=== PATIENT | female | born 1940 | race Caucasian/White ===

== ENCOUNTER 2021-04-23 19:06 | Inpatient (IN) | payer MEDICARE, SELFPAY ==
--- NOTE | ~2021-04-23 | XR_ITS ---
EXAMINATION: XR CHEST CLINICAL INFORMATION: Weakness COMPARISON: 08/17/2018 TECHNIQUE: Frontal view of the chest was obtained. FINDINGS: Right lower lobe opacity consistent with infiltrate. Likely small area of infiltrate left midlung laterally. Patchy change may be present in the right upper lung. Left hemidiaphragm is not adequately seen. Cannot exclude trace effusion. The cardiac silhouette is comparable. XR/XR chest 1V IMPRESSION: Bilateral opacities most consistent with infiltrate. Given the appearance element of patchy pulmonary edema would be a consideration
--- NOTE | 2021-04-23 19:24 | ECG_ITS ---
Test Reason : medical Blood Pressure : / mmHG Vent. Rate : 060 BPM Atrial Rate : 150 BPM P-R Int : 238 ms QRS Dur : 078 ms QT Int : 482 ms P-R-T Axes : 057 -09 010 degrees QTc Int : 482 ms Normal sinus rhythm with 1st degree A-V block Abnormal ECG When compared with ECG of 17-AUG-2018 15:01, No significant changes seen Referred By: Heidi Martinez Electronically Signed By:ARY ARGUELLES
[2021-04-23 19:32] VITALS: BP 101/39; BP 108/80; PULSE 54; PULSE 61; RESP 18; TEMP 36.5; O2SAT 96; BMI 34.6
--- NOTE | 2021-04-23 19:40 | ED.GENADULT ---
HPI - General Adult General Chief complaint: General Medical <ALLEGRA Stauffer - Last Filed: 04/23/21 21:08> Stated complaint: WEAKNESS, FTT <ALLEGRA Stauffer - Last Filed: 04/23/21 21:08> Time Seen by Provider: 04/23/21 19:23 <ALLEGRA Stauffer - Last Filed: 04/23/21 21:08> Source: patient, EMS, RN notes reviewed and old records reviewed <ALLEGRA Stauffer - Last Filed: 04/23/21 21:08> Mode of arrival: EMS <ALLEGRA Stauffer - Last Filed: 04/23/21 21:08> Limitations: no limitations <ALLEGRA Stauffer Last Filed: 04/23/21 21:08> History of Present Illness HPI narrative: 80-year-old female with history of AFib on Xarelto & amiodarone, hypertension, diabetes, osteoarthritis s/p right total knee replacement, HLD, hypothyroidism who presents to the ED via EMS from [facility] with lethargy, generalized weakness and poor PO intake for the last 3-4 days. Patient reports not feeling well lately but cannot elaborate. She denies abdominal pain, nausea, vomiting or diarrhea but admits to not eating or drinking much of anything for days because she has had no appetite. She denies fever, chills, shortness of breath or chest pain. She is fully vaccinated for COVID with Pfizer including the booster which she received on 04/15/21. She reports being bedbound chronically and has been at [facility] for the last 1 year. On EMS arrival patient was hypotensive with SBP 89 and HR 50. By the time she was brought to the ambulance her VS normalized. IV was established and she was given 250 cc en route. DNR/DNI. <ALLEGRA Stauffer - Last Filed: 04/23/21 21:08> MD complaint: generalized weakness <ALLEGRA Stauffer - Last Filed: 04/23/21 21:08> Onset (ago): day(s) (4) <ALLEGRA Stauffer Last Filed: 04/23/21 21:08> Severity: moderate <ALLEGRA Stauffer Last Filed: 04/23/21 21:08> Pain Consistency: constant <ALLEGRA Stauffer - Last Filed: 04/23/21 21:08> Relieving factors: none <ALLEGRA Stauffer - Last Filed: 04/23/21 21:08> Exacerbating factors: none <ALLEGRA Stauffer - Last Filed: 04/23/21 21:08> Associated symptoms: loss of appetite, malaise and weakness <ALLEGRA Stauffer - Last Filed: 04/23/21 21:08> Treatments prior to arrival: other (IV fluids) <ALLEGRA Stauffer - Last Filed: 04/23/21 21:08> Related Data Allergies/adverse reactions: Allergies Allergy/AdvReac Type Severity Reaction Status Date / Time moxifloxacin [Avelox] Allergy Unknown rash Verified 12/24/12 00:00 From AVELOX Allergy Unknown BLOTCHES Uncoded 12/25/19 16:19 ALL OVER FACE <ALLEGRA Stauffer - Last Filed: 04/23/21 21:08> Review of Systems Review of Systems: Constitutional: No Fever, No Chills ENT/Mouth: No sore throat, No Rhinorrhea, No Swallowing Difficulty Cardiovascular: No Chest Pain, No SOB, No Orthopnea, No Edema Respiratory: No Cough, No Sputum, No Wheezing, No dyspnea Gastrointestinal: No Nausea, No Vomiting, No Diarrhea, No abdominal Pain Genitourinary: No Dysuria, No Urinary Frequency, No Hematuria Musculoskeletal: No joint pain, No Myalgias Skin: No Skin Lesions, No rash Neuro: + Weakness, No Numbness, No Dizziness, No Headache Psych: No Anxiety/Panic, No Depression Heme/Lymph: No Bruising, No Lymphadenopathy Endocrine: No Polyuria, No Polydipsia <ALLEGRA Stauffer Last Filed: 04/23/21 21:08> [facility] Past Medical History Medical History: Medical History (Updated 04/23/21 @ 22:04 by Magdaleno Soares MD) Chronic atrial fibrillation, unspecified History of falling Hyperlipidemia, unspecified Hypothyroidism, unspecified Localized edema detention (current) use of anticoagulants Nonrheumatic aortic (valve) stenosis Repeated falls Type 2 diabetes mellitus without complications Unspecified glaucoma Unspecified osteoarthritis, unspecified site <ALLEGRA Stauffer - Last Filed: 04/23/21 21:08> Surgical History: Surgical History (Updated 04/23/21 @ 19:37 by Charisse Mahajan RN) Presence of artificial knee joint, bilateral <ALLEGRA Stauffer - Last Filed: 04/23/21 21:08> Social History Social History: Social History Advance Directives: No Advance Directives Information Provided: Yes <ALLEGRA Stauffer - Last Filed: 04/23/21 21:08> Physical Exam Vital Signs: Vital Signs: Last Vital Signs Temp 97.6 F 04/23/21 21:27 Pulse 56 04/23/21 21:27 Resp 18 04/23/21 21:27 BP 112/49 L 04/23/21 21: Pulse Ox 98 04/23/21 21:27 BMI result Body Mass Index 34.6 <ALLEGRA Stauffer - Last Filed: 04/23/21 21:08> Vital Signs: Last Vital Signs Temp 97.6 F 04/23/21 21:27 Pulse 56 04/23/21 21:27 Resp 18 04/23/21 21:27 BP 112/49 L 04/23/21 21:27 Pulse Ox 98 04/23/21 21:27 BMI result Body Mass Index 34.6 <Magdaleno Soares MD - Last Filed: 04/23/21 22:05> Appearance: Alert elderly female laying in the stretcher. No acute distress. Eyes: Pupils equal, round and reactive to light. ENT: Pharynx normal. Neck: Normal inspection. Neck supple. CVS: Bradycardic, irregularly irregular. +4/6 systolic murmur Pulses normal. Respiratory: No respiratory distress. Breath sounds normal. Abdomen: Soft and nontender. +BS x4 Skin: Skin warm and dry. Normal skin color. Normal skin turgor. No rashes. Extremities: LE externally rotated, trace LE edema bilaterally. nontender, no calf tenderness. Neuro: Oriented X 2 (reported Mar 2021). LE weakenss, unable to lift off the bed at all, can wiggle toes only.. Generalized weakness noted, strength equal and symmetrical in bilateral UE. <ALLEGRA Stauffer - Last Filed: 04/23/21 21:08> Course Course Course Narrative: 80 y/o female with history of afib on Xarelto and amiodarone, HTN, HLD, DM, hypothyroidism who presents to ED from SNF with generalized weakness, lethargy and decreased PO intake x3-4 days. Initially hypotensive and bradycardic for EMS that self-resovled. She was placed on 2L NC at [facility] but no documentation of hypoxia. On arrival SpO2 90% on room air without any respiratory complaints. Afebrile with HR 50s and BP 101/39. She is weak but oriented and appropriate. Will get metabolic workup, EKG and rule out infection. <ALLEGRA Stauffer - Last Filed: 04/23/21 21:08> Reevaluation(s) Reevaluation #1: Signed out to Dr. Soares who will assume care. <ALLEGRA Stauffer - Last Filed: 04/23/21 21:08> Time: 21:51 <Magdaleno Soares MD - Last Filed: 04/23/21 22:05> Reevaluation #2: I assumed care of this patient from my colleague, physician human services assistant Heidi Martinez at 9:00 p.m., pending the patient's workup. I did talk to the patient and evaluate her. She does have rales at the bases underlying examined has trace pitting edema, she is awake and oriented a lacks insight as to why she is here in the emergency department. Labs revealed an elevated BNP of 1786. D-dimer was below detectable limits. BUN and creatinine were 24 and 0.68 which is normal. COVID-19 was negative. Chest x-ray was reviewed by me and read by the radiologist as bilateral lower lobe infiltrates and cardiomegaly consistent with pulmonary edema. In reviewing her record I do not see that she is on any diarrhea diuretics, she does have aortic stenosis therefore she will be gently diuresed with Lasix 40 mg IV. The patient's urinalysis was positive for nitrates. Microscopic evaluation revealed only 1-4 WBCs with 4+ bacteria. The patient will be treated with ceftriaxone 1 g IV for possible urinary tract infection as the cause of her decreased p.o. and lethargy for the past 3-4 days. Patient did have episodes of hypoxia but this is secondary to her CHF in this improved with 2 L of oxygen via nasal cannula. I did discuss the patient's presentation with the covering hospitalist the patient will be admitted for further management. I did contact the patient's niece, Paz Chen who was listed as the primary contact and informed her of the patient's admission and workup to date. <Magdaleno Soares MD - Last Filed: 04/23/21 22:05> Medical Decision Making Lab Data Result diagrams: : 04/23/21 19:42 04/23/21 19:42 <ALLEGRA Stauffer - Last Filed: 04/23/21 21:08> Labs: Lab Results 04/23/21 04/23/21 04/23/21 Range/Units 19:42 19:42 19:42 WBC 7.4 (4.8-10.8) X10*3/uL RBC 3.40 L (4.20-5.50) X10*6/uL Hgb 9.1 L (12.0-16.0) g/dl Hct 31.5 L (37.0-47.0) % MCV 92.6 (80.0-98.0) fL MCH 26.8 L (27.0-33.0) pg MCHC 28.9 L (31.0-35.0) g/dl RDW 15.2 (11.0-16.0) % Plt Count 280 (160-400) X10*3/uL MPV 9.1 L (9.4-12.3) fL Immature Gran % (Auto) 0.3 (0.0-0.4) % Neut % (Auto) 76.8 H (45-73) % Lymph % (Auto) 14.6 L (20-40) % Coal % (Auto) 7.8 (2-11) % Eos % (Auto) 0.0 (0-4) % Baso % (Auto) 0.5 (0-2) % Lymph # (Auto) 1.1 L (1.2-4.9) X10*3/uL Coal # (Auto) 0.6 (0.1-1.2) X10*3/uL Eos # (Auto) 0.0 (0.0-0.4) X10*3/uL Baso # (Auto) 0.0 (0.0-0.2) X10*3/uL Abs Immat Gran (auto) 0.02 (0.00-0.03) X10*3/uL Absolute Neuts (auto) 5.7 (2.0-8.3) x10*3/uL Absolute Nucleated RBC 0.000 (0.0-0.012) X10*3/uL Nucleated RBC % (auto) 0.0 (0.0-0.2) /100WBC Sodium 140 (135-145) mmol/L Potassium 4.0 (3.3-5.1) mmol/L Chloride 106 (96-108) mmol/L Carbon Dioxide 24 (22-29) mmol/L Anion Gap 14 (12-20) BUN 24 H (9-16) mg/dL Creatinine 0.68 (0.5-1.4) mg/dL Estim Creat Clear Calc 63.0 Estimated GFR > 60 Random Glucose 167 H (60-115) mg/dL Calcium 8.1 L (8.4-10.2) mg/dL Magnesium 2.2 (1.6-2.6) mg/dL Total Bilirubin 0.4 (0.0-1.0) mg/dL Direct Bilirubin 0.2 (0.0-0.5) mg/dL AST 15 (5-31) U/L ALT 6 (0-31) U/L Alkaline Phosphatase 58 (39-117) U/L Troponin I High Sens (<3.5-17.0) ng/L B-Natriuretic Peptide (<100) pg/mL Total Protein 6.3 L (6.5-8.0) g/dL Albumin 2.8 L (3.5-5.0) g/dL TSH Urine Color Urine Appearance Urine pH (5.0-8.0) Ur Specific Bronson (1.005-1.025) Urine Protein (NEG-TRACE) MG/DL Urine Glucose (UA) (NEG) MG/DL Urine Ketones (NEG) MG/DL Urine Blood (NEG) Urine Nitrite (NEG) Ur Leukocyte Esterase (NEG) Urine RBC (0) /HPF Urine WBC (0-4) /HPF Ur Squamous Epith Cells /LPF Ur Renal Epithelial Cell /LPF Uric Acid Crystals /LPF Amorphous Sediment /LPF Urine Bacteria /LPF Urine Mucus /LPF COVID-19 (HONG) Negative (Negative) COVID-19 Clin Com See Note 04/23/21 04/23/21 04/23/21 Range/Units 19:42 21:11 21:11 WBC (4.8-10.8) X10*3/uL RBC (4.20-5.50) X10*6/uL Hgb (12.0-16.0) g/dl Hct (37.0-47.0) % MCV (80.0-98.0) fL MCH (27.0-33.0) pg MCHC (31.0-35.0) g/dl RDW (11.0-16.0) % Plt Count (160-400) X10*3/uL MPV (9.4-12.3) fL Immature Gran % (Auto) (0.0-0.4) % Neut % (Auto) (45-73) % Lymph % (Auto) (20-40) % Coal % (Auto) (2-11) % Eos % (Auto) (0-4) % Baso % (Auto) (0-2) % Lymph # (Auto) (1.2-4.9) X10*3/uL Coal # (Auto) (0.1-1.2) X10*3/uL Eos # (Auto) (0.0-0.4) X10*3/uL Baso # (Auto) (0.0-0.2) X10*3/uL Abs Immat Gran (auto) (0.00-0.03) X10*3/uL Absolute Neuts (auto) (2.0-8.3) x10*3/uL Absolute Nucleated RBC (0.0-0.012) X10*3/uL Nucleated RBC % (auto) (0.0-0.2) /100WBC Sodium (135-145) mmol/L Potassium (3.3-5.1) mmol/L Chloride (96-108) mmol/L Carbon Dioxide (22-29) mmol/L Anion Gap (12-20) BUN (9-16) mg/dL Creatinine (0.5-1.4) mg/dL Estim Creat Clear Calc Estimated GFR Random Glucose (60-115) mg/dL Calcium (8.4-10.2) mg/dL Magnesium (1.6-2.6) mg/dL Total Bilirubin (0.0-1.0) mg/dL Direct Bilirubin (0.0-0.5) mg/dL AST (5-31) U/L ALT (0-31) U/L Alkaline Phosphatase (39-117) U/L Troponin I High Sens 14.1 (<3.5-17.0) ng/L B-Natriuretic Peptide 1786 H (<100) pg/mL Total Protein (6.5-8.0) g/dL Albumin (3.5-5.0) g/dL TSH Cancelled Urine Color DK YELLOW Urine Appearance CLOUDY Urine pH 5.5 (5.0-8.0) Ur Specific Bronson >= 1.030 H (1.005-1.025) Urine Protein TRACE (NEG-TRACE) MG/DL Urine Glucose (UA) NEG (NEG) MG/DL Urine Ketones 5 (NEG) MG/DL Urine Blood NEG (NEG) Urine Nitrite POS H (NEG) Ur Leukocyte Esterase NEG (NEG) Urine RBC 1-4 (0) /HPF Urine WBC 1-4 (0-4) /HPF Ur Squamous Epith Cells 1+ /LPF Ur Renal Epithelial Cell TRACE /LPF Uric Acid Crystals 1+ /LPF Amorphous Sediment TRACE /LPF Urine Bacteria 4+ /LPF Urine Mucus 2+ /LPF COVID-19 (HONG) (Negative) COVID-19 Clin Com 04/23/21 Range/Units 21:13 WBC (4.8-10.8) X10*3/uL RBC (4.20-5.50) X10*6/uL Hgb (12.0-16.0) g/dl Hct (37.0-47.0) % MCV (80.0-98.0) fL MCH (27.0-33.0) pg MCHC (31.0-35.0) g/dl RDW (11.0-16.0) % Plt Count (160-400) X10*3/uL MPV (9.4-12.3) fL Immature Gran % (Auto) (0.0-0.4) % Neut % (Auto) (45-73) % Lymph % (Auto) (20-40) % Coal % (Auto) (2-11) % Eos % (Auto) (0-4) % Baso % (Auto) (0-2) % Lymph # (Auto) (1.2-4.9) X10*3/uL Coal # (Auto) (0.1-1.2) X10*3/uL Eos # (Auto) (0.0-0.4) X10*3/uL Baso # (Auto) (0.0-0.2) X10*3/uL Abs Immat Gran (auto) (0.00-0.03) X10*3/uL Absolute Neuts (auto) (2.0-8.3) x10*3/uL Absolute Nucleated RBC (0.0-0.012) X10*3/uL Nucleated RBC % (auto) (0.0-0.2) /100WBC Sodium (135-145) mmol/L Potassium (3.3-5.1) mmol/L Chloride (96-108) mmol/L Carbon Dioxide (22-29) mmol/L Anion Gap (12-20) BUN (9-16) mg/dL Creatinine (0.5-1.4) mg/dL Estim Creat Clear Calc Estimated GFR Random Glucose (60-115) mg/dL Calcium (8.4-10.2) mg/dL Magnesium (1.6-2.6) mg/dL Total Bilirubin (0.0-1.0) mg/dL Direct Bilirubin (0.0-0.5) mg/dL AST (5-31) U/L ALT (0-31) U/L Alkaline Phosphatase (39-117) U/L Troponin I High Sens 10.6 (<3.5-17.0) ng/L B-Natriuretic Peptide (<100) pg/mL Total Protein (6.5-8.0) g/dL Albumin (3.5-5.0) g/dL TSH Urine Color Urine Appearance Urine pH (5.0-8.0) Ur Specific Bronson (1.005-1.025) Urine Protein (NEG-TRACE) MG/DL Urine Glucose (UA) (NEG) MG/DL Urine Ketones (NEG) MG/DL Urine Blood (NEG) Urine Nitrite (NEG) Ur Leukocyte Esterase (NEG) Urine RBC (0) /HPF Urine WBC (0-4) /HPF Ur Squamous Epith Cells /LPF Ur Renal Epithelial Cell /LPF Uric Acid Crystals /LPF Amorphous Sediment /LPF Urine Bacteria /LPF Urine Mucus /LPF COVID-19 (HONG) (Negative) COVID-19 Clin Com <ALLEGRA Stauffer - Last Filed: 04/23/21 21:08> Lab Results 04/23/21 04/23/21 04/23/21 Range/Units 19:42 19:42 19:42 WBC 7.4 (4.8-10.8) X10*3/uL RBC 3.40 L (4.20-5.50) X10*6/uL Hgb 9.1 L (12.0-16.0) g/dl Hct 31.5 L (37.0-47.0) % MCV 92.6 (80.0-98.0) fL MCH 26.8 L (27.0-33.0) pg MCHC 28.9 L (31.0-35.0) g/dl RDW 15.2 (11.0-16.0) % Plt Count 280 (160-400) X10*3/uL MPV 9.1 L (9.4-12.3) fL Immature Gran % (Auto) 0.3 (0.0-0.4) % Neut % (Auto) 76.8 H (45-73) % Lymph % (Auto) 14.6 L (20-40) % Coal % (Auto) 7.8 (2-11) % Eos % (Auto) 0.0 (0-4) % Baso % (Auto) 0.5 (0-2) % Lymph # (Auto) 1.1 L (1.2-4.9) X10*3/uL Coal # (Auto) 0.6 (0.1-1.2) X10*3/uL Eos # (Auto) 0.0 (0.0-0.4) X10*3/uL Baso # (Auto) 0.0 (0.0-0.2) X10*3/uL Abs Immat Gran (auto) 0.02 (0.00-0.03) X10*3/uL Absolute Neuts (auto) 5.7 (2.0-8.3) x10*3/uL Absolute Nucleated RBC 0.000 (0.0-0.012) X10*3/uL Nucleated RBC % (auto) 0.0 (0.0-0.2) /100WBC Sodium 140 (135-145) mmol/L Potassium 4.0 (3.3-5.1) mmol/L Chloride 106 (96-108) mmol/L Carbon Dioxide 24 (22-29) mmol/L Anion Gap 14 (12-20) BUN 24 H (9-16) mg/dL Creatinine 0.68 (0.5-1.4) mg/dL Estim Creat Clear Calc 63.0 Estimated GFR > 60 Random Glucose 167 H (60-115) mg/dL Calcium 8.1 L (8.4-10.2) mg/dL Magnesium 2.2 (1.6-2.6) mg/dL Total Bilirubin 0.4 (0.0-1.0) mg/dL Direct Bilirubin 0.2 (0.0-0.5) mg/dL AST 15 (5-31) U/L ALT 6 (0-31) U/L Alkaline Phosphatase 58 (39-117) U/L Troponin I High Sens (<3.5-17.0) ng/L B-Natriuretic Peptide (<100) pg/mL Total Protein 6.3 L (6.5-8.0) g/dL Albumin 2.8 L (3.5-5.0) g/dL TSH Urine Color Urine Appearance Urine pH (5.0-8.0) Ur Specific Bronson (1.005-1.025) Urine Protein (NEG-TRACE) MG/DL Urine Glucose (UA) (NEG) MG/DL Urine Ketones (NEG) MG/DL Urine Blood (NEG) Urine Nitrite (NEG) Ur Leukocyte Esterase (NEG) Urine RBC (0) /HPF Urine WBC (0-4) /HPF Ur Squamous Epith Cells /LPF Ur Renal Epithelial Cell /LPF Uric Acid Crystals /LPF Amorphous Sediment /LPF Urine Bacteria /LPF Urine Mucus /LPF COVID-19 (HONG) Negative (Negative) COVID-19 Clin Com See Note 04/23/21 04/23/21 04/23/21 Range/Units 19:42 21:11 21:11 WBC (4.8-10.8) X10*3/uL RBC (4.20-5.50) X10*6/uL Hgb (12.0-16.0) g/dl Hct (37.0-47.0) % MCV (80.0-98.0) fL MCH (27.0-33.0) pg MCHC (31.0-35.0) g/dl RDW (11.0-16.0) % Plt Count (160-400) X10*3/uL MPV (9.4-12.3) fL Immature Gran % (Auto) (0.0-0.4) % Neut % (Auto) (45-73) % Lymph % (Auto) (20-40) % Coal % (Auto) (2-11) % Eos % (Auto) (0-4) % Baso % (Auto) (0-2) % Lymph # (Auto) (1.2-4.9) X10*3/uL Coal # (Auto) (0.1-1.2) X10*3/uL Eos # (Auto) (0.0-0.4) X10*3/uL Baso # (Auto) (0.0-0.2) X10*3/uL Abs Immat Gran (auto) (0.00-0.03) X10*3/uL Absolute Neuts (auto) (2.0-8.3) x10*3/uL Absolute Nucleated RBC (0.0-0.012) X10*3/uL Nucleated RBC % (auto) (0.0-0.2) /100WBC Sodium (135-145) mmol/L Potassium (3.3-5.1) mmol/L Chloride (96-108) mmol/L Carbon Dioxide (22-29) mmol/L Anion Gap (12-20) BUN (9-16) mg/dL Creatinine (0.5-1.4) mg/dL Estim Creat Clear Calc Estimated GFR Random Glucose (60-115) mg/dL Calcium (8.4-10.2) mg/dL Magnesium (1.6-2.6) mg/dL Total Bilirubin (0.0-1.0) mg/dL Direct Bilirubin (0.0-0.5) mg/dL AST (5-31) U/L ALT (0-31) U/L Alkaline Phosphatase (39-117) U/L Troponin I High Sens 14.1 (<3.5-17.0) ng/L B-Natriuretic Peptide 1786 H (<100) pg/mL Total Protein (6.5-8.0) g/dL Albumin (3.5-5.0) g/dL TSH Cancelled Urine Color DK YELLOW Urine Appearance CLOUDY Urine pH 5.5 (5.0-8.0) Ur Specific Bronson >= 1.030 H (1.005-1.025) Urine Protein TRACE (NEG-TRACE) MG/DL Urine Glucose (UA) NEG (NEG) MG/DL Urine Ketones 5 (NEG) MG/DL Urine Blood NEG (NEG) Urine Nitrite POS H (NEG) Ur Leukocyte Esterase NEG (NEG) Urine RBC 1-4 (0) /HPF Urine WBC 1-4 (0-4) /HPF Ur Squamous Epith Cells 1+ /LPF Ur Renal Epithelial Cell TRACE /LPF Uric Acid Crystals 1+ /LPF Amorphous Sediment TRACE /LPF Urine Bacteria 4+ /LPF Urine Mucus 2+ /LPF COVID-19 (HONG) (Negative) COVID-19 Clin Com 04/23/21 Range/Units 21:13 WBC (4.8-10.8) X10*3/uL RBC (4.20-5.50) X10*6/uL Hgb (12.0-16.0) g/dl Hct (37.0-47.0) % MCV (80.0-98.0) fL MCH (27.0-33.0) pg MCHC (31.0-35.0) g/dl RDW (11.0-16.0) % Plt Count (160-400) X10*3/uL MPV (9.4-12.3) fL Immature Gran % (Auto) (0.0-0.4) % Neut % (Auto) (45-73) % Lymph % (Auto) (20-40) % Coal % (Auto) (2-11) % Eos % (Auto) (0-4) % Baso % (Auto) (0-2) % Lymph # (Auto) (1.2-4.9) X10*3/uL Coal # (Auto) (0.1-1.2) X10*3/uL Eos # (Auto) (0.0-0.4) X10*3/uL Baso # (Auto) (0.0-0.2) X10*3/uL Abs Immat Gran (auto) (0.00-0.03) X10*3/uL Absolute Neuts (auto) (2.0-8.3) x10*3/uL Absolute Nucleated RBC (0.0-0.012) X10*3/uL Nucleated RBC % (auto) (0.0-0.2) /100WBC Sodium (135-145) mmol/L Potassium (3.3-5.1) mmol/L Chloride (96-108) mmol/L Carbon Dioxide (22-29) mmol/L Anion Gap (12-20) BUN (9-16) mg/dL Creatinine (0.5-1.4) mg/dL Estim Creat Clear Calc Estimated GFR Random Glucose (60-115) mg/dL Calcium (8.4-10.2) mg/dL Magnesium (1.6-2.6) mg/dL Total Bilirubin (0.0-1.0) mg/dL Direct Bilirubin (0.0-0.5) mg/dL AST (5-31) U/L ALT (0-31) U/L Alkaline Phosphatase (39-117) U/L Troponin I High Sens 10.6 (<3.5-17.0) ng/L B-Natriuretic Peptide (<100) pg/mL Total Protein (6.5-8.0) g/dL Albumin (3.5-5.0) g/dL TSH Urine Color Urine Appearance Urine pH (5.0-8.0) Ur Specific Bronson (1.005-1.025) Urine Protein (NEG-TRACE) MG/DL Urine Glucose (UA) (NEG) MG/DL Urine Ketones (NEG) MG/DL Urine Blood (NEG) Urine Nitrite (NEG) Ur Leukocyte Esterase (NEG) Urine RBC (0) /HPF Urine WBC (0-4) /HPF Ur Squamous Epith Cells /LPF Ur Renal Epithelial Cell /LPF Uric Acid Crystals /LPF Amorphous Sediment /LPF Urine Bacteria /LPF Urine Mucus /LPF COVID-19 (HONG) (Negative) COVID-19 Clin Com <Magdaleno Soares MD - Last Filed: 04/23/21 22:05> ECG Data Attestation: I personally reviewed and interpreted this ECG as follows: <ALLEGRA Stauffer - Last Filed: 04/23/21 21:08> Interpretation: HR 60 bpm, sinus rhythm with p waves seen, prolonged OR interval consistent with 1st degree AV block, no ST segment elevation or depression <ALLEGRA Stauffer - Last Filed: 04/23/21 21:08> Discharge Plan Discharge Patient Disposition: Admitted As Inpatient <ALLEGRA Stauffer - Last Filed: 04/23/21 21:08>
--- NOTE | 2021-04-23 19:45 | PC.NURSE ---
labs drawn, nasal swab obtained
[2021-04-23 20:03] LABS: MANUAL DIFF FLAG NO
[2021-04-23] MEDS: 0.9 % Sodium Chloride 1,000 ML 999 ML IVCONT (20:05)
[2021-04-23 20:08] LABS: Basophils Percent Auto 0.5 % (0-2); Hematocrit 31.5 % (37.0-47.0); Hemoglobin 9.1 g/dl (12.0-16.0); Imm Gran Abs Auto 0.02 X10*3/uL (0.00-0.03); Imm Gran Pct Auto 0.3 % (0.0-0.4); Lymphocytes Absolute Auto 1.1 X10*3/uL (1.2-4.9); Lymphocytes Percent Auto 14.6 % (20-40); Mean Corpuscular HGB Conc 28.9 g/dl (31.0-35.0); Mean Corpuscular Hemoglobin 26.8 pg (27.0-33.0); Mean Corpuscular Volume 92.6 fL (80.0-98.0); Mean Platelet Volume 9.1 fL (9.4-12.3); Monocytes Absolute Auto 0.6 X10*3/uL (0.1-1.2); Monocytes Percent Auto 7.8 % (2-11); Neutrophils Absolute Auto 5.7 x10*3/uL (2.0-8.3); Neutrophils Percent Auto 76.8 % (45-73); Platelet Count 280 X10*3/uL (160-400); Red Cell Distribution Width 15.2 % (11.0-16.0); White Blood Count 7.4 X10*3/uL (4.8-10.8)
[2021-04-23 20:27] LABS: COVID-19 Test Negative (Negative)
[2021-04-23 20:32] LABS: Alanine Aminotransferase 6 U/L (0-31); Albumin Level 2.8 g/dL (3.5-5.0); Alkaline Phosphatase 58 U/L (39-117); Anion Gap 14 (12-20); Aspartate Amino Transferase 15 U/L (5-31); Bilirubin Direct 0.2 mg/dL (0.0-0.5); Bilirubin Total 0.4 mg/dL (0.0-1.0); Blood Urea Nitrogen 24 mg/dL (9-16); Calcium 8.1 mg/dL (8.4-10.2); Carbon Dioxide 24 mmol/L (22-29); Chloride 106 mmol/L (96-108); Estimated Glomerular Filt Rate > 60; Glucose Random 167 mg/dL (60-115); Magnesium 2.2 mg/dL (1.6-2.6); Sodium 140 mmol/L (135-145); Total Protein 6.3 g/dL (6.5-8.0)
[2021-04-23 20:36] LABS: B Type Natriuretic Peptide 1786 pg/mL (<100); Troponin-I High Sensitivity 14.1 ng/L (<3.5-17.0)
[2021-04-23 20:41] VITALS: BP 107/52; PULSE 56; RESP 16; TEMP 36.3; O2SAT 97
--- NOTE | 2021-04-23 21:15 | PC.NURSE ---
per request of the PA, pt did not have a straight cath, pt had a galeas cath placed. pts ivf were stopped early per provider request as well, pts o2 sat dropped to 89% on room air, pt was placed on 2L O2 nc- pt states she wears O2 at the facility at times.
[2021-04-23 21:21] LABS: Appearance Urine CLOUDY; Color Urine DK YELLOW; Glucose Urine UA NEG (NEG); Leukocyte Esterase Urine NEG (NEG); Nitrite Urine POS (NEG); PH 5.5 (5.0-8.0); Specific Gravity - Urine >= 1.030 (1.005-1.025); UACC Culture Trigger YES; Urine Blood NEG (NEG); Urine Ketones 5 MG/DL (NEG); Urine Protein TRACE MG/DL (NEG-TRACE)
[2021-04-23 21:27] VITALS: BP 112/49; PULSE 56; RESP 18; TEMP 36.4; O2SAT 89; O2SAT 98
[2021-04-23 21:34] LABS: Squamous Epithelial Cell Urine 1+ /LPF
[2021-04-23 21:35] LABS: Amorphous Sediment Urine TRACE /LPF; Bacteria Urine 4+ /LPF; Mucus Urine 2+ /LPF; Renal Epithelial Cells Urine TRACE /LPF; Uric Acid Crystals Urine 1+ /LPF
[2021-04-23 21:46] LABS: Troponin-I High Sensitivity 10.6 ng/L (<3.5-17.0)
[2021-04-23] MEDS: Furosemide 40 MG/4 ML VIAL IVPUSH (21:48)
--- NOTE | 2021-04-23 21:49 | PC.NURSE ---
pt medicated per order
[2021-04-23 22:09] LABS: TSH reflex Free T4 0.55 uIU/mL (0.32-4.0)
--- NOTE | 2021-04-23 22:26 | PM.IMHP ---
History of Present Illness Date of Service: 04/23/21 Chief Complaint: SOB 80-year-old female with past medical history of AFib, HLD, diabetes, hypothyroidism who comes in from assisted for increased lethargy as well as weakness and decreased oral intake. Patient was found to be hypoxic on room air with an O2 level of 90% at the assisted, while in the ED patient's O2 did drop to 88% on room air and therefore placed on 2 L of oxygen. Patient herself reports orthopnea, PND, generalized weakness, shortness of breath on minimal exertion, she reports lower extremity edema of unknown duration. She denies any chest pain, no palpitations, no cough, no sputum production, no abdominal pain nausea or vomiting, no diarrhea constipation, no urinary symptoms and no lower extremity edema. on arrival to the ED patient hemodynamically stable with no significant abnormal vitals except for the O2 of 80% Labs are significant WBC count of 7.4, hemoglobin of 9.1, hematocrit 31.5, BUN of 24, BNP of 1786, UA positive for nitrites and some WBC. Checks x-ray is showing bilateral opacities most consistent with infiltrate. Versus patchy pulmonary edema. Review of Systems Review of Systems: Yes all other systems are reviewed and are negative [facility] Medical History Chronic atrial fibrillation, unspecified History of falling Hyperlipidemia, unspecified Hypothyroidism, unspecified Localized edema [facility] (current) use of anticoagulants Nonrheumatic aortic (valve) stenosis Repeated falls Type 2 diabetes mellitus without complications Unspecified glaucoma Unspecified osteoarthritis, unspecified site Pertinent family history: no hx CAD Surgical History Presence of artificial knee joint, bilateral Social History (Updated 04/24/21 @ 07:09 by Kris James MD) Alcohol intake: never Patient Tobacco Use Status: Never used Tobacco Use of substances other than those prescribed or required for medical reasons: No Advance Directives: No Advance Directives Information Provided: Yes Meds Allergies Allergy/AdvReac Type Severity Reaction Status Date / Time moxifloxacin [Avelox] Allergy Unknown rash Verified 12/24/12 00:00 From [facility] Allergy Unknown BLOTCHES Uncoded 12/25/19 16:19 ALL OVER FACE Active Medications: Current Medications Pharmacy Consult (Consult Rx Perform Med Rec) 1 each MISCELLANE ONCE PRN PRN Reason: Consult order Home Medications Medication Instructions Recorded Confirmed Last Taken Type acetaminophen 325 mg tablet 650 mg PO BID PRN 04/23/21 04/23/21 04/23/21 History amiodarone 200 mg tablet 200 mg PO BID 04/23/21 04/23/21 Unknown History amiodarone 200 mg tablet 200 mg PO BID 04/23/21 04/23/21 04/23/21 History benzocaine 20 %-menthol 0.1 %-zinc ea MUCOUS MEMBRANE TID 04/23/21 Unknown History chloride 0.15 % mucosal gel (Orajel 3X Mouth Sores) bisacodyl 10 mg rectal suppository 10 mg MI DAILY PRN 04/23/21 04/23/21 Unknown History brimonidine 0.2 % eye drops 1 drp OPHTHALMIC (EYE) BID 04/23/21 04/23/21 Unknown History brimonidine 0.2 % eye drops 1 drp OPHTHALMIC (EYE) BID 04/23/21 04/23/21 04/23/21 History calcium carbonate 400 mg calcium 400 mg 04/23/21 Unknown History (1,000 mg) chewable tablet calcium carbonate 500 mg calcium 500 mg PO TID 04/23/21 04/23/21 Unknown History (1,250 mg) chewable tablet calcium carbonate 600 mg calcium 600 tab PO BEDTIME 04/23/21 04/23/21 Unknown History (1.5 gram) chewable tablet cholecalciferol (vitamin D3) 50 50 mcg PO DAILY 04/23/21 04/23/21 Unknown History mcg (2,000 unit) tablet cholecalciferol (vitamin D3) 50 50 mcg PO DAILY 04/23/21 04/23/21 04/23/21 History mcg (2,000 unit) tablet (Vitamin D3) docusate sodium 100 mg capsule 100 mg PO DAILY 04/23/21 04/23/21 Unknown History (Colace) docusate sodium 100 mg capsule 100 mg PO DAILY 04/23/21 04/23/21 04/23/21 History (Colace) dorzolamide 22.3 mg-timolol 6.8 1 drp OPHTHALMIC (EYE) BID 04/23/21 04/23/21 04/23/21 History mg/mL eye drops dorzolamide 22.3 mg-timolol 6.8 22.3 OPHTHALMIC (EYE) BID 04/23/21 Unknown History mg/mL eye drops ferrous sulfate 325 mg (65 mg 325 mg PO DAILY 04/23/21 04/23/21 Unknown History iron) tablet ferrous sulfate 325 mg (65 mg 325 mg PO DAILY 04/23/21 04/23/21 04/23/21 History iron) tablet gabapentin 100 mg capsule 200 cap PO TID 04/23/21 04/23/21 04/23/21 History gabapentin 100 mg tablet 100 mg PO TID 04/23/21 04/23/21 Unknown History latanoprost 0.005 % eye drops 1 drp OPHTHALMIC (EYE) DAILY 04/23/21 04/23/21 Unknown History latanoprost 0.005 % eye drops 1 drp OPHTHALMIC (EYE) DAILY 04/23/21 04/23/21 04/23/21 History levothyroxine 25 mcg tablet 25 mcg PO DAILY 04/23/21 04/23/21 Unknown History levothyroxine 25 mcg tablet 25 mcg PO DAILY 04/23/21 04/23/21 04/23/21 History loratadine 10 mg tablet 10 mg PO DAILY 04/23/21 04/23/21 04/23/21 History loratadine 10 mg tablet (Loradamed) 10 mg PO DAILY 04/23/21 04/23/21 Unknown History lovastatin 10 mg tablet 1 tab PO DAILY 04/23/21 04/23/21 04/23/21 History lovastatin 10 mg tablet 10 mg PO BEDTIME 04/23/21 04/23/21 Unknown History magnesium hydroxide 400 mg/5 mL 400 mg PO DAILY PRN 04/23/21 04/23/21 Unknown History oral suspension (Milk of Magnesia) melatonin 10 mg tablet 10 mg PO BEDTIME PRN 04/23/21 04/23/21 Unknown History melatonin 5 mg tablet 10 mg PO BEDTIME PRN 04/23/21 04/23/21 04/23/21 History metformin 500 mg tablet 500 mg PO BID 04/23/21 04/23/21 Unknown History metformin 500 mg tablet 500 mg PO BID 04/23/21 04/23/21 04/23/21 History mirtazapine 7.5 mg tablet 7.5 mg PO BEDTIME 04/23/21 04/23/21 Unknown History mirtazapine 7.5 mg tablet 7.5 mg PO BEDTIME 04/23/21 04/23/21 04/23/21 History polyethylene glycol 3350 17 17 g PO DAILY 04/23/21 04/23/21 04/23/21 History gram/dose oral powder (Miralax) rivaroxaban 20 mg tablet (Xarelto) 1 tab PO DAILY 04/23/21 04/23/21 04/23/21 History rivaroxaban 20 mg tablet (Xarelto) 20 mg PO DAILY 04/23/21 04/23/21 Unknown History sennosides 8.6 mg tablet (senna) 8.6 mg PO DAILY 04/23/21 04/23/21 Unknown History sennosides 8.6 mg tablet (senna) 17.2 mg PO DAILY 04/23/21 04/23/21 04/23/21 History tramadol 50 mg tablet 50 mg PO DAILY 04/23/21 04/23/21 Unknown History tramadol 50 mg tablet 50 mg PO DAILY 04/23/21 04/23/21 04/23/21 History tramadol 50 mg tablet 50 mg PO Q6H PRN 04/23/21 04/23/21 Unknown History tramadol 50 mg tablet 50 mg PO Q6H PRN 04/23/21 04/23/21 04/22/21 History vitamins A,C,V-kpsv-riejzq 14,320 1 cap PO BID 04/23/21 04/23/21 04/23/21 History unit-226 mg-200 unit capsule (PreserVision AREDS) vitamins A,C,U-rxql-rrdvyu 14,320 14,320 cap PO TID 04/23/21 04/23/21 Unknown History unit-226 mg-200 unit capsule (PreserVision AREDS) Physical Exam Vital Signs and Narrative: Vital Signs: Last Vital Signs Temp 97.6 F 04/23/21 21:27 Pulse 56 04/23/21 21:27 Resp 18 04/23/21 21:27 BP 112/49 L 04/23/21 21:27 Pulse Ox 98 04/23/21 21:27 BMI result Body Mass Index 34.6 Const: General: cooperative and no acute distress Orientation/consciousness: patient oriented x3 Eyes: General: appearance normal, both eyes and all related structures Pupils: Equal, round and reactive pupils present Resp: Other: Crackles bilaterally Effort & Inspection: normal respiratory effort Cardio: Rate: regular rate Rhythm: regular rhythm GI: Palpation (GI): Soft to palpation Auscultation: normal bowel sounds Skin: General skin exam: no rashes or lesions noted Neuro: General: patient oriented x3 Cranial nerves: Yes Equal, round and reactive pupils present Cognition (Neuro): normal cognition Extrem: Other: Has 1+ edema in lower extremities General: Yes normal to inspection Results Labs CBC and Chem 7: 04/23/21 19:42 04/23/21 19:42 Labs: Laboratory Results - last 24 hr 04/23/21 04/23/21 04/23/21 19:42 19:42 19:42 MCV 92.6 MCH 26.8 L MCHC 28.9 L RDW 15.2 Plt Count 280 MPV 9.1 L Immature Gran % (Auto) 0.3 Neut % (Auto) 76.8 H Lymph % (Auto) 14.6 L [place] % (Auto) 7.8 Eos % (Auto) 0.0 Baso % (Auto) 0.5 Lymph # (Auto) 1.1 L [place] # (Auto) 0.6 Eos # (Auto) 0.0 Baso # (Auto) 0.0 Abs Immat Gran (auto) 0.02 Absolute Neuts (auto) 5.7 Absolute Nucleated RBC 0.000 Nucleated RBC % (auto) 0.0 Anion Gap 14 Estim Creat Clear Calc 63.0 Estimated GFR > 60 Random Glucose 167 H Calcium 8.1 L Magnesium 2.2 Total Bilirubin 0.4 Direct Bilirubin 0.2 AST 15 ALT 6 Alkaline Phosphatase 58 Troponin I High Sens B-Natriuretic Peptide Total Protein 6.3 L Albumin 2.8 L TSH 0.55 Urine Color Urine Appearance Urine pH Ur Specific [place] Urine Protein Urine Glucose (UA) Urine Ketones Urine Blood Urine Nitrite Ur Leukocyte Esterase Urine RBC Urine WBC Ur Squamous Epith Cells Ur Renal Epithelial Cell Uric Acid Crystals Amorphous Sediment Urine Bacteria Urine Mucus COVID-19 (HONG) Negative COVID-19 Clin Com See Note 04/23/21 04/23/21 04/23/21 19:42 21:11 21:11 MCV MCH MCHC RDW Plt Count MPV Immature Gran % (Auto) Neut % (Auto) Lymph % (Auto) [place] % (Auto) Eos % (Auto) Baso % (Auto) Lymph # (Auto) [place] # (Auto) Eos # (Auto) Baso # (Auto) Abs Immat Gran (auto) Absolute Neuts (auto) Absolute Nucleated RBC Nucleated RBC % (auto) Anion Gap Estim Creat Clear Calc Estimated GFR Random Glucose Calcium Magnesium Total Bilirubin Direct Bilirubin AST ALT Alkaline Phosphatase Troponin I High Sens 14.1 B-Natriuretic Peptide 1786 H Total Protein Albumin TSH Cancelled Urine Color DK YELLOW Urine Appearance CLOUDY Urine pH 5.5 Ur Specific [place] >= 1.030 H Urine Protein TRACE Urine Glucose (UA) NEG Urine Ketones 5 Urine Blood NEG Urine Nitrite POS H Ur Leukocyte Esterase NEG Urine RBC 1-4 Urine WBC 1-4 Ur Squamous Epith Cells 1+ Ur Renal Epithelial Cell TRACE Uric Acid Crystals 1+ Amorphous Sediment TRACE Urine Bacteria 4+ Urine Mucus 2+ COVID-19 (HONG) COVID-19 [place] 04/23/21 21:13 MCV MCH MCHC RDW Plt Count MPV Immature Gran % (Auto) Neut % (Auto) Lymph % (Auto) [place] % (Auto) Eos % (Auto) Baso % (Auto) Lymph # (Auto) [place] # (Auto) Eos # (Auto) Baso # (Auto) Abs Immat Gran (auto) Absolute Neuts (auto) Absolute Nucleated RBC Nucleated RBC % (auto) Anion Gap Estim Creat Clear Calc Estimated GFR Random Glucose Calcium Magnesium Total Bilirubin Direct Bilirubin AST ALT Alkaline Phosphatase Troponin I High Sens 10.6 B-Natriuretic Peptide Total Protein Albumin TSH Urine Color Urine Appearance Urine pH Ur Specific [place] Urine Protein Urine Glucose (UA) Urine Ketones Urine Blood Urine Nitrite Ur Leukocyte Esterase Urine RBC Urine WBC Ur Squamous Epith Cells Ur Renal Epithelial Cell Uric Acid Crystals Amorphous Sediment Urine Bacteria Urine Mucus COVID-19 (HONG) COVID-19 [facility] Com Imaging Radiologist's Impressions: Impressions Chest X-Ray 04/23/21 19:52 IMPRESSION: Bilateral opacities most consistent with infiltrate. Given the appearance element of patchy pulmonary edema would be a consideration Assessment and Plan (1) CHF exacerbation: Status: Acute (2) Urinary tract infection: Qualifiers: Hematuria presence: without hematuria Urinary tract infection type: site unspecified Qualified Code(s): N39.0 - Urinary tract infection, site not specified Status: Acute (3) Acute respiratory failure with hypoxia: Status: Acute 80-year-old female with past medical history of CHF presents to the hospital with shortness of breath found to have an CHF exacerbation # acute hypoxic respiratory failure - CHF versus pneumonia - has lower extremity edema, orthopnea, PND, no leukocytosis, afebrile therefore less likely to be pneumonia - will treat heart failure as below - follow respiratory status # CHF exacerbation - has orthopnea, PND, lower extremity edema, and pulmonary congestion seen on chest x-ray - will start on Lasix, will obtain echocardiogram, consult Cardiology, low-sodium diet, daily weight, strict I&O # hypertension - stable - continue home medication # hypothyroidism - continue levothyroxine DVT prophylaxis: Continue Xarelto Quality Stroke Does the patient have a stroke diagnosis?: No VTE Prior VTE?: No VTE Risk Level:: Medical - moderate - high VTE Device Contraindication: Treatment Not Indicated VTE Drug Contraindication: N/A - Med Ordered
--- NOTE | 2021-04-23 22:56 | PHA.MEDREC ---
Pharmacy Consult ? Medication Reconciliation Pharmacy has completed the medication reconciliation.
[2021-04-23] MEDS: cefTRIAXone sodium 1 GM in 0.9 % Sodium Chloride 50 ML IV (23:10)
[2021-04-24] VITALS (9 sets, daily range): BP systolic 116–142; BP diastolic 6–60; PULSE 55–88; RESP 5–20; TEMP 36.3–36.9; O2SAT 95–100
[2021-04-24] MEDS: 0.9 % Sodium Chloride Flush 3 ML SYRINGE IVFLUSH ×3 (01:52→17:21)
--- NOTE | 2021-04-24 06:04 | PC.NURSE ---
PATIENT DRANK 240 ML ON MY SHIFT .
[2021-04-24 07:22] LABS: Glucose, Whole Blood 131 mg/dL (60-115)
[2021-04-24 07:47] LABS: Glucose, Whole Blood 141 mg/dL (60-115)
[2021-04-24 08:04] LABS: MANUAL DIFF FLAG NO
[2021-04-24 08:08] LABS: Basophils Percent Auto 0.4 % (0-2); Hematocrit 32.8 % (37.0-47.0); Hemoglobin 9.4 g/dl (12.0-16.0); Imm Gran Abs Auto 0.02 X10*3/uL (0.00-0.03); Imm Gran Pct Auto 0.3 % (0.0-0.4); Lymphocytes Percent Auto 13.7 % (20-40); Mean Corpuscular HGB Conc 28.7 g/dl (31.0-35.0); Mean Corpuscular Hemoglobin 26.6 pg (27.0-33.0); Mean Corpuscular Volume 92.7 fL (80.0-98.0); Mean Platelet Volume 8.8 fL (9.4-12.3); Monocytes Absolute Auto 0.5 X10*3/uL (0.1-1.2); Monocytes Percent Auto 6.8 % (2-11); Neutrophils Absolute Auto 5.6 x10*3/uL (2.0-8.3); Neutrophils Percent Auto 78.8 % (45-73); Platelet Count 299 X10*3/uL (160-400); Red Blood Count 3.54 X10*6/uL (4.20-5.50); Red Cell Distribution Width 15.1 % (11.0-16.0); White Blood Count 7.1 X10*3/uL (4.8-10.8)
[2021-04-24 08:23] LABS: Anion Gap 14 (12-20); Blood Urea Nitrogen 22 mg/dL (9-16); Calcium 8.3 mg/dL (8.4-10.2); Carbon Dioxide 25 mmol/L (22-29); Chloride 106 mmol/L (96-108); Estimated Glomerular Filt Rate > 60; Glucose Random 145 mg/dL (60-115); Potassium 3.7 mmol/L (3.3-5.1); Sodium 141 mmol/L (135-145)
--- NOTE | 2021-04-24 08:24 | HO.PM.IMPN ---
Subjective Subjective Date of Service: 04/24/21 Interval History: chf exceerbation Review of Systems Patient says that she has any shortness of breath from few days says her shortness of breath seems to be slightly better than she came with. Denies any chest pain or abdominal pain or nausea or vomiting. Physical Exam Vital Signs: Vital Signs: Last Vital Signs Temp 98.0 F 04/24/21 07:15 Pulse 72 04/24/21 07:15 Resp 16 04/24/21 07:15 BP 132/6 L 04/24/21 07:15 Pulse Ox 96 04/24/21 07:15 BMI result Body Mass Index 34.6 Physical exam: Appearance: Alert.? Oriented.? not in distress.? cvs: [id number], [id number] res: clear to auscultation ,no rhonchii or wheezing abd: no rebound or guarding ,nt, bs present. ext pulses present , no cyanosis, 2+ edema . neuro: nonfocal. Objective Data Active Medications Acetaminophen (Acetaminophen 325 Mg Tablet) 650 mg PO Q6H PRN PRN Reason: Pain, Mild (Pain Scale 1-3) Amiodarone HCl (Amiodarone Hcl 200 Mg Tablet) 200 mg PO BID RAI Bisacodyl (Bisacodyl 10 Mg Supp.Rect) 10 mg [place] DAILY PRN PRN Reason: Constipation Brimonidine Tartrate (Brimonidine Tartrate 0.2% Oph 5 Ml Bottle) 1 drop EYE-BOTH BID [facility] Calcium Carbonate (Calcium Carbonate 500 Mg Tablet) 500 mg PO TID [facility] Dextrose (Dextrose 50 % 25 Gm/50 Ml Syringe) 25 gm IVPUSH Q15M PRN; Protocol PRN Reason: per Hypoglycemia Standing Ord. Docusate Sodium (Docusate Sodium 100 Mg Capsule) 100 mg PO DAILY PRN PRN Reason: Constipation Docusate Sodium (Docusate Sodium 100 Mg Capsule) 100 mg PO DAILY [facility] Dorzolamide/Timolol (Dorzolamide/Timolo 2.23%/0.68% 10 Ml Drbtl) 1 drop EYE-BOTH BID [facility] Ferrous Sulfate (Ferrous Sulfate 324 Mg Tablet.Dr) 324 mg PO DAILY [facility] Furosemide (Furosemide 40 Mg/4 Ml Vial) 40 mg IVPUSH BID@0900,1800 [facility]; Protocol Gabapentin (Gabapentin 100 Mg Capsule) 200 mg PO TID [facility] Glucose (Glucose Gel 15 Gm Gel..Gram.) 15 gm PO Q15M PRN; Protocol PRN Reason: per Hypoglycemia Standing Ord. Ceftriaxone Sodium 1 gm/ (Sodium Chloride) 50 mls @ 100 mls/hr IV Q24H [facility] Insulin Human Lispro (Insulin Lispro 100 Unit/Ml 3 Ml Vial) 0 unit SUBCUT QIDACHS [facility]; Protocol Last Admin: 04/24/21 07:15 Dose: Not Given Documented by: JUAN JOSE Non-Admin Reason: No Insulin Coverage Latanoprost (Latanoprost 0.005 % Ophth Maryjane 2.5 Ml Drops) 1 drop EYE-BOTH DAILY [facility] Levothyroxine Sodium (Levothyroxine Sodium 25 Mcg Tablet) 25 mcg PO DAILY [facility] Loratadine (Loratadine 10 Mg Tablet) 10 mg PO DAILY [facility] Magnesium Hydroxide (Milk Of Magnesia 30 Ml Oral.Susp) 30 ml PO DAILY PRN PRN Reason: Constipation Melatonin (Melatonin 3 Mg Tablet) 9 mg PO BEDTIME PRN PRN Reason: Insomnia Mirtazapine (Mirtazapine 7.5 Mg Tablet) 7.5 mg PO BEDTIME [facility] Non-Formulary Medication (Vitamins A,C,L-Kdtk-Wjyovy [Preservision Areds]) 1 cap PO BID [facility] Ondansetron HCl (Ondansetron Hcl 4 Mg/2 Ml Vial) 4 mg IVPUSH Q8H PRN PRN Reason: Nausea and Vomiting Pharmacy Consult (Consult Rx Perform Med Rec) 1 each MISCELLANE ONCE PRN PRN Reason: Consult order Pravastatin Sodium (Pravastatin Sodium 10 Mg Tablet) 10 mg PO BEDTIME [facility] Rivaroxaban (Rivaroxaban 20 Mg Tablet) 20 mg PO DAILY@1700 [facility] Senna (Sennosides 8.6 Mg Tablet) 17.2 mg PO DAILY [facility] Sodium Chloride (0.9 % Sodium Chloride Flush 3 Ml Syringe) 3 ml IVFLUSH QSHIFT [facility] Last Admin: 04/24/21 07:13 Dose: 3 ml Documented by: JUAN JOSE Tramadol HCl (Tramadol Hcl 50 Mg Tablet) 50 mg PO DAILY [facility] Tramadol HCl (Tramadol Hcl 50 Mg Tablet) 50 mg PO Q6H PRN PRN Reason: Pain (Scale Score 7-10) Vitamin D (Cholecalciferol (Vitamin D3) 25 Mcg Tablet) 50 mcg PO DAILY [facility] Labs CBC & Chem 7: 04/24/21 07:35 04/24/21 07:35 Labs: Laboratory Results - last 24 hr 04/23/21 04/23/21 04/23/21 19:42 19:42 19:42 MCV 92.6 MCH 26.8 L MCHC 28.9 L RDW 15.2 Plt Count 280 MPV 9.1 L Immature Gran % (Auto) 0.3 Neut % (Auto) 76.8 H Lymph % (Auto) 14.6 L [place] % (Auto) 7.8 Eos % (Auto) 0.0 Baso % (Auto) 0.5 Lymph # (Auto) 1.1 L [place] # (Auto) 0.6 Eos # (Auto) 0.0 Baso # (Auto) 0.0 Abs Immat Gran (auto) 0.02 Absolute Neuts (auto) 5.7 Absolute Nucleated RBC 0.000 Nucleated RBC % (auto) 0.0 Anion Gap 14 Estim Creat Clear Calc 63.0 Estimated GFR > 60 POC Glucose Random Glucose 167 H Calcium 8.1 L Magnesium 2.2 Total Bilirubin 0.4 Direct Bilirubin 0.2 AST 15 ALT 6 Alkaline Phosphatase 58 Troponin I High Sens B-Natriuretic Peptide Total Protein 6.3 L Albumin 2.8 L TSH 0.55 Urine Color Urine Appearance Urine pH Ur Specific [place] Urine Protein Urine Glucose (UA) Urine Ketones Urine Blood Urine Nitrite Ur Leukocyte Esterase Urine RBC Urine WBC Ur Squamous Epith Cells Ur Renal Epithelial Cell Uric Acid Crystals Amorphous Sediment Urine Bacteria Urine Mucus COVID-19 ([facility]) Negative COVID-19 Clin Com See Note 04/23/21 04/23/21 04/23/21 19:42 21:11 21:11 MCV MCH MCHC RDW Plt Count MPV Immature Gran % (Auto) Neut % (Auto) Lymph % (Auto) [place] % (Auto) Eos % (Auto) Baso % (Auto) Lymph # (Auto) [place] # (Auto) Eos # (Auto) Baso # (Auto) Abs Immat Gran (auto) Absolute Neuts (auto) Absolute Nucleated RBC Nucleated RBC % (auto) Anion Gap Estim Creat Clear Calc Estimated GFR POC Glucose Random Glucose Calcium Magnesium Total Bilirubin Direct Bilirubin AST ALT Alkaline Phosphatase Troponin I High Sens 14.1 B-Natriuretic Peptide 1786 H Total Protein Albumin TSH Cancelled Urine Color DK YELLOW Urine Appearance CLOUDY Urine pH 5.5 Ur Specific [place] >= 1.030 H Urine Protein TRACE Urine Glucose (UA) NEG Urine Ketones 5 Urine Blood NEG Urine Nitrite POS H Ur Leukocyte Esterase NEG Urine RBC 1-4 Urine WBC 1-4 Ur Squamous Epith Cells 1+ Ur Renal Epithelial Cell TRACE Uric Acid Crystals 1+ Amorphous Sediment TRACE Urine Bacteria 4+ Urine Mucus 2+ COVID-19 ([facility]ONG) COVID-19 Clin Com 04/23/21 04/24/21 04/24/21 21:13 07:14 07:35 MCV 92.7 MCH 26.6 L MCHC 28.7 L RDW 15.1 Plt Count 299 MPV 8.8 L Immature Gran % (Auto) 0.3 Neut % (Auto) 78.8 H Lymph % (Auto) 13.7 L [place] % (Auto) 6.8 Eos % (Auto) 0.0 Baso % (Auto) 0.4 Lymph # (Auto) 1.0 L [place] # (Auto) 0.5 Eos # (Auto) 0.0 Baso # (Auto) 0.0 Abs Immat Gran (auto) 0.02 Absolute Neuts (auto) 5.6 Absolute Nucleated RBC 0.000 Nucleated RBC % (auto) 0.0 Anion Gap Estim Creat Clear Calc Estimated GFR POC Glucose 131 H Random Glucose Calcium Magnesium Total Bilirubin Direct Bilirubin AST ALT Alkaline Phosphatase Troponin I High Sens 10.6 B-Natriuretic Peptide Total Protein Albumin TSH Urine Color Urine Appearance Urine pH Ur Specific [place] Urine Protein Urine Glucose (UA) Urine Ketones Urine Blood Urine Nitrite Ur Leukocyte Esterase Urine RBC Urine WBC Ur Squamous Epith Cells Ur Renal Epithelial Cell Uric Acid Crystals Amorphous Sediment Urine Bacteria Urine Mucus COVID-19 ([facility]ONG) COVID-19 Clin Com 04/24/21 04/24/21 07:35 07:40 MCV MCH MCHC RDW Plt Count MPV Immature Gran % (Auto) Neut % (Auto) Lymph % (Auto) [place] % (Auto) Eos % (Auto) Baso % (Auto) Lymph # (Auto) [place] # (Auto) Eos # (Auto) Baso # (Auto) Abs Immat Gran (auto) Absolute Neuts (auto) Absolute Nucleated RBC Nucleated RBC % (auto) Anion Gap 14 Estim Creat Clear Calc 63.0 Estimated GFR > 60 POC Glucose 141 H Random Glucose 145 H Calcium 8.3 L Magnesium Total Bilirubin Direct Bilirubin AST ALT Alkaline Phosphatase Troponin I High Sens B-Natriuretic Peptide Total Protein Albumin TSH Urine Color Urine Appearance Urine pH Ur Specific [place] Urine Protein Urine Glucose (UA) Urine Ketones Urine Blood Urine Nitrite Ur Leukocyte Esterase Urine RBC Urine WBC Ur Squamous Epith Cells Ur Renal Epithelial Cell Uric Acid Crystals Amorphous Sediment Urine Bacteria Urine Mucus COVID-19 ([facility]) COVID-19 Clin Com Assessment and Plan (1) PAF (paroxysmal atrial fibrillation): Status: Acute (2) Acute congestive heart failure: Status: Acute Assessment and Plan: 80-year-old female with past medical history of CHF presents to the hospital with shortness of breath found to have an CHF exacerbation 1. acute hypoxic respiratory failure - CHF versus pneumonia -? has lower extremity edema, orthopnea, PND, no leukocytosis, afebrile therefore thought to be less likely to be pneumonia Continue IV lasix 2. CHF exacerbation: sob improving slightly -? has orthopnea, PND, lower extremity edema, and pulmonary congestion seen on chest x-ray -? will start on Lasix, echocardiogram, consult Cardiology, low-sodium diet, daily weight, strict I&O 3. chronic afib: adjusted amiodarone dosing, continue Xarelto seems hr fine continue to moniter 4.? hypertension -? stable -? continue home medication 5.? hypothyroidism -? continue levothyroxine 6. ? uti: uirne culture grew ecoli , blood cultures pending on ceftriaxone . ?DVT prophylaxis:? Continue Xarelto Quality Stroke Does the patient have a stroke diagnosis?: No VTE Prior VTE?: No VTE Risk Level:: Medical - moderate - high VTE Device Contraindication: Treatment Not Indicated VTE Drug Contraindication: N/A - Med Ordered
[2021-04-24] MEDS: Furosemide 40 MG/4 ML VIAL IVPUSH ×2 (09:47→17:15)
[2021-04-24] MEDS: Cholecalciferol (Vitamin D3) 25 MCG TABLET 50 MCG PO (09:48)
[2021-04-24] MEDS: traMADoL HCL 50 MG TABLET PO (09:49)
[2021-04-24] MEDS: Levothyroxine Sodium 25 MCG TABLET PO (09:49)
[2021-04-24] MEDS: Amiodarone HCL 200 MG TABLET PO (09:49)
[2021-04-24] MEDS: Loratadine 10 MG TABLET PO (09:49)
[2021-04-24] MEDS: Gabapentin 100 MG CAPSULE 200 MG PO ×3 (09:49→20:58)
[2021-04-24] MEDS: Ferrous Sulfate 324 MG TABLET.DR PO (09:49)
--- NOTE | 2021-04-24 11:02 | P.CONCA_ITS ---
History of Present Illness History of Present Illness Date of Service: 04/24/21 Chief complaint: CHF exacerbation, hypoxic Narrative: This is a cardiology consultation regarding possible shortness of breath. She has a history of atrial fibrillation, hyperlipidemia, diabetes and central residential for lethargy, weakness and decreased oral intake. Here she has been found to be hypoxic. There is also history of shortness of breath on exertion that has been fairly recent according to patient. She has also been having swelling in her lower extremities. However looking her, not clear if she actually does much at baseline. She is being treated for possible pulmonary edema. We have been asked to see her. Otherwise patient states that she does not have any known coronary disease myocardial infarction or cardiomyopathy or anything else. For the atrial fibrillation itself, she is on amiodarone and Xarelto as listed. 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 Review of Systems Review of Systems: Yes all other systems are reviewed and are negative Cardiovascular: Cardiovascular: Reports as per HPI, Reports no additional cardiovascular complaints, Denies acrocyanosis, Denies cool extremities, Denies painful fingertips, Denies chest pain, Denies chest pain at rest, Denies diaphoresis, Denies syncope, Denies irregular heart rhythm, Denies claudication, Reports leg edema, Denies lightheadedness, Denies palpitations and Reports d yspnea Respiratory: Respiratory: Reports dyspnea Neurologic: Denies syncope Endocrine: Endocrine: Denies palpitations PMF Past Medical History Medical History Chronic atrial fibrillation, unspecified History of falling Hyperlipidemia, unspecified Hypothyroidism, unspecified 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 Surgical History Surgical History Presence of artificial knee joint, bilateral Social History Social History (Updated 04/24/21 @ 07:09 by Kris James MD) Alcohol intake: never Patient Tobacco Use Status: Never used Tobacco Use of substances other than those prescribed or required for medical reasons: No Advance Directives: No Advance Directives Information Provided: Yes Meds Allergies Allergy/AdvReac Type Severity Reaction Status Date / Time moxifloxacin [Avelox] Allergy Unknown rash Verified 12/24/12 00:00 From [facility] Allergy Unknown BLOTCHES Uncoded 12/25/19 16:19 ALL OVER FACE Active Medications: Current Medications Acetaminophen (Acetaminophen 325 Mg Tablet) 650 mg PO Q6H PRN PRN Reason: Pain, Mild (Pain Scale 1-3) Amiodarone HCl (Amiodarone Hcl 200 Mg Tablet) 200 mg PO BID [facility] Last Admin: 04/24/21 09:49 Dose: 200 mg Documented by: Bisacodyl (Bisacodyl 10 Mg Supp.Rect) 10 mg [place] DAILY PRN PRN Reason: Constipation Brimonidine Tartrate (Brimonidine Tartrate 0.2% Oph 5 Ml Bottle) 1 drop EYE- BOTH BID [facility] Last Admin: 04/24/21 09:55 Dose: Not Given Documented by: Calcium Carbonate (Calcium Carbonate 500 Mg Tablet) 500 mg PO TID [facility] Last Admin: 04/24/21 09:49 Dose: Not Given Documented by: Dextrose (Dextrose 50 % 25 Gm/50 Ml Syringe) 25 gm IVPUSH Q15M PRN; Protocol PRN Reason: per Hypoglycemia Standing Ord. Docusate Sodium (Docusate Sodium 100 Mg Capsule) 100 mg PO DAILY PRN PRN Reason: Constipation Docusate Sodium (Docusate Sodium 100 Mg Capsule) 100 mg PO DAILY [facility] Last Admin: 04/24/21 09:48 Dose: Not Given Documented by: Dorzolamide/Timolol (Dorzolamide/Timolo 2.23%/0.68% 10 Ml Drbtl) 1 drop EYE- BOTH BID [facility] Last Admin: 04/24/21 09:48 Dose: Not Given Documented by: Ferrous Sulfate (Ferrous Sulfate 324 Mg Tablet.Dr) 324 mg PO DAILY [facility] Last Admin: 04/24/21 09:49 Dose: 324 mg Documented by: Furosemide (Furosemide 40 Mg/4 Ml Vial) 40 mg IVPUSH BID@0900,1800 [facility]; Protocol Last Admin: 04/24/21 09:47 Dose: 20 mg Documented by: Gabapentin (Gabapentin 100 Mg Capsule) 200 mg PO TID [facility] Last Admin: 04/24/21 09:49 Dose: 200 mg Documented by: Glucose (Glucose Gel 15 Gm Gel..Gram.) 15 gm PO Q15M PRN; Protocol PRN Reason: per Hypoglycemia Standing Ord. Ceftriaxone Sodium 1 gm/ (Sodium Chloride) 50 mls @ 100 mls/hr IV Q24H [facility] Insulin Human Lispro (Insulin Lispro 100 Unit/Ml 3 Ml Vial) 0 unit SUBCUT QIDACHS [facility]; Protocol Last Admin: 04/24/21 07:15 Dose: Not Given Documented by: Latanoprost (Latanoprost 0.005 % Ophth Maryjane 2.5 Ml Drops) 1 drop EYE-BOTH DAILY [facility] Last Admin: 04/24/21 09:48 Dose: Not Given Documented by: Levothyroxine Sodium (Levothyroxine Sodium 25 Mcg Tablet) 25 mcg PO DAILY [facility] Last Admin: 04/24/21 09:49 Dose: 25 mcg Documented by: Loratadine (Loratadine 10 Mg Tablet) 10 mg PO DAILY [facility] Last Admin: 04/24/21 09:49 Dose: 10 mg Documented by: Magnesium Hydroxide (Milk Of Magnesia 30 Ml Oral.Susp) 30 ml PO DAILY PRN PRN Reason: Constipation Melatonin (Melatonin 3 Mg Tablet) 9 mg PO BEDTIME PRN PRN Reason: Insomnia Mirtazapine (Mirtazapine 7.5 Mg Tablet) 7.5 mg PO BEDTIME [facility] Ondansetron HCl (Ondansetron Hcl 4 Mg/2 Ml Vial) 4 mg IVPUSH Q8H PRN PRN Reason: Nausea and Vomiting Pharmacy Consult (Consult Rx Perform Med Rec) 1 each MISCELLANE ONCE PRN PRN Reason: Consult order Pravastatin Sodium (Pravastatin Sodium 10 Mg Tablet) 10 mg PO BEDTIME [facility] Rivaroxaban (Rivaroxaban 20 Mg Tablet) 20 mg PO DAILY@1700 [facility] Senna (Sennosides 8.6 Mg Tablet) 17.2 mg PO DAILY [facility] Last Admin: 04/24/21 09:48 Dose: Not Given Documented by: Sodium Chloride (0.9 % Sodium Chloride Flush 3 Ml Syringe) 3 ml IVFLUSH QSHIFT [facility] Last Admin: 04/24/21 07:13 Dose: 3 ml Documented by: Tramadol HCl (Tramadol Hcl 50 Mg Tablet) 50 mg PO DAILY [facility] Last Admin: 04/24/21 09:49 Dose: 50 mg Documented by: Tramadol HCl (Tramadol Hcl 50 Mg Tablet) 50 mg PO Q6H PRN PRN Reason: Pain (Scale Score 7-10) Vitamin D (Cholecalciferol (Vitamin D3) 25 Mcg Tablet) 50 mcg PO DAILY [facility] Last Admin: 04/24/21 09:48 Dose: 50 mcg Documented by: Home Medications Medication Instructions Recorded Confirmed Last Taken Type acetaminophen 325 mg tablet 650 mg PO BID PRN 04/23/21 04/23/21 04/23/21 History amiodarone 200 mg tablet 200 mg PO BID 04/23/21 04/23/21 04/23/21 History benzocaine 20 %-menthol 0.1 %-zinc ea MUCOUS MEMBRANE TID 04/23/21 Unknown History chloride 0.15 % mucosal gel (Orajel 3X Mouth Sores) bisacodyl 10 mg rectal suppository 10 mg [place] DAILY PRN 04/23/21 04/23/21 Unknown History brimonidine 0.2 % eye drops 1 drp OPHTHALMIC (EYE) BID 04/23/21 04/23/21 04/23/21 History calcium carbonate 500 mg calcium 500 mg PO TID 04/23/21 04/23/21 Unknown History (1,250 mg) chewable tablet cholecalciferol (vitamin D3) 50 50 mcg PO DAILY 04/23/21 04/23/21 04/23/21 History mcg (2,000 unit) tablet (Vitamin D3) docusate sodium 100 mg capsule 100 mg PO DAILY 04/23/21 04/23/21 04/23/21 History (Colace) dorzolamide 22.3 mg-timolol 6.8 1 drp OPHTHALMIC (EYE) BID 04/23/21 04/23/21 04/23/21 History mg/mL eye drops ferrous sulfate 325 mg (65 mg 325 mg PO DAILY 04/23/21 04/23/21 04/23/21 History iron) tablet gabapentin 100 mg capsule 200 cap PO TID 04/23/21 04/23/21 04/23/21 History latanoprost 0.005 % eye drops 1 drp OPHTHALMIC (EYE) DAILY 04/23/21 04/23/21 04/23/21 History levothyroxine 25 mcg tablet 25 mcg PO DAILY 04/23/21 04/23/21 04/23/21 History loratadine 10 mg tablet 10 mg PO DAILY 04/23/21 04/23/21 04/23/21 History lovastatin 10 mg tablet 1 tab PO DAILY 04/23/21 04/23/21 04/23/21 History magnesium hydroxide 400 mg/5 mL 400 mg PO DAILY PRN 04/23/21 04/23/21 Unknown History oral suspension (Milk of Magnesia) melatonin 5 mg tablet 10 mg PO BEDTIME PRN 04/23/21 04/23/21 04/23/21 History metformin 500 mg tablet 500 mg PO BID 04/23/21 04/23/21 04/23/21 History mirtazapine 7.5 mg tablet 7.5 mg PO BEDTIME 04/23/21 04/23/21 04/23/21 History polyethylene glycol 3350 17 17 g PO DAILY 04/23/21 04/23/21 04/23/21 History gram/dose oral powder (Miralax) rivaroxaban 20 mg tablet (Xarelto) 1 tab PO DAILY 04/23/21 04/23/21 04/23/21 History sennosides 8.6 mg tablet (senna) 17.2 mg PO DAILY 04/23/21 04/23/21 04/23/21 History tramadol 50 mg tablet 50 mg PO DAILY 04/23/21 04/23/21 04/23/21 History tramadol 50 mg tablet 50 mg PO Q6H PRN 04/23/21 04/23/21 04/22/21 History vitamins A,C,X-rzpr-yoavfg 14,320 1 cap PO BID 04/23/21 04/23/21 04/23/21 History unit-226 mg-200 unit capsule (PreserVision AREDS) Physical Exam Vital Signs: Vital Signs: Last Vital Signs Temp 98.0 F 04/24/21 07:15 Pulse 81 04/24/21 09:45 Resp 14 04/24/21 09:45 BP 137/59 L 04/24/21 09:45 Pulse Ox 95 04/24/21 09:45 BMI result Body Mass Index 34.6 Const: General: no acute distress HENMT: Other: Unremarkable Neck: Neck: Yes normal visual inspection Chest: Chest palpation & inspection: normal inspection of the chest Resp: Other: basal inspiratory crackles Cardio: Palpation: normal PMI Heart sounds: S1 normal heart sound present, S2 normal heart sound present, no gallops, Murmur heart sound present (3/6 GEORGE aortic area) and no rubs GI: Palpation (GI): Soft to palpation Back/Spine/Pelvis: Other: unremarkable Skin: Lesions: other Neuro: Cranial nerves: Yes Other cranial nerve findings present Extrem: General: Yes pedal edema (2+) Psych: Mental Status: other Objective Labs and Meds Result diagrams: 04/24/21 07:35 04/24/21 07:35 Lab results: Laboratory Results - last 24 hr 04/23/21 04/23/21 04/23/21 19:42 19:42 19:42 WBC 7.4 RBC 3.40 L Hgb 9.1 L Hct 31.5 L MCV 92.6 MCH 26.8 L MCHC 28.9 L RDW 15.2 Plt Count 280 MPV 9.1 L Immature Gran % (Auto) 0.3 Neut % (Auto) 76.8 H Lymph % (Auto) 14.6 L [place] % (Auto) 7.8 Eos % (Auto) 0.0 Baso % (Auto) 0.5 Lymph # (Auto) 1.1 L [place] # (Auto) 0.6 Eos # (Auto) 0.0 Baso # (Auto) 0.0 Abs Immat Gran (auto) 0.02 Absolute Neuts (auto) 5.7 Absolute Nucleated RBC 0.000 Nucleated RBC % (auto) 0.0 Sodium 140 Potassium 4.0 Chloride 106 Carbon Dioxide 24 Anion Gap 14 BUN 24 H Creatinine 0.68 Estim Creat Clear Calc 63.0 Estimated GFR > 60 POC Glucose Random Glucose 167 H Calcium 8.1 L Magnesium 2.2 Total Bilirubin 0.4 Direct Bilirubin 0.2 AST 15 ALT 6 Alkaline Phosphatase 58 Troponin I High Sens B-Natriuretic Peptide Total Protein 6.3 L Albumin 2.8 L TSH 0.55 Urine Color Urine Appearance Urine pH Ur Specific [place] Urine Protein Urine Glucose (UA) Urine Ketones Urine Blood Urine Nitrite Ur Leukocyte Esterase Urine RBC Urine WBC Ur Squamous Epith Cells Ur Renal Epithelial Cell Uric Acid Crystals Amorphous Sediment Urine Bacteria Urine Mucus COVID-19 ([facility]) Negative COVID-19 Clin Com See Note 04/23/21 04/23/21 04/23/21 19:42 21:11 21:11 WBC RBC Hgb Hct MCV MCH MCHC RDW Plt Count MPV Immature Gran % (Auto) Neut % (Auto) Lymph % (Auto) [place] % (Auto) Eos % (Auto) Baso % (Auto) Lymph # (Auto) [place] # (Auto) Eos # (Auto) Baso # (Auto) Abs Immat Gran (auto) Absolute Neuts (auto) Absolute Nucleated RBC Nucleated RBC % (auto) Sodium Potassium Chloride Carbon Dioxide Anion Gap BUN Creatinine Estim Creat Clear Calc Estimated GFR POC Glucose Random Glucose Calcium Magnesium Total Bilirubin Direct Bilirubin AST ALT Alkaline Phosphatase Troponin I High Sens 14.1 B-Natriuretic Peptide 1786 H Total Protein Albumin TSH Cancelled Urine Color DK YELLOW Urine Appearance CLOUDY Urine pH 5.5 Ur Specific [place] >= 1.030 H Urine Protein TRACE Urine Glucose (UA) NEG Urine Ketones 5 Urine Blood NEG Urine Nitrite POS H Ur Leukocyte Esterase NEG Urine RBC 1-4 Urine WBC 1-4 Ur Squamous Epith Cells 1+ Ur Renal Epithelial Cell TRACE Uric Acid Crystals 1+ Amorphous Sediment TRACE Urine Bacteria 4+ Urine Mucus 2+ COVID-19 ([facility]) [employer] 04/23/21 04/24/21 04/24/21 21:13 07:14 07:35 WBC 7.1 RBC 3.54 L Hgb 9.4 L Hct 32.8 L MCV 92.7 MCH 26.6 L MCHC 28.7 L RDW 15.1 Plt Count 299 MPV 8.8 L Immature Gran % (Auto) 0.3 Neut % (Auto) 78.8 H Lymph % (Auto) 13.7 L [place] % (Auto) 6.8 Eos % (Auto) 0.0 Baso % (Auto) 0.4 Lymph # (Auto) 1.0 L [place] # (Auto) 0.5 Eos # (Auto) 0.0 Baso # (Auto) 0.0 Abs Immat Gran (auto) 0.02 Absolute Neuts (auto) 5.6 Absolute Nucleated RBC 0.000 Nucleated RBC % (auto) 0.0 Sodium Potassium Chloride Carbon Dioxide Anion Gap BUN Creatinine Estim Creat Clear Calc Estimated GFR POC Glucose 131 H Random Glucose Calcium Magnesium Total Bilirubin Direct Bilirubin AST ALT Alkaline Phosphatase Troponin I High Sens 10.6 B-Natriuretic Peptide Total Protein Albumin TSH Urine Color Urine Appearance Urine pH Ur Specific [place] Urine Protein Urine Glucose (UA) Urine Ketones Urine Blood Urine Nitrite Ur Leukocyte Esterase Urine RBC Urine WBC Ur Squamous Epith Cells Ur Renal Epithelial Cell Uric Acid Crystals Amorphous Sediment Urine Bacteria Urine Mucus COVID-19 ([facility]) [employer] 04/24/21 04/24/21 07:35 07:40 WBC RBC Hgb Hct MCV MCH MCHC RDW Plt Count MPV Immature Gran % (Auto) Neut % (Auto) Lymph % (Auto) [place] % (Auto) Eos % (Auto) Baso % (Auto) Lymph # (Auto) [place] # (Auto) Eos # (Auto) Baso # (Auto) Abs Immat Gran (auto) Absolute Neuts (auto) Absolute Nucleated RBC Nucleated RBC % (auto) Sodium 141 Potassium 3.7 Chloride 106 Carbon Dioxide 25 Anion Gap 14 BUN 22 H Creatinine 0.68 Estim Creat Clear Calc 63.0 Estimated GFR > 60 POC Glucose 141 H Random Glucose 145 H Calcium 8.3 L Magnesium Total Bilirubin Direct Bilirubin AST ALT Alkaline Phosphatase Troponin I High Sens B-Natriuretic Peptide Total Protein Albumin TSH Urine Color Urine Appearance Urine pH Ur Specific [place] Urine Protein Urine Glucose (UA) Urine Ketones Urine Blood Urine Nitrite Ur Leukocyte Esterase Urine RBC Urine WBC Ur Squamous Epith Cells Ur Renal Epithelial Cell Uric Acid Crystals Amorphous Sediment Urine Bacteria Urine Mucus COVID-19 ([facility]) COVID-19 Clin Com ECG Interpretation: EKG with sinus rhythm, 60/min, [place] prolonged to 240ms; non specific ST-T changes. artifact is also present Imaging Radiologist's impression: Impressions Chest X-Ray 04/23/21 19:52 IMPRESSION: Bilateral opacities most consistent with infiltrate. Given the appearance element of patchy pulmonary edema would be a consideration Assessment and Plan (1) Acute congestive heart failure: Status: Acute (2) PAF (paroxysmal atrial fibrillation): Status: Acute Labs reviewed. High sensitivity troponins are within range. Cardiac BNP 1786. Chest x-ray reported to have bilateral opacities, infiltrate. Overall, possible congestive heart failure but unknown LVEF. She also has aortic stenosis murmur on auscultation. At this time, continue IV Lasix. With regard to atrial fibrillation, she is stated to be on amiodarone 200 mg b.i.d. which is higher than usual maintenance dose. Can decrease this to once a day. Continue anticoagulation without changes. Echocardiogram tomorrow. Will follow up with you. Procedures Date of Service Date of Service: 04/24/21
[2021-04-24 12:46] LABS: Glucose, Whole Blood 155 mg/dL (60-115)
[2021-04-24] MEDS: Insulin Lispro 100 UNIT/ML 3 ML VIAL SUBCUT (13:11)
--- NOTE | 2021-04-24 14:18 | MHC.CM.PN ---
PATIENT IS IN FROM [facility] WHERE SHE LIVES WITH HER ROOMMATE CRISTO. SHE IS COVID-19 VACCINATED AND BOOSTERED. [facility] DATES NOW IN EXPANSE. HCP IS ON FILE AND VERIFIED. JULIO CESAR GONZÁLES IS PCP AT FACILITY IMM 04/24 NOW IN CHART. CASE MANAGEMENT FOLLOWING FOR PATIENT'S RETURN
[2021-04-24 15:51] LABS: Procalcitonin 0.11 ng/mL
[2021-04-24] MEDS: Rivaroxaban 20 MG TABLET PO (17:15)
[2021-04-24] MEDS: Acetaminophen 325 MG TABLET 650 MG PO (17:15)
--- NOTE | 2021-04-24 19:04 | PC.NURSE ---
PATIENT CAME OVER FROM THE MAIN ED ,PATIENT GOT SETTLE IN ,VITALS WAS TAKEN ,POC WAS DONE ,PATIENT HAD A CARTON OF MILK FOR SUPPER ,PATIENT STATED SHE WAS NOT HUNGRY ,PATIENT ,NOW WATCHING TELEVISION .
[2021-04-24 19:16] LABS: Glucose, Whole Blood 137 mg/dL (60-115)
[2021-04-24 20:49] LABS: Glucose, Whole Blood 128 mg/dL (60-115)
[2021-04-24] MEDS: cefTRIAXone sodium 1 GM in 0.9 % Sodium Chloride 50 ML IV (22:58)
[2021-04-25] MEDS: 0.9 % Sodium Chloride Flush 3 ML SYRINGE IVFLUSH ×3 (00:03→16:06)
[2021-04-25 00:58] VITALS: RESP 18
[2021-04-25 05:39] LABS: Anion Gap 14 (12-20); Blood Urea Nitrogen 18 mg/dL (9-16); Calcium 8.3 mg/dL (8.4-10.2); Carbon Dioxide 28 mmol/L (22-29); Chloride 102 mmol/L (96-108); Creatinine Clr Calc Pharmacy 63.9; Estimated Glomerular Filt Rate > 60; Glucose Random 130 mg/dL (60-115); Potassium 3.6 mmol/L (3.3-5.1); Sodium 140 mmol/L (135-145)
[2021-04-25 06:00] VITALS: BMI 33.0
[2021-04-25 06:27] VITALS: BP 124/50; PULSE 74; RESP 19; O2SAT 96
--- NOTE | 2021-04-25 06:33 | PC.NURSE ---
PT has 400 ml at this time in galeas bag. PT was agiated when woken to get vitals. Easily went back to sleep.
[2021-04-25 07:32] LABS: Glucose, Whole Blood 153 mg/dL (60-115)
[2021-04-25] MEDS: Insulin Lispro 100 UNIT/ML 3 ML VIAL SUBCUT ×2 (09:15→22:03)
[2021-04-25 09:16] VITALS: BP 140/58; PULSE 72; RESP 24; O2SAT 96
[2021-04-25] MEDS: Furosemide 40 MG/4 ML VIAL IVPUSH (09:16)
[2021-04-25] MEDS: Cholecalciferol (Vitamin D3) 25 MCG TABLET 50 MCG PO (09:16)
[2021-04-25] MEDS: Levothyroxine Sodium 25 MCG TABLET PO (09:16)
[2021-04-25] MEDS: Sennosides 8.6 MG TABLET 17.2 MG PO (09:16)
[2021-04-25] MEDS: traMADoL HCL 50 MG TABLET PO (09:17)
[2021-04-25] MEDS: Docusate Sodium 100 MG CAPSULE PO (09:17)
[2021-04-25] MEDS: Gabapentin 100 MG CAPSULE 200 MG PO ×3 (09:17→21:23)
[2021-04-25] MEDS: Loratadine 10 MG TABLET PO (09:17)
[2021-04-25] MEDS: Amiodarone HCL 200 MG TABLET PO (09:17)
[2021-04-25] MEDS: Ferrous Sulfate 324 MG TABLET.DR PO (09:17)
--- NOTE | 2021-04-25 11:15 | PC.NURSE ---
Pt Alert, oriented to person only at this time. Reoriented to place and situation. Pt with diminished lung sounds, on 2L NC at this time. Repositioned in bed q2 hours.Pt requesting bed panda, no BM at this time. Stool softeners given this AM. Call curtis within reach, awaiting bed assignment. Will cotninue to monitor.
--- NOTE | 2021-04-25 11:16 | P.PNCA_ITS ---
Subjective Subjective Date of Service: 04/25/21 Interval history: Feeling better. No chest pain. Breathing improving. Physical Exam Vital Signs: Last Vital Signs Temp 98.2 F 04/24/21 19:07 Pulse 72 04/25/21 09:16 Resp 24 H 04/25/21 09:16 BP 140/58 H 04/25/21 09:16 Pulse Ox 96 04/25/21 09:16 BMI result Body Mass Index 33.0 GENERAL APPEARANCE: in no acute distress, pleasant. NECK: no carotid bruit, no jugular venous distention. SKIN: no suspicious lesions, warm and dry. HEART: Ejection systolic murmur aortic area with absent 2nd heart sound. LUNGS: clear to auscultation bilaterally. ABDOMEN: soft, nontender. EXTREMITIES: no edema. PERIPHERAL PULSES: equal. NEUROLOGIC: No gross deficits, AAO X 3 Objective Labs and Meds Result diagrams: 04/24/21 07:35 04/25/21 04:38 Lab results: Laboratory Results - last 24 hr 04/24/21 04/24/21 04/24/21 07:35 12:42 19:11 Sodium Potassium Chloride Carbon Dioxide Anion Gap BUN Creatinine Estim Creat Clear Calc Estimated GFR POC Glucose 155 H 137 H Random Glucose Calcium Procalcitonin 0.11 04/24/21 04/25/21 04/25/21 20:46 04:38 07:24 Sodium 140 Potassium 3.6 Chloride 102 Carbon Dioxide 28 Anion Gap 14 BUN 18 H Creatinine 0.67 Estim Creat Clear Calc 63.9 Estimated GFR > 60 POC Glucose 128 H 153 H Random Glucose 130 H Calcium 8.3 L Procalcitonin Progress Note: A&P Assessment and plan (1) PAF (paroxysmal atrial fibrillation): Status: Acute (2) Acute congestive heart failure: Status: Acute (3) Aortic stenosis: Status: Acute Assessment and Plan: Pleasant 80-year-old female presenting for shortness of breath. Clinically was in heart failure and has been on IV diuretics. She is improving. She has aortic stenosis murmur by exam. Will review echocardiography today. For the paroxysmal atrial fibrillation she is on amiodarone 200 mg daily. I think she can be changed to oral diuretics tomorrow. Please start her on 40 mg p.o. Lasix once a day. Continue rivaroxaban for atrial fibrillation. Thank you for allowing me to participate in the care of your patient. Please feel free to contact me if you have any questions. Fall Risk Details Current Medications: Current Medications Acetaminophen (Acetaminophen 325 Mg Tablet) 650 mg PO Q6H PRN PRN Reason: Pain, Mild (Pain Scale 1-3) Last Admin: 04/24/21 17:15 Dose: 650 mg Documented by: Amiodarone HCl (Amiodarone Hcl 200 Mg Tablet) 200 mg PO DAILY ON [facility] OF [facility] Last Admin: 04/25/21 09:17 Dose: 200 mg Documented by: Bisacodyl (Bisacodyl 10 Mg Supp.Rect) 10 mg [place] DAILY PRN PRN Reason: Constipation Brimonidine Tartrate (Brimonidine Tartrate 0.2% Oph 5 Ml Bottle) 1 drop EYE- BOTH BID ON [facility] OF [facility] Last Admin: 04/24/21 20:59 Dose: Not Given Documented by: Calcium Carbonate (Calcium Carbonate 500 Mg Tablet) 500 mg PO TID ON [facility] OF [facility] Last Admin: 04/25/21 09:16 Dose: 500 mg Documented by: Dextrose (Dextrose 50 % 25 Gm/50 Ml Syringe) 25 gm IVPUSH Q15M PRN; Protocol PRN Reason: per Hypoglycemia Standing Ord. Docusate Sodium (Docusate Sodium 100 Mg Capsule) 100 mg PO DAILY PRN PRN Reason: Constipation Docusate Sodium (Docusate Sodium 100 Mg Capsule) 100 mg PO DAILY ON [facility] OF [facility] Last Admin: 04/25/21 09:17 Dose: 100 mg Documented by: Dorzolamide/Timolol (Dorzolamide/Timolo 2.23%/0.68% 10 Ml Drbtl) 1 drop EYE- BOTH BID ON [facility] Last Admin: 04/24/21 20:58 Dose: Not Given Documented by: Ferrous Sulfate (Ferrous Sulfate 324 Mg Tablet.Dr) 324 mg PO DAILY ON [facility] Last Admin: 04/25/21 09:17 Dose: 324 mg Documented by: Furosemide (Furosemide 40 Mg/4 Ml Vial) 40 mg IVPUSH BID@0900,1800 ON LICENSE OF [facility]; Protocol Last Admin: 04/25/21 09:16 Dose: 40 mg Documented by: Gabapentin (Gabapentin 100 Mg Capsule) 200 mg PO TID ON [facility] OF [facility] Last Admin: 04/25/21 09:17 Dose: 200 mg Documented by: Glucose (Glucose Gel 15 Gm Gel..Gram.) 15 gm PO Q15M PRN; Protocol PRN Reason: per Hypoglycemia Standing Ord. Ceftriaxone Sodium 1 gm/ (Sodium Chloride) 50 mls @ 100 mls/hr IV Q24H ON LICENSE OF [facility] Last Infusion: 04/24/21 23:55 Dose: Infused Documented by: Insulin Human Lispro (Insulin Lispro 100 Unit/Ml 3 Ml Vial) 0 unit SUBCUT QIDACHS ON LICENSE OF [facility]; Protocol Last Admin: 04/25/21 09:15 Dose: 2 unit Documented by: Latanoprost (Latanoprost 0.005 % Ophth Maryjane 2.5 Ml Drops) 1 drop EYE-BOTH BEDTIME ON LICENSE OF [facility] Levothyroxine Sodium (Levothyroxine Sodium 25 Mcg Tablet) 25 mcg PO DAILY ON [facility] OF [facility] Last Admin: 04/25/21 09:16 Dose: 25 mcg Documented by: Loratadine (Loratadine 10 Mg Tablet) 10 mg PO DAILY ON [facility] Last Admin: 04/25/21 09:17 Dose: 10 mg Documented by: Magnesium Hydroxide (Milk Of Magnesia 30 Ml Oral.Susp) 30 ml PO DAILY PRN PRN Reason: Constipation Melatonin (Melatonin 3 Mg Tablet) 9 mg PO BEDTIME PRN PRN Reason: Insomnia Mirtazapine (Mirtazapine 7.5 Mg Tablet) 7.5 mg PO BEDTIME ON [facility] Last Admin: 04/24/21 21:01 Dose: Not Given Documented by: Ondansetron HCl (Ondansetron Hcl 4 Mg/2 Ml Vial) 4 mg IVPUSH Q8H PRN PRN Reason: Nausea and Vomiting Pharmacy Consult (Consult Rx Perform Med Rec) 1 each MISCELLANE ONCE PRN PRN Reason: Consult order Pravastatin Sodium (Pravastatin Sodium 10 Mg Tablet) 10 mg PO BEDTIME ON [facility] OF [facility] Last Admin: 04/24/21 20:58 Dose: Not Given Documented by: Rivaroxaban (Rivaroxaban 20 Mg Tablet) 20 mg PO DAILY@1700 ON [facility] Last Admin: 04/24/21 17:15 Dose: 20 mg Documented by: Senna (Sennosides 8.6 Mg Tablet) 17.2 mg PO DAILY ON [facility] OF [facility] Last Admin: 04/25/21 09:16 Dose: 17.2 mg Documented by: Sodium Chloride (0.9 % Sodium Chloride Flush 3 Ml Syringe) 3 ml IVFLUSH QSHIFT ON LICENSE OF [facility] Last Admin: 04/25/21 09:16 Dose: 3 ml Documented by: Tramadol HCl (Tramadol Hcl 50 Mg Tablet) 50 mg PO DAILY ON [facility] Last Admin: 04/25/21 09:17 Dose: 50 mg Documented by: Tramadol HCl (Tramadol Hcl 50 Mg Tablet) 50 mg PO Q6H PRN PRN Reason: Pain (Scale Score 7-10) Vitamin D (Cholecalciferol (Vitamin D3) 25 Mcg Tablet) 50 mcg PO DAILY ON [facility] OF [facility] Last Admin: 04/25/21 09:16 Dose: 50 mcg Documented by: Time Spent With Patient Time: Total time spent is greater than 50% in coordination of care (as docu mented) at patient's floor/unit and/or counseling patient: Time with patient: 15 - 24 minutes Progress Note: Quality Stroke Does the patient have a stroke diagnosis?: No Procedures Date of Service Date of Service: 04/25/21
[2021-04-25] MEDS: Brimonidine Tartrate 0.2% Oph 5 ML BOTTLE 1 DROP EYE-BOTH (11:41)
[2021-04-25] MEDS: Dorzolamide/Timolo 2.23%/0.68% 10 ML DRBTL 1 DROP EYE-BOTH (11:41)
[2021-04-25 11:57] LABS: Glucose, Whole Blood 122 mg/dL (60-115)
--- NOTE | 2021-04-25 16:55 | P.PNIM_ITS ---
Subjective Subjective Date of Service: 04/25/21 Interval History: chf excerebation Review of Systems sob slightly better, still has leg edema denies any chest pain or abdominal pain fever or chills or cough or phlegm. Physical Exam Vital Signs: Vital Signs: Last Vital Signs Temp 98.2 F 04/24/21 19:07 Pulse 72 04/25/21 09:16 Resp 24 H 04/25/21 09:16 BP 140/58 H 04/25/21 09:16 Pulse Ox 96 04/25/21 09:16 BMI result Body Mass Index 33.0 ?Appearance: Alert.? Oriented.? not in distress.? cvs: rrr, [id number] res: clear to auscultation ,no rhonchii or wheezing abd: no rebound or guarding ,nt, bs present. ext pulses present , no cyanosis, 2+ edema . neuro: nonfocal. Objective Data Active Medications Acetaminophen (Acetaminophen 325 Mg Tablet) 650 mg PO Q6H PRN PRN Reason: Pain, Mild (Pain Scale 1-3) Last Admin: 04/24/21 17:15 Dose: 650 mg Documented by: DYLON Amiodarone HCl (Amiodarone Hcl 200 Mg Tablet) 200 mg PO DAILY [facility] Last Admin: 04/25/21 09:17 Dose: 200 mg Documented by: MICHAEL Bisacodyl (Bisacodyl 10 Mg Supp.Rect) 10 mg NM DAILY PRN PRN Reason: Constipation Brimonidine Tartrate (Brimonidine Tartrate 0.2% Oph 5 Ml Bottle) 1 drop EYE- BOTH BID [facility] Last Admin: 04/25/21 11:41 Dose: 1 drop Documented by: MICHAEL Calcium Carbonate (Calcium Carbonate 500 Mg Tablet) 500 mg PO TID [facility] Last Admin: 04/25/21 16:06 Dose: 500 mg Documented by: MICHAEL Dextrose (Dextrose 50 % 25 Gm/50 Ml Syringe) 25 gm IVPUSH Q15M PRN; Protocol PRN Reason: per Hypoglycemia Standing Ord. Docusate Sodium (Docusate Sodium 100 Mg Capsule) 100 mg PO DAILY PRN PRN Reason: Constipation Docusate Sodium (Docusate Sodium 100 Mg Capsule) 100 mg PO DAILY [facility] Last Admin: 04/25/21 09:17 Dose: 100 mg Documented by: MICHAEL Dorzolamide/Timolol (Dorzolamide/Timolo 2.23%/0.68% 10 Ml Drbtl) 1 drop EYE- BOTH BID [facility] Last Admin: 04/25/21 11:41 Dose: 1 drop Documented by: MICHAEL Ferrous Sulfate (Ferrous Sulfate 324 Mg Tablet.Dr) 324 mg PO DAILY [facility] Last Admin: 04/25/21 09:17 Dose: 324 mg Documented by: MICHAEL Furosemide (Furosemide 40 Mg/4 Ml Vial) 40 mg IVPUSH BID@0900,1800 [facility]; Protocol Last Admin: 04/25/21 09:16 Dose: 40 mg Documented by: MICHAEL Gabapentin (Gabapentin 100 Mg Capsule) 200 mg PO TID [facility] Last Admin: 04/25/21 16:06 Dose: 200 mg Documented by: MICHAEL Glucose (Glucose Gel 15 Gm Gel..Gram.) 15 gm PO Q15M PRN; Protocol PRN Reason: per Hypoglycemia Standing Ord. Ceftriaxone Sodium 1 gm/ (Sodium Chloride) 50 mls @ 100 mls/hr IV Q24H [facility] Last Infusion: 04/24/21 23:55 Dose: 0 mls/hr Documented by: ANUM Insulin Human Lispro (Insulin Lispro 100 Unit/Ml 3 Ml Vial) 0 unit SUBCUT QIDACHS [facility]; Protocol Last Admin: 04/25/21 12:46 Dose: Not Given Documented by: MICHAEL Non-Admin Reason: No Insulin Coverage Latanoprost (Latanoprost 0.005 % Ophth Maryjane 2.5 Ml Drops) 1 drop EYE-BOTH BEDTIME [facility] Levothyroxine Sodium (Levothyroxine Sodium 25 Mcg Tablet) 25 mcg PO DAILY [facility] Last Admin: 04/25/21 09:16 Dose: 25 mcg Documented by: MICHAEL Loratadine (Loratadine 10 Mg Tablet) 10 mg PO DAILY [facility] Last Admin: 04/25/21 09:17 Dose: 10 mg Documented by: MICHAEL Magnesium Hydroxide (Milk Of Magnesia 30 Ml Oral.Susp) 30 ml PO DAILY PRN PRN Reason: Constipation Melatonin (Melatonin 3 Mg Tablet) 9 mg PO BEDTIME PRN PRN Reason: Insomnia Mirtazapine (Mirtazapine 7.5 Mg Tablet) 7.5 mg PO BEDTIME [facility] Last Admin: 04/24/21 21:01 Dose: Not Given Documented by: ANUM Non-Admin Reason: Med Not Available Ondansetron HCl (Ondansetron Hcl 4 Mg/2 Ml Vial) 4 mg IVPUSH Q8H PRN PRN Reason: Nausea and Vomiting Pharmacy Consult (Consult Rx Perform Med Rec) 1 each MISCELLANE ONCE PRN PRN Reason: Consult order Pravastatin Sodium (Pravastatin Sodium 10 Mg Tablet) 10 mg PO BEDTIME [facility] Last Admin: 04/24/21 20:58 Dose: Not Given Documented by: ANUM Non-Admin Reason: Med Not Available Rivaroxaban (Rivaroxaban 20 Mg Tablet) 20 mg PO DAILY@1700 [facility] Last Admin: 04/24/21 17:15 Dose: 20 mg Documented by: DYLON Senna (Sennosides 8.6 Mg Tablet) 17.2 mg PO DAILY [facility] Last Admin: 04/25/21 09:16 Dose: 17.2 mg Documented by: MICHAEL Sodium Chloride (0.9 % Sodium Chloride Flush 3 Ml Syringe) 3 ml IVFLUSH QSHIFT [facility] Last Admin: 04/25/21 16:06 Dose: 3 ml Documented by: MICHAEL Tramadol HCl (Tramadol Hcl 50 Mg Tablet) 50 mg PO DAILY [facility] Last Admin: 04/25/21 09:17 Dose: 50 mg Documented by: MICHAEL Tramadol HCl (Tramadol Hcl 50 Mg Tablet) 50 mg PO Q6H PRN PRN Reason: Pain (Scale Score 7-10) Vitamin D (Cholecalciferol (Vitamin D3) 25 Mcg Tablet) 50 mcg PO DAILY [facility] Last Admin: 04/25/21 09:16 Dose: 50 mcg Documented by: MICHAEL Labs CBC & Chem 7: 04/24/21 07:35 04/25/21 04:38 Labs: Laboratory Results - last 24 hr 04/24/21 04/24/21 04/25/21 19:11 20:46 04:38 Anion Gap 14 Estim Creat Clear Calc 63.9 Estimated GFR > 60 POC Glucose 137 H 128 H Random Glucose 130 H Calcium 8.3 L 04/25/21 04/25/21 07:24 11:54 Anion Gap Estim Creat Clear Calc Estimated GFR POC Glucose 153 H 122 H Random Glucose Calcium Microbiology Microbiology Results: Microbiology 04/23/21 21:22 Urine Culture - Final Urine Catheterized - Straight Catheter Escherichia coli 04/23/21 22:28 Blood Culture - Preliminary Blood - Venous No growth after 24 hours. 04/23/21 22:28 Blood Culture - Preliminary Blood - Venous No growth after 24 hours. Assessment and Plan (1) Aortic stenosis: Status: Acute (2) Acute congestive heart failure: Status: Acute (3) Acute respiratory failure with hypoxia: Status: Acute Assessment and Plan: 80-year-old female with past medical history of CHF presents to the hospital with shortness of breath found to have an CHF exacerbation 1. acute hypoxic respiratory failure - CHF versus pneumonia -? has lower extremity edema, orthopnea, PND, no leukocytosis, afebrile therefore thought to? be less likely to be pneumonia ? Continue IV lasix , may need to switch to po lasix mo m ?i/o 2.5 liter neg 2. CHF exacerbation: sob improving slightly -? has orthopnea, PND, lower extremity edema, and pulmonary congestion seen on chest x-ray on Lasix, ?echocardiogram:Conclusions: - Normal left ventricular size, thickness, systolic function, and wall motion. ? - Normal right ventricular cavity size and systolic function.? ? - The left atrium is moderately dilated. ? - There is severe aortic valve stenosis. ? - There is moderate mitral annular calcification.? , consult Cardiology, low-sodium diet, daily weight, strict I&O 3.? chronic afib: adjusted amiodarone dosing, continue Xarelto seems hr fine continue to moniter 4.? hypertension -? stable -? continue home medication 5.? hypothyroidism -? continue levothyroxine 6. ? uti: uirne culture grew ecoli , blood cultures prelim neg@24hrs on ceftriaxone . ?DVT prophylaxis:? Continue Xarelto Quality Stroke Does the patient have a stroke diagnosis?: No VTE Prior VTE?: No VTE Risk Level:: Medical - moderate - high VTE Device Contraindication: Treatment Not Indicated VTE Drug Contraindication: N/A - Med Ordered
[2021-04-25 17:49] LABS: Glucose, Whole Blood 124 mg/dL (60-115)
[2021-04-25 17:50] LABS: B Type Natriuretic Peptide 985 pg/mL (<100)
[2021-04-25] MEDS: Rivaroxaban 20 MG TABLET PO (18:19)
[2021-04-25 18:49] VITALS: BP 113/50; PULSE 69; RESP 18; O2SAT 97
[2021-04-25] MEDS: Pravastatin Sodium 10 MG TABLET PO (21:23)
[2021-04-25] MEDS: Mirtazapine 7.5 MG TABLET PO (21:23)
[2021-04-25] MEDS: cefTRIAXone sodium 1 GM in 0.9 % Sodium Chloride 50 ML IV (21:23)
[2021-04-25 21:39] LABS: Glucose, Whole Blood 172 mg/dL (60-115)
--- NOTE | 2021-04-25 22:38 | CA_ITS ---
Transthoracic Echocardiogram Patient (Last, First, Middle): Noemi Hall M Gender: Female Date of : 1940 Age: 80 Procedure Date: 04/25/2021 Procedure Type: Transthoracic Echocardiogram Location: ER Height: 152.4 cm Weight: 76.66 kg BSA: 1.74 m2 Heart Rate: bpm BP: 124 / 50 mmHg Operations Officer Afloat: BERNARD Cole MD: Kris James MD Symptoms: CHF Study Quality: Fair Conclusions: - Normal left ventricular size, thickness, systolic function, and wall motion. - Normal right ventricular cavity size and systolic function. - The left atrium is moderately dilated. - There is severe aortic valve stenosis. - There is moderate mitral annular calcification. Findings Left Ventricle Normal left ventricular size, thickness, systolic function, and wall motion. The visually estimated ejection fraction is between 55-60%. Abnormal diastolic function is noted. Spectral Doppler is indicative of a pseudonormal filling pattern. Elevated filling pressures. Right Ventricle Normal right ventricular cavity size and systolic function. Atria The left atrium is moderately dilated. The right atrium is mildly dilated. Aortic Valve There is severe calcification of the aortic valve. There is severe thickening of the aortic valve. There is severe aortic valve stenosis. The peak aortic velocity is 5.10 m/s with a calculated peak gradient of 104 mmHg. The mean gradient is 68 mmHg. The aortic valve area is 0.64 cm2. There is trace (trivial) aortic valve regurgitation. Mitral Valve There is moderate mitral annular calcification. There is mild mitral valve regurgitation. There is no mitral valve stenosis. Pulmonic Valve Normal pulmonic valve structure and function. There is trace pulmonic valve regurgitation. Tricuspid Valve Normal tricuspid valve structure and function. There is trace tricuspid valve regurgitation. Normal right atrial pressure. Mild pulmonary hypertension is present. Great Vessels All visible segments of the aorta are normal in size. The visualized portions of the pulmonary artery and branches are normal. Venous The inferior vena cava is normal in size and collapses greater than 50% with inspiration. Pericardium/Pleural There is no evidence of pericardial effusion. Prior Study Comparison No prior study available for comparison. Measurements 2D Linear Measurements IVSd: 0.81 0.6-0.9/0.6-1.0 cm LVIDd: 4.75 3.9-5.3/4.2-5.9 cm LVIDd Index: 2.73 2.4-3.2/2.2-3.1 cm/m2 LVIDs: 3.49 2.0-3.6 cm LVPWd: 0.95 0.7-1.1 cm Ao Root: 3.00 2.1-3.5 cm LA Diam: 3.70 2.7-3.8/3.0-4.0 cm LAIDs Index: 2.13 1.5-2.3 cm/m2 LV Mass: 174.68 67-162/88-224 g LV Mass Index: 100.39 43-95/49-115 g/m2 LVOT Diam: 2.10 3.0+(-)1.3 cm 2D Systolic Function EF 4C: 53.10 >55% EF 2C: 60.20 >55% EF BiP: 57.30 >55% Mitral Valve MV VTI: 0.42 MV Pk Beto: 1.68 MV Mn Beto: 0.93 MV Pk Grad: 11.00 MV Mn Grad: 4.00 MV Pk E: 1.43 MV PK A: 0.86 MV Decel Time: 167.00 E/A: 1.70 E'Lateral: 6.09 E'Medial: 5.11 E/E' Med: 28.00 E/E' Lat: 23.50 PHT: 87.00 MVA PHT: 2.53 MVA Continuity: 2.09 Decel Lincoln: 5.78 Aortic Valve AoV Pk Beto: 5.10 AoV Mn Beto: 3.86 AoV VTI: 1.38 AoV Pk Grad: 104.00 Aov Mn Grad: 68.00 GELA Cont.VTI: 0.64 LVOT LVOT Pk Beto: 1.04 LVOT Mn Beto: 0.81 LVOT VTI: 0.25 LVOT Pk Grad: 4.00 LVOT Mn Grad: 3.00 LVOT Diam: 2.10 LVOT Area: 3.46 Diastolic Function MV Pk E: 1.43 MV Pk A: 0.86 E/A: 1.70 E'Medial: 5.11 E/E' Med: 28.00 E' Laterial: 6.09 E/E' Lat: 23.50 Right Ventricle TAPSE (mm): 2.26 TVS' Beto: 12.10 Tricuspid Valve TR Pk Beto: 2.52 TR Pk Grad: 25.00 RA Press: 15.00 RVSP: 40.00 Great Vessels Aorta Ao Root-2D: 3.00 2.0-3.7 cm Ao Asc: 3.00 2.1-3.4 cm Updated in Other Vendor System with Status of Final Stas Bell MD electronically signed on 04/25/2021 11:38:46 AM with status of Final
[2021-04-26 06:49] VITALS: BP 120/54; PULSE 67; RESP 16; O2SAT 96
[2021-04-26 07:06] LABS: Glucose, Whole Blood 149 mg/dL (60-115)
[2021-04-26 07:45] LABS: Anion Gap 11 (12-20); Blood Urea Nitrogen 17 mg/dL (9-16); Calcium 8.4 mg/dL (8.4-10.2); Carbon Dioxide 31 mmol/L (22-29); Chloride 101 mmol/L (96-108); Creatinine Clr Calc Pharmacy 63.2; Estimated Glomerular Filt Rate > 60; Glucose Random 171 mg/dL (60-115); Potassium 3.6 mmol/L (3.3-5.1); Sodium 139 mmol/L (135-145)
[2021-04-26 08:00] VITALS: BP 120/54; PULSE 67; RESP 16; O2SAT 98
[2021-04-26] MEDS: 0.9 % Sodium Chloride Flush 3 ML SYRINGE IVFLUSH (08:07)
--- NOTE | 2021-04-26 08:28 | P.DS_ITS ---
DS: Providers Provider Date of Service: 04/26/21 Date of admission: 04/23/21 22:26 Primary care physician: Unknown Physician Consults: 04/23/21 22:38 Consult to Cardiology Routine Consulting Provider: Mayco Salguero Reason for consultation: CHF, Mobitz-1 Has provider been notified: No DS: Diagnosis Discharge Diagnosis (1) Aortic stenosis: Status: Acute (2) Acute congestive heart failure: Status: Acute (3) Acute respiratory failure with hypoxia: Status: Acute DS: Summary Hospital Course Hospital Course: 80-year-old female with past medical history of AFib, HLD, diabetes, hypothyroidism who comes in from senior care for increased lethargy as well as weakness and decreased oral intake.? Patient was found to be hypoxic on room air with an O2 level of 90% at the senior care, while in the ED patient's O2 did drop to? 88% on room air and therefore placed on 2 L of oxygen.? Patient herself reports orthopnea, PND, generalized weakness, shortness of breath on minimal exertion, she reports lower extremity edema of unknown duration.? She denies any chest pain, no palpitations, no cough, no sputum production, no abdominal pain nausea or vomiting, no diarrhea constipation, no urinary symptoms and no lower extremity edema. ?on arrival to the ED patient hemodynamically stable with no significant abn ormal vitals except for the O2 of 80% Labs are significant WBC count of 7.4, hemoglobin of 9.1, hematocrit 31.5, BUN of 24, BNP of 1786, UA positive for nitrites and some WBC. ? Checks x-ray is showing bilateral opacities most consistent with infiltrate.? Versus patchy pulmonary edema. Hospital course: patient admitted to hospital because of CHF exacerbation - started on IV Lasix, seems to be improving. echo done seems like more diastolic dysfunction CHF. In addition her amiodarone dose was adjusted as per Cardiology. UTI: Given IV ceftriaxone initially, we will switch to p.o. Ceftin upon discharge. Above management discussed with the patient in detail length she understand and in agreement with the above plan, time spent 50 minutes and 50% time spent on counseling. Significant findings: As above. Procedures performed: None. Treatment and response: As above. Complications: None. Time Spent with Patient Time attestation: Total time spent providing and/or coordinating discharge services: Discharge coordination time: Greater than 30 minutes Quality: Stroke Does the patient have a stroke diagnosis?: No Physical Exam Vital Signs: Vital Signs: Last Vital Signs Temp 98.2 F 04/24/21 19:07 Pulse 67 04/26/21 06:49 Resp 16 04/26/21 06:49 BP 120/54 L 04/26/21 06:49 Pulse Ox 96 04/26/21 06:49 BMI result Body Mass Index 33.0 Appearance: Alert.? Oriented.? not in distress.? cvs: rrr, [id number] res: clear to auscultation ,no rhonchii or wheezing abd: no rebound or guarding ,nt, bs present. ext pulses present , no cyanosis,leg edema improved . neuro: nonfocal. DS: Data Data Completed and Pending Labs on day of discharge: Laboratory Results - last 24 hr 04/25/21 04/25/21 04/25/21 11:54 17:08 17:44 Sodium Potassium Chloride Carbon Dioxide Anion Gap BUN Creatinine Estim Creat Clear Calc Estimated GFR POC Glucose 122 H 124 H Random Glucose Calcium B-Natriuretic Peptide 985 H 04/25/21 04/26/21 04/26/21 21:00 06:01 07:00 Sodium 139 Potassium 3.6 Chloride 101 Carbon Dioxide 31 H Anion Gap 11 L BUN 17 H Creatinine 0.66 Estim Creat Clear Calc 63.2 Estimated GFR > 60 POC Glucose 172 H 149 H Random Glucose 171 H Calcium 8.4 B-Natriuretic Peptide Preliminary micro results at discharge 04/23/21 22:28 Blood Culture - Preliminary Blood - Venous No growth after 48 hours. 04/23/21 22:28 Blood Culture - Preliminary Blood - Venous No growth after 48 hours. Additional Comments Additional comments: Laboratory Results - last 24 hr ? 04/23/21 04/23/21 04/23/21 ? 19:42 19:42 19:42 MCV ?92.6 ? ? MCH ?26.8 L ? ? MCHC ?28.9 L ? ? RDW ?15.2 ? ? Plt Count ?280 ? ? MPV ?9.1 L ? ? Immature Gran % (Auto) ?0.3 ? ? Neut % (Auto) ?76.8 H ? ? Lymph % (Auto) ?14.6 L ? ? [place] % (Auto) ?7.8 ? ? Eos % (Auto) ?0.0 ? ? Baso % (Auto) ?0.5 ? ? Lymph # (Auto) ?1.1 L ? ? [place] # (Auto) ?0.6 ? ? Eos # (Auto) ?0.0 ? ? Baso # (Auto) ?0.0 ? ? Abs Immat Gran (auto) ?0.02 ? ? Absolute Neuts (auto) ?5.7 ? ? Absolute Nucleated RBC ?0.000 ? ? Nucleated RBC % (auto) ?0.0 ? ? Anion Gap ? ?14 ? Estim Creat Clear Calc ? ?63.0 ? Estimated GFR ? ?> 60 ? POC Glucose ? ? ? Random Glucose ? ?167 H ? Calcium ? ?8.1 L ? Magnesium ? ?2.2 ? Total Bilirubin ? ?0.4 ? Direct Bilirubin ? ?0.2B ? AST ? ?15 ? ALT ? ?6 ? Alkaline Phosphatase ? ?58 ? Troponin I High Sens ? ? ? B-Natriuretic Peptide ? ? ? Total Protein ? ?6.3 L ? Albumin ? ?2.8 L ? TSH ? ?0.55 ? Urine Color ? ? ? Urine Appearance ? ? ? Urine pH ? ? ? Ur Specific Beatrice ? ? ? Urine Protein ? ? ? Urine Glucose (UA) ? ? ? Urine Ketones ? ? ? Urine Blood ? ? ? Urine Nitrite ? ? ? Ur Leukocyte Esterase ? ? ? Urine RBC ? ? ? Urine WBC ? ? ? Ur Squamous Epith Cells ? ? ? Ur Renal Epithelial Cell ? ? ? Uric Acid Crystals ? ? ? Amorphous Sediment ? ? ? Urine Bacteria ? ? ? Urine Mucus ? ?B ? COVID-19 ([facility]) ? ? ?Negative COVID-19 Clin Com ? ? ?See Note ? 04/23/21 04/23/21 04/23/21 ? 19:42 21:11 21:11 MCV ? ? ? MCH ? ? ? MCHC ? ? ? RDW ? ? ? Plt Count ? ? ? MPV ? ? ? Immature Gran % (Auto) ? ? ? Neut % (Auto) ? ? ? Lymph % (Auto) ? ? ? [place] % (Auto) ? ? ? Eos % (Auto) ? ? ? Baso % (Auto) ? ? ? Lymph # (Auto) ? ? ? [place] # (Auto) ? ? ? Eos # (Auto) ? ? ? Baso # (Auto) ? ? ? Abs Immat Gran (auto) ? ? ? Absolute Neuts (auto) ? ? ? Absolute Nucleated RBC ? ? ? Nucleated RBC % (auto) ? ? ? Anion Gap ? ? ? Estim Creat Clear Calc ? ? ? Estimated GFR ? ? ? POC Glucose ? ? ? Random Glucose ? ? ? Calcium ? ? ? Magnesium ? ? ? Total Bilirubin ? ? ? Direct Bilirubin ? ? ? AST ? ? ? ALT ? ? ? Alkaline Phosphatase ? ? ? Troponin I High Sens ?14.1 ? ? B-Natriuretic Peptide ?1786 H ? ? Total Protein ? ? ? Albumin ? ? ? TSH ? ?Cancelled ? Urine Color ? ? ?DK YELLOW Urine Appearance ? ? ?CLOUDY Urine pH ? ? ?5.5 Ur Specific Beatrice ? ? ?>= 1.030 H Urine Protein ? ? ?TRACE Urine Glucose (UA) ? ? ?NEG Urine Ketones ? ? ?5 Urine Blood ? ? ?NEG Urine Nitrite ? ? ?POS H D Ur Leukocyte Esterase ? ? ?NEG Urine RBC ? ? ?1-4 Urine WBC ? ? ?1-4 Ur Squamous Epith Cells ? ? ?1+ Ur Renal Epithelial Cell ? ? ?TRACE Uric Acid Crystals ? ? ?1+ Amorphous Sediment ? ? ?TRACE Urine Bacteria ? ? ?4+ Urine Mucus ? ? ?2+ COVID-19 ([facility]) ? ? ? COVID-19 Clin Com ? 04/23/21 04/24/21 04/24/21 ? 21:13 07:14 07:35 MCV ? ? ?92.7 MCH ? ? ?26.6 L MCHC ? ? ?28.7 L RDW ? ? ?15.1 Plt Count ? ? ?299 MPV ? ? ?8.8 L Immature Gran % (Auto) ? ? ?0.3 Neut % (Auto) ? ? ?78.8 H Lymph % (Auto) ? ? ?13.7 L [place] % (Auto) ? ? ?6.8 Eos % (Auto) ? ? ?0.0 Baso % (Auto) ? ? ?0.4 Lymph # (Auto) ? ? ?1.0 L [place] # (Auto) ? ? ?0.5 Eos # (Auto) ? ? ?0.0 Baso # (Auto) ? ? ?0.0 Abs Immat Gran (auto) ? ? ?0.02 Absolute Neuts (auto) ? ? ?5.6 Absolute Nucleated RBC ? ? ?0.000 Nucleated RBC % (auto) ? ? ?0.0 Anion Gap ? ? ? Estim Creat Clear Calc ? ? ? Estimated GFR ? ? ? POC Glucose ? ?131 H ? Random Glucose ? ? ? Calcium ? ? ? Magnesium ? ? ? Total Bilirubin ? ? ? Direct Bilirubin ?B ? ? AST ? ? ? ALT ? ? ? Alkaline Phosphatase ? ? ? Troponin I High Sens ?10.6 ? ? B-Natriuretic Peptide ? ? ? Total Protein ? ? ? Albumin ? ? ? TSH ? ? ? Urine Color ? ? ? Urine Appearance ? ? ? Urine pH ? ? ? Ur Specific Beatrice ? ? ? Urine Protein ? ? ? Urine Glucose (UA) ? ? ? Urine Ketones ? ? ? Urine Blood ? ? ? Urine Nitrite ? ? ? Ur Leukocyte Esterase ? ? ? Urine RBC ? ? ? Urine WBC ? ? ? Ur Squamous Epith Cells ? ? ? Ur Renal Epithelial Cell ? ? ? Uric Acid Crystals ? ? ? Amorphous Sediment ? ? ? Urine Bacteria ? ? ? Urine Mucus ? ? ? COVID-19 ([facility]) ? ? ? COVID-19 Clin Com ? 04/24/21 04/24/21 ? 07:35 07:40 MCV ? ? MCH ? ? MCHC ? ? RDW ? ? Plt Count ? ? MPV ? ? Immature Gran % (Auto) ? ? Neut % (Auto) ? ? Lymph % (Auto) ? ? [place] % (Auto) ? ? Eos % (Auto) ? ? Baso % (Auto) ? ? Lymph # (Auto) ? ? [place] # (Auto) ? ? Eos # (Auto) ? ? Baso # (Auto) ? ? Abs Immat Gran (auto) ? ? Absolute Neuts (auto) ? ? Absolute Nucleated RBC ? ? Nucleated RBC % (auto)B ? ? Anion Gap ?14 ? Estim Creat Clear Calc ?63.0 ? Estimated GFR ?> 60 ? POC Glucose ? ?141 H Random Glucose ?145 H ? Calcium ?8.3 L ? Magnesium ? ? Total Bilirubin ? ? Direct Bilirubin ? ? AST ? ? ALT ? ? Alkaline Phosphatase ? ? Troponin I High Sens ? ? B-Natriuretic Peptide ? ? Total Protein ? ? Albumin ? ? TSH ? ? Urine Color ? ? Urine Appearance ? ? Urine pH ? ? Ur Specific Beatrice ? ? Urine Protein ? ? Urine Glucose (UA) ? ? Urine Ketones ? ? Urine Blood ? ? Urine Nitrite ? ? Ur Leukocyte Esterase ? ? Urine RBC ? ? Urine WBC ? ? Ur Squamous Epith Cells ? ? Ur Renal Epithelial Cell ? ? Uric Acid Crystals ? ? Amorphous Sediment ? ? Urine Bacteria ? ? Urine Mucus ? ? COVID-19 ([facility]) ? ? COVID-19 Clin Com ? ? echo: Conclusions: - Normal left ventricular size, thickness, systolic function, and wall motion. ? - Normal right ventricular cavity size and systolic function.? ? - The left atrium is moderately dilated. ? - There is severe aortic valve stenosis. ? - There is moderate mitral annular calcification Discharge Plan Discharge Patient Disposition: [facility] Discharge Diagnosis: chf excerebation Referrals: Physician,Unknown J [Primary Care Provider] - 1 Week Discharge Medications: New furosemide [Lasix] 40 mg tablet 40 mg PO DAILY Qty: 30 RF: 0 cefuroxime axetil 250 mg tablet 250 mg PO Q12H Qty: 10 RF: 0 Continued tramadol 50 mg Tablet 50 mg PO Q6H PRN (Reason: Pain (Scale Score 7-10)) RF: 0 cholecalciferol (vitamin D3) [Vitamin D3] 50 mcg (2,000 unit) Tablet 50 mcg PO DAILY RF: 0 Xarelto 20 mg tablet 1 tab PO DAILY RF: 0 latanoprost 0.005 % Drops 1 drp OPHTHALMIC (EYE) DAILY RF: 0 metformin 500 mg Tablet 500 mg PO BID RF: 0 sennosides [senna] 8.6 mg Tablet 17.2 mg PO DAILY RF: 0 lovastatin 10 mg tablet 1 tab PO DAILY RF: 0 tramadol 50 mg Tablet 50 mg PO DAILY RF: 0 levothyroxine 25 mcg Tablet 25 mcg PO DAILY RF: 0 gabapentin 100 mg capsule 200 cap PO TID RF: 0 polyethylene glycol 3350 [Miralax] 17 gram/dose Powder 17 g PO DAILY RF: 0 loratadine 10 mg Tablet 10 mg PO DAILY RF: 0 mirtazapine 7.5 mg Tablet 7.5 mg PO BEDTIME RF: 0 PreserVision AREDS [id number] Capsule 1 cap PO BID RF: 0 melatonin 5 mg Tablet 10 mg PO BEDTIME PRN (Reason: Insomnia) RF: 0 acetaminophen 325 mg Tablet 650 mg PO BID PRN (Reason: Pain) RF: 0 magnesium hydroxide [Milk of Magnesia] 400 mg/5 mL Suspension 400 mg PO DAILY PRN (Reason: Constipation) RF: 0 bisacodyl 10 mg Suppository 10 mg RI DAILY PRN (Reason: Constipation) RF: 0 calcium carbonate 500 mg calcium (1,250 mg) Tablet,Chewable 500 mg PO TID RF: 0 Orajel 3X Mouth Sores 20-0.1-0.15 % Gel MUCOUS MEMBRANE TID RF: 0 brimonidine 0.2 % Drops 1 drp ophthalmic (eye) BID RF: 0 ferrous sulfate 325 mg (65 mg iron) Tablet 325 mg PO DAILY RF: 0 docusate sodium [Colace] 100 mg Capsule 100 mg PO DAILY RF: 0 dorzolamide-timolol 22.3-6.8 mg/mL Drops 1 drp OPHTHALMIC (EYE) BID RF: 0 Changed amiodarone 200 mg Tablet 200 mg PO DAILY Qty: 0 RF: 0 Discharge Orders: Discharge Order (Routine); Ordered 04/27/21 Ordered By: Urban Junior Diet: advance to usual diet Activity on Discharge: As tolerated Stand Alone Forms: Patient Portal Discharge page Care Plan Goals: patient admitted to hospital because of CHF exacerbation - started on IV Lasix, seems to be improving. echo done seems like more diastolic dysfunction CHF. In addition her amiodarone dose was adjusted as per Cardiology. UTI: Given IV ceftriaxone initially, we will switch to p.o. Ceftin upon discharge. Health Concerns: as above . Plan of Treatment: as above. Assessment: as above. Discharge Date/Time: 04/26/21 15:49
[2021-04-26] MEDS: Loratadine 10 MG TABLET PO (10:01)
[2021-04-26] MEDS: Ferrous Sulfate 324 MG TABLET.DR PO (10:02)
[2021-04-26] MEDS: Furosemide 40 MG TABLET PO (10:02)
[2021-04-26] MEDS: traMADoL HCL 50 MG TABLET PO (10:02)
[2021-04-26] MEDS: Gabapentin 100 MG CAPSULE 200 MG PO ×2 (10:02→15:25)
[2021-04-26] MEDS: Levothyroxine Sodium 25 MCG TABLET PO (10:03)
[2021-04-26] MEDS: Sennosides 8.6 MG TABLET 17.2 MG PO (10:03)
[2021-04-26] MEDS: Cholecalciferol (Vitamin D3) 25 MCG TABLET 50 MCG PO (10:03)
[2021-04-26] MEDS: Docusate Sodium 100 MG CAPSULE PO (10:03)
[2021-04-26] MEDS: Amiodarone HCL 200 MG TABLET PO (10:03)
[2021-04-26] MEDS: Brimonidine Tartrate 0.2% Oph 5 ML BOTTLE 1 DROP EYE-BOTH (10:04)
[2021-04-26] MEDS: Dorzolamide/Timolo 2.23%/0.68% 10 ML DRBTL 1 DROP EYE-BOTH (10:04)
[2021-04-26 11:23] LABS: COVID-19 Test Negative (Negative); IDNOW Serial# 9DD0AD1C
[2021-04-26 11:24] VITALS: BP 122/51; PULSE 63; RESP 20; O2SAT 96
[2021-04-26 12:21] LABS: Glucose, Whole Blood 170 mg/dL (60-115)
[2021-04-26] MEDS: Insulin Lispro 100 UNIT/ML 3 ML VIAL SUBCUT (13:08)
--- NOTE | 2021-04-26 13:21 | PM.PNCARD ---
Subjective Subjective Date of Service: 04/26/21 Interval history: Feeling better. Echocardiography has shown severe aortic valve stenosis. Physical Exam Vital Signs: Last Vital Signs Temp 98.2 F 04/24/21 19:07 Pulse 63 04/26/21 11:24 Resp 20 04/26/21 11:24 BP 122/51 L 04/26/21 11:24 Pulse Ox 96 04/26/21 11:24 BMI result Body Mass Index 33.0 GENERAL APPEARANCE: in no acute distress, pleasant. NECK: no carotid bruit, no jugular venous distention. SKIN: no suspicious lesions, warm and dry. HEART:? Ejection systolic murmur aortic area with absent 2nd heart sound. LUNGS: clear to auscultation bilaterally. ABDOMEN: soft, nontender. EXTREMITIES: no edema. PERIPHERAL PULSES: equal. NEUROLOGIC: No gross deficits, AAO X 3 Objective Labs and Meds Result diagrams: 04/24/21 07:35 04/26/21 07:00 Lab results: Laboratory Results - last 24 hr 04/25/21 04/25/21 04/25/21 17:08 17:44 21:00 Sodium Potassium Chloride Carbon Dioxide Anion Gap BUN Creatinine Estim Creat Clear Calc Estimated GFR POC Glucose 124 H 172 H Random Glucose Calcium B-Natriuretic Peptide 985 H COVID-19 ([facility]) COVID-19 Clin Com 04/26/21 04/26/21 04/26/21 06:01 07:00 10:58 Sodium 139 Potassium 3.6 Chloride 101 Carbon Dioxide 31 H Anion Gap 11 L BUN 17 H Creatinine 0.66 Estim Creat Clear Calc 63.2 Estimated GFR > 60 POC Glucose 149 H Random Glucose 171 H Calcium 8.4 B-Natriuretic Peptide COVID-19 ([facility]) Negative COVID-19 Clin Com See Note 04/26/21 12:18 Sodium Potassium Chloride Carbon Dioxide Anion Gap BUN Creatinine Estim Creat Clear Calc Estimated GFR POC Glucose 170 H Random Glucose Calcium B-Natriuretic Peptide COVID-19 ([facility]) COVID-19 Clin Com Progress Note: A&P Assessment and plan (1) Aortic stenosis: Status: Acute (2) PAF (paroxysmal atrial fibrillation): Status: Acute (3) Acute congestive heart failure: Status: Acute Assessment and Plan: Pleasant 80-year-old female who is presenting for shortness of breath congestive heart failure. She has been diagnosed with severe aortic valve stenosis based on echocardiography. She also had paroxysmal atrial fibrillation and has been on amiodarone. Clinically euvolemic at this stage. She currently lives in a assisted, is saying that she is dependent for most of her care and spent most of the day in a chair. Overall seems quite deconditioned and does not have a very good functional status. In these scenarios proceeding with transcatheter aortic valve replacement can be challenging as it may not change the quality of life. I have discussed this with the patient and I have advised her that in my opinion she should be treated medically right now. We shall revisit this as her clinical condition improves and she follows up as outpatient with Dr Salguero. Thank you for allowing me to participate in the care of your patient. Please feel free to contact me if you have any questions. Fall Risk Details Current Medications: Current Medications Acetaminophen (Acetaminophen 325 Mg Tablet) 650 mg PO Q6H PRN PRN Reason: Pain, Mild (Pain Scale 1-3) Last Admin: 04/24/21 17:15 Dose: 650 mg Documented by: Amiodarone HCl (Amiodarone Hcl 200 Mg Tablet) 200 mg PO DAILY [facility] Last Admin: 04/26/21 10:03 Dose: 200 mg Documented by: Bisacodyl (Bisacodyl 10 Mg Supp.Rect) 10 mg RI DAILY PRN PRN Reason: Constipation Brimonidine Tartrate (Brimonidine Tartrate 0.2% Oph 5 Ml Bottle) 1 drop EYE-BOTH BID [facility] Last Admin: 04/26/21 10:04 Dose: 1 drop Documented by: Calcium Carbonate (Calcium Carbonate 500 Mg Tablet) 500 mg PO TID [facility] Last Admin: 04/26/21 10:02 Dose: 500 mg Documented by: Dextrose (Dextrose 50 % 25 Gm/50 Ml Syringe) 25 gm IVPUSH Q15M PRN; Protocol PRN Reason: per Hypoglycemia Standing Ord. Docusate Sodium (Docusate Sodium 100 Mg Capsule) 100 mg PO DAILY PRN PRN Reason: Constipation Docusate Sodium (Docusate Sodium 100 Mg Capsule) 100 mg PO DAILY [facility] Last Admin: 04/26/21 10:03 Dose: 100 mg Documented by: Dorzolamide/Timolol (Dorzolamide/Timolo 2.23%/0.68% 10 Ml Drbtl) 1 drop EYE-BOTH BID [facility] Last Admin: 04/26/21 10:04 Dose: 1 drop Documented by: Ferrous Sulfate (Ferrous Sulfate 324 Mg Tablet.) 324 mg PO DAILY [facility] Last Admin: 04/26/21 10:02 Dose: 324 mg Documented by: Furosemide (Furosemide 40 Mg Tablet) 40 mg PO DAILY [facility]; Protocol Last Admin: 04/26/21 10:02 Dose: 40 mg Documented by: Gabapentin (Gabapentin 100 Mg Capsule) 200 mg PO TID [facility] Last Admin: 04/26/21 10:02 Dose: 200 mg Documented by: Glucose (Glucose Gel 15 Gm Gel..Gram.) 15 gm PO Q15M PRN; Protocol PRN Reason: per Hypoglycemia Standing Ord. Ceftriaxone Sodium 1 gm/ (Sodium Chloride) 50 mls @ 100 mls/hr IV Q24H [facility] Last Infusion: 04/26/21 09:53 Dose: Infused Documented by: Insulin Human Lispro (Insulin Lispro 100 Unit/Ml 3 Ml Vial) 0 unit SUBCUT QIDACHS [facility]; Protocol Last Admin: 04/26/21 13:08 Dose: 2 unit Documented by: Latanoprost (Latanoprost 0.005 % Ophth Maryjane 2.5 Ml Drops) 1 drop EYE-BOTH BEDTIME [facility] Last Admin: 04/25/21 21:24 Dose: Not Given Documented by: Levothyroxine Sodium (Levothyroxine Sodium 25 Mcg Tablet) 25 mcg PO DAILY [facility] Last Admin: 04/26/21 10:03 Dose: 25 mcg Documented by: Loratadine (Loratadine 10 Mg Tablet) 10 mg PO DAILY [facility] Last Admin: 04/26/21 10:01 Dose: 10 mg Documented by: Magnesium Hydroxide (Milk Of Magnesia 30 Ml Oral.Susp) 30 ml PO DAILY PRN PRN Reason: Constipation Melatonin (Melatonin 3 Mg Tablet) 9 mg PO BEDTIME PRN PRN Reason: Insomnia Mirtazapine (Mirtazapine 7.5 Mg Tablet) 7.5 mg PO BEDTIME [facility] Last Admin: 04/25/21 21:23 Dose: 7.5 mg Documented by: Ondansetron HCl (Ondansetron Hcl 4 Mg/2 Ml Vial) 4 mg IVPUSH Q8H PRN PRN Reason: Nausea and Vomiting Pharmacy Consult (Consult Rx Perform Med Rec) 1 each MISCELLANE ONCE PRN PRN Reason: Consult order Pravastatin Sodium (Pravastatin Sodium 10 Mg Tablet) 10 mg PO BEDTIME [facility] Last Admin: 04/25/21 21:23 Dose: 10 mg Documented by: Rivaroxaban (Rivaroxaban 20 Mg Tablet) 20 mg PO DAILY@1700 [facility] Last Admin: 04/25/21 18:19 Dose: 20 mg Documented by: Senna (Sennosides 8.6 Mg Tablet) 17.2 mg PO DAILY [facility] Last Admin: 04/26/21 10:03 Dose: 17.2 mg Documented by: Sodium Chloride (0.9 % Sodium Chloride Flush 3 Ml Syringe) 3 ml IVFLUSH QSHIFT [facility] Last Admin: 04/26/21 08:07 Dose: 3 ml Documented by: Tramadol HCl (Tramadol Hcl 50 Mg Tablet) 50 mg PO DAILY [facility] Last Admin: 04/26/21 10:02 Dose: 50 mg Documented by: Tramadol HCl (Tramadol Hcl 50 Mg Tablet) 50 mg PO Q6H PRN PRN Reason: Pain (Scale Score 7-10) Vitamin D (Cholecalciferol (Vitamin D3) 25 Mcg Tablet) 50 mcg PO DAILY [facility] Last Admin: 04/26/21 10:03 Dose: 50 mcg Documented by: Time Spent With Patient Time: Total time spent is greater than 50% in coordination of care (as documented) at patient's floor/unit and/or counseling patient: Time with patient: 15 - 24 minutes Progress Note: Quality Stroke Does the patient have a stroke diagnosis?: No Procedures Date of Service Date of Service: 04/26/21
[2021-04-26 13:56] VITALS: BP 113/45; PULSE 62; RESP 20; O2SAT 95
== END 2021-04-26 15:49 | disposition skilled nursing facility (03) | DRG 291 ==
LOC: HO.ED 22:04 → HO.EDOVER 22:36
PROVIDERS: Physician Assistant; Admitting Provider Internal Medicine; Emergency Provider Emergency Medicine Emergency Medical Services; PCP Family Medicine; Visit Provider Internal Medicine
DX: I11.0 Hypertensive heart disease with heart failure (principal); J96.01 Acute respiratory failure with hypoxia; J18.9 Pneumonia, unspecified organism; I50.33 Acute on chronic diastolic (congestive) heart failure; N39.0 Urinary tract infection, site not specified; E03.9 Hypothyroidism, unspecified; E11.9 Type 2 diabetes mellitus without complications; B96.20 Unspecified Escherichia coli [E. coli] as the cause of diseases classified elsewhere; I48.0 Paroxysmal atrial fibrillation; I35.0 Nonrheumatic aortic (valve) stenosis; I95.9 Hypotension, unspecified; I44.0 Atrioventricular block, first degree; Z20.822 Contact with and (suspected) exposure to COVID-19; Z96.653 Presence of artificial knee joint, bilateral; Z79.01 Long term (current) use of anticoagulants; Z79.84 Long term (current) use of oral hypoglycemic drugs; Z79.890 Hormone replacement therapy; Z79.891 Long term (current) use of opiate analgesic; Z79.899 Other long term (current) drug therapy
CPT/HCPCS: 36415; 71045; 80048; 80076; 81001; 82947; 83735; 83880; 84145; 84443; 84484; 85025; 87040; 87086; 87088; 87186; 87635; 93005; 93306; 99285; J0696; J1940

== ENCOUNTER → 2021-07-15 14:08 | Outpatient (BNVA) | payer MEDICARE, MEDICAID, SELFPAY | PROVIDERS: PCP Family Medicine | DX: R33.9 Retention of urine, unspecified (principal) | CPT/HCPCS: 51798; 99202 ==

== ENCOUNTER 2022-02-21 20:12 | Emergency (ER) | payer MEDICARE, MEDICAID, OTHER, SELFPAY ==
[2022-02-21 20:25] VITALS: BP 118/58; BP 95/37; PULSE 62; PULSE 72; RESP 18; O2SAT 92; BMI 34.4
[2022-02-21 20:48] VITALS: O2SAT 96
[2022-02-21 20:54] VITALS: BP 101/38
[2022-02-21] MEDS: oxyCODONE HCl Immed Release 5 MG TABLET PO (20:57)
--- NOTE | 2022-02-21 21:03 | PC.NURSE ---
pt medicated according to MAR
--- NOTE | 2022-02-21 21:35 | ED_ITS ---
HPI - General Adult General Chief complaint: Extremity Injury, Lower Stated complaint: Left ankle pain Time Seen by Provider: 02/21/22 20:32 Source: patient Mode of arrival: ambulatory Limitations: no limitations History of Present Illness HPI narrative: 81 yold female with pmh of afib, hypotenstion, CHF, baseline abnormal posture, aortic stenos, DNR, tardive dyskinesia, Diabetes presents to the ED for left leg fracutre which occurred yesterday. As per patient and EMS report patient being wheeled in her wheel chair and her left foot got caught under the wheel chair and twisted and has had pain ever since. patient and EMS denies patient falling of the wheel chair or hitting in head. Related Data Home Medications Medication Instructions Recorded Confirmed acetaminophen 325 mg tablet 650 mg PO BID PRN Pain 04/23/21 04/23/21 benzocaine 20 %-menthol 0.1 %-zinc ea mucous membrane TID 04/23/21 chloride 0.15 % mucosal gel (Orajel 3X Mouth Sores) bisacodyl 10 mg rectal suppository 10 mg LA DAILY PRN Constipation 04/23/21 0 04/23/21 brimonidine 0.2 % eye drops 1 drp ophthalmic (eye) BID 04/23/21 04/23/21 calcium carbonate 500 mg calcium 500 mg PO TID 04/23/21 04/23/21 (1,250 mg) chewable tablet cholecalciferol (vitamin D3) 50 50 mcg PO DAILY 04/23/21 04/23/21 mcg (2,000 unit) tablet (Vitamin D3) docusate sodium 100 mg capsule 100 mg PO DAILY 04/23/21 04/23/21 (Colace) dorzolamide 22.3 mg-timolol 6.8 1 drp ophthalmic (eye) BID 04/23/21 04/23/21 mg/mL eye drops ferrous sulfate 325 mg (65 mg 325 mg PO DAILY 04/23/21 04/23/21 iron) tablet gabapentin 100 mg capsule 200 cap PO TID 04/23/21 04/23/21 latanoprost 0.005 % eye drops 1 drp ophthalmic (eye) DAILY 04/23/21 04/23/21 levothyroxine 25 mcg tablet 25 mcg PO DAILY 04/23/21 04/23/21 loratadine 10 mg tablet 10 mg PO DAILY 04/23/21 04/23/21 lovastatin 10 mg tablet 1 tab PO DAILY 04/23/21 04/23/21 magnesium hydroxide 400 mg/5 mL 400 mg PO DAILY PRN Constipation 04/23/21 04/23/21 oral suspension (Milk of Magnesia) melatonin 5 mg tablet 10 mg PO BEDTIME PRN Insomnia 04/23/21 04/23/21 metformin 500 mg tablet 500 mg PO BID 04/23/21 04/23/21 mirtazapine 7.5 mg tablet 7.5 mg PO BEDTIME 04/23/21 04/23/21 polyethylene glycol 3350 17 17 g PO DAILY 04/23/21 04/23/21 gram/dose oral powder (Miralax) rivaroxaban 20 mg tablet (Xarelto) 1 tab PO DAILY 04/23/21 04/23/21 sennosides 8.6 mg tablet (senna) 17.2 mg PO DAILY 04/23/21 04/23/21 tramadol 50 mg tablet 50 mg PO DAILY 04/23/21 04/23/21 tramadol 50 mg tablet 50 mg PO Q6H PRN Pain (Scale Score 04/23/21 04/23/21 7-10) vitamins A,C,Q-gmry-favvsu 14,320 1 cap PO BID 04/23/21 04/23/21 unit-226 mg-200 unit capsule (PreserVision AREDS) Previous Rx's Medication Instructions Recorded amiodarone 200 mg tablet 200 mg PO DAILY #0 tabs 04/26/21 cefuroxime axetil 250 mg tablet 250 mg PO Q12H #10 tabs 04/26/21 furosemide 40 mg tablet (Lasix) 40 mg PO DAILY #30 tabs 04/26/21 Allergies Allergy/AdvReac Type Severity Reaction Status Date / Time moxifloxacin [Avelox] Allergy Unknown rash Verified 07/15/21 14:14 From [facility] Allergy Unknown BLOTCHES Uncoded 07/15/21 14:14 ALL OVER FACE Review of Systems Review of Systems: left leg pain Yes all other systems are reviewed and are negative [facility] Past Medical History Medical History (Updated 02/21/22 @ 22:30 by ALLEGRA Godinez) Chronic atrial fibrillation, unspecified History of falling Hyperlipidemia, unspecified Hypothyroidism, unspecified 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 Nonrheumatic aortic (valve) stenosis Repeated falls Type 2 diabetes mellitus without complications Unspecified glaucoma Unspecified osteoarthritis, unspecified site Urinary retention with incomplete bladder emptying Surgical History Presence of artificial knee joint, bilateral Social History Social History Alcohol intake: never Patient Tobacco Use Status: Never used Tobacco Smoked in Last 30 Days: No Use of substances other than those prescribed or required for medical reasons: No Advance Directives: Yes Advance Directives on File: Yes Advance Directives Date on File: 04/26/21 service: No Current occupational status: retired Physical Exam ED Vital Signs: Vital Signs - 24 hr 02/21/22 20:25 02/21/22 20:48 02/21/22 20:54 Pulse Rate 62 Respiratory Rate 18 Blood Pressure 95/37 L 101/38 L Pulse Oximetry 92 96 Oxygen Delivery Method Room Air Room Air 02/21/22 21:54 02/21/22 22:08 Pulse Rate 63 60 Respiratory Rate Blood Pressure 121/41 L Pulse Oximetry 100 Oxygen Delivery Method Room Air BMI result Body Mass Index 34.4 Const General: cooperative, healthy appearing, comfortable, no acute distress, well developed, alert, awake and Physically active Orientation/consciousness: oriented to person, oriented to place, oriented to time and patient oriented x3 HENMT Head: Yes normal to inspection, Yes No palpable skull fracture present, Yes normocephalic, Yes atraumatic and No abrasion Eyes General: appearance normal, both eyes and all related structures Neck Neck: Yes normal visual inspection, Yes full ROM, Yes no lymphadenopathy, Yes no meningeal signs, Yes trachea midline, Yes supple, No anterior neck swelling and No tender Chest Chest palpation & inspection: normal inspection of the chest and normal palpation of entire chest wall Resp Effort & Inspection: normal respiratory effort and able to speak in complete sentences Auscultation: clear to auscultation bilaterally Cardio Jugular venous distension: no JVD Heart sounds: S1 normal heart sound present and S2 normal heart sound present GI Inspection: Yes normal to inspection and No abdominal wall ecchymosis Palpation (GI): Soft to palpation, not firm, nontender, no guarding and not rigid General: No CVA tenderness and Yes no CVA tenderness Back/Spine/Pelvis Back: no CVA tenderness, No CVA tenderness and No back tenderness Skin General skin exam: no rashes or lesions noted and elasticity normal Neuro General: oriented to person, oriented to place, oriented to time, patient oriented x3, tone normal, no meningeal signs and no focal motor deficits Extrem Other: Vascular, neuro exam intact of left lower extremities. motor exam limited due to pain. Left lower extremity tibia positive for tenerderness. NO deformity. RIght lower extremity is normal and motor, neuro, and vascular exam is intact. Psych Appearance: grossly normal, well kempt and not disheveled Course Course Course Narrative: O2 saturation 96 normal. patient baseline hypertensive. Will put on splint Reevaluation(s) Reevaluation #1: splint placed. Patient will be going back to [facility] Time: 22:19 Medications Administered Discontinued Medications Generic Name Dose Route Start Last Admin Trade Name Freq PRN Reason Stop Dose Admin Oxycodone HCl 5 mg 02/21/22 20:50 02/21/22 20:57 Oxycodone Hcl Immed Release 5 Mg Tablet PO 02/21/22 20:51 5 mg ONCE ONE Administration Tramadol HCl 50 mg 02/21/22 21:44 02/21/22 21:51 Tramadol Hcl 50 Mg Tablet PO 02/21/22 21:45 50 mg ONCE ONE Administration Medical Decision Making [facility] Narrative Medical decision making narrative: Left tibia fracture Discharge Plan Discharge Clinical Impression: Closed tibia fracture Patient Disposition: Home, Self-Care Instructions: Leg Fracture (ED) Additional Instructions: You were placed in the splint. You will need follow-up with orthopedic surgeon. Continue taking tramadol 50 mg daily as prescribed. Return to the ED immediately for any with black discoloration, chest pain, shortness of breath, redness of extremity, severe pain,, or any other concerning symptoms Prescriptions: No Action tramadol 50 mg Tablet 50 mg PO Q6H PRN (Reason: Pain (Scale Score 7-10)) cholecalciferol (vitamin D3) [Vitamin D3] 50 mcg (2,000 unit) Tablet 50 mcg PO DAILY Xarelto 20 mg tablet 1 tab PO DAILY latanoprost 0.005 % Drops 1 drp OPHTHALMIC (EYE) DAILY metformin 500 mg Tablet 500 mg PO BID sennosides [senna] 8.6 mg Tablet 17.2 mg PO DAILY lovastatin 10 mg tablet 1 tab PO DAILY tramadol 50 mg Tablet 50 mg PO DAILY levothyroxine 25 mcg Tablet 25 mcg PO DAILY gabapentin 100 mg capsule 200 cap PO TID polyethylene glycol 3350 [Miralax] 17 gram/dose Powder 17 g PO DAILY loratadine 10 mg Tablet 10 mg PO DAILY mirtazapine 7.5 mg Tablet 7.5 mg PO BEDTIME PreserVision AREDS [id number] Capsule 1 cap PO BID melatonin 5 mg Tablet 10 mg PO BEDTIME PRN (Reason: Insomnia) acetaminophen 325 mg Tablet 650 mg PO BID PRN (Reason: Pain) magnesium hydroxide [Milk of Magnesia] 400 mg/5 mL Suspension 400 mg PO DAILY PRN (Reason: Constipation) bisacodyl 10 mg Suppository 10 mg LA DAILY PRN (Reason: Constipation) calcium carbonate 500 mg calcium (1,250 mg) Tablet,Chewable 500 mg PO TID Orajel 3X Mouth Sores 20-0.1-0.15 % Gel MUCOUS MEMBRANE TID brimonidine 0.2 % Drops 1 drp ophthalmic (eye) BID ferrous sulfate 325 mg (65 mg iron) Tablet 325 mg PO DAILY docusate sodium [Colace] 100 mg Capsule 100 mg PO DAILY dorzolamide-timolol 22.3-6.8 mg/mL Drops 1 drp OPHTHALMIC (EYE) BID amiodarone 200 mg Tablet 200 mg PO DAILY Qty: 0 0RF furosemide [Lasix] 40 mg tablet 40 mg PO DAILY Qty: 30 0RF cefuroxime axetil 250 mg tablet 250 mg PO Q12H Qty: 10 0RF Referrals: [facility] [Provider Group] (Closed tibia fracture) Interventions: ED Discharge Assessment Last Done: 02/21/22 22:56 Discharge Date/Time: 02/21/22 22:58 Print Language: Bulgarian
--- NOTE | 2022-02-21 21:46 | PC.NURSE ---
pt rang nurse call kirsten requesting pain medication for 5/10 pain. Misael DINH notified. New orders placed at this time.
[2022-02-21] MEDS: traMADoL HCL 50 MG TABLET PO (21:51)
[2022-02-21 21:54] VITALS: BP 121/41; PULSE 63
--- NOTE | 2022-02-21 22:01 | PC.NURSE ---
pt medicated according to mar
[2022-02-21 22:08] VITALS: PULSE 60; O2SAT 100
--- NOTE | 2022-02-21 22:09 | PC.NURSE ---
SpO2 probe giving reading of 88-90 on RA, replaced with new probe, pt SpO2 now at 100% on RA.
--- NOTE | 2022-02-21 22:11 | PC.NURSE ---
Cain called at 2209 for a bls transfer back to [facility] per Misael DINH. Ems booked foe [phone].Ana aware
--- NOTE | 2022-02-21 22:37 | PC.NURSE ---
Called [facility] [phone] to give report to [address] [place] [address], unable to reach facility, continues to ring busy
== END 2022-02-21 22:58 | disposition home or self-care (01) ==
PROVIDERS: Emergency Provider Internal Medicine; PCP Family Medicine
DX: S82.202A Unspecified fracture of shaft of left tibia, initial encounter for closed fracture (principal); Y29.XXXA Contact with blunt object, undetermined intent, initial encounter; Y93.9 Activity, unspecified; Y92.9 Unspecified place or not applicable; Y99.9 Unspecified external cause status; Z79.899 Other long term (current) drug therapy
CPT/HCPCS: 29505; 99284

== ENCOUNTER 2022-09-01 15:32 | Inpatient (IN) | payer MEDICARE, MEDICAID, SELFPAY ==
--- NOTE | ~2022-09-01 | XR_ITS ---
EXAMINATION: XR CHEST CLINICAL INFORMATION: Chest pain COMPARISON: Chest 09/11/2022 TECHNIQUE: AP upright portable view of the chest was obtained. FINDINGS: Interval decrease in left apical pneumothorax. New left basilar patchy opacities. Obscuration of the left costophrenic angle suggestive of a small pleural effusion. No significant right pleural effusion. The cardiomediastinal silhouette is within normal limits. XR/XR chest 1V IMPRESSION: Interval decrease and left hydropneumothorax on the left with no significant pleural effusion seen on the right.
--- NOTE | ~2022-09-01 | CT_ITS ---
EXAMINATION: CT CHEST WITHOUT CONTRAST CLINICAL INFORMATION: Loculated left pleural effusion.. COMPARISON: Chest x-ray 09/06/2022. CT chest 01/21/2016 TECHNIQUE: Multidetector volumetric CT imaging of the chest was done. Axial MIP volume rendering provided. Sagittal and coronal reformatted images were obtained. This CT examination was performed using dose optimization techniques as appropriate, variously including the following: *Automated exposure control *Adjustment of mA and/or kV according to patient size (this includes techniques or standardized protocols for targeted exams where dose is matched to indication/reason for exam; i.e. 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 LUNGS: There is bilateral lower lobe consolidation/atelectasis with air bronchograms. Mild atelectatic changes are seen in lingula. MEDIASTINUM: The heart size is enlarged. There is no pericardial effusion seen. Mitral valve calcifications noted. Central trachea and the bronchi widely patent. Thyroid lobes are symmetric and normal. Small reactive lymph nodes are seen in the left para-aortic space with the largest lymph node measuring 1.3 cm long axis. CORONARY ARTERY CALCIFICATION: Trace coronary artery calcification seen. PLEURA: There is a loculated hydropneumothorax left upper lung with moderate pleural effusion. There is small to moderate right pleural effusion. There is a left chest tube with its tip at the fourth interspace. AXILLA: No lymphadenopathy. UPPER ABDOMEN: Visualized liver, spleen, pancreas and bilateral adrenal glands are unremarkable. OSSEOUS STRUCTURES: No aggressive lytic or sclerotic process seen. There is mild ventral spondylosis. CT/CT chest wo IV con IMPRESSION: 1. Bilateral lower lobe consolidation/atelectasis with air bronchograms. 2. There is a loculated hydropneumothorax left upper lung with moderate pleural effusion. There is a left chest tube with its tip at posterior fourth interspace. 3. There is a small to moderate right pleural effusion. Fleischner guidelines were followed.
--- NOTE | ~2022-09-01 | XR_ITS ---
EXAMINATION: XR CHEST CLINICAL INFORMATION: Leak COMPARISON: 09/10/2022 TECHNIQUE: Frontal view of the chest was obtained. FINDINGS: Left basilar chest tube tip overlies the lateral hemithorax, with side-port at the level of the subcutaneous tissues. This appears retracted since recent prior CT. Persistent patchy left basilar opacity and small pleural effusion. Mild right basilar haziness and small effusion appears similar to prior. Redemonstrated small pneumothorax component at the left apex. The cardiomediastinal silhouette is stable. No acute osseous findings are seen. XR/XR chest 1V IMPRESSION: 1. Left basilar chest tube tip overlies the lateral hemithorax, retracted since the prior examination and now with side-port at the level of the subcutaneous tissues. 2. Redemonstrated small left apical pneumothorax. 3. Persistent patchy left basilar opacity and small pleural effusion. 4. Similar appearance of mild right basilar haziness and small effusion.
--- NOTE | ~2022-09-01 | XR_ITS ---
EXAMINATION: XR CHEST CLINICAL INFORMATION: Assess left pleural effusion COMPARISON: Chest x-ray 09/02/2022 TECHNIQUE: Frontal view of the chest was obtained. FINDINGS: There is complete opacification of left lung from combination of pleural effusion and atelectasis. The right lung is expanded and clear. There is mild [id number] midline shift. Heart size and pulmonary vascularity is normal. No gross bony abnormality. XR/XR chest 1V IMPRESSION: Large left pleural effusion with left lung collapse. Significant left to right midline shift there is the findings are unchanged to 07/02/2022 exam and 07/03/2022 exam.
--- NOTE | ~2022-09-01 | XR_ITS ---
EXAMINATION: XR CHEST CLINICAL INFORMATION: Dyspnea COMPARISON: 09/05/2022 TECHNIQUE: Frontal view of the chest was obtained. FINDINGS: Left chest tube is in similar position to prior. Persistent small left pleural effusion with adjacent basilar opacification, similar to prior. Right lung is well-expanded and appears well aerated. Small persistent pneumothorax component suspected at the left apex. The cardiomediastinal silhouette is stable. Calcification is present at the aortic arch. No acute osseous findings are seen. XR/XR chest 1V IMPRESSION: Persistent small left pleural effusion with adjacent basilar opacification, similar to prior. Small persistent pneumothorax component suspected at the left apex.
--- NOTE | ~2022-09-01 | XR_ITS ---
EXAMINATION: XR CHEST CLINICAL INFORMATION: Significant left pleural effusion. COMPARISON: Chest x-ray 09/01/2022. TECHNIQUE: Frontal view of the chest was obtained. FINDINGS: There is a large left pleural effusion unchanged to previous study. There is a chest tube along the left lung base no change in the fusion. There is [id number] midline shift. The heart size and and) vascularity is normal. No gross bony abnormality. XR/XR chest 1V IMPRESSION: Large left pleural effusion is stable. There is a chest tube along the left lung base. There is [id number] midline shift. No significant change in the large left pleural effusion and left chest tube from 09/01/2022
--- NOTE | ~2022-09-01 | XR_ITS ---
EXAMINATION: XR CHEST CLINICAL INFORMATION: Reason for Exam sob COMPARISON: Chest radiograph 04/23/2021 TECHNIQUE: One view of the chest FINDINGS: Lines and tubes: None. Complete opacification of the left hemithorax which may reflect a combination of pleural effusion, consolidation, and/or collapse. No pneumothorax. Cardiac silhouette is obscured by complete opacification of the left hemithorax.. XR/XR chest 1V IMPRESSION: 1. Complete opacification of the left hemithorax which may reflect a combination of pleural effusion, consolidation, and/or collapse.
--- NOTE | ~2022-09-01 | CT_ITS ---
EXAMINATION: CT CHEST WITHOUT CONTRAST CLINICAL INFORMATION: Effusion versus pneumonia COMPARISON: Chest radiograph earlier today Complete opacification of the left hemithorax which may reflect a combination of pleural effusion, consolidation, and/or collapse. TECHNIQUE: Multidetector volumetric CT imaging of the chest was done. Axial MIP volume rendering provided. Sagittal and coronal reformatted images were obtained. This CT examination was performed using dose optimization techniques as appropriate, variously including the following: *Automated exposure control *Adjustment of mA and/or kV according to patient size (this includes techniques or standardized protocols for targeted exams where dose is matched to indication/reason for exam; i.e. extremities or head) *Use of iterative reconstruction technique DLP: 337 mGy-cm FINDINGS: DANCE PROFESSOR: White out of the left hemithorax with shift of the mediastinum to the right LUNGS AN PLEURA: There is a large pleural effusion present on the left with complete collapse of the entire left lung. There is no aerated lung in the hemithorax. The central airways appear patent. No lung nodules are seen on the right. No right-sided pleural effusion. MEDIASTINUM: No gross mediastinal lymphadenopathy is seen although evaluation suboptimal without contrast. Some small lymph nodes are present the largest in the superior mediastinum measuring only 7 mm in short axis dimension. Dense calcification noted in the aortic leaflets and mitral annulus. CORONARY ARTERY CALCIFICATION: Present AXILLA: No lymphadenopathy. UPPER ABDOMEN: Unremarkable. OSSEOUS STRUCTURES: Mild degenerative changes are present throughout the spine. No bony destructive lesions. CT/CT chest wo IV con IMPRESSION: Large left pleural effusion with complete collapse of the left lung. The mediastinum is deviated to the right. Fleischner guidelines were followed.
--- NOTE | ~2022-09-01 | CT_ITS ---
EXAMINATION: CT ABDOMEN AND PELVIS WITH CONTRAST CLINICAL INFORMATION: Chronic abdominal pain COMPARISON: Previous CT of the abdomen and pelvis from 2016 TECHNIQUE: Multidetector volumetric images were obtained from the superior aspect of the liver through the pubic symphysis following administration 85 mL of Omnipaque 350 intravenous contrast. Sagittal and coronal reformatted images were obtained on the technologist's workstation. Oral contrast: Yes This CT examination was performed using dose optimization techniques as appropriate, variously including the following: *Automated exposure control *Adjustment of mA and/or kV according to patient size (this includes techniques or standardized protocols for targeted exams where dose is matched to indication/reason for exam; i.e. extremities or head) *Use of iterative reconstruction technique DLP: 631 mGy-cm FINDINGS: LUNG BASES: Bilateral pleural effusions and adjacent lower lobe compressive atelectasis, right greater than left. Enlarged heart. LIVER, GALLBLADDER, AND BILIARY TREE: The liver is low in attenuation suggestive of fatty infiltration. There is question of mild cirrhotic change. No focal liver lesion. Large gallstones in the gallbladder. No biliary duct dilatation. Small amount of ascites in the upper abdomen. PANCREAS: Atrophic changes. SPLEEN: Unremarkable. ADRENAL GLANDS: Stable heterogeneous left adrenal mass. This contains macroscopic fat and may represent a myelolipoma. This measures 2.7 x 3 cm. Normal right adrenal gland. KIDNEYS AND URETERS: The kidneys are normal in size, shape, and attenuation. No hydronephrosis, hydroureter, or calculi seen. No perinephric stranding. BLADDER: Not optimally distended. GASTROINTESTINAL TRACT: Mild wall thickening of the colon and wall edema suggestive of colitis. No evidence of obstruction, perforation or abscess. Mild diverticulosis. The small bowel. The appendix is normal. The stomach is not optimally distended. ABDOMINAL WALL: Left inguinal hernia containing fat. LYMPH NODES: Normal. VASCULAR: Severe atherosclerotic disease. No aneurysm. PELVIC VISCERA: Unremarkable. OSSEOUS STRUCTURES: Scoliosis and degenerative changes of the spine. Mild anterior subluxation of L4 with respect L5 probably related to facet arthritis. Degenerative changes at the hip joints. CT/CT abdomen pelvis w IV con IMPRESSION: Mild pancolitis. Mild diverticulosis. No evidence of diverticulitis. Stable heterogeneous left adrenal lesion. Question mild cirrhotic change. Small amount of ascites. Severe atherosclerotic disease. Fleischner guidelines were followed.
--- NOTE | ~2022-09-01 | XR_ITS ---
EXAMINATION: XR CHEST CLINICAL INFORMATION: Left-sided hydropneumothorax COMPARISON: 09/07/2020 TECHNIQUE: Frontal view of the chest was obtained. FINDINGS: Chest tube overlies the mid to lower left lung. Redemonstrated small left hydropneumothorax with suspected interval decrease in pleural effusion compared to prior. Apical pneumothorax component appears similar to prior. Redemonstrated parenchymal opacity at the left lung base. Right lung is well-expanded without acute consolidation. The cardiomediastinal silhouette is stable. No acute osseous findings are seen. XR/XR chest 1V IMPRESSION: Redemonstrated small left hydropneumothorax with suspected interval decrease in pleural fluid compared to prior. Redemonstrated left basilar parenchymal opacity.
--- NOTE | ~2022-09-01 | XR_ITS ---
EXAMINATION: XR CHEST CLINICAL INFORMATION: Chest tube placement COMPARISON: Prior CT chest and chest radiograph earlier today TECHNIQUE: Frontal view of the chest was obtained. FINDINGS: Aside from interval placement of a left-sided chest tube which enters between the seventh and eighth rib interspace laterally and has its tip abutting the mediastinum, there is been no interval change since the prior study. Again noted is collapse of the entire left lung with large pleural effusion and deviation of the mediastinum to the right. XR/XR chest 1V IMPRESSION: Interval placement of left-sided chest tube described above. No change in large left pleural effusion and collapse of the left lung.
--- NOTE | ~2022-09-01 | XR_ITS ---
EXAMINATION: XR CHEST CLINICAL INFORMATION: Assess left lung aeration status post TPA. Short of breath. COMPARISON: 09/04/2022 TECHNIQUE: Frontal view of the chest was obtained. FINDINGS: Left-sided chest tube remains in place extending more superiorly than on prior. There is significant improvement in aeration of the left mid to upper lung. Persistent left basilar opacity. Apical gas noted consistent with a hydropneumothorax as previously discussed. Small right-sided pleural effusion noted. The cardiomediastinal silhouette is unchanged. XR/XR chest 1V IMPRESSION: 1. Significant improvement in aeration of the left mid to upper lung. Persistent left basilar opacity. Small right pleural effusion. 2. Left sided hydropneumothorax again noted with apical gas more prominent on this study.
--- NOTE | ~2022-09-01 | XR_ITS ---
EXAMINATION: XR CHEST CLINICAL INFORMATION: Left side T8 hydropneumothorax COMPARISON: 09/11/2022 TECHNIQUE: Frontal view of the chest was obtained. FINDINGS: Chest tube has been retracted. Left basal opacity is persistent due to pleural effusion. There is left apical pneumothorax identical to the previous examination. There is right-sided opacity at the lung bases most likely due to small pleural effusion. There are increased interstitial markings on the right. Cardiomediastinal silhouette is normal. XR/XR chest 1V IMPRESSION: Status post reconstruction of chest tube with persistent hydropneumothorax on the left and trace of pleural effusion on the right
--- NOTE | ~2022-09-01 | CT_ITS ---
EXAMINATION: CT CHEST WITHOUT CONTRAST CLINICAL INFORMATION: Loculated left pleural effusion. COMPARISON: 09/07/2022. TECHNIQUE: Multidetector volumetric CT imaging of the chest was done. Axial MIP volume rendering provided. Sagittal and coronal reformatted images were obtained. This CT examination was performed using dose optimization techniques as appropriate, variously including the following: *Automated exposure control *Adjustment of mA and/or kV according to patient size (this includes techniques or standardized protocols for targeted exams where dose is matched to indication/reason for exam; i.e. extremities or head) *Use of iterative reconstruction technique DLP: 326 mGy-cm FINDINGS: LUNGS AND PLEURA: Again noted is volume loss of left hemithorax with mild left-sided shift of the cardiomediastinal structures. Scattered linear and curvilinear opacities of atelectasis or scarring are present in the left lung. A noncalcified nodule of 0.5 cm average diameter is present in the lingula (image 287, series 6). This nodule is new since 01/21/2016. The pleura is diffusely thickened along the left hemithorax. Again noted is the loculated left pleural effusion. The left thoracostomy tube is in stable position compared to 09/07/2022 with its tip in the posterior pleural space. Persistent air-fluid levels within the loculated components of the effusion at the anterior and posterior left apex. Also, interval development of increased gas and less fluid in the loculated component of the effusion seen at level of distal aortic arch (image 202, series 6). Persistent small volume of effusion in the posteroinferior left hemithorax. The small right pleural effusion and atelectasis in the dependent aspect right lung remain unchanged. CARDIOVASCULAR: Mild cardiomegaly. Mitral valve annulus is calcified. Aortic valve is densely calcified. Thoracic aorta atherosclerosis without aneurysm. Mild atherosclerotic calcification of coronary arteries. Pulmonary arteries are unremarkable for a noncontrast examination. MEDIASTINUM AND LOWER NECK: No mediastinal mass. There appears to be a very small hiatal hernia. No change in previously seen multinodular thyroid gland. No large or suspicious-appearing nodule. No thyroid imaging follow-up recommended. LYMPHATICS: No axillary or internal mammary lymphadenopathy. Although multiple lymph nodes are seen within the mediastinum, they remain in the normal size range. UPPER ABDOMEN: Cholelithiasis. Persistent upper abdominal free fluid/ascites. 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 SKELETAL AND CHEST WALL: No acute abnormalities within the visualized degenerated spine. CT/CT chest wo IV con IMPRESSION: * Left thoracostomy tube remains in satisfactory position. Persistent loculated left pleural effusion is present. Overall, the size of the pleural effusion is similar compared to 09/07/2022 (and significantly smaller compared to 09/01/2022). * Diffusely thickened pleura of the left hemithorax is presumably inflammatory related thickening rather than neoplastic disease associated thickening. There is no overt nodularity of the pleura. * 0.5 cm nodule is present in the anterior aspect of the lingula. This is new compared to 01/21/2016. Based on Fleischner Society guidelines, chest CT follow up is not required in a low-risk patient and may be considered optional at 12 months in a high risk patient.
--- NOTE | ~2022-09-01 | XR_ITS ---
EXAMINATION: XR CHEST CLINICAL INFORMATION: Reason for Exam Assess left pleural effuison/CT COMPARISON: Chest radiograph 09/03/2022 TECHNIQUE: One view of the chest FINDINGS: Lines and tubes: Left-sided thoracostomy tube in place. There is slight improved aeration left upper lobe with some new minimal reexpansion of lung however there is persistent near complete opacification of the left hemithorax secondary to large effusion and collapse. Small locule of air adjacent to the thoracostomy tube in the left lateral chest could potentially reflect a small component of pneumothorax in a hydropneumothorax, not unexpected status post chest tube placement. Unchanged cardiomediastinal silhouette. XR/XR chest 1V IMPRESSION: 1. Left-sided thoracostomy tube in place. There is slight improved aeration left upper lobe with some new minimal reexpansion of lung however there is persistent near complete opacification of the left hemithorax secondary to large effusion and collapse. 2. Small locule of air adjacent to the thoracostomy tube in the left lateral chest could potentially reflect a small component of pneumothorax in a hydropneumothorax, not unexpected status post chest tube placement.
--- NOTE | ~2022-09-01 | XR_ITS ---
EXAMINATION: XR CHEST CLINICAL INFORMATION: Evaluate left pleural fluid. COMPARISON: CXR from 09/08/2022. Chest CT from 09/07/2022. TECHNIQUE: Frontal view of the chest was obtained. FINDINGS: The right lateral costophrenic sulcus is blunted from a persistent small pleural effusion. The left thoracostomy tube appears to be in stable position. There is persistent mild pleural thickening/effusion of the left lower hemithorax. No significant change in the left apical hydropneumothorax. Persistent mild hazy opacity of right lower lung and streaky opacities in the left lower lung. No new pulmonary abnormalities. Mild cardiomegaly. Mitral valve annulus is calcified. Atherosclerosis of the thoracic aorta. Bones are diffusely osteopenic. Skeletal findings include moderate osteoarthritis of glenohumeral joints and mild dextrocurvature of degenerated thoracolumbar spine. XR/XR chest 1V IMPRESSION: The residual pleural thickening/pleural effusion of the left hemithorax is unchanged compared to 09/08/2022. Also, stable appearance of loculated-appearing hydropneumothorax at the left apex. Small right pleural effusion is similar in size compared to chest CT from 09/07/2022.
--- NOTE | 2022-09-01 15:43 | ECG_ITS ---
Test Reason : SOB Blood Pressure : / mmHG Vent. Rate : 134 BPM Atrial Rate : 000 BPM P-R Int : 000 ms QRS Dur : 076 ms QT Int : 272 ms P-R-T Axes : 000 021 176 degrees QTc Int : 406 ms Atrial fibrillation with rapid ventricular response Low voltage QRS Cannot rule out Anterior infarct , age undetermined Abnormal ECG When compared with ECG of 23-APR-2021 20:31, Atrial fibrillation has replaced Sinus rhythm Vent. rate has increased BY 74 BPM Nonspecific T wave abnormality now evident in Lateral leads Referred By: Heidi Martinez Electronically Signed By:ARY ARGUELLES
[2022-09-01 15:58] VITALS: BP 124/81; BP 98/60; PULSE 110; PULSE 120; RESP 18; TEMP 37.8; O2SAT 95; O2SAT 98; BMI 29.4
--- NOTE | 2022-09-01 16:36 | ED_ITS ---
HPI - SOB/Dyspnea General Chief Complaint: Dyspnea Stated Complaint: DIFF BREATHING, SEPSIS Time Seen by Provider: 09/01/22 16:12 Source: RN notes reviewed Mode of arrival: EMS Limitations: altered mental status History of Present Illness HPI Narrative: Patient 82 years old with history of AFib diabetes objective, CHF on Xarelto, aortic stenosis comes here for increased shortness of breath for last few days getting worse today was saturating high 80s at room air improved to 94% 3 L patient has similar presentation last year CHF no fever no cough no chest pain or palpitation no trauma no falls Related Data Home Medications Medication Instructions Recorded Confirmed bisacodyl 10 mg rectal suppository 10 mg MD DAILY PRN Constipation 04/23/21 09/01/22 brimonidine 0.2 % eye drops 1 drp ophthalmic (eye) BID 04/23/21 09/01/22 dorzolamide 22.3 mg-timolol 6.8 1 drp ophthalmic (eye) BID 04/23/21 09/01/22 mg/mL eye drops latanoprost 0.005 % eye drops 1 drp ophthalmic (eye) DAILY 04/23/21 09/01/22 levothyroxine 25 mcg tablet 25 mcg PO DAILY@0600 04/23/21 09/01/22 magnesium hydroxide 400 mg/5 mL 30 ml PO DAILY PRN Constipation 04/23/21 09/01/22 oral suspension (Milk of Magnesia) melatonin 5 mg tablet 10 mg PO BEDTIME PRN Insomnia 04/23/21 09/01/22 mirtazapine 7.5 mg tablet 7.5 mg PO BEDTIME 04/23/21 09/01/22 polyethylene glycol 3350 17 17 g PO DAILY 04/23/21 09/01/22 gram/dose oral powder (Miralax) rivaroxaban 20 mg tablet (Xarelto) 1 tab PO DAILY 04/23/21 09/01/22 sennosides 8.6 mg tablet (senna) 17.2 mg PO DAILY 04/23/21 09/01/22 vitamins A,C,M-nift-exdfuy 4,296 1 cap PO BID 04/23/21 09/01/22 mcg-226 mg-90 mg capsule (PreserVision AREDS) acetaminophen 500 mg tablet 1,000 mg PO TID PRN Pain 09/01/22 09/01/22 calcium carbonate 600 mg calcium 600 mg PO BEDTIME 09/01/22 09/01/22 (1,500 mg) tablet gabapentin 100 mg capsule 200 mg PO TID 09/01/22 09/01/22 guaifenesin 400 mg tablet 400 mg PO TID PRN Cough 09/01/22 09/01/22 metoprolol tartrate 25 mg tablet 12.5 mg PO BID 09/01/22 09/01/22 omeprazole 20 mg capsule,delayed 20 mg PO DAILY@0630 09/01/22 09/01/22 release potassium chloride 10 mEq 10 meq PO DAILY 09/01/22 09/01/22 tablet,extended release sodium phosphates 19 gram-7 118 ml MD DAILY PRN Constipation 09/01/22 09/01/22 gram/118 mL enema (Fleet Enema) tramadol 50 mg tablet 50 mg PO BID PRN Pain 09/01/22 09/01/22 Previous Rx's Medication Instructions Recorded amiodarone 200 mg tablet 200 mg PO DAILY #0 tabs 04/26/21 furosemide 40 mg tablet (Lasix) 40 mg PO DAILY #30 tabs 04/26/21 Allergies Allergy/AdvReac Type Severity Reaction Status Date / Time moxifloxacin [Avelox] Allergy Unknown rash Verified 07/15/21 14:14 From [facility] Allergy Unknown BLOTCHES Uncoded 07/15/21 14:14 ALL OVER FACE Review of Systems Review of Systems: Yes all other systems are reviewed and are negative [facility] Past Medical History Medical History Chronic atrial fibrillation, unspecified History of falling Hyperlipidemia, unspecified Hypothyroidism, unspecified 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 Nonrheumatic aortic (valve) stenosis Repeated falls Type 2 diabetes mellitus without complications Unspecified glaucoma Unspecified osteoarthritis, unspecified site Urinary retention with incomplete bladder emptying Surgical History Presence of artificial knee joint, bilateral Social History Social History Alcohol intake: never Patient Tobacco Use Status: Never used Tobacco Advance Directives Date on File: 04/26/21 service: No Current occupational status: retired Physical Exam Vital Signs: Vital Signs: Last Vital Signs Temp 97.2 F 09/01/22 23:47 Pulse 123 H 09/01/22 23:47 Resp 24 H 09/01/22 23:47 BP 128/75 09/01/22 23:47 Pulse Ox 92 09/01/22 23:47 O2 Del Method Nasal Cannula 09/01/22 23:47 O2 Flow Rate 4 09/01/22 23:47 Oxygen Flow Rate 4 09/01/22 15:58 BMI result Body Mass Index 29.4 Appearance: Alert. Oriented X3. No acute distress. Eyes: To pallor or interest ENT: Pharynx normal. Oral Mucosa moist Neck: Normal inspection. Neck supple. CVS: Normal heart rate and rhythm. Pulses normal. Respiratory: No respiratory distress. Decreased air entry left side, , few rales at bases Abdomen: Soft and nontender. Bowel sounds are present, no mass palpable, no CVA tenderness Skin: Skin warm and dry. Normal skin color. Normal skin turgor. Extremities: 2+ lower extremity edema. No calf tenderness Neuro: Oriented X 2. Limited b/l leg movements because of weakness Medications Administered Generic Name Dose Route Start Last Admin Trade Name Freq PRN Reason Stop Dose Admin Gabapentin 200 mg 09/01/22 23:30 09/02/22 00:40 Gabapentin 100 Mg Capsule PO 200 mg TID RAI Administration Ampicillin Sodium/Sulbactam 100 mls @ 200 mls/hr 09/02/22 00:00 09/02/22 0 0:22 Sodium 3 gm/ Sodium Chloride IV 200 mls/hr Q6H RAI Administration Metoprolol Tartrate 12.5 mg 09/01/22 23:30 09/02/22 00:41 Metoprolol Tartrate 12.5 Mg Halftab PO 12.5 mg BID RAI Administration Protocol Mirtazapine 7.5 mg 09/01/22 23:30 09/02/22 00:40 Mirtazapine 7.5 Mg Tablet PO 7.5 mg BEDTIME RAI Administration Sodium Chloride 3 ml 09/02/22 00:00 09/02/22 00:41 0.9 % Sodium Chloride Flush 3 Ml Syringe IVFLUSH 3 ml QSHIFT RAI Administration Discontinued Medications Generic Name Dose Route Start Last Admin Trade Name Freq PRN Reason Stop Dose Admin Diltiazem HCl 10 mg 09/01/22 20:11 09/01/22 20:31 Diltiazem Hcl 50 Mg/10 Ml Vial IVPUSH 09/01/22 20:12 10 mg STAT STA Administration Sodium Chloride 1,000 mls @ 999 mls/hr 09/01/22 17:33 09/01/22 21:05 Ns IV 09/01/22 18:33 Infused .Q1H1M ONE Infusion Piperacillin Sod/Tazobactam 50 mls @ 100 mls/hr 09/01/22 17:33 09/01/22 19:30 Sod 3.375 gm/ Sodium Chloride IV 09/01/22 18:02 Infused ONCE ONE Infusion Vancomycin HCl 1,000 mg/ 535 mls @ 267.5 mls/hr 09/01/22 19:39 09/01/22 21:04 Vancomycin HCl 750 mg/ Sodium IV 09/01/22 21:38 267.5 mls/hr Chloride ONCE ONE Administration Sodium Chloride 2,100 mls @ 2,100 mls/hr 09/01/22 19:43 09/01/22 21:05 Ns IV 09/01/22 20:42 2,100 mls/hr .Q1H STA Administration Insulin Human Lispro 10 unit 09/01/22 22:08 09/01/22 22:43 Insulin Lispro 100 Unit/Ml 3 Ml Vial SUBCUT 09/01/22 22:09 10 unit ONCE ONE Administration Lidocaine HCl 30 ml 09/01/22 21:16 09/01/22 22:38 Lidocaine Hcl 1 % Mpf 5 Ml Vial INFILTRATI 09/01/22 21:17 30 ml ONCE ONE Administration Medical Decision Making Medical Decision Making MDM Narrative: Patient with left lung collapse with left hemithorax with pleural effusion with mediastinum shift and increased shortness of breath requiring oxygen case discussed with Dr. Estevez thoracic surgeon advised to place chest tube. Chest tube was placed but only 600 cc of straw-colored fluid was drained patient feeling much better possible patient loculated effusion not sure maybe have to reposition the tube will be seen by thoracic in am Consult Healthcare Provider Management of the patient was discussed with: Hospitalist Lab Data MDM Lab Attestation statement: I reviewed the patient's lab results. 09/01/22 16:20 09/01/22 16:20 Labs: Lab Results 09/01/22 09/01/22 09/01/22 Range/Units 16:20 16:20 16:20 WBC 24.4 H (4.8-10.8) X10*3/uL RBC 4.30 D (4.20-5.50) X10*6/uL Hgb 12.6 D (12.0-16.0) g/dl Hct 40.5 D (37.0-47.0) % MCV 94.2 (80.0-98.0) fL MCH 29.3 (27.0-33.0) pg MCHC 31.1 (31.0-35.0) g/dl RDW 14.5 (11.0-16.0) % Plt Count 622 H D (160-400) X10*3/uL MPV 8.6 L (9.4-12.3) fL Immature Gran % (Auto) 0.7 H (0.0-0.4) % Neut % (Auto) 90.0 H (45-73) % Lymph % (Auto) 4.9 L (20-40) % Barnes % (Auto) 4.2 (2-11) % Eos % (Auto) 0.0 (0-4) % Baso % (Auto) 0.2 (0-2) % Lymph # (Auto) 1.2 (1.2-4.9) X10*3/uL Barnes # (Auto) 1.0 (0.1-1.2) X10*3/uL Eos # (Auto) 0.0 (0.0-0.4) X10*3/uL Baso # (Auto) 0.1 (0.0-0.2) X10*3/uL Abs Immat Gran (auto) 0.17 H (0.00-0.03) X10*3/uL Absolute Neuts (auto) 22.0 H (2.0-8.3) x10*3/uL Absolute Nucleated RBC 0.000 (0.0-0.012) X10*3/uL Nucleated RBC % (auto) 0.0 (0.0-0.2) /100WBC Smear Tech's Comments VERIFIED PT 22.7 H (10.0-13.1) SEC INR 1.9 H (0.9-1.1) APTT 34.7 (26.0-36.4) SEC Sodium (135-145) mmol/L Potassium (3.3-5.1) mmol/L Chloride (96-108) mmol/L Carbon Dioxide (22-29) mmol/L Anion Gap (12-20) BUN (9-16) mg/dL Creatinine (0.5-1.4) mg/dL Estim Creat Clear Calc Estimated GFR Random Glucose (60-115) mg/dL Lactic Acid 2.4 H* (0.5-2.0) mmol/L Lactic Acid F/U @ 2Hr (0.5-2.0) mmol/L Calcium (8.4-10.2) mg/dL Magnesium (1.6-2.6) mg/dL Total Bilirubin (0.0-1.0) mg/dL Direct Bilirubin (0.0-0.5) mg/dL AST (5-31) U/L ALT (0-31) U/L Alkaline Phosphatase (39-117) U/L Lactate Dehydrogenase (122-220) U/L Troponin I High Sens (<3.5-17.0) ng/L B-Natriuretic Peptide (<100) pg/mL Total Protein (6.5-8.0) g/dL Albumin (3.5-5.0) g/dL COVID-19 ([facility]) (Negative) COVID-19 Clin Com 09/01/22 09/01/22 09/01/22 Range/Units 16:20 16:20 16:20 WBC (4.8-10.8) X10*3/uL RBC (4.20-5.50) X10*6/uL Hgb (12.0-16.0) g/dl Hct (37.0-47.0) % MCV (80.0-98.0) fL MCH (27.0-33.0) pg MCHC (31.0-35.0) g/dl RDW (11.0-16.0) % Plt Count (160-400) X10*3/uL MPV (9.4-12.3) fL Immature Gran % (Auto) (0.0-0.4) % Neut % (Auto) (45-73) % Lymph % (Auto) (20-40) % Barnes % (Auto) (2-11) % Eos % (Auto) (0-4) % Baso % (Auto) (0-2) % Lymph # (Auto) (1.2-4.9) X10*3/uL Barnes # (Auto) (0.1-1.2) X10*3/uL Eos # (Auto) (0.0-0.4) X10*3/uL Baso # (Auto) (0.0-0.2) X10*3/uL Abs Immat Gran (auto) (0.00-0.03) X10*3/uL Absolute Neuts (auto) (2.0-8.3) x10*3/uL Absolute Nucleated RBC (0.0-0.012) X10*3/uL Nucleated RBC % (auto) (0.0-0.2) /100WBC Smear Tech's Comments PT (10.0-13.1) SEC INR (0.9-1.1) APTT (26.0-36.4) SEC Sodium (135-145) mmol/L Potassium (3.3-5.1) mmol/L Chloride (96-108) mmol/L Carbon Dioxide (22-29) mmol/L Anion Gap (12-20) BUN (9-16) mg/dL Creatinine (0.5-1.4) mg/dL Estim Creat Clear Calc Estimated GFR Random Glucose (60-115) mg/dL Lactic Acid (0.5-2.0) mmol/L Lactic Acid F/U @ 2Hr (0.5-2.0) mmol/L Calcium (8.4-10.2) mg/dL Magnesium (1.6-2.6) mg/dL Total Bilirubin (0.0-1.0) mg/dL Direct Bilirubin (0.0-0.5) mg/dL AST (5-31) U/L ALT (0-31) U/L Alkaline Phosphatase (39-117) U/L Lactate Dehydrogenase (122-220) U/L Troponin I High Sens 16.1 (<3.5-17.0) ng/L B-Natriuretic Peptide 448 H (<100) pg/mL Total Protein (6.5-8.0) g/dL Albumin (3.5-5.0) g/dL COVID-19 ([facility]) Negative (Negative) COVID-19 Clin Com See Note 09/01/22 09/01/22 Range/Units 17:36 19:07 WBC (4.8-10.8) X10*3/uL RBC (4.20-5.50) X10*6/uL Hgb (12.0-16.0) g/dl Hct (37.0-47.0) % MCV (80.0-98.0) fL MCH (27.0-33.0) pg MCHC (31.0-35.0) g/dl RDW (11.0-16.0) % Plt Count (160-400) X10*3/uL MPV (9.4-12.3) fL Immature Gran % (Auto) (0.0-0.4) % Neut % (Auto) (45-73) % Lymph % (Auto) (20-40) % Barnes % (Auto) (2-11) % Eos % (Auto) (0-4) % Baso % (Auto) (0-2) % Lymph # (Auto) (1.2-4.9) X10*3/uL Barnes # (Auto) (0.1-1.2) X10*3/uL Eos # (Auto) (0.0-0.4) X10*3/uL Baso # (Auto) (0.0-0.2) X10*3/uL Abs Immat Gran (auto) (0.00-0.03) X10*3/uL Absolute Neuts (auto) (2.0-8.3) x10*3/uL Absolute Nucleated RBC (0.0-0.012) X10*3/uL Nucleated RBC % (auto) (0.0-0.2) /100WBC Smear Tech's Comments PT (10.0-13.1) SEC INR (0.9-1.1) APTT (26.0-36.4) SEC Sodium 134 L (135-145) mmol/L Potassium 4.5 D (3.3-5.1) mmol/L Chloride 95 L (96-108) mmol/L Carbon Dioxide 24 (22-29) mmol/L Anion Gap 20 (12-20) BUN 21 H (9-16) mg/dL Creatinine 1.02 (0.5-1.4) mg/dL Estim Creat Clear Calc 37.2 Estimated GFR 52 Random Glucose 427 H* (60-115) mg/dL Lactic Acid (0.5-2.0) mmol/L Lactic Acid F/U @ 2Hr 2.3 H* (0.5-2.0) mmol/L Calcium 9.2 D (8.4-10.2) mg/dL Magnesium 1.9 (1.6-2.6) mg/dL Total Bilirubin 0.8 (0.0-1.0) mg/dL Direct Bilirubin 0.3 (0.0-0.5) mg/dL AST 11 (5-31) U/L ALT 6 (0-31) U/L Alkaline Phosphatase 84 (39-117) U/L Lactate Dehydrogenase 293 H (122-220) U/L Troponin I High Sens (<3.5-17.0) ng/L B-Natriuretic Peptide (<100) pg/mL Total Protein 7.4 (6.5-8.0) g/dL Albumin 3.4 L (3.5-5.0) g/dL COVID-19 ([facility]) (Negative) COVID-19 Clin Com Procedures Chest Tube Chest Tube 1: Chest Tube Location: left and mid axillary line Size of Tube (cm): 24 Chest Tube Prep: Yes betadine prep and sterile drapes applied Local Anesthetic: lidocaine 1% Amount of anesthesia used (mL): 20 Incision Made With: #10 blade Post Procedure: sutured to skin and sterile dressing applied Tube Drainage: fluid Amount of initial drainage (mL): 600 Post Procedure CXR?: Yes Patient Tolerated Procedure: Yes Critical Care Time Critical Care Time Critical Care Time: Yes Total Critical Care Time: 120 Attestation: The patient was critically ill with a high probability of imminent or life threatening deterioration. I spent greater than 130 minutes of discontinuous time evaluating the patient,delivering critical care at the bedside, discussing and evaluating pertinent data with consultants. Critical care time does not include time spent performing separately billable procedures or teaching. Total time spent performing critical care [id number] minutes. Discharge Plan Discharge Clinical Impression: Pneumonia involving left lung, Pleural effusion, Acute hyperglycemia, Acute respiratory failure with hypoxia Patient Disposition: Admitted As Inpatient Interventions: Admission Worksheet (ED) Last Done: 09/01/22 23:41 Discharge Date/Time: 09/01/22 23:42
[2022-09-01 16:37] LABS: INTERNATIONAL NORM RATIO 1.9 (0.9-1.1); Prothrombin Time 22.7 SEC (10.0-13.1)
[2022-09-01 16:39] LABS: Basophils Absolute Auto 0.1 X10*3/uL (0.0-0.2); Basophils Percent Auto 0.2 % (0-2); Hematocrit 40.5 % (37.0-47.0); Hemoglobin 12.6 g/dl (12.0-16.0); Imm Gran Abs Auto 0.17 X10*3/uL (0.00-0.03); Imm Gran Pct Auto 0.7 % (0.0-0.4); Lymphocytes Absolute Auto 1.2 X10*3/uL (1.2-4.9); Lymphocytes Percent Auto 4.9 % (20-40); MANUAL DIFF FLAG SCAN; Mean Corpuscular HGB Conc 31.1 g/dl (31.0-35.0); Mean Corpuscular Hemoglobin 29.3 pg (27.0-33.0); Mean Corpuscular Volume 94.2 fL (80.0-98.0); Mean Platelet Volume 8.6 fL (9.4-12.3); Monocytes Percent Auto 4.2 % (2-11); Partial Thromboplastin Time 34.7 SEC (26.0-36.4); Platelet Count 622 X10*3/uL (160-400); Red Cell Distribution Width 14.5 % (11.0-16.0); SCAN SMEAR FLAG 1; White Blood Count 24.4 X10*3/uL (4.8-10.8)
--- NOTE | 2022-09-01 16:45 | PC.NURSE ---
EKG obtained on patient and was sign by provider. No new orders at this time.
[2022-09-01 16:51] LABS: Lactic Acid 2.4 mmol/L (0.5-2.0)
[2022-09-01 16:54] LABS: B Type Natriuretic Peptide 448 pg/mL (<100)
[2022-09-01 16:58] LABS: Troponin-I High Sensitivity 16.1 ng/L (<3.5-17.0)
[2022-09-01 16:59] LABS: SLIDE REVIEW VERIFIED
[2022-09-01 17:15] LABS: IDNOW Serial# 08D9AD1C
[2022-09-01 17:16] LABS: COVID-19 Test Negative (Negative)
[2022-09-01 17:56] LABS: Anion Gap 20 (12-20)
[2022-09-01 18:06] LABS: Alanine Aminotransferase 6 U/L (0-31); Albumin Level 3.4 g/dL (3.5-5.0); Alkaline Phosphatase 84 U/L (39-117); Aspartate Amino Transferase 11 U/L (5-31); Bilirubin Direct 0.3 mg/dL (0.0-0.5); Bilirubin Total 0.8 mg/dL (0.0-1.0); Blood Urea Nitrogen 21 mg/dL (9-16); Calcium 9.2 mg/dL (8.4-10.2); Carbon Dioxide 24 mmol/L (22-29); Chloride 95 mmol/L (96-108); Creatinine Clr Calc Pharmacy 37.2; Estimated Glomerular Filt Rate 52; Glucose Random 427 mg/dL (60-115); Magnesium 1.9 mg/dL (1.6-2.6); Potassium 4.5 mmol/L (3.3-5.1); Sodium 134 mmol/L (135-145); Total Protein 7.4 g/dL (6.5-8.0)
[2022-09-01 18:24] LABS: Reflex Lactate? Lactic Acid Added
--- NOTE | 2022-09-01 18:39 | PC.NURSE ---
upon entering patient's room to administer IV antibiotics, IV noted to be displaced and sitting on patient's chest. Will obtain new IV
[2022-09-01] MEDS: Piperacillin Sodium/Tazobactam 3.375 GM in 0.9 % Sodium Chloride 50 ML IV (18:55)
[2022-09-01] MEDS: 0.9 % Sodium Chloride 1,000 ML 999 ML IV (18:55)
[2022-09-01 19:03] VITALS: BP 135/97; PULSE 111; RESP 22; TEMP 36.5; O2SAT 97
[2022-09-01 19:44] LABS: ~Lactic Acid-LAB USE ONLY 2.3 mmol/L (0.5-2.0)
--- NOTE | 2022-09-01 20:29 | PHA.MEDREC ---
Pharmacy Consult ? Medication Reconciliation Pharmacy has completed the medication reconciliation. Med rec complete based on list from [facility]
[2022-09-01] MEDS: dilTIAZem HCL 50 MG/10 ML VIAL 10 MG IVPUSH (20:31)
--- NOTE | 2022-09-01 20:34 | PC.NURSE ---
Upon entering the room to administer Cardizem IV noted to be displaced and sitting on patient's chest. New IV obtained and IV cardizem administered per JUN.
--- NOTE | 2022-09-01 20:40 | PC.NURSE ---
Spoke with pharmacy regarding vanco dose. This nurse was told that the pharmacist was making it and will be brought to the unit when done.
[2022-09-01 20:42] VITALS: BP 158/74; PULSE 105; RESP 28
--- NOTE | 2022-09-01 20:51 | PC.NURSE ---
Pt relocated to ED BEd 5 per MD Murphy request for chest tube placement
[2022-09-01] MEDS: vancomycin HCL 1,000 MG, vancomycin HCL 750 MG in 0.9 % Sodium Chloride 500 ML 267.5 MG IV (21:04)
[2022-09-01] MEDS: 0.9 % Sodium Chloride 2,100 ML 2100 ML IV (21:05)
--- NOTE | 2022-09-01 21:05 | PC.NURSE ---
Millie cantuvered by the pharmacy and hung. Pt also to receive a total of 2100ml of NS as ordered.
[2022-09-01 21:11] LABS: Reflex Lactate? 2 Y
--- NOTE | 2022-09-01 21:27 | PM.IMHP ---
History of Present Illness Date of Service: 09/01/22 Attending physician on admission: Nidia Polo Chief Complaint: Shortness of breath, dyspnea Pt is a 82-year-old female with a PMH significant for?HFpEF, chronic AFib on Xarelto, hypothyroidism, aortic stenosis, non insulin-dependent diabetes type 2, and GERD who presents to the ED from SNF via EMS with?shortness of breath and dyspnea. Patient is alert and oriented to self and time only not to place or situation, and does not capable of providing an accurate HPI. Attempt to contact the SNF for patient is a resident at, but to no avail. HPI does obtained from chart and provider review. Apparently patient has had progressively worsening shortness of breath and hypoxia for the past few days. Staff at SNF and noticed her O2 sats were in the high 80s on RA, which improved to 94% on 3 L O2 when EMS arrived. In the ED patient was febrile up to 100.0, tachycardic up to the 140s, tachypneic up to 28, and hypertensive at 158/74, and satting at 95% O2 on 4 L NC. Labs were significant for leukocytosis 24.4, platelets of 622, random glucose of 427. CXR showed complete opacification of the left hemothorax which may reflect a combination of pleural effusion, consolidation, and/or collapse. CT?of chest showed large left pleural effusion with complete collapse of the left lung with deviation of mediastinum to the right. EKG demonstrated AFib with RVR of [address] elevation or depression. Pt was treated with IVF, vanc and Zosyn, diltiazem, and had a left-sided chest tube placed. Pt will be admitted to the hospital for further management and treatment of left-sided pleural effusion with complete collapse of her left lung with likely underlying pneumonia. 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 Nonrheumatic aortic (valve) stenosis Repeated falls Type 2 diabetes mellitus without complications Unspecified glaucoma Unspecified osteoarthritis, unspecified site Urinary retention with incomplete bladder emptying Surgical History Presence of artificial knee joint, bilateral Social History Alcohol intake: never Patient Tobacco Use Status: Never used Tobacco Smoked in Last 30 Days: No Use of substances other than those prescribed or required for medical reasons: No Advance Directives: Yes Advance Directives on File: Yes Advance Directives Date on File: 04/26/21 Nutrition Risks: No Nutritional Risk service: No Current occupational status: retired Meds Allergies Allergy/AdvReac Type Severity Reaction Status Date / Time moxifloxacin [Avelox] Allergy Unknown rash Verified 07/15/21 14:14 From [facility] Allergy Unknown BLOTCHES Uncoded 07/15/21 14:14 ALL OVER FACE Active Medications: Current Medications Acetaminophen (Acetaminophen 325 Mg Tablet) 650 mg PO Q6H PRN PRN Reason: Pain, Mild (Pain Scale 1-3) Vancomycin HCl 1,000 mg/Vancomycin HCl 750 mg/ Sodium Chloride 535 mls @ 267.5 mls/hr IV ONCE ONE Stop: 09/01/22 21:38 Last Admin: 09/01/22 21:04 Dose: 267.5 mls/hr Ampicillin Sodium/Sulbactam (Sodium 3 gm/ Sodium Chloride) 100 mls @ 200 mls/hr IV Q6H [facility] Melatonin (Melatonin 3 Mg Tablet) 6 mg PO BEDTIME PRN PRN Reason: Insomnia Ondansetron HCl (Ondansetron Hcl 4 Mg/2 Ml Vial) 4 mg IVPUSH Q8H PRN PRN Reason: Nausea and Vomiting Sodium Chloride (0.9 % Sodium Chloride Flush 3 Ml Syringe) 3 ml IVFLUSH QSHIFT [facility] Home Medications Medication Instructions Recorded Confirmed Last Taken Type bisacodyl 10 mg rectal suppository 10 mg [place] DAILY PRN Constipation 04/23/21 09/01/22 Unknown History brimonidine 0.2 % eye drops 1 drp ophthalmic (eye) BID 04/23/21 09/01/22 09/01/22 History dorzolamide 22.3 mg-timolol 6.8 1 drp ophthalmic (eye) BID 04/23/21 09/01/22 09/01/22 History mg/mL eye drops latanoprost 0.005 % eye drops 1 drp ophthalmic (eye) DAILY 04/23/21 09/01/22 09/01/22 History levothyroxine 25 mcg tablet 25 mcg PO DAILY@0600 04/23/21 09/01/22 09/01/22 History magnesium hydroxide 400 mg/5 mL 30 ml PO DAILY PRN Constipation 04/23/21 09/01/22 Unknown History oral suspension (Milk of Magnesia) melatonin 5 mg tablet 10 mg PO BEDTIME PRN Insomnia 04/23/21 09/01/22 04/23/21 History mirtazapine 7.5 mg tablet 7.5 mg PO BEDTIME 04/23/21 09/01/22 08/31/22 History polyethylene glycol 3350 17 17 g PO DAILY 04/23/21 09/01/22 04/23/21 History gram/dose oral powder (Miralax) rivaroxaban 20 mg tablet (Xarelto) 1 tab PO DAILY 04/23/21 09/01/22 09/01/22 History sennosides 8.6 mg tablet (senna) 17.2 mg PO DAILY 04/23/21 09/01/22 09/01/22 History vitamins A,C,I-jafw-ayffin 4,296 1 cap PO BID 04/23/21 09/01/22 09/01/22 History mcg-226 mg-90 mg capsule (PreserVision AREDS) acetaminophen 500 mg tablet 1,000 mg PO TID PRN Pain 09/01/22 09/01/22 Unknown History calcium carbonate 600 mg calcium 600 mg PO BEDTIME 09/01/22 09/01/22 08/31/22 History (1,500 mg) tablet gabapentin 100 mg capsule 200 mg PO TID 09/01/22 09/01/22 09/01/22 History guaifenesin 400 mg tablet 400 mg PO TID PRN Cough 09/01/22 09/01/22 Unknown History metoprolol tartrate 25 mg tablet 12.5 mg PO BID 09/01/22 09/01/22 09/01/22 History omeprazole 20 mg capsule,delayed 20 mg PO DAILY@0630 09/01/22 09/01/22 09/01/22 History release potassium chloride 10 mEq 10 meq PO DAILY 09/01/22 09/01/22 09/01/22 History tablet,extended release sodium phosphates 19 gram-7 118 ml [place] DAILY PRN Constipation 09/01/22 09/01/22 Unknown History gram/118 mL enema (Fleet Enema) tramadol 50 mg tablet 50 mg PO BID PRN Pain 09/01/22 09/01/22 09/01/22 History Physical Exam Vital Signs and Narrative: Vital Signs: Last Vital Signs Temp 97.7 F 09/01/22 19:03 Pulse 105 H 09/01/22 20:42 Resp 28 H 09/01/22 20:42 BP 158/74 H 09/01/22 20:42 Pulse Ox 97 09/01/22 19:03 O2 Del Method Nasal Cannula 09/01/22 20:42 O2 Flow Rate 4 09/01/22 20:42 Oxygen Flow Rate 4 09/01/22 15:58 BMI result Body Mass Index 29.4 Constitutional: Alert, pleasantly confused, cooperative, in no acute distress. Mental Status: Oriented to person and time but not to place or situation. Eyes: Pupils are equal, round, and reactive to light. Ear, Nose, and Throat: Oropharynx clear, mucous membranes moist. Ears and nose without deformities. Trachea midline. Respiratory: Diminished breath sounds throughout left lung. Right lung CTA Cardiovascular: S1, S2, tachycardic. No murmurs, rubs, or gallops. Gastrointestinal: Abdomen soft, non-tender, non-distended. Normal bowel sounds. Neurologic: Cranial nerves II-XII are grossly intact bilaterally. No focal neurological deficits. Moves all extremities spontaneously. Skin: No rashes or lesions noted. Musculoskeletal: No cyanosis or clubbing. Patient with minimal ROM of lower extremities. Extremities: Significant 2+ pitting edema of lower legs bilaterally. Psychiatric: Pleasantly confused, cooperative. Results Labs 09/01/22 16:20 09/01/22 17:36 Labs: Laboratory Results - last 24 hr 09/01/22 09/01/22 09/01/22 16:20 16:20 16:20 MCV 94.2 MCH 29.3 MCHC 31.1 RDW 14.5 Plt Count 622 H D MPV 8.6 L Immature Gran % (Auto) 0.7 H Neut % (Auto) 90.0 H Lymph % (Auto) 4.9 L Hendricks % (Auto) 4.2 Eos % (Auto) 0.0 Baso % (Auto) 0.2 Lymph # (Auto) 1.2 Hendricks # (Auto) 1.0 Eos # (Auto) 0.0 Baso # (Auto) 0.1 Abs Immat Gran (auto) 0.17 H Absolute Neuts (auto) 22.0 H Absolute Nucleated RBC 0.000 Nucleated RBC % (auto) 0.0 Smear Tech's Comments VERIFIED PT 22.7 H INR 1.9 H APTT 34.7 Anion Gap Estim Creat Clear Calc Estimated GFR Random Glucose Lactic Acid 2.4 H* Lactic Acid F/U @ 2Hr Calcium Magnesium Total Bilirubin Direct Bilirubin AST ALT Alkaline Phosphatase Troponin I High Sens B-Natriuretic Peptide Total Protein Albumin COVID-19 (HONG) COVID-19 Wiper 09/01/22 09/01/22 09/01/22 16:20 16:20 16:20 MCV MCH MCHC RDW Plt Count MPV Immature Gran % (Auto) Neut % (Auto) Lymph % (Auto) Hendricks % (Auto) Eos % (Auto) Baso % (Auto) Lymph # (Auto) Hendricks # (Auto) Eos # (Auto) Baso # (Auto) Abs Immat Gran (auto) Absolute Neuts (auto) Absolute Nucleated RBC Nucleated RBC % (auto) Smear Tech's Comments PT INR APTT Anion Gap Estim Creat Clear Calc Estimated GFR Random Glucose Lactic Acid Lactic Acid F/U @ 2Hr Calcium Magnesium Total Bilirubin Direct Bilirubin AST ALT Alkaline Phosphatase Troponin I High Sens 16.1 B-Natriuretic Peptide 448 H Total Protein Albumin COVID-19 (HONG) Negative COVID-19 Wiper See Note 09/01/22 09/01/22 17:36 19:07 MCV MCH MCHC RDW Plt Count MPV Immature Gran % (Auto) Neut % (Auto) Lymph % (Auto) Hendricks % (Auto) Eos % (Auto) Baso % (Auto) Lymph # (Auto) Hendricks # (Auto) Eos # (Auto) Baso # (Auto) Abs Immat Gran (auto) Absolute Neuts (auto) Absolute Nucleated RBC Nucleated RBC % (auto) Smear Tech's Comments PT INR APTT Anion Gap 20 Estim Creat Clear Calc 37.2 Estimated GFR 52 Random Glucose 427 H* Lactic Acid Lactic Acid F/U @ 2Hr 2.3 H* Calcium 9.2 D Magnesium 1.9 Total Bilirubin 0.8 Direct Bilirubin 0.3 AST 11 ALT 6 Alkaline Phosphatase 84 Troponin I High Sens B-Natriuretic Peptide Total Protein 7.4 Albumin 3.4 L COVID-19 (HONG) COVID-19 Clin Com Imaging Radiologist's Impressions: Impressions Chest X-Ray 09/01/22 17:24 IMPRESSION: 1. Complete opacification of the left hemithorax which may reflect a combination of pleural effusion, consolidation, and/or collapse. Chest CT 09/01/22 18:10 IMPRESSION: Large left pleural effusion with complete collapse of the left lung. The mediastinum is deviated to the right. Fleischner guidelines were followed. Assessment and Plan (1) Pneumonia involving left lung: Status: Acute (2) Pleural effusion: Status: Acute (3) Acute hyperglycemia: Status: Acute Plan Pt is a 82-year-old female with a PMH significant for?HFpEF, chronic AFib on Xarelto, hypothyroidism, aortic stenosis, non insulin-dependent diabetes type 2, and GERD who presents to the ED from SNF via EMS with?shortness of breath and dyspnea. Pt will be admitted to the hospital for further management and treatment of left-sided pleural effusion with complete collapse of her left lung with likely underlying pneumonia. Acute hypoxic respiratory failure in the setting of pleural effusion of left lung CT of chest phone a large left pleural effusion with complete collapse of the left lung with deviated mediastinum to the right Thoracic surgery consulted by the ED Patient had chest tube placed in the ED Pulmonology consult Patient will be treated empirically with Unasyn Monitor on telemetry Follow pleural serology, cultures Hold Xarelto Sepsis Patient meets sepsis criteria: WBC, tachycardic, tachypneic, lactic acid 2.4 Patient received IVF resuscitation in the ED Patient will be treated empirically with IV antibiotics Question of acute toxic metabolic encephalopathy Patient is alert oriented x2, baseline mentation unclear Attempted to reach [facility] where patient resides, but received no answer to phone call If patient is encephalopathic, likely secondary to infection Treat as above HFpEF Likely not in acute exacerbation Patient with significant chronic lower leg edema, chronically elevated BNP BNP 448, lower than previous of 985 Patient received IVF in ED, including for severe sepsis Continue home furosemide Monitor volume status Aez-agmqbvz-mrcmepfml diabetes type 2 Patient with random glucose of 427 at time of presentation Patient apparently not on any diabetic medications Will cover for now with sliding scale insulin Diabetic diet Thrombophilia Patient's platelets 622 at time of presentation, up from baseline of around 250 Likely reactive Follow CBC Hypothyroidism Continue levothyroxine DNR/DNI Attending:?Dr. Polo DVT Prophylaxis: Pneumatic boots Pt will require a hospitalization of at least two nights for treatment and further management of left-sided pleural effusion with complete collapse of her left lung with likely underlying pneumonia. Time Spent With Patient Time: Total time managing care of this patient today ____ minutes. Quality Stroke Does the patient have a stroke diagnosis?: No VTE Prior VTE?: No VTE Risk Level:: Medical - moderate - high VTE Device Contraindication: N/A - Device Ordered VTE Drug Contraindication: Treatment Not Indicated
--- NOTE | 2022-09-01 21:51 | PC.NURSE ---
Called [facility] and spoke to Wilbur Velazquez (nurse) inquiring about when patient last took Xarelto. Per Mr Marcus, patient last took Xarelto 09/01/22 at 1800. Pt's nurse and aware.
--- NOTE | 2022-09-01 22:07 | PC.NURSE ---
Pt alert and refuses to verify name and . Understand being at [facility]. Reports that's a lot of questions. Chest tube insertion to the left side. 300 ml of fluid noted in collection initially drained. No air leaks noted. Pt tolerated well. No fluctuation noted at water seal. MD aware. CXR done and reviewed by MD for proper placement. Pt continues to be in a-fib with HR 132. Breaths are even and labored. O2 sat 90% on 4L. Pt aware of plan of care.
[2022-09-01 22:10] LABS: Lactate Dehydrogenase 293 U/L (122-220)
[2022-09-01 22:18] LABS: MN% 9.7 %; PMN% 90.3 %; RBC Pleural Fluid 0.004 X10*3/uL; WBC Pleural Fluid 7.237 X10*3/uL
[2022-09-01 22:37] VITALS: BP 137/69; PULSE 130; RESP 27; TEMP 36.7; O2SAT 90
[2022-09-01] MEDS: Lidocaine HCl 1 % MPF 5 ML VIAL 30 ML INFILTRATI (22:38)
[2022-09-01 22:40] LABS: Glucose, Whole Blood 403 mg/dL (60-115)
[2022-09-01] MEDS: Insulin Lispro 100 UNIT/ML 3 ML VIAL 10 UNIT SUBCUT (22:43)
[2022-09-01 22:48] LABS: BF Shift QC OK YES; Man Diluent Bkgrd OK YES
[2022-09-01 22:49] LABS: Neutrophils Pleural Fluid 90 %
[2022-09-01 22:50] LABS: Lymphocytes Pleural Fluid 5 %; Monocytes Pleural Fluid 5 %
--- NOTE | 2022-09-01 23:03 | PC.NURSE ---
RN to RN report given to BOLIVAR Lebron. Pt being transferred to room 443 and aware of plan of care.
[2022-09-01 23:47] VITALS: BP 128/75; PULSE 123; RESP 24; TEMP 36.2; O2SAT 92
--- NOTE | 2022-09-02 | ECG_ITS ---
Test Reason : Afib Rvr Blood Pressure : / mmHG Vent. Rate : 120 BPM Atrial Rate : 000 BPM P-R Int : 000 ms QRS Dur : 076 ms QT Int : 338 ms P-R-T Axes : 000 008 207 degrees QTc Int : 477 ms Artifact in tracing Atrial fibrillation with rapid ventricular response Cannot rule out Inferior infarct , age undetermined Cannot rule out Anterior infarct (cited on or before 01-SEP-2022) ST & T wave abnormality, consider lateral ischemia Abnormal ECG When compared with ECG of 01-SEP-2022 16:32, Serial changes of Anterior infarct Present Referred By: Pamela Vance Electronically Signed By:ARY ARGUELLES
[2022-09-02 00:01] LABS: Albumin Pleural Fluid 2.5 GM/DL; Glucose Pleural Fluid 308 MG/DL; LDH Pleural Fluid 143 U/L; Total Protein Pleural Fluid 4.6 GM/DL
[2022-09-02 00:11] LABS: Cancel Lactic Acid Canceled
[2022-09-02] MEDS: Ampicillin Sodium/Sulbactam Na 3 GM in 0.9 % Sodium Chloride 100 ML IV ×4 (00:22→20:50)
[2022-09-02] MEDS: Mirtazapine 7.5 MG TABLET PO ×2 (00:40→20:51)
[2022-09-02] MEDS: Gabapentin 100 MG CAPSULE 200 MG PO ×3 (00:40→20:51)
[2022-09-02] MEDS: 0.9 % Sodium Chloride Flush 3 ML SYRINGE IVFLUSH ×3 (00:41→20:55)
[2022-09-02] MEDS: Metoprolol Tartrate 12.5 MG HALFTAB PO ×2 (00:41→20:53)
[2022-09-02 03:12] VITALS: BP 102/67; PULSE 110; RESP 20; TEMP 36.6; O2SAT 98
[2022-09-02 07:09] VITALS: BP 124/85; PULSE 102; RESP 20; TEMP 36.1; O2SAT 99
[2022-09-02 07:14] LABS: pH Pleural Fluid 7.27
[2022-09-02 08:05] LABS: Glucose, Whole Blood 227 mg/dL (60-115)
[2022-09-02 08:05] LABS: Glucose, Whole Blood 314 mg/dL (60-115)
--- NOTE | 2022-09-02 08:08 | HO.PM.IMPN ---
Subjective Subjective Date of Service: 09/02/22 Review of Systems Follow up Acute resp failure on oxymask had episode of lethargy this morning unknown baseline Physical Exam Vital Signs: Vital Signs: Last Vital Signs Temp 97 F 09/02/22 07:09 Pulse 102 H 09/02/22 07:09 Resp 20 09/02/22 07:09 BP 124/85 09/02/22 07:09 Pulse Ox 99 09/02/22 07:09 O2 Del Method Oxymask 09/02/22 07:09 O2 Flow Rate 8 09/02/22 07:09 Oxygen Flow Rate 4 09/01/22 15:58 BMI result Body Mass Index 29.4 Appearing in no acute distress lung sounds Left side diminished heart regular rate rhythm, clear S1, S2 positive bowel sounds, abdomen is soft, nontender neuro patient is alert x3, no focal deficits +2 LE edema Objective Data Active Medications Acetaminophen (Acetaminophen 325 Mg Tablet) 650 mg PO Q6H PRN PRN Reason: Pain, Mild (Pain Scale 1-3) Amiodarone HCl (Amiodarone Hcl 200 Mg Tablet) 200 mg PO DAILY [facility] Bisacodyl (Bisacodyl 10 Mg Supp.Rect) 10 mg SC DAILY PRN PRN Reason: Constipation Brimonidine Tartrate (Brimonidine Tartrate 0.2% Oph 5 Ml Bottle) 1 drop EYE-BOTH BID [facility] Dorzolamide/Timolol (Dorzolamide/Timolo 2.23%/0.68% 10 Ml Drbtl) 1 drop EYE-BOTH BID [facility] Furosemide (Furosemide 40 Mg Tablet) 40 mg PO DAILY [facility]; Protocol Gabapentin (Gabapentin 100 Mg Capsule) 200 mg PO TID [facility] Last Admin: 09/02/22 00:40 Dose: 200 mg Documented By: JOAQUIM Glucose (Glucose Gel 15 Gm Gel..Gram.) 15 gm PO Q15M PRN; Protocol PRN Reason: per Hypoglycemia Standing Ord. Guaifenesin (Guaifenesin 200 Mg/10 Ml 10 Ml Liquid) 20 ml PO TID PRN PRN Reason: Cough Ampicillin Sodium/Sulbactam (Sodium 3 gm/ Sodium Chloride) 100 mls @ 200 mls/hr IV Q6H [facility] Last Admin: 09/02/22 07:52 Dose: 200 mls/hr Documented By: KT Dextrose (D10) 250 mls @ 750 mls/hr IV Q15M PRN; Protocol PRN Reason: per Hypoglycemia Standing Ord. Insulin Human Lispro (Insulin Lispro 100 Unit/Ml 3 Ml Vial) 0 unit SUBCUT QIDACHS [facility]; Protocol Latanoprost (Latanoprost 0.005 % Ophth Maryjane 2.5 Ml Drops) 1 drop EYE-BOTH DAILY [facility] Levothyroxine Sodium (Levothyroxine Sodium 25 Mcg Tablet) 25 mcg PO DAILY@0600 [facility] Last Admin: 09/02/22 07:59 Dose: Not Given Documented By: KT Non-Admin Reason: Patient Condition Contraindication Magnesium Hydroxide (Milk Of Magnesia 30 Ml Oral.Susp) 30 ml PO DAILY PRN PRN Reason: Constipation Melatonin (Melatonin 3 Mg Tablet) 6 mg PO BEDTIME PRN PRN Reason: Insomnia Melatonin (Melatonin 3 Mg Tablet) 9 mg PO BEDTIME PRN PRN Reason: insomnia Metoprolol Tartrate (Metoprolol Tartrate 12.5 Mg Halftab) 12.5 mg PO BID [facility]; Protocol Last Admin: 09/02/22 00:41 Dose: 12.5 mg Documented By: JOAQUIM Mirtazapine (Mirtazapine 7.5 Mg Tablet) 7.5 mg PO BEDTIME [facility] Last Admin: 09/02/22 00:40 Dose: 7.5 mg Documented By: JOAQUIM Omeprazole (Omeprazole 20 Mg Capsule.Dr) 20 mg PO DAILY@0630 [facility] Last Admin: 09/02/22 08:03 Dose: Not Given Documented By: KT Non-Admin Reason: Patient Condition Contraindication Ondansetron HCl (Ondansetron Hcl 4 Mg/2 Ml Vial) 4 mg IVPUSH Q8H PRN PRN Reason: Nausea and Vomiting Polyethylene Glycol (Polyethylene Glycol 3350 17 Gm Powd.Pack) 17 gm PO DAILY [facility] Potassium Chloride (Potassium Chloride Er 10 Meq Tablet.Er) 10 meq PO DAILY [facility] Senna (Sennosides 8.6 Mg Tablet) 17.2 mg PO DAILY [facility] Sodium Biphosphate/Sodium Phosphate (Sodium Phosphate,Brooks-Dibasic 133 Ml Enema) 118 ml SC DAILY PRN PRN Reason: Constipation Sodium Chloride (0.9 % Sodium Chloride Flush 3 Ml Syringe) 3 ml IVFLUSH QSHIFT [facility] Last Admin: 09/02/22 00:41 Dose: 3 ml Documented By: JOAQUIM Tramadol HCl (Tramadol Hcl 50 Mg Tablet) 50 mg PO BID PRN PRN Reason: Pain, Moderate(Pain Scale 4-6) Labs 09/01/22 16:20 09/01/22 17:36 Labs: Laboratory Results - last 24 hr 09/01/22 09/01/22 09/01/22 16:20 16:20 16:20 MCV 94.2 MCH 29.3 MCHC 31.1 RDW 14.5 Plt Count 622 H D MPV 8.6 L Immature Gran % (Auto) 0.7 H Neut % (Auto) 90.0 H Lymph % (Auto) 4.9 L Brooks % (Auto) 4.2 Eos % (Auto) 0.0 Baso % (Auto) 0.2 Lymph # (Auto) 1.2 Brooks # (Auto) 1.0 Eos # (Auto) 0.0 Baso # (Auto) 0.1 Abs Immat Gran (auto) 0.17 H Absolute Neuts (auto) 22.0 H Absolute Nucleated RBC 0.000 Nucleated RBC % (auto) 0.0 Smear Tech's Comments VERIFIED PT 22.7 H INR 1.9 H APTT 34.7 Anion Gap Estim Creat Clear Calc Estimated GFR POC Glucose Random Glucose Lactic Acid 2.4 H* Lactic Acid F/U @ 2Hr Calcium Magnesium Total Bilirubin Direct Bilirubin AST ALT Alkaline Phosphatase Lactate Dehydrogenase Troponin I High Sens B-Natriuretic Peptide Total Protein Albumin Pleural pH Pleural WBC Pleural RBC Pleural Neutrophils Pleural Lymphocytes Pleural Monocytes Pleural Total Protein Pleural Albumin Pleural LDH Pleural Glucose COVID-19 (HONG) COVID-19 Clin Com 09/01/22 09/01/22 09/01/22 16:20 16:20 16:20 MCV MCH MCHC RDW Plt Count MPV Immature Gran % (Auto) Neut % (Auto) Lymph % (Auto) Brooks % (Auto) Eos % (Auto) Baso % (Auto) Lymph # (Auto) Brooks # (Auto) Eos # (Auto) Baso # (Auto) Abs Immat Gran (auto) Absolute Neuts (auto) Absolute Nucleated RBC Nucleated RBC % (auto) Smear Tech's Comments PT INR APTT Anion Gap Estim Creat Clear Calc Estimated GFR POC Glucose Random Glucose Lactic Acid Lactic Acid F/U @ 2Hr Calcium Magnesium Total Bilirubin Direct Bilirubin AST ALT Alkaline Phosphatase Lactate Dehydrogenase Troponin I High Sens 16.1 B-Natriuretic Peptide 448 H Total Protein Albumin Pleural pH Pleural WBC Pleural RBC Pleural Neutrophils Pleural Lymphocytes Pleural Monocytes Pleural Total Protein Pleural Albumin Pleural LDH Pleural Glucose COVID-19 (HONG) Negative COVID-19 Clin Com See Note 09/01/22 09/01/22 09/01/22 17:36 19:07 22:05 MCV MCH MCHC RDW Plt Count MPV Immature Gran % (Auto) Neut % (Auto) Lymph % (Auto) Brooks % (Auto) Eos % (Auto) Baso % (Auto) Lymph # (Auto) Brooks # (Auto) Eos # (Auto) Baso # (Auto) Abs Immat Gran (auto) Absolute Neuts (auto) Absolute Nucleated RBC Nucleated RBC % (auto) Smear Tech's Comments PT INR APTT Anion Gap 20 Estim Creat Clear Calc 37.2 Estimated GFR 52 POC Glucose Random Glucose 427 H* Lactic Acid Lactic Acid F/U @ 2Hr 2.3 H* Calcium 9.2 D Magnesium 1.9 Total Bilirubin 0.8 Direct Bilirubin 0.3 AST 11 ALT 6 Alkaline Phosphatase 84 Lactate Dehydrogenase 293 H Troponin I High Sens B-Natriuretic Peptide Total Protein 7.4 Albumin 3.4 L Pleural pH Pleural WBC Pleural RBC Pleural Neutrophils Pleural Lymphocytes Pleural Monocytes Pleural Total Protein 4.6 Pleural Albumin 2.5 Pleural LDH 143 Pleural Glucose 308 COVID-19 (HONG) COVID-19 Clin Com 09/01/22 09/01/22 09/01/22 22:05 22:05 22:10 MCV MCH MCHC RDW Plt Count MPV Immature Gran % (Auto) Neut % (Auto) Lymph % (Auto) Brooks % (Auto) Eos % (Auto) Baso % (Auto) Lymph # (Auto) Brooks # (Auto) Eos # (Auto) Baso # (Auto) Abs Immat Gran (auto) Absolute Neuts (auto) Absolute Nucleated RBC Nucleated RBC % (auto) Smear Tech's Comments PT INR APTT Anion Gap Estim Creat Clear Calc Estimated GFR POC Glucose 403 H* Random Glucose Lactic Acid Lactic Acid F/U @ 2Hr Calcium Magnesium Total Bilirubin Direct Bilirubin AST ALT Alkaline Phosphatase Lactate Dehydrogenase Troponin I High Sens B-Natriuretic Peptide Total Protein Albumin Pleural pH 7.27 Pleural WBC 7.237 Pleural RBC 0.004 Pleural Neutrophils 90 Pleural Lymphocytes 5 Pleural Monocytes 5 Pleural Total Protein Pleural Albumin Pleural LDH Pleural Glucose COVID-19 (HONG) COVID-19 Clin Com 09/02/22 09/02/22 07:13 07:15 MCV MCH MCHC RDW Plt Count MPV Immature Gran % (Auto) Neut % (Auto) Lymph % (Auto) Brooks % (Auto) Eos % (Auto) Baso % (Auto) Lymph # (Auto) Brooks # (Auto) Eos # (Auto) Baso # (Auto) Abs Immat Gran (auto) Absolute Neuts (auto) Absolute Nucleated RBC Nucleated RBC % (auto) Smear Tech's Comments PT INR APTT Anion Gap Estim Creat Clear Calc Estimated GFR POC Glucose 314 H 227 H Random Glucose Lactic Acid Lactic Acid F/U @ 2Hr Calcium Magnesium Total Bilirubin Direct Bilirubin AST ALT Alkaline Phosphatase Lactate Dehydrogenase Troponin I High Sens B-Natriuretic Peptide Total Protein Albumin Pleural pH Pleural WBC Pleural RBC Pleural Neutrophils Pleural Lymphocytes Pleural Monocytes Pleural Total Protein Pleural Albumin Pleural LDH Pleural Glucose COVID-19 (HONG) COVID-19 Clin Com Assessment and Plan (1) Pneumonia involving left lung: Status: Acute Plan 82-year-old female with a PMH significant for?HFpEF, chronic AFib on Xarelto, hypothyroidism, aortic stenosis, non insulin-dependent diabetes type 2, and GERD who presents to the ED from SNF via EMS with?shortness of breath and dyspnea. Pt will be admitted to the hospital for further management and treatment of left-sided pleural effusion with complete collapse of her left lung with likely underlying pneumonia. Acute hypoxic respiratory failure in the setting of pleural effusion of left lung CT of chest with large left pleural effusion with complete collapse of the left lung with deviated mediastinum to the right chest tube placed in the ED Pulmonology consult pending continue Unasyn Follow pleural serology, cultures Hold Xarelto Sepsis Likely from lung consolidation WBC, tachycardic, tachypnea, lactic acid 2.4 continue IV antibiotics Acute toxic metabolic encephalopathy Patient is alert oriented x2, baseline mentation unclear Attempted to reach SNF where patient resides, but received no answer to phone call If patient is encephalopathic, likely secondary to infection Treat as above HFpEF Likely not in acute exacerbation Patient with significant chronic lower leg edema, chronically elevated BNP BNP 448, lower than previous of 985 Patient received IVF in ED, including for severe sepsis Continue home furosemide Monitor volume status [id number] diabetes type 2 NPO at this time POC Q6H Thrombocytosis. Resolved Patient's platelets 622 at time of presentation, up from baseline of around 250 Likely reactive Follow CBC Hypothyroidism Continue levothyroxine DNR/DNI Attending:?Dr. Gomez DVT Prophylaxis:? Pneumatic boots continue hospital stay for treatment and further management of left-sided pleural effusion with complete collapse of her left lung with likely underlying pneumonia. Time Spent With Patient Time: Total time managing care of this patient today ____ minutes. Quality Stroke Does the patient have a stroke diagnosis?: No VTE Prior VTE?: No VTE Risk Level:: Medical - moderate - high VTE Device Contraindication: N/A - Device Ordered VTE Drug Contraindication: Treatment Not Indicated
--- NOTE | 2022-09-02 08:27 | MHC.CM.PN ---
IMM EXPLAINED TO NIECE/HCP DELISA VILLEGASE VIA TELEPHONE, SHE REQUESTS WHITE COPY BE MAILED AND YELLOW COPY PLACED IN CHART. 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 PT IS W/C DEPENDENT/ASSIST WITH ADL'S. + HCP ON FILE + LESTER MCKINNEY, PCP AT [facility] DP: PER AIDA, WILL RETURN TO LTC AT [facility]. RETURN REFERRAL SENT. WILL NEED BLS TRANSPORT. CM WILL CONTINUE TO FOLLOW FOR DC NEEDS.
[2022-09-02 08:35] LABS: MANUAL DIFF FLAG NO
[2022-09-02] MEDS: Insulin Lispro 100 UNIT/ML 3 ML VIAL SUBCUT ×4 (08:39→20:52)
[2022-09-02 08:40] LABS: Venous Blood Gas Refer to POC result
[2022-09-02 08:40] LABS: VBG Base Excess -1.6 mmol/L; VBG HCO3 25 mmol/L (22-26); VBG pCO2 52 mmHg; VBG pH 7.29 (7.32-7.43); VBG pO2 39 mmHg
[2022-09-02 08:41] LABS: Basophils Percent Auto 0.1 % (0-2); Hematocrit 37.9 % (37.0-47.0); Hemoglobin 11.5 g/dl (12.0-16.0); Imm Gran Abs Auto 0.15 X10*3/uL (0.00-0.03); Imm Gran Pct Auto 0.9 % (0.0-0.4); Lymphocytes Absolute Auto 1.2 X10*3/uL (1.2-4.9); Lymphocytes Percent Auto 7.1 % (20-40); Mean Corpuscular HGB Conc 30.3 g/dl (31.0-35.0); Mean Corpuscular Hemoglobin 29.3 pg (27.0-33.0); Mean Corpuscular Volume 96.4 fL (80.0-98.0); Mean Platelet Volume 8.5 fL (9.4-12.3); Monocytes Absolute Auto 0.9 X10*3/uL (0.1-1.2); Monocytes Percent Auto 5.1 % (2-11); Neutrophils Absolute Auto 14.8 x10*3/uL (2.0-8.3); Neutrophils Percent Auto 86.8 % (45-73); Platelet Count 381 X10*3/uL (160-400); Red Blood Count 3.93 X10*6/uL (4.20-5.50); Red Cell Distribution Width 14.4 % (11.0-16.0)
[2022-09-02 08:45] LABS: Ammonia 19 umol/L (13-55)
--- NOTE | 2022-09-02 09:14 | PC.NURSE ---
Patient arrived to unit and oriented to staff, room, and safety precautions. Assessment as noted with pt's CT dressing C/D/I, system patent and draining straw colored drainage and no air leak or crepitus noted. System maintained to suction. Pt stated multiple time she wants to sleep. She answered to her name and indicated she was at [facility] but declined to answer fully many of the admit questions. Pt noted after being turned for care to be retracting then desatted. Rapid response called, please see 4am assessment. She then slept with no s/s distress. This am Entered the room at change of shift to inspect chest tube with oncoming RN and pt found to be lethargic, barely responding to sternal rub. MD to bedside with oncoming RN taking over for this RN.
[2022-09-02 09:20] LABS: Anion Gap 17 (12-20); Blood Urea Nitrogen 19 mg/dL (9-16); Calcium 8.2 mg/dL (8.4-10.2); Carbon Dioxide 22 mmol/L (22-29); Chloride 103 mmol/L (96-108); Creatinine Clr Calc Pharmacy 50.1; Estimated Glomerular Filt Rate > 60; Glucose Random 312 mg/dL (60-115); Potassium 4.2 mmol/L (3.3-5.1); Sodium 138 mmol/L (135-145)
[2022-09-02 10:30] LABS: Troponin-I High Sensitivity 13.4 ng/L (<3.5-17.0)
--- NOTE | 2022-09-02 10:53 | PC.NURSE ---
at hourly rounding just now, pt alert to name, when asked if she was comfortable pt stated i'm cold this nurse offered more blankets and pt states better . when asked are you having any pain pt states my knees when asked on a scale of 0-10 how would you rate your pain pt states 8/10 when offered tylenol pt stated not right now . pt is resting comfortably.
[2022-09-02 11:05] VITALS: BP 122/69; PULSE 114; RESP 20; TEMP 36.8; O2SAT 96
[2022-09-02 11:35] LABS: Glucose, Whole Blood 245 mg/dL (60-115)
[2022-09-02] MEDS: Acetaminophen 325 MG TABLET 650 MG PO (13:13)
--- NOTE | 2022-09-02 14:21 | P.CONPL_ITS ---
History of Present Illness History of Present Illness Consult date: 09/02/22 Reason for consult: hypoxemia, pleural effusion and abnormal CXR/CT Chief complaint: Dyspnea Narrative: PULMONARY CONSULT I HAVE SEEN THIS 82 YEARS OLD FEMALE for pulmonary consult. She is 82 very pleasant and does talk , nicely but without any meaning full conversation. At this time she denies any distress, ,she is afebrile vital, signs are stable at this time she is. On O2 and comfortable History: Patient is not able to give any details. Most of the information is obtained from the medical record. She is a resident of long term facility and was sent to the emergency room apparently because of gradually increasing shortness of breath with low O2 sats for a few days. She has previously known to have chronic atrial fibrillation, , hypertension heard failure, diabetes mellitus hypothyroid is, also known to have aortic stenosis. And apparently she has been quite frail over the past few years. CT scan of the chest showed to complete opacification of the left chest, due to a large pleural effusion and underlying compressive atelectasis also there is slight shift of the mediastinum to the right. Patient had a chest tube placed , in the ER there is a drainage of dark yellowish turbid looking fluid, only in small amount. Post chest tube placement chest x-ray has not shown any significant decrease in the effusion. 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 Nonrheumatic aortic (valve) stenosis Repeated falls Type 2 diabetes mellitus without complications Unspecified glaucoma Unspecified osteoarthritis, unspecified site Urinary retention with incomplete bladder emptying Surgical History Surgical History Presence of artificial knee joint, bilateral Social History Social History Household Members: Other Housing: Care Home Do you presently have visiting nurse or other home services: No Unable to assess alcohol history related to: Refusing to respond Alcohol intake: never Patient Tobacco Use Status: Never used Tobacco Advance Directives Date on File: 04/26/21 service: No Current occupational status: retired Meds Allergies Allergy/AdvReac Type Severity Reaction Status Date / Time moxifloxacin [Avelox] Allergy Unknown rash Verified 07/15/21 14:14 From [facility] Allergy Unknown BLOTCHES Uncoded 07/15/21 14:14 ALL OVER FACE Active Medications: Current Medications Acetaminophen (Acetaminophen 325 Mg Tablet) 650 mg PO Q6H PRN PRN Reason: Pain, Mild (Pain Scale 1-3) Last Admin: 09/02/22 13:13 Dose: 650 mg Amiodarone HCl (Amiodarone Hcl 200 Mg Tablet) 200 mg PO DAILY [facility] Last Admin: 09/02/22 10:13 Dose: Not Given Bisacodyl (Bisacodyl 10 Mg Supp.Rect) 10 mg AZ DAILY PRN PRN Reason: Constipation Brimonidine Tartrate (Brimonidine Tartrate 0.2% Oph 5 Ml Bottle) 1 drop EYE- BOTH BID [facility] Last Admin: 09/02/22 10:14 Dose: Not Given Dorzolamide/Timolol (Dorzolamide/Timolo 2.23%/0.68% 10 Ml Drbtl) 1 drop EYE- BOTH BID [facility] Last Admin: 09/02/22 10:14 Dose: Not Given Furosemide (Furosemide 40 Mg Tablet) 40 mg PO DAILY [facility]; Protocol Last Admin: 09/02/22 10:14 Dose: Not Given Gabapentin (Gabapentin 100 Mg Capsule) 200 mg PO TID [facility] Last Admin: 09/02/22 10:14 Dose: Not Given Glucose (Glucose Gel 15 Gm Gel..Gram.) 15 gm PO Q15M PRN; Protocol PRN Reason: per Hypoglycemia Standing Ord. Guaifenesin (Guaifenesin 200 Mg/10 Ml 10 Ml Liquid) 20 ml PO TID PRN PRN Reason: Cough Ampicillin Sodium/Sulbactam (Sodium 3 gm/ Sodium Chloride) 100 mls @ 200 mls/hr IV Q6H [facility] Last Infusion: 09/02/22 14:02 Dose: Infused Dextrose (D10) 250 mls @ 750 mls/hr IV Q15M PRN; Protocol PRN Reason: per Hypoglycemia Standing Ord. Insulin Human Lispro (Insulin Lispro 100 Unit/Ml 3 Ml Vial) 0 unit SUBCUT QIDACHS [facility]; Protocol Last Admin: 09/02/22 11:44 Dose: 2 unit Latanoprost (Latanoprost 0.005 % Ophth Maryjane 2.5 Ml Drops) 1 drop EYE-BOTH DAILY [facility] Last Admin: 09/02/22 10:14 Dose: Not Given Levothyroxine Sodium (Levothyroxine Sodium 25 Mcg Tablet) 25 mcg PO DAILY@0600 [facility] Last Admin: 09/02/22 07:59 Dose: Not Given Magnesium Hydroxide (Milk Of Magnesia 30 Ml Oral.Susp) 30 ml PO DAILY PRN PRN Reason: Constipation Melatonin (Melatonin 3 Mg Tablet) 6 mg PO BEDTIME PRN PRN Reason: Insomnia Melatonin (Melatonin 3 Mg Tablet) 9 mg PO BEDTIME PRN PRN Reason: insomnia Metoprolol Tartrate (Metoprolol Tartrate 12.5 Mg Halftab) 12.5 mg PO BID [facility]; Protocol Last Admin: 09/02/22 10:14 Dose: Not Given Mirtazapine (Mirtazapine 7.5 Mg Tablet) 7.5 mg PO BEDTIME [facility] Last Admin: 09/02/22 00:40 Dose: 7.5 mg Omeprazole (Omeprazole 20 Mg Capsule.Dr) 20 mg PO DAILY@0630 [facility] Last Admin: 09/02/22 08:03 Dose: Not Given Ondansetron HCl (Ondansetron Hcl 4 Mg/2 Ml Vial) 4 mg IVPUSH Q8H PRN PRN Reason: Nausea and Vomiting Polyethylene Glycol (Polyethylene Glycol 3350 17 Gm Powd.Pack) 17 gm PO DAILY [facility] Last Admin: 09/02/22 10:14 Dose: Not Given Potassium Chloride (Potassium Chloride Er 10 Meq Tablet.Er) 10 meq PO DAILY [facility] Last Admin: 09/02/22 10:15 Dose: Not Given Senna (Sennosides 8.6 Mg Tablet) 17.2 mg PO DAILY [facility] Last Admin: 09/02/22 10:15 Dose: Not Given Sodium Biphosphate/Sodium Phosphate (Sodium Phosphate,Pinal-Dibasic 133 Ml Enema) 118 ml AZ DAILY PRN PRN Reason: Constipation Sodium Chloride (0.9 % Sodium Chloride Flush 3 Ml Syringe) 3 ml IVFLUSH QSHIFT [facility] Last Admin: 09/02/22 08:39 Dose: Not Given Tramadol HCl (Tramadol Hcl 50 Mg Tablet) 50 mg PO BID PRN PRN Reason: Pain, Moderate(Pain Scale 4-6) Home Medications Medication Instructions Recorded Confirmed Last Taken Type bisacodyl 10 mg rectal suppository 10 mg AZ DAILY PRN Constipation 04/23/21 09/01/22 Unknown History brimonidine 0.2 % eye drops 1 drp ophthalmic (eye) BID 04/23/21 09/01/22 09/01/22 History dorzolamide 22.3 mg-timolol 6.8 1 drp ophthalmic (eye) BID 04/23/21 09/01/22 09/01/22 History mg/mL eye drops latanoprost 0.005 % eye drops 1 drp ophthalmic (eye) DAILY 04/23/21 09/01/22 09/01/22 History levothyroxine 25 mcg tablet 25 mcg PO DAILY@0600 04/23/21 09/01/22 09/01/22 History magnesium hydroxide 400 mg/5 mL 30 ml PO DAILY PRN Constipation 04/23/21 09/01/22 Unknown History oral suspension (Milk of Magnesia) melatonin 5 mg tablet 10 mg PO BEDTIME PRN Insomnia 04/23/21 09/01/22 04/23/21 History mirtazapine 7.5 mg tablet 7.5 mg PO BEDTIME 04/23/21 09/01/22 08/31/22 History polyethylene glycol 3350 17 17 g PO DAILY 04/23/21 09/01/22 04/23/21 History gram/dose oral powder (Miralax) rivaroxaban 20 mg tablet (Xarelto) 1 tab PO DAILY 04/23/21 09/01/22 09/01/22 History sennosides 8.6 mg tablet (senna) 17.2 mg PO DAILY 04/23/21 09/01/22 09/01/22 History vitamins A,C,V-kbvp-tqxuwd 4,296 1 cap PO BID 04/23/21 09/01/22 09/01/22 History mcg-226 mg-90 mg capsule (PreserVision AREDS) acetaminophen 500 mg tablet 1,000 mg PO TID PRN Pain 09/01/22 09/01/22 Unknown History calcium carbonate 600 mg calcium 600 mg PO BEDTIME 09/01/22 09/01/22 08/31/22 History (1,500 mg) tablet gabapentin 100 mg capsule 200 mg PO TID 09/01/22 09/01/22 09/01/22 History guaifenesin 400 mg tablet 400 mg PO TID PRN Cough 09/01/22 09/01/22 Unknown History metoprolol tartrate 25 mg tablet 12.5 mg PO BID 09/01/22 09/01/22 09/01/22 History omeprazole 20 mg capsule,delayed 20 mg PO DAILY@0630 09/01/22 09/01/22 09/01/22 History release potassium chloride 10 mEq 10 meq PO DAILY 09/01/22 09/01/22 09/01/22 History tablet,extended release sodium phosphates 19 gram-7 118 ml AZ DAILY PRN Constipation 09/01/22 09/01/22 Unknown History gram/118 mL enema (Fleet Enema) tramadol 50 mg tablet 50 mg PO BID PRN Pain 09/01/22 09/01/22 09/01/22 History Physical Exam Vital Signs: Vital Signs: Last Vital Signs Temp 98.3 F 09/02/22 11:05 Pulse 114 H 09/02/22 11:05 Resp 20 09/02/22 11:05 BP 122/69 09/02/22 11:05 Pulse Ox 96 09/02/22 11:05 O2 Del Method Oxymask 09/02/22 11:05 O2 Flow Rate 8 09/02/22 11:05 Oxygen Flow Rate 4 09/01/22 15:58 BMI result Body Mass Index 29.4 Const: Other: Examination performed while patient is lying down supine in the bed, Has a chest tube in the left chest, there is no active. Drainage at this time Patient appears comfortable, She is only partially alert and orientated. ENT could not be examined. Chest is slightly stiff probably due. To arthritis no JVD trachea midline Chest left side is dull completely with. The absent breath sounds Right side breath sounds are somewhat distant and no wheezes or crepitations heard. Cardiac sounds are also distant rhythm is irregular but heart rate is well controlled. No obvious murmurs heard. Results Laboratory Findings 09/02/22 08:29 09/02/22 08:29 ABG, PT/INR, D-dimer: PT/INR, D-dimer PT 22.7 SEC (10.0-13.1) H 09/01/22 16:20 INR 1.9 (0.9-1.1) H 09/01/22 16:20 Abnormal lab findings: Abnormal Labs 09/01/22 09/01/22 09/01/22 16:20 16:20 16:20 WBC 24.4 H RBC Hgb MCHC Plt Count 622 H D MPV 8.6 L Immature Gran % (Auto) 0.7 H Neut % (Auto) 90.0 H Lymph % (Auto) 4.9 L Abs Immat Gran (auto) 0.17 H Absolute Neuts (auto) 22.0 H PT 22.7 H INR 1.9 H VBG pH Sodium Chloride BUN POC Glucose Random Glucose Lactic Acid 2.4 H* Lactic Acid F/U @ 2Hr Calcium Lactate Dehydrogenase B-Natriuretic Peptide Albumin 09/01/22 09/01/22 09/01/22 16:20 17:36 19:07 WBC RBC Hgb MCHC Plt Count MPV Immature Gran % (Auto) Neut % (Auto) Lymph % (Auto) Abs Immat Gran (auto) Absolute Neuts (auto) PT INR VBG pH Sodium 134 L Chloride 95 L BUN 21 H POC Glucose Random Glucose 427 H* Lactic Acid Lactic Acid F/U @ 2Hr 2.3 H* Calcium Lactate Dehydrogenase 293 H B-Natriuretic Peptide 448 H Albumin 3.4 L 09/01/22 09/02/22 09/02/22 22:10 07:13 07:15 WBC RBC Hgb MCHC Plt Count MPV Immature Gran % (Auto) Neut % (Auto) Lymph % (Auto) Abs Immat Gran (auto) Absolute Neuts (auto) PT INR VBG pH Sodium Chloride BUN POC Glucose 403 H* 314 H 227 H Random Glucose Lactic Acid Lactic Acid F/U @ 2Hr Calcium Lactate Dehydrogenase B-Natriuretic Peptide Albumin 09/02/22 09/02/22 09/02/22 08:29 08:29 08:33 WBC 17.0 H RBC 3.93 L Hgb 11.5 L MCHC 30.3 L Plt Count MPV 8.5 L Immature Gran % (Auto) 0.9 H Neut % (Auto) 86.8 H Lymph % (Auto) 7.1 L Abs Immat Gran (auto) 0.15 H Absolute Neuts (auto) 14.8 H PT INR VBG pH 7.29 L Sodium Chloride BUN 19 H POC Glucose Random Glucose 312 H Lactic Acid Lactic Acid F/U @ 2Hr Calcium 8.2 L D Lactate Dehydrogenase B-Natriuretic Peptide Albumin 09/02/22 11:08 WBC RBC Hgb MCHC Plt Count MPV Immature Gran % (Auto) Neut % (Auto) Lymph % (Auto) Abs Immat Gran (auto) Absolute Neuts (auto) PT INR VBG pH Sodium Chloride BUN POC Glucose 245 H Random Glucose Lactic Acid Lactic Acid F/U @ 2Hr Calcium Lactate Dehydrogenase B-Natriuretic Peptide Albumin Microbiology: Microbiology 09/01/22 22:05 Thoracentesis Fluid Gram Stain - Final 09/01/22 22:05 Thoracentesis Fluid Anaerobic Culture - Preliminary No growth to date. 09/01/22 22:05 Thoracentesis Fluid Body Fluid Culture - Preliminary No growth to date. Diagnostic Findings Chest x-ray: report reviewed and image reviewed CT scan - chest: report reviewed and image reviewed Assessment and Plan (1) Pleural effusion: Status: Acute (2) Atelectasis of left lung: Status: Acute (3) Acute respiratory failure with hypoxia: Status: Acute Plan Most likely diagnosis is PNEUMONIA, WITH SECONDARY PARAPNEUMONIC EFFUSION, PROGRESSING INTO EMPYEMA AND FIBROTHORAX. ENDOBRONCHIAL OBSTRUCTION AND POSSIBLE UNDERLYING NEOPLASM CANNOT BE RULED OF. CODE STATUS DNR/D AN EYE IS NOTED. PATIENT IS A VERY HIGH RISK FOR ANY SURGICAL INTERVENTION. RECC. Thoracic surgical consultation. Consider tPA, for thrombolysis, and see if it will facilitate more drainage. Consider Bronchoscopy , for this I will discuss with Dr. Vance after the weekend . Continue broad-spectrum antibiotic coverage. Continue O2 supplementation to keep O2 sat above 92% We should hold off anticoagulation at this time in case patient is going to need further intervention. Time Spent With Patient Time: Total time managing care of this patient today ____ minutes. Procedures Date of Service Date of Service: 09/02/22
--- NOTE | 2022-09-02 15:14 | P.CONGS_ITS ---
History of Present Illness Consult details Consult date: 09/02/22 Reason for consult: chest tube Requesting physician: Franco Nino Narrative: 82 y/o female who lives in a fci who has a PMH of T2DM, AFib, CHF on Xarelto (last dose 09/01/22), aortic stenosis, HLD presents to the ED for worsening shortness of breath X few weels per patient with O2 sats on RA in the high 80's only yesterday. They put her on 3 L NC with improvement in O2 sats to 94%. CXR was obtained which showed a white out on the left side. CT scan pe rformed which shows a large left pleural effusion with collapse of the entire left lung. Her WBC 24K and lactate of 2.4. Thoracic Surgery was consulted for evaluation/management. Dr. Harrison reviewed the images and recommended an emergent chest tube be placed (despite Xarelto) which the ED physician performed. 600 cc of straw colored fluid removed, pleural fluid sent for culture. Vancomycin and Zosyn initiated. Patient admitted to Hospitalist Service. Additional PMH: hypothyroid, OA, hx of urinary retention PSH: Bilateral TKR, bilateral cataract surgery SH: lives in correction facility [facility], hx of falls, never smoker. 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 ROS: denies CVA, hemoptysis, bleeding dyscrasias. 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 Nonrheumatic aortic (valve) stenosis Repeated falls Type 2 diabetes mellitus without complications Unspecified glaucoma Unspecified osteoarthritis, unspecified site Urinary retention with incomplete bladder emptying Surgical History Surgical History Presence of artificial knee joint, bilateral Social History Social History Household Members: Other Housing: Intermediate Do you presently have visiting nurse or other home services: No Unable to assess alcohol history related to: Refusing to respond Alcohol intake: never Patient Tobacco Use Status: Never used Tobacco Advance Directives Date on File: 04/26/21 service: No Current occupational status: retired Meds Allergies Allergy/AdvReac Type Severity Reaction Status Date / Time moxifloxacin [Avelox] Allergy Unknown rash Verified 07/15/21 14:14 From [facility] Allergy Unknown BLOTCHES Uncoded 07/15/21 14:14 ALL OVER FACE Active Medications: Current Medications Acetaminophen (Acetaminophen 325 Mg Tablet) 650 mg PO Q6H PRN PRN Reason: Pain, Mild (Pain Scale 1-3) Last Admin: 09/02/22 13:13 Dose: 650 mg Amiodarone HCl (Amiodarone Hcl 200 Mg Tablet) 200 mg PO DAILY [facility] Last Admin: 09/02/22 10:13 Dose: Not Given Bisacodyl (Bisacodyl 10 Mg Supp.Rect) 10 mg MN DAILY PRN PRN Reason: Constipation Brimonidine Tartrate (Brimonidine Tartrate 0.2% Oph 5 Ml Bottle) 1 drop EYE- BOTH BID [facility] Last Admin: 09/02/22 10:14 Dose: Not Given Dorzolamide/Timolol (Dorzolamide/Timolo 2.23%/0.68% 10 Ml Drbtl) 1 drop EYE- BOTH BID [facility] Last Admin: 09/02/22 10:14 Dose: Not Given Furosemide (Furosemide 40 Mg Tablet) 40 mg PO DAILY [facility]I; Protocol Last Admin: 09/02/22 10:14 Dose: Not Given Gabapentin (Gabapentin 100 Mg Capsule) 200 mg PO TID [facility] Last Admin: 09/02/22 10:14 Dose: Not Given Glucose (Glucose Gel 15 Gm Gel..Gram.) 15 gm PO Q15M PRN; Protocol PRN Reason: per Hypoglycemia Standing Ord. Guaifenesin (Guaifenesin 200 Mg/10 Ml 10 Ml Liquid) 20 ml PO TID PRN PRN Reason: Cough Ampicillin Sodium/Sulbactam (Sodium 3 gm/ Sodium Chloride) 100 mls @ 200 mls/hr IV Q6H [facility] Last Infusion: 09/02/22 14:02 Dose: Infused Dextrose (D10) 250 mls @ 750 mls/hr IV Q15M PRN; Protocol PRN Reason: per Hypoglycemia Standing Ord. Insulin Human Lispro (Insulin Lispro 100 Unit/Ml 3 Ml Vial) 0 unit SUBCUT QIDACHS [facility]; Protocol Last Admin: 09/02/22 11:44 Dose: 2 unit Latanoprost (Latanoprost 0.005 % Ophth Maryjane 2.5 Ml Drops) 1 drop EYE-BOTH DAILY [facility] Last Admin: 09/02/22 10:14 Dose: Not Given Levothyroxine Sodium (Levothyroxine Sodium 25 Mcg Tablet) 25 mcg PO DAILY@0600 [facility] Last Admin: 09/02/22 07:59 Dose: Not Given Magnesium Hydroxide (Milk Of Magnesia 30 Ml Oral.Susp) 30 ml PO DAILY PRN PRN Reason: Constipation Melatonin (Melatonin 3 Mg Tablet) 6 mg PO BEDTIME PRN PRN Reason: Insomnia Melatonin (Melatonin 3 Mg Tablet) 9 mg PO BEDTIME PRN PRN Reason: insomnia Metoprolol Tartrate (Metoprolol Tartrate 12.5 Mg Halftab) 12.5 mg PO BID [facility]; Protocol Last Admin: 09/02/22 10:14 Dose: Not Given Mirtazapine (Mirtazapine 7.5 Mg Tablet) 7.5 mg PO BEDTIME [facility] Last Admin: 09/02/22 00:40 Dose: 7.5 mg Omeprazole (Omeprazole 20 Mg Capsule.Dr) 20 mg PO DAILY@0630 [facility] Last Admin: 09/02/22 08:03 Dose: Not Given Ondansetron HCl (Ondansetron Hcl 4 Mg/2 Ml Vial) 4 mg IVPUSH Q8H PRN PRN Reason: Nausea and Vomiting Polyethylene Glycol (Polyethylene Glycol 3350 17 Gm Powd.Pack) 17 gm PO DAILY [facility] Last Admin: 09/02/22 10:14 Dose: Not Given Potassium Chloride (Potassium Chloride Er 10 Meq Tablet.Er) 10 meq PO DAILY [facility] Last Admin: 09/02/22 10:15 Dose: Not Given Senna (Sennosides 8.6 Mg Tablet) 17.2 mg PO DAILY [facility] Last Admin: 09/02/22 10:15 Dose: Not Given Sodium Biphosphate/Sodium Phosphate (Sodium Phosphate,Baylor-Dibasic 133 Ml Enema) 118 ml MN DAILY PRN PRN Reason: Constipation Sodium Chloride (0.9 % Sodium Chloride Flush 3 Ml Syringe) 3 ml IVFLUSH QSHIFT [facility]I Last Admin: 09/02/22 08:39 Dose: Not Given Tramadol HCl (Tramadol Hcl 50 Mg Tablet) 50 mg PO BID PRN PRN Reason: Pain, Moderate(Pain Scale 4-6) Home Medications Medication Instructions Recorded Confirmed Last Taken Type bisacodyl 10 mg rectal suppository 10 mg MN DAILY PRN Constipation 04/23/21 09/01/22 Unknown History brimonidine 0.2 % eye drops 1 drp ophthalmic (eye) BID 04/23/21 09/01/22 09/01/22 History dorzolamide 22.3 mg-timolol 6.8 1 drp ophthalmic (eye) BID 04/23/21 09/01/22 09/01/22 History mg/mL eye drops latanoprost 0.005 % eye drops 1 drp ophthalmic (eye) DAILY 04/23/21 09/01/22 09/01/22 History levothyroxine 25 mcg tablet 25 mcg PO DAILY@0600 04/23/21 09/01/22 09/01/22 History magnesium hydroxide 400 mg/5 mL 30 ml PO DAILY PRN Constipation 04/23/21 09/01/22 Unknown History oral suspension (Milk of Magnesia) melatonin 5 mg tablet 10 mg PO BEDTIME PRN Insomnia 04/23/21 09/01/22 04/23/21 History mirtazapine 7.5 mg tablet 7.5 mg PO BEDTIME 04/23/21 09/01/22 08/31/22 History polyethylene glycol 3350 17 17 g PO DAILY 04/23/21 09/01/22 04/23/21 History gram/dose oral powder (Miralax) rivaroxaban 20 mg tablet (Xarelto) 1 tab PO DAILY 04/23/21 09/01/22 09/01/22 History sennosides 8.6 mg tablet (senna) 17.2 mg PO DAILY 04/23/21 09/01/22 09/01/22 History vitamins A,C,E-jiwk-ddivxv 4,296 1 cap PO BID 04/23/21 09/01/22 09/01/22 History mcg-226 mg-90 mg capsule (PreserVision AREDS) acetaminophen 500 mg tablet 1,000 mg PO TID PRN Pain 09/01/22 09/01/22 Unknown History calcium carbonate 600 mg calcium 600 mg PO BEDTIME 09/01/22 09/01/22 08/31/22 History (1,500 mg) tablet gabapentin 100 mg capsule 200 mg PO TID 09/01/22 09/01/22 09/01/22 History guaifenesin 400 mg tablet 400 mg PO TID PRN Cough 09/01/22 09/01/22 Unknown History metoprolol tartrate 25 mg tablet 12.5 mg PO BID 09/01/22 09/01/22 09/01/22 History omeprazole 20 mg capsule,delayed 20 mg PO DAILY@0630 09/01/22 09/01/22 09/01/22 History release potassium chloride 10 mEq 10 meq PO DAILY 09/01/22 09/01/22 09/01/22 History tablet,extended release sodium phosphates 19 gram-7 118 ml MN DAILY PRN Constipation 09/01/22 09/01/22 Unknown History gram/118 mL enema (Fleet Enema) tramadol 50 mg tablet 50 mg PO BID PRN Pain 09/01/22 09/01/22 09/01/22 History Physical Exam Vital Signs: Vital Signs: Last Vital Signs Temp 98.3 F 09/02/22 11:05 Pulse 114 H 09/02/22 11:05 Resp 20 09/02/22 11:05 BP 122/69 09/02/22 11:05 Pulse Ox 96 09/02/22 11:05 O2 Del Method Oxymask 09/02/22 11:05 O2 Flow Rate 8 09/02/22 11:05 Oxygen Flow Rate 4 09/01/22 15:58 BMI result Body Mass Index 29.4 Vital signs as documented General: pt was resting soundly, barely arousable and then she awoke and was interactive. She does move her extremities but slowly Head: Normocephalic, atraumatic, & symmetric Eyes: Sclera anicteric, eyelids without edema or erythema ENT: Oral mucosa and tongue are dry, no sinus tenderness Neck: Soft, supple, leans toward the left, trachea midline, no crepitus, no mass visualized or palpated Cardiovascular: Iregular rate and rhythm Respiratory: Lungs on right with breath sounds and no rhonchi or crackles and left side without breath sounds audible , breathing nonlabored, speaking slowly without gasping, on 6L NC with O2 sat of 100% . Left CT to -30 mm Hg with no air leak and total drainage of straw colored fluid of 1200 cc. (200 cc today) Gastrointestinal: Soft, mildly-tender, non-distended, + bowel sounds. Skin: Warm and dry throughout, no rashes Extremities: BUE and BLE with +2 edema, venous insufficieny changes noted at ankles and no calf tenderness bilaterally Pulses: Carotid 2+, Radial 2+ + bilaterally Neurological: Alert and oriented x 1 - knows niece in room with no focal neurological deficit noted Genitourinary: Riley catheter in place Psychiatric: No agitation Results Labs 09/02/22 08:29 09/02/22 08:29 Labs: Abnormal lab results 09/01/22 09/01/22 09/01/22 Range/Units 16:20 16:20 16:20 WBC 24.4 H (4.8-10.8) X10*3/uL RBC (4.20-5.50) X10*6/uL Hgb (12.0-16.0) g/dl MCHC (31.0-35.0) g/dl Plt Count 622 H D (160-400) X10*3/uL MPV 8.6 L (9.4-12.3) fL Immature Gran % (Auto) 0.7 H (0.0-0.4) % Neut % (Auto) 90.0 H (45-73) % Lymph % (Auto) 4.9 L (20-40) % Abs Immat Gran (auto) 0.17 H (0.00-0.03) X10*3/uL Absolute Neuts (auto) 22.0 H (2.0-8.3) x10*3/uL PT 22.7 H (10.0-13.1) SEC INR 1.9 H (0.9-1.1) VBG pH (7.32-7.43) Sodium (135-145) mmol/L Chloride (96-108) mmol/L BUN (9-16) mg/dL POC Glucose (60-115) mg/dL Random Glucose (60-115) mg/dL Lactic Acid 2.4 H* (0.5-2.0) mmol/L Lactic Acid F/U @ 2Hr (0.5-2.0) mmol/L Calcium (8.4-10.2) mg/dL Lactate Dehydrogenase (122-220) U/L B-Natriuretic Peptide (<100) pg/mL Albumin (3.5-5.0) g/dL 09/01/22 09/01/22 09/01/22 Range/Units 16:20 17:36 19:07 WBC (4.8-10.8) X10*3/uL RBC (4.20-5.50) X10*6/uL Hgb (12.0-16.0) g/dl MCHC (31.0-35.0) g/dl Plt Count (160-400) X10*3/uL MPV (9.4-12.3) fL Immature Gran % (Auto) (0.0-0.4) % Neut % (Auto) (45-73) % Lymph % (Auto) (20-40) % Abs Immat Gran (auto) (0.00-0.03) X10*3/uL Absolute Neuts (auto) (2.0-8.3) x10*3/uL PT (10.0-13.1) SEC INR (0.9-1.1) VBG pH (7.32-7.43) Sodium 134 L (135-145) mmol/L Chloride 95 L (96-108) mmol/L BUN 21 H (9-16) mg/dL POC Glucose (60-115) mg/dL Random Glucose 427 H* (60-115) mg/dL Lactic Acid (0.5-2.0) mmol/L Lactic Acid F/U @ 2Hr 2.3 H* (0.5-2.0) mmol/L Calcium (8.4-10.2) mg/dL Lactate Dehydrogenase 293 H (122-220) U/L B-Natriuretic Peptide 448 H (<100) pg/mL Albumin 3.4 L (3.5-5.0) g/dL 09/01/22 09/02/22 09/02/22 Range/Units 22:10 07:13 07:15 WBC (4.8-10.8) X10*3/uL RBC (4.20-5.50) X10*6/uL Hgb (12.0-16.0) g/dl MCHC (31.0-35.0) g/dl Plt Count (160-400) X10*3/uL MPV (9.4-12.3) fL Immature Gran % (Auto) (0.0-0.4) % Neut % (Auto) (45-73) % Lymph % (Auto) (20-40) % Abs Immat Gran (auto) (0.00-0.03) X10*3/uL Absolute Neuts (auto) (2.0-8.3) x10*3/uL PT (10.0-13.1) SEC INR (0.9-1.1) VBG pH (7.32-7.43) Sodium (135-145) mmol/L Chloride (96-108) mmol/L BUN (9-16) mg/dL POC Glucose 403 H* 314 H 227 H (60-115) mg/dL Random Glucose (60-115) mg/dL Lactic Acid (0.5-2.0) mmol/L Lactic Acid F/U @ 2Hr (0.5-2.0) mmol/L Calcium (8.4-10.2) mg/dL Lactate Dehydrogenase (122-220) U/L B-Natriuretic Peptide (<100) pg/mL Albumin (3.5-5.0) g/dL 09/02/22 09/02/22 09/02/22 Range/Units 08:29 08:29 08:33 WBC 17.0 H (4.8-10.8) X10*3/uL RBC 3.93 L (4.20-5.50) X10*6/uL Hgb 11.5 L (12.0-16.0) g/dl MCHC 30.3 L (31.0-35.0) g/dl Plt Count (160-400) X10*3/uL MPV 8.5 L (9.4-12.3) fL Immature Gran % (Auto) 0.9 H (0.0-0.4) % Neut % (Auto) 86.8 H (45-73) % Lymph % (Auto) 7.1 L (20-40) % Abs Immat Gran (auto) 0.15 H (0.00-0.03) X10*3/uL Absolute Neuts (auto) 14.8 H (2.0-8.3) x10*3/uL PT (10.0-13.1) SEC INR (0.9-1.1) VBG pH 7.29 L (7.32-7.43) Sodium (135-145) mmol/L Chloride (96-108) mmol/L BUN 19 H (9-16) mg/dL POC Glucose (60-115) mg/dL Random Glucose 312 H (60-115) mg/dL Lactic Acid (0.5-2.0) mmol/L Lactic Acid F/U @ 2Hr (0.5-2.0) mmol/L Calcium 8.2 L D (8.4-10.2) mg/dL Lactate Dehydrogenase (122-220) U/L B-Natriuretic Peptide (<100) pg/mL Albumin (3.5-5.0) g/dL 09/02/22 Range/Units 11:08 WBC (4.8-10.8) X10*3/uL RBC (4.20-5.50) X10*6/uL Hgb (12.0-16.0) g/dl MCHC (31.0-35.0) g/dl Plt Count (160-400) X10*3/uL MPV (9.4-12.3) fL Immature Gran % (Auto) (0.0-0.4) % Neut % (Auto) (45-73) % Lymph % (Auto) (20-40) % Abs Immat Gran (auto) (0.00-0.03) X10*3/uL Absolute Neuts (auto) (2.0-8.3) x10*3/uL PT (10.0-13.1) SEC INR (0.9-1.1) VBG pH (7.32-7.43) Sodium (135-145) mmol/L Chloride (96-108) mmol/L BUN (9-16) mg/dL POC Glucose 245 H (60-115) mg/dL Random Glucose (60-115) mg/dL Lactic Acid (0.5-2.0) mmol/L Lactic Acid F/U @ 2Hr (0.5-2.0) mmol/L Calcium (8.4-10.2) mg/dL Lactate Dehydrogenase (122-220) U/L B-Natriuretic Peptide (<100) pg/mL Albumin (3.5-5.0) g/dL Short CBC 09/01/22 09/02/22 Range/Units 16:20 08:29 WBC 24.4 H 17.0 H (4.8-10.8) X10*3/uL Hgb 12.6 D 11.5 L (12.0-16.0) g/dl Hct 40.5 D 37.9 (37.0-47.0) % Plt Count 622 H D 381 D (160-400) X10*3/uL BMP 09/01/22 09/02/22 17:36 08:29 Sodium 134 L 138 Potassium 4.5 D 4.2 Chloride 95 L 103 Carbon Dioxide 24 22 BUN 21 H 19 H Creatinine 1.02 0.76 Calcium 9.2 D 8.2 L D Liver Function 09/01/22 Range/Units 17:36 Total Bilirubin 0.8 (0.0-1.0) mg/dL Direct Bilirubin 0.3 (0.0-0.5) mg/dL AST 11 (5-31) U/L ALT 6 (0-31) U/L Alkaline Phosphatase 84 (39-117) U/L Albumin 3.4 L (3.5-5.0) g/dL All other labs normal. Imaging Chest x-ray: report reviewed and image reviewed CT scan - chest: report reviewed and image reviewed Additional studies: 09/01/22 Pleural fluid no organisms seen to date 09/01/22 Blood cultures X 2 pending Assessment and Plan (1) Pneumonia involving left lung: Status: Acute (2) Pleural effusion: Status: Acute (3) Hypoxia: Status: Acute (4) Atelectasis of left lung: Status: Acute Plan 82 y/o female with likely NHAP, complicated with pleural effusion and collapse of left lung causing acute respiratory hypoxia * Patient's oxygenation improving and transitioned form oxymask to NC with O2 sat of 100%. Consider Nebs to break up any mucous plugs. * Continue Chest tube to -30 mm Hg suction. Monitor drainage 200 since this am. No air leak. Daily CXR. * tPA/dornase, for thrombolysis will be considered on Sunday (48 hours after last dose of Xarelto) to facilitate additional pleural drainage. * Continue broad-spectrum antibiotic coverage. pt on Vanco and Zosyn. Leukocy tosis improving. BC X 2 pending and pleural fluid with no organisms seen to date. Would consider UA to complete sepsis work-up * Continue to hold anticoagulation at this time in case patient is going to need further intervention. * Dr. Melo to discuss with Dr. Vance a bronchoscopy on this patient after the weekend to evaluate for any endobronchial blockage. All care and images discussed with Dr. Harrison Time Spent With Patient Time: Total time managing care of this patient today ____ minutes. Procedures Date of Service Date of Service: 09/02/22
[2022-09-02 15:25] VITALS: BP 148/65; PULSE 106; RESP 13; TEMP 36.5; O2SAT 100
[2022-09-02 16:00] LABS: Glucose, Whole Blood 222 mg/dL (60-115)
[2022-09-02] MEDS: dilTIAZem HCL 50 MG/10 ML VIAL 10 MG IVPUSH (18:03)
--- NOTE | 2022-09-02 18:03 | PM.EVENT ---
Event Note Date of Service: 09/02/22 Event Note: Pt in afib with rvr HR 115-146. Missed dose of metoprolol this am due to lethargy. EKG being obtained. 10mg IVpush diltiazem ordered. Continue telemetry. Resume metoprolol this evening. Vitals otherwise stable. Pt asymptomatic. Time Spent With Patient Time: Total time managing care of this patient today ____ minutes.
--- NOTE | 2022-09-02 18:26 | PC.NURSE ---
CERTIFIED ENDOSCOPY TECHNICIAN desk notified this nurse at 17:20 HR trending higher . tele monitor reads 120s-140s. provider notified, EKG ordered, showed A.fib RVR. provider came to bedside and assessed pt. stat 10mg Cardizem IV push ordered and given. Rate trending down to low 120s. pt asymptomatic. will continue to monitor.
[2022-09-02 19:13] VITALS: BP 100/58; PULSE 115; RESP 18; TEMP 37.1; O2SAT 95
[2022-09-02 19:40] LABS: Troponin-I High Sensitivity 13.3 ng/L (<3.5-17.0)
[2022-09-02 20:28] LABS: Glucose, Whole Blood 193 mg/dL (60-115)
[2022-09-02] MEDS: Brimonidine Tartrate 0.2% Oph 5 ML BOTTLE 1 DROP EYE-BOTH (21:19)
[2022-09-02] MEDS: Dorzolamide/Timolo 2.23%/0.68% 10 ML DRBTL 1 DROP EYE-BOTH (21:21)
[2022-09-02 23:19] VITALS: BP 92/57; PULSE 107; RESP 18; TEMP 37.1; O2SAT 98
--- NOTE | 2022-09-03 | ECG_ITS ---
Test Reason : Tachycardia Blood Pressure : / mmHG Vent. Rate : 142 BPM Atrial Rate : 000 BPM P-R Int : 000 ms QRS Dur : 070 ms QT Int : 322 ms P-R-T Axes : 000 -07 211 degrees QTc Int : 495 ms Poor data quality, interpretation may be adversely affected Atrial fibrillation with rapid ventricular response with premature ventricular or aberrantly conducted complexes Inferior infarct (cited on or before 01-SEP-2022) Anterolateral infarct (cited on or before 01-SEP-2022) Abnormal ECG When compared with ECG of 02-SEP-2022 17:53, Questionable change in initial forces of Lateral leads ST now depressed in Anterior leads T wave inversion less evident in Lateral leads Referred By: Pamela Vance Electronically Signed By:
[2022-09-03 00:18] LABS: Glucose, Whole Blood 171 mg/dL (60-115)
[2022-09-03] MEDS: Ampicillin Sodium/Sulbactam Na 3 GM in 0.9 % Sodium Chloride 100 ML IV ×4 (02:03→18:08)
[2022-09-03 03:54] VITALS: BP 95/45; PULSE 84; RESP 18; TEMP 36.9; O2SAT 100
[2022-09-03] MEDS: Omeprazole 20 MG CAPSULE.DR PO (06:51)
[2022-09-03] MEDS: Levothyroxine Sodium 25 MCG TABLET PO (06:51)
[2022-09-03 07:41] LABS: Glucose, Whole Blood 219 mg/dL (60-115)
[2022-09-03 07:49] VITALS: BP 105/67; PULSE 112; RESP 17; TEMP 36.3; O2SAT 99
[2022-09-03] MEDS: polyethylene glycoL 3350 17 GM POWD.PACK PO (08:49)
[2022-09-03] MEDS: Insulin Lispro 100 UNIT/ML 3 ML VIAL SUBCUT ×4 (08:55→20:35)
[2022-09-03] MEDS: Sennosides 8.6 MG TABLET 17.2 MG PO (08:56)
[2022-09-03] MEDS: Potassium Chloride ER 10 MEQ TABLET.ER PO (08:56)
[2022-09-03] MEDS: Amiodarone HCL 200 MG TABLET PO (08:56)
[2022-09-03] MEDS: Metoprolol Tartrate 12.5 MG HALFTAB PO (08:56)
[2022-09-03] MEDS: Gabapentin 100 MG CAPSULE 200 MG PO ×3 (08:56→20:34)
[2022-09-03] MEDS: Furosemide 40 MG TABLET PO (08:56)
[2022-09-03] MEDS: 0.9 % Sodium Chloride Flush 3 ML SYRINGE IVFLUSH (08:58)
[2022-09-03] MEDS: Furosemide 20 MG/2 ML VIAL IVPUSH (09:24)
[2022-09-03] MEDS: dilTIAZem HCL 50 MG/10 ML VIAL 10 MG IVPUSH (09:24)
[2022-09-03 09:26] VITALS: BP 174/80; PULSE 154; RESP 32; O2SAT 94
[2022-09-03] MEDS: Morphine Sulfate 2 MG/ML CARTRIDGE IVPUSH (09:33)
[2022-09-03 10:32] LABS: Anion Gap 16 (12-20); Blood Urea Nitrogen 13 mg/dL (9-16); Calcium 8.5 mg/dL (8.4-10.2); Carbon Dioxide 24 mmol/L (22-29); Chloride 105 mmol/L (96-108); Creatinine Clr Calc Pharmacy 48.1; Estimated Glomerular Filt Rate > 60; Glucose Random 301 mg/dL (60-115); Potassium 3.4 mmol/L (3.3-5.1); Sodium 142 mmol/L (135-145)
[2022-09-03] MEDS: Dorzolamide/Timolo 2.23%/0.68% 10 ML DRBTL 1 DROP EYE-BOTH ×2 (10:33→20:35)
[2022-09-03] MEDS: Latanoprost 0.005 % Ophth Sol 2.5 ML DROPS 1 DROP EYE-BOTH (10:33)
[2022-09-03] MEDS: Brimonidine Tartrate 0.2% Oph 5 ML BOTTLE 1 DROP EYE-BOTH ×2 (10:34→20:35)
[2022-09-03 10:39] LABS: B Type Natriuretic Peptide 607 pg/mL (<100)
[2022-09-03 10:40] LABS: Troponin-I High Sensitivity 8.2 ng/L (<3.5-17.0)
[2022-09-03 11:29] LABS: Glucose, Whole Blood 306 mg/dL (60-115)
--- NOTE | 2022-09-03 11:38 | P.PNIM_ITS ---
Subjective Subjective Date of Service: 09/03/22 Review of Systems Follow up Acute resp failure on oxymask had episode of lethargy this morning unknown baseline Physical Exam Vital Signs: Vital Signs: Last Vital Signs Temp 97.4 F 09/03/22 07:49 Pulse 154 H 09/03/22 09:26 Resp 32 H 09/03/22 09:26 BP 174/80 H 09/03/22 09:26 Pulse Ox 94 09/03/22 09:26 O2 Del Method Oxymask 09/03/22 09:26 O2 Flow Rate 6 09/03/22 09:26 Oxygen Flow Rate 4 09/01/22 15:58 BMI result Body Mass Index 29.4 Appearing in no acute distress lung sounds Left diminished heart regular rate rhythm, clear S1, S2 positive bowel sounds, abdomen is soft, nontender neuro patient is alert x3, no focal deficits CT draining yellow/punch colored drainage Objective Data Active Medications Acetaminophen (Acetaminophen 325 Mg Tablet) 650 mg PO Q6H PRN PRN Reason: Pain, Mild (Pain Scale 1-3) Last Admin: 09/02/22 13:13 Dose: 650 mg Documented By: ZOË Amiodarone HCl (Amiodarone Hcl 200 Mg Tablet) 200 mg PO DAILY [facility] Last Admin: 09/03/22 08:56 Dose: 200 mg Documented By: JONATHAN Bisacodyl (Bisacodyl 10 Mg Supp.Rect) 10 mg DC DAILY PRN PRN Reason: Constipation Brimonidine Tartrate (Brimonidine Tartrate 0.2% Oph 5 Ml Bottle) 1 drop EYE- BOTH BID [facility] Last Admin: 09/03/22 10:34 Dose: 1 drop Documented By: JONATHAN Dorzolamide/Timolol (Dorzolamide/Timolo 2.23%/0.68% 10 Ml Drbtl) 1 drop EYE- BOTH BID [facility] Last Admin: 09/03/22 10:33 Dose: 1 drop Documented By: JONATHAN Furosemide (Furosemide 40 Mg Tablet) 40 mg PO DAILY [facility]; Protocol Last Admin: 09/03/22 08:56 Dose: 40 mg Documented By: JONATHAN Gabapentin (Gabapentin 100 Mg Capsule) 200 mg PO TID [facility] Last Admin: 09/03/22 08:56 Dose: 200 mg Documented By: HO.DOBROB Glucose (Glucose Gel 15 Gm Gel..Gram.) 15 gm PO Q15M PRN; Protocol PRN Reason: per Hypoglycemia Standing Ord. Guaifenesin (Guaifenesin 200 Mg/10 Ml 10 Ml Liquid) 20 ml PO TID PRN PRN Reason: Cough Ampicillin Sodium/Sulbactam (Sodium 3 gm/ Sodium Chloride) 100 mls @ 200 mls/hr IV Q6H [facility] Last Infusion: 09/03/22 08:48 Dose: 0 mls/hr Documented By: JONATHAN Dextrose (D10) 250 mls @ 750 mls/hr IV Q15M PRN; Protocol PRN Reason: per Hypoglycemia Standing Ord. Diltiazem HCl 125 mg/ Sodium (Chloride) 125 mls @ 0 mls/hr IVCONT .Q0M [facility]; P rotocol Insulin Human Lispro (Insulin Lispro 100 Unit/Ml 3 Ml Vial) 0 unit SUBCUT QIDACHS [facility]; Protocol Last Admin: 09/03/22 08:55 Dose: 4 unit Documented By: JONATHAN Latanoprost (Latanoprost 0.005 % Ophth Maryjane 2.5 Ml Drops) 1 drop EYE-BOTH DAILY [facility] Last Admin: 09/03/22 10:33 Dose: 1 drop Documented By: JONATHAN Levothyroxine Sodium (Levothyroxine Sodium 25 Mcg Tablet) 25 mcg PO DAILY@0600 [facility] Last Admin: 09/03/22 06:51 Dose: 25 mcg Documented By: KT Magnesium Hydroxide (Milk Of Magnesia 30 Ml Oral.Susp) 30 ml PO DAILY PRN PRN Reason: Constipation Melatonin (Melatonin 3 Mg Tablet) 6 mg PO BEDTIME PRN PRN Reason: Insomnia Melatonin (Melatonin 3 Mg Tablet) 9 mg PO BEDTIME PRN PRN Reason: insomnia Metoprolol Tartrate (Metoprolol Tartrate 12.5 Mg Halftab) 12.5 mg PO BID [facility]; Protocol Last Admin: 09/03/22 08:56 Dose: 12.5 mg Documented By: JONATHAN Mirtazapine (Mirtazapine 7.5 Mg Tablet) 7.5 mg PO BEDTIME [facility] Last Admin: 09/02/22 20:51 Dose: 7.5 mg Documented By: KT Omeprazole (Omeprazole 20 Mg Capsule.Dr) 20 mg PO DAILY@0630 [facility] Last Admin: 09/03/22 06:51 Dose: 20 mg Documented By: KT Ondansetron HCl (Ondansetron Hcl 4 Mg/2 Ml Vial) 4 mg IVPUSH Q8H PRN PRN Reason: Nausea and Vomiting Polyethylene Glycol (Polyethylene Glycol 3350 17 Gm Powd.Pack) 17 gm PO DAILY [facility] Last Admin: 09/03/22 08:49 Dose: 17 gm Documented By: JONATHAN Potassium Chloride (Potassium Chloride Er 10 Meq Tablet.Er) 10 meq PO DAILY [facility] Last Admin: 09/03/22 08:56 Dose: 10 meq Documented By: JONATHAN Senna (Sennosides 8.6 Mg Tablet) 17.2 mg PO DAILY [facility] Last Admin: 09/03/22 08:56 Dose: 17.2 mg Documented By: JONATHAN Sodium Biphosphate/Sodium Phosphate (Sodium Phosphate,Lyon-Dibasic 133 Ml Enema) 118 ml DC DAILY PRN PRN Reason: Constipation Sodium Chloride (0.9 % Sodium Chloride Flush 3 Ml Syringe) 3 ml IVFLUSH QSHIFT [facility] Last Admin: 09/03/22 08:58 Dose: 3 ml Documented By: JONATHAN Tramadol HCl (Tramadol Hcl 50 Mg Tablet) 50 mg PO BID PRN PRN Reason: Pain, Moderate(Pain Scale 4-6) Labs 09/02/22 08:29 09/03/22 10:05 Labs: Laboratory Results - last 24 hr 09/02/22 09/02/22 09/02/22 15:53 19:02 20:13 Anion Gap Estim Creat Clear Calc Estimated GFR POC Glucose 222 H 193 H Random Glucose Calcium Troponin I High Sens 13.3 B-Natriuretic Peptide 09/03/22 09/03/22 09/03/22 00:14 07:22 10:05 Anion Gap 16 Estim Creat Clear Calc 48.1 Estimated GFR > 60 POC Glucose 171 H 219 H Random Glucose 301 H Calcium 8.5 Troponin I High Sens B-Natriuretic Peptide 09/03/22 09/03/22 09/03/22 10:05 10:05 11:16 Anion Gap Estim Creat Clear Calc Estimated GFR POC Glucose 306 H Random Glucose Calcium Troponin I High Sens 8.2 B-Natriuretic Peptide 607 H Microbiology Microbiology Results: Microbiology 09/01/22 16:57 Blood Culture - Preliminary Blood - Venous No growth after 24 hours. 09/01/22 16:39 Blood Culture - Preliminary Blood - Venous No growth after 24 hours. 09/01/22 22:05 Gram Stain - Final Thoracentesis Fluid Anaerobic Culture - Preliminary No growth to date. Body Fluid Culture - Preliminary No growth to date. Assessment and Plan (1) Pneumonia involving left lung: Status: Acute Plan 82-year-old female with a PMH significant for?HFpEF, chronic AFib on Xarelto, hypothyroidism, aortic stenosis, non insulin-dependent diabetes type 2, and GERD who presents to the ED from SNF via EMS with?shortness of breath and dyspnea. Pt will be admitted to the hospital for further management and treatment of left- sided pleural effusion with complete collapse of her left lung with likely underlying pneumonia. Afib with RVR with episode of flash pulmonary edema cardizem 10mg once IV IV lasix 20 mg once IV morphine once for tachypnea normal troponin BNP 607 started IV cardizem drip with good response Acute hypoxic respiratory failure in the setting of pleural effusion of left lung with pneumonia CT of chest with large left pleural effusion with complete collapse of the left lung with deviated mediastinum to the right chest tube in place and draining Pulmonology consult pending continue Unasyn Follow pleural serology, cultures Hold Xarelto cxr today unchanged plan for TPN infusion to CT tomorrow Sepsis. Resolved Likely from lung consolidation WBC, tachycardic, tachypnea, lactic acid 2.4 continue IV antibiotics Acute toxic metabolic encephalopathy Patient is alert oriented x2, baseline mentation unclear Attempted to reach [facility] where patient resides, but received no answer to phone call If patient is encephalopathic, likely secondary to infection Treat as above HFpEF Likely not in acute exacerbation Patient with significant chronic lower leg edema, chronically elevated BNP Continue home furosemide Monitor volume status f/c placed for fluid management Aoy-kbhhjao-rwqmrqzcw diabetes type 2 NPO at this time POC Q6H Thrombocytosis. Resolved Patient's platelets 622 at time of presentation, up from baseline of around 250 Likely reactive Follow CBC Hypothyroidism Continue levothyroxine DNR/DNI Attending:?Dr. Gomez DVT Prophylaxis:? Pneumatic boots continue hospital stay for treatment and further management of left-sided pleural effusion with complete collapse of her left lung with likely underlying pneumonia. Time Spent With Patient Time: Total time managing care of this patient today ____ minutes. Quality Stroke Does the patient have a stroke diagnosis?: No VTE Prior VTE?: No VTE Risk Level:: Medical - moderate - high VTE Device Contraindication: N/A - Device Ordered VTE Drug Contraindication: Treatment Not Indicated
[2022-09-03 11:39] VITALS: BP 95/65; PULSE 110; RESP 16; TEMP 36.8; O2SAT 97
[2022-09-03] MEDS: dilTIAZem HCL 125 MG in 0.9 % Sodium Chloride 100 ML 10 MG IVCONT (12:04)
--- NOTE | 2022-09-03 14:11 | P.PNTS_ITS ---
Subjective Subjective Date of Service: 09/03/22 Interval history: 82 y/o female who lives in a care home who has a PMH of? T2DM, AFib, CHF on Xarelto (last dose 09/01/22), aortic stenosis, & HLD. She is admitted likely due to NHAP, complicated with pleural effusion and collapse of left lung causing acute respiratory hypoxia. Today she is sitting upright in bed with her niece visiting her and appears in no distress. She tells me that she coughs but doesn't bring any sputum up. She denies difficulty breathing but her reliability as a historian is limited. Also denying fever, chills, & abdominal discomfort is better. Events: per RN they changed bed and she was lying flat and desaturated. Her oxygenation is between NC and oxymask. Physical Exam Vital Signs: Vital Signs: Last Vital Signs Temp 98.3 F 09/03/22 11:39 Pulse 110 H 09/03/22 11:39 Resp 16 09/03/22 11:39 BP 95/65 09/03/22 11:39 Pulse Ox 97 09/03/22 11:39 O2 Del Method Aerosol Mask 09/03/22 11:39 O2 Flow Rate 11 09/03/22 11:39 Oxygen Flow Rate 4 09/01/22 15:58 BMI result Body Mass Index 29.4 Vital signs as documented. Oxygen delivery method between NC and oxymask General: pt appears bright, sitting up in bed and talkative today. Head: Normocephalic, atraumatic, & symmetric Eyes: Sclera anicteric, eyelids without edema or erythema Cardiovascular: Iregular rate and rhythm on Crdz gtt Respiratory: Lungs on right with breath sounds and slight breath sounds ausculatated today on left, no rhonchi or crackles,, breathing nonlabored, speaking in full sentences, on 11L NC? with O2 sat of 97% . Left CT to -30 mm Hg with no air leak and total drainage of straw colored fluid of 1450 cc.? (200 cc since last night) Gastrointestinal: Soft, mildly-tender, non-distended, + bowel sounds. Skin: Warm and dry throughout, no rashes Extremities: BUE and BLE with +2 edema, venous insufficency changes noted at ankles and no calf tenderness bilaterally Neurological: Alert and knows or reads month/year off white board. knows niece in room with no focal neurological deficit noted Genitourinary: Riley catheter in place Psychiatric: No agitation. She is child like in demeanor CXR FINDINGS: There is complete opacification of left lung from combination of pleural effusion and atelectasis. The right lung is expanded and clear. There is mild [id number]-[id number] midline shift. Heart size and pulmonary vascularity is normal. No gross bony abnormality. IMPRESSION: Large left pleural effusion with left lung collapse. Significant left to right midline shift there is the findings are unchanged to 07/02/2022 exam and 07/03/2022 exam. Thoracentesis fluid from 09/01: gram stain with no organisms. 09/01/22: Blood culture X 2 with no growth. Pleural Fluid with ph 7.27, glucose 308, LDH 143, WBC 7K Procedures Date of Service Date of Service: 09/03/22 Progress Note: A&P Assessment and plan (1) Pneumonia involving left lung: Start date: 09/01/22 Status: Acute (2) Pleural effusion: Status: Acute (3) Hypoxia: Status: Acute Plan 82 y/o female with likely NHAP, complicated with pleural effusion and collapse of left lung causing acute respiratory hypoxia * Patient's oxygenation requirements between oxymask to NC with O2 sats in 90's.? Consider Nebs to break up any mucous plugs. * Continue Chest tube to -30 mm Hg suction.? Monitor drainage 200cc since yesterday pm.? No air leak.? Daily CXR. * tPA/dornase, for thrombolysis will be considered on Sunday (48 hours after last dose of Xarelto) to facilitate additional pleural drainage. * Continue broad-spectrum antibiotic coverage.? pt on Zosyn.? CBC pending.? BC X 2 pending and pleural fluid with no organisms seen to date.? Would consider UA to complete sepsis work-up * Continue to hold anticoagulation at this time in case patient is going to need further intervention. * Dr. Melo to discuss with Dr. Vance a bronchoscopy on this patient after the weekend to evaluate for any endobronchial blockage. * All care and images discussed with Dr. Harrison Time Spent With Patient Time: Total time managing care of this patient today ____ minutes. Quality Stroke Does the patient have a stroke diagnosis?: No VTE Prior VTE?: No VTE Risk Level:: Medical - moderate - high VTE Device Contraindication: N/A - Device Ordered VTE Drug Contraindication: Treatment Not Indicated
[2022-09-03 14:54] VITALS: BP 92/62; PULSE 100; RESP 20; TEMP 36.4; O2SAT 100
[2022-09-03 16:30] LABS: Glucose, Whole Blood 227 mg/dL (60-115)
[2022-09-03 19:46] VITALS: BP 103/56; PULSE 95; RESP 20; TEMP 37.2; O2SAT 98
[2022-09-03 20:19] LABS: Glucose, Whole Blood 193 mg/dL (60-115)
[2022-09-03] MEDS: Mirtazapine 7.5 MG TABLET PO (20:34)
[2022-09-04] VITALS: BP 117/62; PULSE 93; RESP 20; TEMP 36.8; O2SAT 98
[2022-09-04 00:33] LABS: Glucose, Whole Blood 112 mg/dL (60-115)
[2022-09-04] MEDS: traMADoL HCL 50 MG TABLET PO ×2 (00:43→21:02)
[2022-09-04] MEDS: Ampicillin Sodium/Sulbactam Na 3 GM in 0.9 % Sodium Chloride 100 ML IV ×4 (00:52→17:18)
[2022-09-04] MEDS: 0.9 % Sodium Chloride Flush 3 ML SYRINGE IVFLUSH ×3 (00:57→17:17)
[2022-09-04 03:36] VITALS: BP 105/59; PULSE 91; RESP 20; TEMP 36.3; O2SAT 96
[2022-09-04 05:35] LABS: Glucose, Whole Blood 231 mg/dL (60-115)
[2022-09-04] MEDS: Omeprazole 20 MG CAPSULE.DR PO (06:21)
[2022-09-04] MEDS: Levothyroxine Sodium 25 MCG TABLET PO (06:22)
[2022-09-04 07:26] LABS: INTERNATIONAL NORM RATIO 1.3 (0.9-1.1); Prothrombin Time 14.7 SEC (10.0-13.1)
[2022-09-04 07:41] LABS: Glucose, Whole Blood 232 mg/dL (60-115)
[2022-09-04 07:42] VITALS: BP 118/61; PULSE 115; RESP 18; TEMP 37.1; O2SAT 94
[2022-09-04] MEDS: dilTIAZem HCL 125 MG in 0.9 % Sodium Chloride 100 ML IVCONT (08:12)
[2022-09-04] MEDS: Sennosides 8.6 MG TABLET 17.2 MG PO (08:14)
[2022-09-04] MEDS: Amiodarone HCL 200 MG TABLET PO (08:14)
[2022-09-04] MEDS: Potassium Chloride ER 10 MEQ TABLET.ER PO (08:14)
[2022-09-04] MEDS: Metoprolol Tartrate 12.5 MG HALFTAB PO ×2 (08:14→21:07)
[2022-09-04] MEDS: polyethylene glycoL 3350 17 GM POWD.PACK PO (08:15)
[2022-09-04] MEDS: Gabapentin 100 MG CAPSULE 200 MG PO ×3 (08:15→21:01)
[2022-09-04] MEDS: Furosemide 40 MG TABLET PO (08:15)
[2022-09-04] MEDS: Insulin Lispro 100 UNIT/ML 3 ML VIAL SUBCUT ×4 (08:15→21:03)
[2022-09-04] MEDS: Acetaminophen 325 MG TABLET 650 MG PO ×2 (08:18→18:51)
[2022-09-04] MEDS: Dorzolamide/Timolo 2.23%/0.68% 10 ML DRBTL 1 DROP EYE-BOTH ×2 (08:29→21:00)
[2022-09-04] MEDS: Latanoprost 0.005 % Ophth Sol 2.5 ML DROPS 1 DROP EYE-BOTH (08:29)
[2022-09-04] MEDS: Brimonidine Tartrate 0.2% Oph 5 ML BOTTLE 1 DROP EYE-BOTH ×2 (08:29→21:12)
--- NOTE | 2022-09-04 10:18 | PM.PNPUL ---
Subjective Subjective Date of Service: 09/04/22 Interval history: The patient was seen and examined. On 8L ventimask, now with afib with RVR. Draining clear yellow pleural fluid. The fluid is trending towards an exudative effusion, neutrophilic predominant suggesting of an infectious process. cough also be related to a connective tissue disease process. The patient is indeed frail. We briefly spoke about performing a bronchoscopy to assess the airways for any obstructions. She was aggreable, although, would wait for her cardiac status to improve. Objective Data Labs 09/02/22 08:29 09/03/22 10:05 Labs: Laboratory Results - last 24 hr 09/03/22 09/03/22 09/03/22 10:05 10:05 10:05 PT INR APTT Sodium 142 Potassium 3.4 Chloride 105 Carbon Dioxide 24 Anion Gap 16 BUN 13 Creatinine 0.79 Estim Creat Clear Calc 48.1 Estimated GFR > 60 POC Glucose Random Glucose 301 H Calcium 8.5 Troponin I High Sens 8.2 B-Natriuretic Peptide 607 H 09/03/22 09/03/22 09/03/22 11:16 16:22 20:09 PT INR APTT Sodium Potassium Chloride Carbon Dioxide Anion Gap BUN Creatinine Estim Creat Clear Calc Estimated GFR POC Glucose 306 H 227 H 193 H Random Glucose Calcium Troponin I High Sens B-Natriuretic Peptide 09/04/22 09/04/22 09/04/22 00:29 05:28 06:42 PT 14.7 H INR 1.3 H APTT 28.0 Sodium Potassium Chloride Carbon Dioxide Anion Gap BUN Creatinine Estim Creat Clear Calc Estimated GFR POC Glucose 112 231 H Random Glucose Calcium Troponin I High Sens B-Natriuretic Peptide 09/04/22 07:21 PT INR APTT Sodium Potassium Chloride Carbon Dioxide Anion Gap BUN Creatinine Estim Creat Clear Calc Estimated GFR POC Glucose 232 H Random Glucose Calcium Troponin I High Sens B-Natriuretic Peptide Microbiology Microbiology Results: Microbiology 09/01/22 16:57 Blood - Venous Blood Culture - Preliminary No growth after 48 hours. 09/01/22 16:39 Blood - Venous Blood Culture - Preliminary No growth after 48 hours. 09/01/22 22:05 Thoracentesis Fluid Gram Stain - Final 09/01/22 22:05 Thoracentesis Fluid Anaerobic Culture - Preliminary No growth to date. 09/01/22 22:05 Thoracentesis Fluid Body Fluid Culture - Preliminary No growth to date. Review of Systems Constitutional: Reports malaise Eyes: Denies change in vision Cardiovascular: Denies chest pain and Reports dyspnea Respiratory: Denies pain on inspiration, Denies pain with cough, Reports dyspnea and Denies wheezing Gastrointestinal: Reports no additional gastrointestinal complaints Musculoskeletal: Reports no additional musculoskeletal complaints Reports system reviewed and no additional complaints, except as documented Hematologic/Lymphatic: Denies easy bleeding Allergic/Immunologic: Denies wheezing Physical Exam Vital Signs: Vital Signs: Last Vital Signs Temp 98.7 F 09/04/22 07:42 Pulse 115 H 09/04/22 07:42 Resp 18 09/04/22 07:42 BP 118/61 09/04/22 07:42 Pulse Ox 94 09/04/22 07:42 O2 Del Method Aerosol Mask 09/04/22 07:42 O2 Flow Rate 8 09/04/22 07:42 Oxygen Flow Rate 4 09/01/22 15:58 BMI result Body Mass Index 29.4 Const: General: comfortable and tired appearing HEENT: Head: Yes normocephalic Neck: Neck: Yes supple Chest: Chest palpation & inspection: normal inspection of the chest Resp: Auscultation: breath sounds absent on th left and diminished lung sounds Cardio: Heart sounds: S1 normal heart sound present and S2 normal heart sound present GI: Palpation (GI): Soft to palpation Extrem: General: No cyanosis Procedures Date of Service Date of Service: 09/04/22 Assessment and Plan Assessment and plan (1) Atelectasis of left lung: Status: Acute (2) Pneumonia involving left lung: Status: Acute (3) Pleural effusion: Status: Acute (4) Acute congestive heart failure: Status: Acute (5) Acute respiratory failure with hypoxia: Status: Acute (6) PAF (paroxysmal atrial fibrillation): Status: Acute Plan bloodwork Thracic surgery to consider TPA/DNAse Monitor fluid drainage Bronchosocopy to assess airways once cardiac status is better Goals of care need to be discussed with patient and family. She appears to be frail and with multiple comorbidities, staus is guarded. Time Spent With Patient Time: Total time managing care of this patient today ____ minutes. Progress Note: Quality Stroke Does the patient have a stroke diagnosis?: No
--- NOTE | 2022-09-04 10:35 | P.PNIM_ITS ---
Subjective Subjective Date of Service: 09/04/22 Review of Systems Follow up Acute resp failure doing better today no c/o pain, breathing better Physical Exam Vital Signs: Vital Signs: Last Vital Signs Temp 98.7 F 09/04/22 07:42 Pulse 115 H 09/04/22 07:42 Resp 18 09/04/22 07:42 BP 118/61 09/04/22 07:42 Pulse Ox 94 09/04/22 07:42 O2 Del Method Aerosol Mask 09/04/22 07:42 O2 Flow Rate 8 09/04/22 07:42 Oxygen Flow Rate 4 09/01/22 15:58 BMI result Body Mass Index 29.4 Appearing in no acute distress lung sounds are clear to auscultation heart regular rate rhythm, clear S1, S2 positive bowel sounds, abdomen is soft, nontender neuro patient is alert x3, no focal deficits Objective Data Active Medications Acetaminophen (Acetaminophen 325 Mg Tablet) 650 mg PO Q6H PRN PRN Reason: Pain, Mild (Pain Scale 1-3) Last Admin: 09/04/22 08:18 Dose: 650 mg Documented By: BRANDON Amiodarone HCl (Amiodarone Hcl 200 Mg Tablet) 200 mg PO DAILY [facility] Last Admin: 09/04/22 08:14 Dose: 200 mg Documented By: BRANDON Bisacodyl (Bisacodyl 10 Mg Supp.Rect) 10 mg MA DAILY PRN PRN Reason: Constipation Brimonidine Tartrate (Brimonidine Tartrate 0.2% Oph 5 Ml Bottle) 1 drop EYE- BOTH BID [facility] Last Admin: 09/04/22 08:29 Dose: 1 drop Documented By: BRANDON Dorzolamide/Timolol (Dorzolamide/Timolo 2.23%/0.68% 10 Ml Drbtl) 1 drop EYE- BOTH BID [facility] Last Admin: 09/04/22 08:29 Dose: 1 drop Documented By: BRANDON Furosemide (Furosemide 40 Mg Tablet) 40 mg PO DAILY [facility]; Protocol Last Admin: 09/04/22 08:15 Dose: 40 mg Documented By: BRANDON Gabapentin (Gabapentin 100 Mg Capsule) 200 mg PO TID [facility] Last Admin: 09/04/22 08:15 Dose: 200 mg Documented By: BRANDON Glucose (Glucose Gel 15 Gm Gel..Gram.) 15 gm PO Q15M PRN; Protocol PRN Reason: per Hypoglycemia Standing Ord. Guaifenesin (Guaifenesin 200 Mg/10 Ml 10 Ml Liquid) 20 ml PO TID PRN PRN Reason: Cough Ampicillin Sodium/Sulbactam (Sodium 3 gm/ Sodium Chloride) 100 mls @ 200 mls/hr IV Q6H [facility] Last Infusion: 09/04/22 07:30 Dose: 0 mls/hr Documented By: SEAN Dextrose (D10) 250 mls @ 750 mls/hr IV Q15M PRN; Protocol PRN Reason: per Hypoglycemia Standing Ord. Diltiazem HCl 125 mg/ Sodium (Chloride) 125 mls @ 0 mls/hr IVCONT .Q0M [facility]; Protocol Last Admin: 09/04/22 08:12 Dose: 5 mg/hr, 5 mls/hr Documented By: BRANDON Insulin Human Lispro (Insulin Lispro 100 Unit/Ml 3 Ml Vial) 0 unit SUBCUT QIDACHS [facility]; Protocol Last Admin: 09/04/22 08:15 Dose: 4 unit Documented By: BRANDON Latanoprost (Latanoprost 0.005 % Ophth Maryjane 2.5 Ml Drops) 1 drop EYE-BOTH DAILY [facility] Last Admin: 09/04/22 08:29 Dose: 1 drop Documented By: BRANDON Levothyroxine Sodium (Levothyroxine Sodium 25 Mcg Tablet) 25 mcg PO DAILY@0600 [facility] Last Admin: 09/04/22 06:22 Dose: 25 mcg Documented By: SEAN Magnesium Hydroxide (Milk Of Magnesia 30 Ml Oral.Susp) 30 ml PO DAILY PRN PRN Reason: Constipation Melatonin (Melatonin 3 Mg Tablet) 6 mg PO BEDTIME PRN PRN Reason: Insomnia Melatonin (Melatonin 3 Mg Tablet) 9 mg PO BEDTIME PRN PRN Reason: insomnia Metoprolol Tartrate (Metoprolol Tartrate 12.5 Mg Halftab) 12.5 mg PO BID [facility]; Protocol Last Admin: 09/04/22 08:14 Dose: 12.5 mg Documented By: BRANDON Mirtazapine (Mirtazapine 7.5 Mg Tablet) 7.5 mg PO BEDTIME [facility] Last Admin: 09/03/22 20:34 Dose: 7.5 mg Documented By: SEAN Omeprazole (Omeprazole 20 Mg Capsule.Dr) 20 mg PO DAILY@0630 [facility] Last Admin: 09/04/22 06:21 Dose: 20 mg Documented By: SEAN Ondansetron HCl (Ondansetron Hcl 4 Mg/2 Ml Vial) 4 mg IVPUSH Q8H PRN PRN Reason: Nausea and Vomiting Polyethylene Glycol (Polyethylene Glycol 3350 17 Gm Powd.Pack) 17 gm PO DAILY [facility] Last Admin: 09/04/22 08:15 Dose: 17 gm Documented By: BRANDON Potassium Chloride (Potassium Chloride Er 10 Meq Tablet.Er) 10 meq PO DAILY [facility] Last Admin: 09/04/22 08:14 Dose: 10 meq Documented By: BRANDON Senna (Sennosides 8.6 Mg Tablet) 17.2 mg PO DAILY [facility] Last Admin: 09/04/22 08:14 Dose: 17.2 mg Documented By: BRANDON Sodium Biphosphate/Sodium Phosphate (Sodium Phosphate,Barren-Dibasic 133 Ml Enema) 118 ml MA DAILY PRN PRN Reason: Constipation Sodium Chloride (0.9 % Sodium Chloride Flush 3 Ml Syringe) 3 ml IVFLUSH QSHIFT [facility] Last Admin: 09/04/22 08:30 Dose: 3 ml Documented By: BRANDON Tramadol HCl (Tramadol Hcl 50 Mg Tablet) 50 mg PO BID PRN PRN Reason: Pain, Moderate(Pain Scale 4-6) Last Admin: 09/04/22 00:43 Dose: 50 mg Documented By: SEAN Labs 09/02/22 08:29 09/03/22 10:05 Labs: Laboratory Results - last 24 hr 09/03/22 09/03/22 09/03/22 10:05 10:05 11:16 PT INR APTT POC Glucose 306 H Troponin I High Sens 8.2 B-Natriuretic Peptide 607 H 09/03/22 09/03/22 09/04/22 16:22 20:09 00:29 PT INR APTT POC Glucose 227 H 193 H 112 Troponin I High Sens B-Natriuretic Peptide 09/04/22 09/04/22 09/04/22 05:28 06:42 07:21 PT 14.7 H INR 1.3 H APTT 28.0 POC Glucose 231 H 232 H Troponin I High Sens B-Natriuretic Peptide Microbiology Microbiology Results: Microbiology 09/01/22 22:05 Gram Stain - Final Thoracentesis Fluid Anaerobic Culture - Preliminary No growth to date. Body Fluid Culture - Final No growth after 2 days 09/01/22 16:57 Blood Culture - Preliminary Blood - Venous No growth after 48 hours. 09/01/22 16:39 Blood Culture - Preliminary Blood - Venous No growth after 48 hours. Assessment and Plan (1) Pneumonia involving left lung: Status: Acute Plan 82-year-old female with a PMH significant for?HFpEF, chronic AFib on Xarelto, hypothyroidism, aortic stenosis, non insulin-dependent diabetes type 2, and GERD who presents to the ED from SNF via EMS with?shortness of breath and dyspnea. Pt will be admitted to the hospital for further management and treatment of left- sided pleural effusion with complete collapse of her left lung with likely underlying pneumonia. Afib with RVR with episode of flash pulmonary edema cardizem 10mg once IV IV lasix 20 mg once IV morphine once for tachypnea normal troponin BNP 607 started IV cardizem drip with good response cardiology consult Acute hypoxic respiratory failure in the setting of pleural effusion of left lung with pneumonia CT of chest with large left pleural effusion with complete collapse of the left lung with deviated mediastinum to the right chest tube in place and draining continue Unasyn Follow pleural serology, cultures Hold Xarelto cxr unchanged plan for TPN infusion to CT as per CT surg Pulmonology>plan for bronch this week Sepsis. Resolved Likely from lung consolidation WBC, tachycardic, tachypnea, lactic acid 2.4 continue IV antibiotics Acute toxic metabolic encephalopathy Patient is alert oriented x2, baseline mentation unclear Attempted to reach SNF where patient resides, but received no answer to phone call If patient is encephalopathic, likely secondary to infection Treat as above HFpEF Likely not in acute exacerbation Patient with significant chronic lower leg edema, chronically elevated BNP Continue home furosemide Monitor volume status f/c placed for fluid management [id number] diabetes type 2 sliding scale Thrombocytosis. Resolved Patient's platelets 622 at time of presentation, up from baseline of around 250 Likely reactive Follow CBC Hypothyroidism Continue levothyroxine DNR/DNI Attending:?Dr. Em DVT Prophylaxis:? Pneumatic boots continue hospital stay for treatment and further management of left-sided pleural effusion with complete collapse of her left lung with likely underlying pneumonia. Time Spent With Patient Time: Total time managing care of this patient today ____ minutes. Quality Stroke Does the patient have a stroke diagnosis?: No VTE Prior VTE?: No VTE Risk Level:: Medical - moderate - high VTE Device Contraindication: N/A - Device Ordered VTE Drug Contraindication: Treatment Not Indicated
[2022-09-04 11:40] LABS: Erythrocyte Sedimentation Rate 72 MM/HR (0-20)
[2022-09-04 11:45] LABS: Glucose, Whole Blood 265 mg/dL (60-115)
[2022-09-04 11:55] LABS: MANUAL DIFF FLAG NO
[2022-09-04 11:59] LABS: Basophils Percent Auto 0.2 % (0-2); Hemoglobin 11.4 g/dl (12.0-16.0); Imm Gran Abs Auto 0.11 X10*3/uL (0.00-0.03); Imm Gran Pct Auto 0.7 % (0.0-0.4); Lymphocytes Absolute Auto 1.5 X10*3/uL (1.2-4.9); Lymphocytes Percent Auto 9.3 % (20-40); Mean Corpuscular Hemoglobin 29.1 pg (27.0-33.0); Mean Corpuscular Volume 96.9 fL (80.0-98.0); Mean Platelet Volume 8.3 fL (9.4-12.3); Monocytes Absolute Auto 0.9 X10*3/uL (0.1-1.2); NRBC Pct Auto 0.1 /100WBC (0.0-0.2); Neutrophils Percent Auto 83.8 % (45-73); Platelet Count 419 X10*3/uL (160-400); Red Blood Count 3.92 X10*6/uL (4.20-5.50); Red Cell Distribution Width 14.9 % (11.0-16.0); White Blood Count 15.5 X10*3/uL (4.8-10.8)
[2022-09-04 12:00] VITALS: BP 108/65; PULSE 104; RESP 16; TEMP 36.7; O2SAT 96
[2022-09-04 12:01] VITALS: BMI 29.4
--- NOTE | 2022-09-04 12:34 | MHC.CLN ---
NUTRITION DIET CHANGED TO DIABETIC 1800 KCAL DUE TO ELEVATED BLOOD GLUCOSE, TAKES DM MEDS, DX DM. STAGE II PRESSURE INJURY TO COCCYX. ADDING ENSURE MAX PROTEIN BID TO PROMOTE WOUND HEALING. PROVIDES ADDITIONAL 300 KCALS, 60 G PROTEIN. FOLLOW FOR PO INTAKE, BLOOD GLUCOSE, AND WOUND HEALING
[2022-09-04 15:25] VITALS: BP 98/55; PULSE 82; RESP 19; TEMP 36.4; O2SAT 96
--- NOTE | 2022-09-04 16:32 | PM.PNTS ---
Subjective Subjective Date of Service: 09/04/22 Interval history: started in error Physical Exam Vital Signs: Vital Signs: Last Vital Signs Temp 97.6 F 09/04/22 15:25 Pulse 82 09/04/22 15:25 Resp 19 09/04/22 15:25 BP 98/55 L 09/04/22 15:25 Pulse Ox 96 09/04/22 15:25 O2 Del Method Nasal Cannula 09/04/22 15:25 O2 Flow Rate 8 09/04/22 15:25 Oxygen Flow Rate 4 09/01/22 15:58 BMI result Body Mass Index 29.4 Procedures Date of Service Date of Service: 09/04/22 Progress Note: A&P Time Spent With Patient Time: Total time managing care of this patient today ____ minutes. Quality Stroke Does the patient have a stroke diagnosis?: No VTE Prior VTE?: No VTE Risk Level:: Medical - moderate - high VTE Device Contraindication: N/A - Device Ordered VTE Drug Contraindication: Treatment Not Indicated
[2022-09-04 16:57] LABS: Glucose, Whole Blood 240 mg/dL (60-115)
[2022-09-04 19:12] VITALS: BP 125/60; PULSE 95; RESP 18; TEMP 37.1; O2SAT 100
[2022-09-04 20:50] LABS: Glucose, Whole Blood 269 mg/dL (60-115)
[2022-09-04] MEDS: Mirtazapine 7.5 MG TABLET PO (21:00)
--- NOTE | 2022-09-04 23:22 | P.PNTS_ITS ---
Subjective Subjective Date of Service: 09/04/22 Interval history: pt is sitting upright in bed in no distress Labs checked and pt is stable for tPA administration Physical Exam Vital Signs: Vital Signs: Last Vital Signs Temp 98.8 F 09/04/22 19:12 Pulse 95 09/04/22 19:12 Resp 18 09/04/22 19:12 BP 125/60 09/04/22 19:12 Pulse Ox 100 09/04/22 19:12 O2 Del Method Nasal Cannula 09/04/22 19:12 O2 Flow Rate 8 09/04/22 19:12 Oxygen Flow Rate 4 09/01/22 15:58 BMI result Body Mass Index 29.4 Vital signs as documented.? Oxygen delivery method between NC and oxymask General: pt appears bright, sitting up in bed and talkative today. Head: Normocephalic, atraumatic, & symmetric Cardiovascular: Iregular rate and rhythm? on Crdz gtt Respiratory: Lungs on right with breath sounds and slight breath sounds ausculatated today on left,? no rhonchi or crackles, breathing nonlabored, speak ing in full sentences, on 8L NC? with O2 sat of 97% . Left CT to -30 mm Hg with no air leak and total drainage of straw colored fluid of 1550 cc.? (100 cc since last night) Gastrointestinal: Soft, mildly-tender, non-distended, + bowel sounds. Skin: Warm and dry throughout, no rashes Extremities: BUE and BLE with +2 edema, venous insufficency changes noted at ankles and no calf tenderness bilaterally Neurological: Alert Genitourinary: Riley catheter in place Psychiatric: No agitation.? She is child like in demeanor IMPRESSION: Large left pleural effusion with left lung collapse. Significant left to right midline shift there is the findings are unchanged to 07/02/2022 exam and 07/03/2022 exam. Thoracentesis fluid from 09/01:? gram stain with no organisms.? 09/01/22:? Blood culture X 2 with no growth. Procedures Date of Service Date of Service: 09/04/22 Progress Note: A&P Assessment and plan (1) Pneumonia involving left lung: Status: Acute (2) Pleural effusion: Status: Acute (3) Acute respiratory failure with hypoxia: Status: Acute (4) Atelectasis of left lung: Status: Acute Plan 82 y/o female with likely NHAP, complicated with pleural effusion and collapse of left lung causing acute respiratory hypoxia * Patient's oxygenation requirements between oxymask to NC with O2 sats in 90's.? Consider Nebs to break up any mucous plugs. * Continue Chest tube to -30 mm Hg suction.? Monitor drainage 100cc? since yesterday pm.? No air leak.? Daily CXR. * tPA, for thrombolysis instilled today for 2 hour dwell. RN instructed to unclamp at 2 hour [address] and leave CT to - 30 mm Hg. to facilitate additional pleural drainage. Will monitor drainage and consider repeating tomorrow. * Continue broad-spectrum antibiotic coverage.? pt on Zosyn.? CBC pending.? BC X 2 pending and pleural fluid with no organisms seen to date.? Would consider UA to complete sepsis work-up * Continue to hold anticoagulation at this time in case patient is going to need further intervention. * Dr. Vance evaluated patient and determining timing of bronchoscopy * All care and images discussed with Dr. Harrison Time Spent With Patient Time: Total time managing care of this patient today ____ minutes. Quality Stroke Does the patient have a stroke diagnosis?: No VTE Prior VTE?: No VTE Risk Level:: Medical - moderate - high VTE Device Contraindication: N/A - Device Ordered VTE Drug Contraindication: Treatment Not Indicated
[2022-09-05 00:04] VITALS: BP 111/57; PULSE 81; RESP 16; TEMP 36.8; O2SAT 100
[2022-09-05] MEDS: Ampicillin Sodium/Sulbactam Na 3 GM in 0.9 % Sodium Chloride 100 ML IV ×4 (01:37→18:23)
[2022-09-05] MEDS: 0.9 % Sodium Chloride Flush 3 ML SYRINGE IVFLUSH ×3 (01:41→18:29)
[2022-09-05] MEDS: Levothyroxine Sodium 25 MCG TABLET PO (06:37)
[2022-09-05] MEDS: Omeprazole 20 MG CAPSULE.DR PO (06:37)
[2022-09-05 07:04] LABS: Anion Gap 16 (12-20); Blood Urea Nitrogen 27 mg/dL (9-16); Calcium 8.4 mg/dL (8.4-10.2); Carbon Dioxide 25 mmol/L (22-29); Chloride 106 mmol/L (96-108); Creatinine Clr Calc Pharmacy 40.9; Estimated Glomerular Filt Rate 58; Glucose Random 230 mg/dL (60-115); Potassium 3.6 mmol/L (3.3-5.1); Sodium 143 mmol/L (135-145)
[2022-09-05 07:12] VITALS: BP 111/61; PULSE 107; RESP 20; TEMP 36.7; O2SAT 100
[2022-09-05 07:56] LABS: Glucose, Whole Blood 245 mg/dL (60-115)
[2022-09-05] MEDS: dilTIAZem HCL 125 MG in 0.9 % Sodium Chloride 100 ML IVCONT (08:11)
[2022-09-05] MEDS: Gabapentin 100 MG CAPSULE 200 MG PO ×3 (08:13→20:53)
[2022-09-05] MEDS: polyethylene glycoL 3350 17 GM POWD.PACK PO (08:13)
[2022-09-05] MEDS: Sennosides 8.6 MG TABLET 17.2 MG PO (08:13)
[2022-09-05] MEDS: Furosemide 40 MG TABLET PO (08:13)
[2022-09-05] MEDS: Metoprolol Tartrate 12.5 MG HALFTAB PO ×3 (08:13→18:26)
[2022-09-05] MEDS: Amiodarone HCL 200 MG TABLET PO (08:13)
[2022-09-05] MEDS: Potassium Chloride ER 10 MEQ TABLET.ER PO (08:13)
[2022-09-05] MEDS: Insulin Lispro 100 UNIT/ML 3 ML VIAL SUBCUT ×6 (08:14→22:37)
--- NOTE | 2022-09-05 09:25 | P.PNPL_ITS ---
Subjective Subjective Date of Service: 09/05/22 Interval history: Seen and examined. Afib is rate controlled. CXR is better, s/p TPA. Called [facility], Paz Chen and left amessage. The patient is agreeable to the bronchoscopy, but she will have to reverse her DNR for 24 hours for the pro cedure. Objective Data Labs 09/04/22 11:52 09/05/22 05:49 Labs: Laboratory Results - last 24 hr 09/04/22 09/04/22 09/04/22 10:46 11:16 11:52 WBC 15.5 H RBC 3.92 L Hgb 11.4 L Hct 38.0 MCV 96.9 MCH 29.1 MCHC 30.0 L RDW 14.9 Plt Count 419 H MPV 8.3 L Immature Gran % (Auto) 0.7 H Neut % (Auto) 83.8 H Lymph % (Auto) 9.3 L [place] % (Auto) 6.0 Eos % (Auto) 0.0 Baso % (Auto) 0.2 Lymph # (Auto) 1.5 [place] # (Auto) 0.9 Eos # (Auto) 0.0 Baso # (Auto) 0.0 Abs Immat Gran (auto) 0.11 H Absolute Neuts (auto) 13.0 H Absolute Nucleated RBC 0.020 H Nucleated RBC % (auto) 0.1 ESR 72 H Sodium Potassium Chloride Carbon Dioxide Anion Gap BUN Creatinine Estim Creat Clear Calc Estimated GFR POC Glucose 265 H Random Glucose Calcium 09/04/22 09/04/22 09/05/22 16:49 20:29 05:49 WBC RBC Hgb Hct MCV MCH MCHC RDW Plt Count MPV Immature Gran % (Auto) Neut % (Auto) Lymph % (Auto) [place] % (Auto) Eos % (Auto) Baso % (Auto) Lymph # (Auto) [place] # (Auto) Eos # (Auto) Baso # (Auto) Abs Immat Gran (auto) Absolute Neuts (auto) Absolute Nucleated RBC Nucleated RBC % (auto) ESR Sodium 143 Potassium 3.6 Chloride 106 Carbon Dioxide 25 Anion Gap 16 BUN 27 H Creatinine 0.93 Estim Creat Clear Calc 40.9 Estimated GFR 58 POC Glucose 240 H 269 H Random Glucose 230 H Calcium 8.4 09/05/22 07:52 WBC RBC Hgb Hct MCV MCH MCHC RDW Plt Count MPV Immature Gran % (Auto) Neut % (Auto) Lymph % (Auto) [place] % (Auto) Eos % (Auto) Baso % (Auto) Lymph # (Auto) [place] # (Auto) Eos # (Auto) Baso # (Auto) Abs Immat Gran (auto) Absolute Neuts (auto) Absolute Nucleated RBC Nucleated RBC % (auto) ESR Sodium Potassium Chloride Carbon Dioxide Anion Gap BUN Creatinine Estim Creat Clear Calc Estimated GFR POC Glucose 245 H Random Glucose Calcium Microbiology Microbiology Results: Microbiology 09/01/22 22:05 Thoracentesis Fluid Gram Stain - Final 09/01/22 22:05 Thoracentesis Fluid Anaerobic Culture - Preliminary No growth to date. 09/01/22 22:05 Thoracentesis Fluid Body Fluid Culture - Final No growth after 2 days 09/01/22 16:57 Blood - Venous Blood Culture - Preliminary No growth after 48 hours. 09/01/22 16:39 Blood - Venous Blood Culture - Preliminary No growth after 48 hours. Review of Systems Constitutional: Denies fever(s) and Denies malaise Eyes: Denies change in vision Cardiovascular: Denies chest pain and Reports dyspnea Respiratory: Denies pain on inspiration, Denies pain with cough, Reports dyspnea and Denies wheezing Gastrointestinal: Reports no additional gastrointestinal complaints Musculoskeletal: Reports no additional musculoskeletal complaints Reports system reviewed and no additional complaints, except as documented Hematologic/Lymphatic: Denies easy bleeding Allergic/Immunologic: Denies wheezing Physical Exam Vital Signs: Vital Signs: Last Vital Signs Temp 98.0 F 09/05/22 07:12 Pulse 107 H 09/05/22 07:12 Resp 20 09/05/22 07:12 BP 111/61 09/05/22 07:12 Pulse Ox 100 09/05/22 07:12 O2 Del Method Nasal Cannula 09/05/22 07:12 O2 Flow Rate 8 09/05/22 07:12 Oxygen Flow Rate 4 09/01/22 15:58 BMI result Body Mass Index 29.4 Const: General: comfortable and tired appearing HEENT: Head: Yes normocephalic Neck: Neck: Yes supple Chest: Chest palpation & inspection: normal inspection of the chest Resp: Auscultation: breath sounds absent on th left and diminished lung sounds Cardio: Heart sounds: S1 normal heart sound present and S2 normal heart sound present GI: Palpation (GI): Soft to palpation Extrem: General: No cyanosis Procedures Date of Service Date of Service: 09/05/22 Assessment and Plan Assessment and plan (1) Atelectasis of left lung: Status: Acute (2) Pneumonia involving left lung: Status: Acute (3) Pleural effusion: Status: Acute (4) Acute congestive heart failure: Status: Acute (5) Acute respiratory failure with hypoxia: Status: Acute (6) PAF (paroxysmal atrial fibrillation): Status: Acute Plan ISS continue oxygen to keep pox>90% Thracic surgery following :TPA administered with good response. Monitor fluid drainage Bronchosocopy to assess airways once cardiac status is better ?tomorrow in AM, keep NPO after midnight rate controlled Time Spent With Patient Time: Total time managing care of this patient today ____ minutes. Progress Note: Quality Stroke Does the patient have a stroke diagnosis?: No
--- NOTE | 2022-09-05 10:41 | P.CONCA_ITS ---
History of Present Illness History of Present Illness Date of Service: 09/05/22 Requesting physician: Pamela Vance Consult reason: atrial fibrillation and other ( Respiratory failure) Chief complaint: Dyspnea Narrative: I was consulted to see Noemi in cardiology consultation today for atrial fibrillation rapid ventricular response. As per the chart patient went in to respiratory distress with atrial fibrillation felt like she was in flash pulmonary edema. She was diuresed. Subsequently she is not back to her baseline respiratory status as when she was admitted. She continues to use high level of oxygen at this point time. Remains in atrial fibrillation with better rate control at this point time. She has prior history of paroxysmal atrial fibrillation, diastolic heart failure, severe aortic stenosis by echocardiogram last April, residential resident with overall poor functional status with minimal mobility. Patient presented to the emergency room with acute respiratory failure was noted to have large unilateral left-sided pleural effusion with complete collapse of her left lung. She has subsequently unde rwent a left chest tube placement with improvement in respiratory status with requiring intrapleural thrombolytics therapy to improve with lesions which lead to better fluid removal. Subsequent chest x-ray shows improvement in aeration in the upper and middle lobes of the left lung with small right-sided pleural effusion with persistent atelectasis of the left lower lung. She is possibly plan to undergo bronchoscopy. Patient as per the chart came in sinus rhythm initially but then subsequently developed atrial fibrillation. However on the telemetry she has been in atrial fibrillation ever since she has been on the floor as well as a 1st EKG done shows atrial fibrillation rapid ventricular response. She continues to be on amiodarone therapy. On Cardizem drip currently. Also receiving p.o. metoprolol. Blood pressure is 100 to 110 systolic. She denies any symptoms of palpitations. She is a poor historian and is not completely reliable in terms of her history. She was not aware of her aortic stenosis or heart failure status. 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 Nonrheumatic aortic (valve) stenosis PAF (paroxysmal atrial fibrillation) Repeated falls Type 2 diabetes mellitus without complications Unspecified glaucoma Unspecified osteoarthritis, unspecified site Urinary retention with incomplete bladder emptying Surgical History Surgical History Presence of artificial knee joint, bilateral Social History Social History Household Members: Other Housing: [facility] Do you presently have visiting nurse or other home services: No Unable to assess alcohol history related to: Refusing to respond Alcohol intake: never Patient Tobacco Use Status: Never used Tobacco Advance Directives Date on File: 04/26/21 service: No Current occupational status: retired Meds Allergies Allergy/AdvReac Type Severity Reaction Status Date / Time moxifloxacin [Avelox] Allergy Unknown rash Verified 07/15/21 14:14 From [facility] Allergy Unknown BLOTCHES Uncoded 07/15/21 14:14 ALL OVER FACE Active Medications: Current Medications Acetaminophen (Acetaminophen 325 Mg Tablet) 650 mg PO Q6H PRN PRN Reason: Pain, Mild (Pain Scale 1-3) Last Admin: 09/04/22 18:51 Dose: 650 mg Amiodarone HCl (Amiodarone Hcl 200 Mg Tablet) 200 mg PO DAILY [facility] Last Admin: 09/05/22 08:13 Dose: 200 mg Bisacodyl (Bisacodyl 10 Mg Supp.Rect) 10 mg ME DAILY PRN PRN Reason: Constipation Brimonidine Tartrate (Brimonidine Tartrate 0.2% Oph 5 Ml Bottle) 1 drop EYE- BOTH BID [facility] Last Admin: 09/04/22 21:12 Dose: 1 drop Dorzolamide/Timolol (Dorzolamide/Timolo 2.23%/0.68% 10 Ml Drbtl) 1 drop EYE- BOTH BID [facility] Last Admin: 09/04/22 21:00 Dose: 1 drop Furosemide (Furosemide 40 Mg Tablet) 40 mg PO DAILY [facility]; Protocol Last Admin: 09/05/22 08:13 Dose: 40 mg Gabapentin (Gabapentin 100 Mg Capsule) 200 mg PO TID [facility] Last Admin: 09/05/22 08:13 Dose: 200 mg Glucose (Glucose Gel 15 Gm Gel..Gram.) 15 gm PO Q15M PRN; Protocol PRN Reason: per Hypoglycemia Standing Ord. Guaifenesin (Guaifenesin 200 Mg/10 Ml 10 Ml Liquid) 20 ml PO TID PRN PRN Reason: Cough Ampicillin Sodium/Sulbactam (Sodium 3 gm/ Sodium Chloride) 100 mls @ 200 mls/hr IV Q6H [facility] Last Infusion: 09/05/22 07:30 Dose: Infused Dextrose (D10) 250 mls @ 750 mls/hr IV Q15M PRN; Protocol PRN Reason: per Hypoglycemia Standing Ord. Diltiazem HCl 125 mg/ Sodium (Chloride) 125 mls @ 0 mls/hr IVCONT .Q0M [facility]; Protocol Last Admin: 09/05/22 08:11 Dose: 5 mg/hr, 5 mls/hr Insulin Human Lispro (Insulin Lispro 100 Unit/Ml 3 Ml Vial) 0 unit SUBCUT QIDACHS [facility]; Protocol Last Admin: 09/05/22 08:14 Dose: 4 unit Latanoprost (Latanoprost 0.005 % Ophth Maryjane 2.5 Ml Drops) 1 drop EYE-BOTH DAILY [facility] Last Admin: 09/04/22 08:29 Dose: 1 drop Levothyroxine Sodium (Levothyroxine Sodium 25 Mcg Tablet) 25 mcg PO DAILY@0600 [facility] Last Admin: 09/05/22 06:37 Dose: 25 mcg Magnesium Hydroxide (Milk Of Magnesia 30 Ml Oral.Susp) 30 ml PO DAILY PRN PRN Reason: Constipation Melatonin (Melatonin 3 Mg Tablet) 6 mg PO BEDTIME PRN PRN Reason: Insomnia Melatonin (Melatonin 3 Mg Tablet) 9 mg PO BEDTIME PRN PRN Reason: insomnia Metoprolol Tartrate (Metoprolol Tartrate 12.5 Mg Halftab) 12.5 mg PO BID [facility]; Protocol Last Admin: 09/05/22 08:13 Dose: 12.5 mg Mirtazapine (Mirtazapine 7.5 Mg Tablet) 7.5 mg PO BEDTIME [facility] Last Admin: 09/04/22 21:00 Dose: 7.5 mg Omeprazole (Omeprazole 20 Mg Capsule.Dr) 20 mg PO DAILY@0630 [facility] Last Admin: 09/05/22 06:37 Dose: 20 mg Ondansetron HCl (Ondansetron Hcl 4 Mg/2 Ml Vial) 4 mg IVPUSH Q8H PRN PRN Reason: Nausea and Vomiting Polyethylene Glycol (Polyethylene Glycol 3350 17 Gm Powd.Pack) 17 gm PO DAILY [facility] Last Admin: 09/05/22 08:13 Dose: 17 gm Potassium Chloride (Potassium Chloride Er 10 Meq Tablet.Er) 10 meq PO DAILY [facility] Last Admin: 09/05/22 08:13 Dose: 10 meq Senna (Sennosides 8.6 Mg Tablet) 17.2 mg PO DAILY [facility] Last Admin: 09/05/22 08:13 Dose: 17.2 mg Sodium Biphosphate/Sodium Phosphate (Sodium Phosphate,[place]-Dibasic 133 Ml Enema) 118 ml ME DAILY PRN PRN Reason: Constipation Sodium Chloride (0.9 % Sodium Chloride Flush 3 Ml Syringe) 3 ml IVFLUSH QSHIFT [facility] Last Admin: 09/05/22 01:41 Dose: 3 ml Tramadol HCl (Tramadol Hcl 50 Mg Tablet) 50 mg PO BID PRN PRN Reason: Pain, Moderate(Pain Scale 4-6) Last Admin: 09/04/22 21:02 Dose: 50 mg Home Medications Medication Instructions Recorded Confirmed Last Taken Type bisacodyl 10 mg rectal suppository 10 mg ME DAILY PRN Constipation 04/23/21 09/01/22 Unknown History brimonidine 0.2 % eye drops 1 drp ophthalmic (eye) BID 04/23/21 09/01/22 09/01/22 History dorzolamide 22.3 mg-timolol 6.8 1 drp ophthalmic (eye) BID 04/23/21 09/01/22 09/01/22 History mg/mL eye drops latanoprost 0.005 % eye drops 1 drp ophthalmic (eye) DAILY 04/23/21 09/01/22 09/01/22 History levothyroxine 25 mcg tablet 25 mcg PO DAILY@0600 04/23/21 09/01/22 09/01/22 History magnesium hydroxide 400 mg/5 mL 30 ml PO DAILY PRN Constipation 04/23/21 09/01/22 Unknown History oral suspension (Milk of Magnesia) melatonin 5 mg tablet 10 mg PO BEDTIME PRN Insomnia 04/23/21 09/01/22 04/23/21 History mirtazapine 7.5 mg tablet 7.5 mg PO BEDTIME 04/23/21 09/01/22 08/31/22 History polyethylene glycol 3350 17 17 g PO DAILY 04/23/21 09/01/22 04/23/21 History gram/dose oral powder (Miralax) rivaroxaban 20 mg tablet (Xarelto) 1 tab PO DAILY 04/23/21 09/01/22 09/01/22 History sennosides 8.6 mg tablet (senna) 17.2 mg PO DAILY 04/23/21 09/01/22 09/01/22 History vitamins A,C,H-fasz-piyxfb 4,296 1 cap PO BID 04/23/21 09/01/22 09/01/22 History mcg-226 mg-90 mg capsule (PreserVision AREDS) acetaminophen 500 mg tablet 1,000 mg PO TID PRN Pain 09/01/22 09/01/22 Unknown History calcium carbonate 600 mg calcium 600 mg PO BEDTIME 09/01/22 09/01/22 08/31/22 History (1,500 mg) tablet gabapentin 100 mg capsule 200 mg PO TID 09/01/22 09/01/22 09/01/22 History guaifenesin 400 mg tablet 400 mg PO TID PRN Cough 09/01/22 09/01/22 Unknown History metoprolol tartrate 25 mg tablet 12.5 mg PO BID 09/01/22 09/01/22 09/01/22 History omeprazole 20 mg capsule,delayed 20 mg PO DAILY@0630 09/01/22 09/01/22 09/01/22 History release potassium chloride 10 mEq 10 meq PO DAILY 09/01/22 09/01/22 09/01/22 History tablet,extended release sodium phosphates 19 gram-7 118 ml ME DAILY PRN Constipation 09/01/22 09/01/22 Unknown History gram/118 mL enema (Fleet Enema) tramadol 50 mg tablet 50 mg PO BID PRN Pain 09/01/22 09/01/22 09/01/22 History Physical Exam Vital Signs: Vital Signs: Last Vital Signs Temp 98.0 F 09/05/22 07:12 Pulse 107 H 09/05/22 07:12 Resp 20 09/05/22 07:12 BP 111/61 09/05/22 07:12 Pulse Ox 100 09/05/22 07:12 O2 Del Method Nasal Cannula 09/05/22 07:12 O2 Flow Rate 8 09/05/22 07:12 Oxygen Flow Rate 4 09/01/22 15:58 BMI result Body Mass Index 29.4 Const: General: cooperative, comfortable, no acute distress, alert and awake Nutritional Appearance: average body habitus HEENT: Head: Yes normocephalic and Yes atraumatic Neck: Neck: Yes trachea midline, Yes supple and Yes no JVD Chest: Chest palpation & inspection: other ( chest tube in the left thoracic cavity) Resp: Effort & Inspection: decreased respiratory effort Auscultation: breath sounds absent on th left ( base) Cardio: Jugular venous distension: no JVD Rhythm: abnormal rhythm irregularly irregular Heart sounds: S1 normal heart sound present and Murmur heart sound present systolic late, decrescendo and crescendo GI: Auscultation: normal bowel sounds Skin: General skin exam: no rashes or lesions noted and ecchymosis Neuro: General: moves all extremities Extrem: General: No clubbing, No cyanosis and Yes edema Objective Labs and Meds 09/04/22 11:52 09/05/22 05:49 Lab results: Laboratory Results - last 24 hr 09/04/22 09/04/22 09/04/22 10:46 11:16 11:52 WBC 15.5 H RBC 3.92 L Hgb 11.4 L Hct 38.0 MCV 96.9 MCH 29.1 MCHC 30.0 L RDW 14.9 Plt Count 419 H MPV 8.3 L Immature Gran % (Auto) 0.7 H Neut % (Auto) 83.8 H Lymph % (Auto) 9.3 L [place] % (Auto) 6.0 Eos % (Auto) 0.0 Baso % (Auto) 0.2 Lymph # (Auto) 1.5 [place] # (Auto) 0.9 Eos # (Auto) 0.0 Baso # (Auto) 0.0 Abs Immat Gran (auto) 0.11 H Absolute Neuts (auto) 13.0 H Absolute Nucleated RBC 0.020 H Nucleated RBC % (auto) 0.1 ESR 72 H Sodium Potassium Chloride Carbon Dioxide Anion Gap BUN Creatinine Estim Creat Clear Calc Estimated GFR POC Glucose 265 H Random Glucose Calcium 09/04/22 09/04/22 09/05/22 16:49 20:29 05:49 WBC RBC Hgb Hct MCV MCH MCHC RDW Plt Count MPV Immature Gran % (Auto) Neut % (Auto) Lymph % (Auto) [place] % (Auto) Eos % (Auto) Baso % (Auto) Lymph # (Auto) [place] # (Auto) Eos # (Auto) Baso # (Auto) Abs Immat Gran (auto) Absolute Neuts (auto) Absolute Nucleated RBC Nucleated RBC % (auto) ESR Sodium 143 Potassium 3.6 Chloride 106 Carbon Dioxide 25 Anion Gap 16 BUN 27 H Creatinine 0.93 Estim Creat Clear Calc 40.9 Estimated GFR 58 POC Glucose 240 H 269 H Random Glucose 230 H Calcium 8.4 09/05/22 07:52 WBC RBC Hgb Hct MCV MCH MCHC RDW Plt Count MPV Immature Gran % (Auto) Neut % (Auto) Lymph % (Auto) [place] % (Auto) Eos % (Auto) Baso % (Auto) Lymph # (Auto) [place] # (Auto) Eos # (Auto) Baso # (Auto) Abs Immat Gran (auto) Absolute Neuts (auto) Absolute Nucleated RBC Nucleated RBC % (auto) ESR Sodium Potassium Chloride Carbon Dioxide Anion Gap BUN Creatinine Estim Creat Clear Calc Estimated GFR POC Glucose 245 H Random Glucose Calcium Imaging Radiologist's impression: Impressions Chest X-Ray 09/04/22 07:51 IMPRESSION: 1. Left-sided thoracostomy tube in place. There is slight improved aeration left upper lobe with some new minimal reexpansion of lung however there is persistent near complete opacification of the left hemithorax secondary to large effusion and collapse. 2. Small locule of air adjacent to the thoracostomy tube in the left lateral chest could potentially reflect a small component of pneumothorax in a hydropneumothorax, not unexpected status post chest tube placement. Chest X-Ray 09/05/22 07:21 IMPRESSION: 1. Significant improvement in aeration of the left mid to upper lung. Persistent left basilar opacity. Small right pleural effusion. 2. Left sided hydropneumothorax again noted with apical gas more prominent on this study. Assessment and Plan (1) Acute respiratory failure with hypoxia: Status: Acute acute respiratory failure with hypoxemia appears to be multifactorial. I I do not think there isn't component of acute pulmonary edema at this point time although this is difficult to assess clinically. Clinically does appear to have any right-sided fluid overload findings. Can switch to p.o. Lasix. There is underlying atelectasis along with poor inspiratory effort and possible deconditioning of her respiratory mechanics causing her to be persistently hypoxemic. She is possibly plan to undergo bronchoscopy. Overall prognosis is guarded given multiple issues including advanced age, chronic deconditioning and poor functional status, With persistent atrial fibrillation severe aortic stenosis. (2) Persistent atrial fibrillation: Status: Acute Persistent atrial fibrillation at this point time. Has failed amiodarone therapy. No need for continued amiodarone therapy. Can switch to rate control with Cardizem and metoprolol. Can start on p.o. Cardizem 30 mg q.6 and increase metoprolol to 12.5 mg p.o. q.6 hours. If blood pressure becomes issue can switch to digoxin therapy. Once cleared can be started on oral anticoagulation therapy with Xarelto. (3) Aortic stenosis: Status: Acute Severe aortic stenosis with overall poor functional status. She was evaluated and had discussion with the family in the past given her poor overall functional status would be not a good candidate for transcatheter aortic valve replacement as this is not going to overall improve her functional status. Management would be conservative. Given her persistent atrial fibrillation aortic stenosis high risk of recurrent hospitalization related to heart failure. Consider palliative care after discussion with family. Will follow with you Time Spent With Patient Time: Total time managing care of this patient today ____ minutes. Procedures Date of Service Date of Service: 09/05/22
[2022-09-05 11:06] LABS: Glucose, Whole Blood 230 mg/dL (60-115)
--- NOTE | 2022-09-05 11:06 | HO.PM.IMPN ---
Subjective Subjective Date of Service: 09/05/22 Review of Systems Follow up Acute resp failure doing better today no c/o pain, breathing better Physical Exam Vital Signs: Vital Signs: Last Vital Signs Temp 98.0 F 09/05/22 07:12 Pulse 107 H 09/05/22 07:12 Resp 20 09/05/22 07:12 BP 111/61 09/05/22 07:12 Pulse Ox 100 09/05/22 07:12 O2 Del Method Nasal Cannula 09/05/22 07:12 O2 Flow Rate 8 09/05/22 07:12 Oxygen Flow Rate 4 09/01/22 15:58 BMI result Body Mass Index 29.4 Appearing in no acute distress lung sounds are clear to auscultation heart regular rate rhythm, clear S1, S2 positive bowel sounds, abdomen is soft, nontender neuro patient is alert x3, no focal deficits Objective Data Active Medications Acetaminophen (Acetaminophen 325 Mg Tablet) 650 mg PO Q6H PRN PRN Reason: Pain, Mild (Pain Scale 1-3) Last Admin: 09/04/22 18:51 Dose: 650 mg Documented By: BRANDON Amiodarone HCl (Amiodarone Hcl 200 Mg Tablet) 200 mg PO DAILY FORMERLY [facility], [facility] Last Admin: 09/05/22 08:13 Dose: 200 mg Documented By: BRANDON Bisacodyl (Bisacodyl 10 Mg Supp.Rect) 10 mg NV DAILY PRN PRN Reason: Constipation Brimonidine Tartrate (Brimonidine Tartrate 0.2% Oph 5 Ml Bottle) 1 drop EYE-BOTH BID FORMERLY [facility], [facility]–1983 Last Admin: 09/04/22 21:12 Dose: 1 drop Documented By: KT Dorzolamide/Timolol (Dorzolamide/Timolo 2.23%/0.68% 10 Ml Drbtl) 1 drop EYE-BOTH BID FOR[facility]LY [facility], [facility]–1983 Last Admin: 09/04/22 21:00 Dose: 1 drop Documented By: KT Furosemide (Furosemide 40 Mg Tablet) 40 mg PO DAILY FORMERLY [facility], [facility]; Protocol Last Admin: 09/05/22 08:13 Dose: 40 mg Documented By: BRANDON Gabapentin (Gabapentin 100 Mg Capsule) 200 mg PO TID FOR[facility]LY [facility], [facility]1983 Last Admin: 09/05/22 08:13 Dose: 200 mg Documented By: BRANDON Glucose (Glucose Gel 15 Gm Gel..Gram.) 15 gm PO Q15M PRN; Protocol PRN Reason: per Hypoglycemia Standing Ord. Guaifenesin (Guaifenesin 200 Mg/10 Ml 10 Ml Liquid) 20 ml PO TID PRN PRN Reason: Cough Ampicillin Sodium/Sulbactam (Sodium 3 gm/ Sodium Chloride) 100 mls @ 200 mls/hr IV Q6H [facility], [facility] Last Infusion: 09/05/22 07:30 Dose: 0 mls/hr Documented By: BRANDON Dextrose (D10) 250 mls @ 750 mls/hr IV Q15M PRN; Protocol PRN Reason: per Hypoglycemia Standing Ord. Diltiazem HCl 125 mg/ Sodium (Chloride) 125 mls @ 0 mls/hr IVCONT .Q0M [facility], [facility]; Protocol Last Admin: 09/05/22 08:11 Dose: 5 mg/hr, 5 mls/hr Documented By: BRANDON Insulin Human Lispro (Insulin Lispro 100 Unit/Ml 3 Ml Vial) 0 unit SUBCUT QIDACHS FOR[facility]LY [facility], [facility]; Protocol Last Admin: 09/05/22 08:14 Dose: 4 unit Documented By: BRANDON Latanoprost (Latanoprost 0.005 % Ophth Maryjane 2.5 Ml Drops) 1 drop EYE-BOTH DAILY FOR[facility]LY [facility], [facility]1983 Last Admin: 09/04/22 08:29 Dose: 1 drop Documented By: BRANDON Levothyroxine Sodium (Levothyroxine Sodium 25 Mcg Tablet) 25 mcg PO DAILY@0600 FOR[facility], [facility]1983 Last Admin: 09/05/22 06:37 Dose: 25 mcg Documented By: KT Magnesium Hydroxide (Milk Of Magnesia 30 Ml Oral.Susp) 30 ml PO DAILY PRN PRN Reason: Constipation Melatonin (Melatonin 3 Mg Tablet) 6 mg PO BEDTIME PRN PRN Reason: Insomnia Melatonin (Melatonin 3 Mg Tablet) 9 mg PO BEDTIME PRN PRN Reason: insomnia Metoprolol Tartrate (Metoprolol Tartrate 12.5 Mg Halftab) 12.5 mg PO BID [facility]LY [facility], [facility]; Protocol Last Admin: 09/05/22 08:13 Dose: 12.5 mg Documented By: BRANDON Mirtazapine (Mirtazapine 7.5 Mg Tablet) 7.5 mg PO BEDTIME FORMERLY [facility], [facility]1983 Last Admin: 09/04/22 21:00 Dose: 7.5 mg Documented By: KT Omeprazole (Omeprazole 20 Mg Capsule.Dr) 20 mg PO DAILY@0630 FOR[facility], [facility]1983 Last Admin: 09/05/22 06:37 Dose: 20 mg Documented By: KT Ondansetron HCl (Ondansetron Hcl 4 Mg/2 Ml Vial) 4 mg IVPUSH Q8H PRN PRN Reason: Nausea and Vomiting Polyethylene Glycol (Polyethylene Glycol 3350 17 Gm Powd.Pack) 17 gm PO DAILY FOR[facility], [facility] Last Admin: 09/05/22 08:13 Dose: 17 gm Documented By: BRANDON Potassium Chloride (Potassium Chloride Er 10 Meq Tablet.Er) 10 meq PO DAILY [facility], [facility]1983 Last Admin: 09/05/22 08:13 Dose: 10 meq Documented By: BRANDON Senna (Sennosides 8.6 Mg Tablet) 17.2 mg PO DAILY [facility]LY [facility], [facility] Last Admin: 09/05/22 08:13 Dose: 17.2 mg Documented By: BRANDON Sodium Biphosphate/Sodium Phosphate (Sodium Phosphate,[place]-Dibasic 133 Ml Enema) 118 ml NV DAILY PRN PRN Reason: Constipation Sodium Chloride (0.9 % Sodium Chloride Flush 3 Ml Syringe) 3 ml IVFLUSH QSHIFT [facility], [facility] Last Admin: 09/05/22 01:41 Dose: 3 ml Documented By: KT Tramadol HCl (Tramadol Hcl 50 Mg Tablet) 50 mg PO BID PRN PRN Reason: Pain, Moderate(Pain Scale 4-6) Last Admin: 09/04/22 21:02 Dose: 50 mg Documented By: KT Labs 09/04/22 11:52 09/05/22 05:49 Labs: Laboratory Results - last 24 hr 09/04/22 09/04/22 09/04/22 10:46 11:16 11:52 MCV 96.9 MCH 29.1 MCHC 30.0 L RDW 14.9 Plt Count 419 H MPV 8.3 L Immature Gran % (Auto) 0.7 H Neut % (Auto) 83.8 H Lymph % (Auto) 9.3 L [place] % (Auto) 6.0 Eos % (Auto) 0.0 Baso % (Auto) 0.2 Lymph # (Auto) 1.5 [place] # (Auto) 0.9 Eos # (Auto) 0.0 Baso # (Auto) 0.0 Abs Immat Gran (auto) 0.11 H Absolute Neuts (auto) 13.0 H Absolute Nucleated RBC 0.020 H Nucleated RBC % (auto) 0.1 ESR 72 H Anion Gap Estim Creat Clear Calc Estimated GFR POC Glucose 265 H Random Glucose Calcium 09/04/22 09/04/22 09/05/22 16:49 20:29 05:49 MCV MCH MCHC RDW Plt Count MPV Immature Gran % (Auto) Neut % (Auto) Lymph % (Auto) [place] % (Auto) Eos % (Auto) Baso % (Auto) Lymph # (Auto) [place] # (Auto) Eos # (Auto) Baso # (Auto) Abs Immat Gran (auto) Absolute Neuts (auto) Absolute Nucleated RBC Nucleated RBC % (auto) ESR Anion Gap 16 Estim Creat Clear Calc 40.9 Estimated GFR 58 POC Glucose 240 H 269 H Random Glucose 230 H Calcium 8.4 09/05/22 09/05/22 07:52 11:02 MCV MCH MCHC RDW Plt Count MPV Immature Gran % (Auto) Neut % (Auto) Lymph % (Auto) [place] % (Auto) Eos % (Auto) Baso % (Auto) Lymph # (Auto) [place] # (Auto) Eos # (Auto) Baso # (Auto) Abs Immat Gran (auto) Absolute Neuts (auto) Absolute Nucleated RBC Nucleated RBC % (auto) ESR Anion Gap Estim Creat Clear Calc Estimated GFR POC Glucose 245 H 230 H Random Glucose Calcium Microbiology Microbiology Results: Microbiology 09/01/22 22:05 Gram Stain - Final Thoracentesis Fluid Anaerobic Culture - Preliminary No growth to date. Body Fluid Culture - Final No growth after 2 days Assessment and Plan (1) Pneumonia involving left lung: Status: Acute Plan 82-year-old female with a PMH significant for?HFpEF, chronic AFib on Xarelto, hypothyroidism, aortic stenosis, non insulin-dependent diabetes type 2, and GERD who presents to the ED from SNF via EMS with?shortness of breath and dyspnea. Pt will be admitted to the hospital for further management and treatment of left-sided pleural effusion with complete collapse of her left lung with likely underlying pneumonia. Acute hypoxic respiratory failure in the setting of pleural effusion and pneumonia CT of chest, -30mm wall suction, with large left pleural effusion with complete collapse of the left lung with deviated mediastinum to the right chest tube in place and draining pleural serology, cultures>no growth s/p TPA for thrombolysis 09/04/[address] surgery Pulmonology>plan for bronch 09/06/22 continue to hold xarelto continue unasyn NPO Afib with RVR with episode of flash pulmonary edema. Resolved s/p IV lasix and IV cardizem as well as IV morphine for tachypnea normal troponin s/p IV cardizem drip with good response cardiology following> plan to transition to oral cardizem, stop amiodarone as she is in afib and not effective at this point, metoprolol 12.5mg Q6h, oral lasix Sepsis. Resolved Likely from lung consolidation WBC, tachycardic, tachypnea, lactic acid 2.4 continue IV antibiotics Acute toxic metabolic encephalopathy Patient is alert oriented x2, baseline mentation unclear Attempted to reach SNF where patient resides, but received no answer to phone call If patient is encephalopathic, likely secondary to infection Treat as above HFpEF Likely not in acute exacerbation Patient with significant chronic lower leg edema, chronically elevated BNP Continue home furosemide Monitor volume status f/c placed for fluid management severe aortic stenosis>not a candidate for TAVR as per cardiology [id number] diabetes type 2 sliding scale Thrombocytosis. Resolved Patient's platelets 622 at time of presentation, up from baseline of around 250 Likely reactive Follow CBC Hypothyroidism Continue levothyroxine DNR/DNI Attending:?Dr. Em DVT Prophylaxis:? Pneumatic boots continue hospital stay for treatment and further management of left-sided pleural effusion with complete collapse of her left lung with likely underlying pneumonia. Time Spent With Patient Time: Total time managing care of this patient today ____ minutes. Quality Stroke Does the patient have a stroke diagnosis?: No VTE Prior VTE?: No VTE Risk Level:: Medical - moderate - high VTE Device Contraindication: N/A - Device Ordered VTE Drug Contraindication: Treatment Not Indicated
[2022-09-05 11:18] VITALS: BP 88/52; PULSE 88; RESP 20; TEMP 37.1; O2SAT 96
[2022-09-05] MEDS: Brimonidine Tartrate 0.2% Oph 5 ML BOTTLE 1 DROP EYE-BOTH ×2 (11:27→20:57)
[2022-09-05] MEDS: Dorzolamide/Timolo 2.23%/0.68% 10 ML DRBTL 1 DROP EYE-BOTH ×2 (11:27→20:57)
[2022-09-05] MEDS: Latanoprost 0.005 % Ophth Sol 2.5 ML DROPS 1 DROP EYE-BOTH (11:27)
[2022-09-05] MEDS: dilTIAZem HCL CD 120 MG CAP.ER.DEG PO (12:41)
[2022-09-05 15:09] VITALS: BP 104/59; PULSE 93; RESP 19; TEMP 36.8; O2SAT 7
--- NOTE | 2022-09-05 15:34 | P.PNTS_ITS ---
Subjective Subjective Date of Service: 09/05/22 Interval history: Patient was seen examined this afternoon. Patient does not appear to be And respiratory distress at this time denies any shortness of breath at rest. She does have some minor intermittent chest discomfort surrounding her chest tube site which subsides after applying some pressure to the site. overnight her chest tube remained on -30 low wall suction and after unclamping after 1st round of tPA yesterday put out approximately 2000 cc of serosanguineous fluid. Alteplase 5 mg in a a 50 mL normal saline solution instilled at 15:15 through left-sided chest tube and clamped And should remain clamped until 915 tonight. Physical Exam Vital Signs: Vital Signs: Last Vital Signs Temp 98.2 F 09/05/22 15:09 Pulse 93 09/05/22 15:09 Resp 19 09/05/22 15:09 BP 104/59 L 09/05/22 15:09 Pulse Ox 7 L 09/05/22 15:09 O2 Del Method Nasal Cannula 09/05/22 15:09 O2 Flow Rate 8 09/05/22 15:09 Oxygen Flow Rate 4 09/01/22 15:58 BMI result Body Mass Index 29.4 Const: General: cooperative, comfortable, no acute distress, alert, awake and tired appearing Nutritional Appearance: average body habitus HEENT: Head: Yes normocephalic and Yes atraumatic Neck: Neck: Yes trachea midline, Yes supple and Yes no JVD Chest: Chest palpation & inspection: other ( chest tube in the left thoracic cavity) Resp: Effort & Inspection: decreased respiratory effort Auscultation: breath sounds absent on th left ( base) Cardio: Jugular venous distension: no JVD Rhythm: abnormal rhythm irregularly irregular Heart sounds: S1 normal heart sound present and Murmur heart sound present systolic late, decrescendo and crescendo GI: Auscultation: normal bowel sounds Skin: General skin exam: no rashes or lesions noted Neuro: General: moves all extremities Extrem: General: No clubbing, No cyanosis and Yes edema Procedures Date of Service Date of Service: 09/05/22 Progress Note: A&P Assessment and plan (1) Pneumonia involving left lung: Status: Acute (2) Pleural effusion: Status: Acute (3) Acute respiratory failure with hypoxia: Status: Acute (4) Atelectasis of left lung: Status: Acute Plan 82 y/o female with likely NHAP, complicated with pleural effusion and collapse of left lung causing acute respiratory hypoxia * Patient's oxygenation requirements between oxymask to NC with O2 sats in 90's.? Consider Nebs to break up any mucous plugs. * Continue Chest tube to -30 mm Hg suction.? Monitor drainage 2000cc since beds natacha fibrinolysis was administered yesterday and chest tube unclamped.? No air leak.? Daily CXR. * morning chest x-ray shows improvement in left-sided loculated pleural effusion. * Alteplase 5 mg solution within 50 cc of normal saline instilled this afternoon at 15:15. This medication should indwell in patient's pleural cavity with chest tube clamped for 6 hours and unclamped and placed back -30 low wall suction tonight at 21:15 * Dornase jossie 4 mg solution within 30 cc of normal saline instilled this afternoon at 16:30. This medication should interval in patient's pleural cavity with chest tube clamp until 915 tonight at which point in time should be put back to -30 low wall suction. * Continue broad-spectrum antibiotic coverage.? pt on Zosyn.? CBC pending.? BC X 2 pending and pleural fluid with no organisms seen to date.? Would consider UA to complete sepsis work-up * Continue to hold anticoagulation at this time in case patient is going to need further intervention. * All care and images discussed with Dr. Harrison Time Spent With Patient Time: Total time managing care of this patient today ____ minutes. Quality Stroke Does the patient have a stroke diagnosis?: No VTE Prior VTE?: No VTE Risk Level:: Medical - moderate - high VTE Device Contraindication: N/A - Device Ordered VTE Drug Contraindication: Treatment Not Indicated
--- NOTE | 2022-09-05 15:40 | PC.NURSE ---
Alteplase administered sharan Funes @15:15, Unclamp Chest tube at 21:15
[2022-09-05 16:10] LABS: Glucose, Whole Blood 225 mg/dL (60-115)
[2022-09-05] MEDS: Dornase Alfa 5 MG in 0.9 % Sodium Chloride 25 ML 2.5 MG INTRAPLEUR (16:37)
[2022-09-05 19:24] VITALS: BP 102/49; PULSE 86; RESP 18; TEMP 37; O2SAT 98
[2022-09-05] MEDS: Mirtazapine 7.5 MG TABLET PO (20:54)
[2022-09-05] MEDS: Acetaminophen 325 MG TABLET 650 MG PO (20:54)
[2022-09-05] MEDS: Melatonin 3 MG TABLET 6 MG PO (20:56)
[2022-09-05 21:11] LABS: Glucose, Whole Blood 216 mg/dL (60-115)
--- NOTE | 2022-09-05 22:50 | PC.NURSE ---
CT remains clamped until 2114 per thoracic.
[2022-09-06] VITALS (19 sets, daily range): BP systolic 64–124; BP diastolic 38–86; PULSE 66–102; RESP 16–33; TEMP 36.2–37.2; O2SAT 92–100; BMI 31.5
[2022-09-06] MEDS: Ampicillin Sodium/Sulbactam Na 3 GM in 0.9 % Sodium Chloride 100 ML IV ×4 (00:49→18:08)
[2022-09-06] MEDS: 0.9 % Sodium Chloride Flush 3 ML SYRINGE IVFLUSH ×3 (00:52→17:28)
[2022-09-06] MEDS: 0.9 % Sodium Chloride 500 ML IV (00:53)
--- NOTE | 2022-09-06 01:05 | PM.EVENT ---
Event Note Date of Service: 09/06/22 Event Note: Was called by the nurse that patient was minimally responsive and manual BP was 62/38. Ordered 500 cc bolus and BP minimally improved to 72/38. Noted patient has congestive heart failure and severe aortic stenosis, hence did not order more crystalloids. Will transfer the patient to ICU for possible need of pressors. Spoke to Dr. Funes. Repeat chemistry, ABG, troponin and chest x-ray pending. Spoke to pt's johny Mullen and informed. Time Spent With Patient Time: Total time managing care of this patient today ____ minutes.
[2022-09-06 01:19] LABS: MANUAL DIFF FLAG NO
[2022-09-06 01:20] LABS: Basophils Percent Auto 0.1 % (0-2); Hematocrit 32.9 % (37.0-47.0); Imm Gran Abs Auto 0.06 X10*3/uL (0.00-0.03); Imm Gran Pct Auto 0.5 % (0.0-0.4); Lymphocytes Absolute Auto 1.8 X10*3/uL (1.2-4.9); Lymphocytes Percent Auto 13.6 % (20-40); Mean Corpuscular HGB Conc 30.4 g/dl (31.0-35.0); Mean Corpuscular Hemoglobin 29.2 pg (27.0-33.0); Mean Corpuscular Volume 95.9 fL (80.0-98.0); Mean Platelet Volume 8.1 fL (9.4-12.3); Monocytes Percent Auto 7.5 % (2-11); Neutrophils Absolute Auto 10.1 x10*3/uL (2.0-8.3); Neutrophils Percent Auto 78.3 % (45-73); Platelet Count 282 X10*3/uL (160-400); Red Blood Count 3.43 X10*6/uL (4.20-5.50); Red Cell Distribution Width 15.1 % (11.0-16.0); White Blood Count 12.9 X10*3/uL (4.8-10.8)
[2022-09-06 01:32] LABS: Anion Gap 12 (12-20); Blood Urea Nitrogen 33 mg/dL (9-16); Calcium 7.9 mg/dL (8.4-10.2); Carbon Dioxide 26 mmol/L (22-29); Chloride 109 mmol/L (96-108); Creatinine Clr Calc Pharmacy 40.9; Estimated Glomerular Filt Rate 58; Glucose Random 146 mg/dL (60-115); Magnesium 1.8 mg/dL (1.6-2.6); Phosphorus 2.7 mg/dL (2.7-4.5); Potassium 2.9 mmol/L (3.3-5.1); Sodium 144 mmol/L (135-145)
[2022-09-06 01:39] LABS: B Type Natriuretic Peptide 1075 pg/mL (<100); Troponin-I High Sensitivity 10.6 ng/L (<3.5-17.0)
[2022-09-06 01:45] LABS: ABG Base Excess 7.3 mmol/L; ABG HCO3 32 mmol/L (22-26); ABG pCO2 48 mmHg (32-45); ABG pH 7.43 (7.35-7.45); ABG pO2 64 mmHg (83-108)
--- NOTE | 2022-09-06 02:07 | PM.CCN ---
Critical Care Event Note Summary Date of Service: 09/06/22 Code activated: No Narrative: This case had a high probability of a clinically significant, sudden, or life threatening deterioration of this patient's condition which required my full and direct attention, intervention and personal management.
[2022-09-06] MEDS: Albumin Human 25 % 100 ML 400 ML IV (02:25)
[2022-09-06] MEDS: Lactated Ringers 1,000 ML 250 ML IV (02:44)
[2022-09-06] MEDS: Potassium Chloride/H20 10 MEQ/100 ML PIGGYBACK 100 MEQ IV ×4 (03:56→07:51)
--- NOTE | 2022-09-06 04:00 | PM.CCPN ---
Subjective Subjective Date of Service: 09/06/22 Critical Care Time (minutes): 45 Comment: The patient is an 82-year-old female with a past medical history is significant for HFpEF, chronic AFib on Xarelto, hypothyroidism, aortic stenosis,? 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 CT of the chest showed a large left pleural effusion with complete collapse of the left lung and deviation of the mediastinum to the right.? EKG demonstrated AFib with RVR with a rate of [address] elevation or depression.? She was treated for sepsis with IV fluids, vanco and Zosyn, diltiazem, and a left chest tube was placed.? While on the medical floor,? she received tPA infusion to the chest tube for thrombolysis per Cardiothoracic Surgery.? Pleural serology,? cultures> no growth. She received antibiotic coverage for underlying pneumonia with Unasyn.? Sepsis? likely from lung consolidation resolved.? She was started on IV Cardizem with good response for AFib with RVR, now on p.o. Cardizem per cardiology recommendation. S/p IV Lasix.? Early this morning the patient was noted to be minimally responsive with a manual BP of 62/38.? She received a 500 cc bolus normal saline with minimal improvement to her blood pressure to 72/38. ?Repeat chemistries, ABG, troponin, and chest x-ray were ordered.? The patient was transferred to ICU for possible need of pressors. The patient?s healthcare proxy who is her niece Paz was notified by Dr. Polo. On my exam the patient was oriented x2. Afebrile, BP was 82/42, heart rate 70, respiratory rate 18, O2 sat 95% on 6 L nasal cannula.? Lung sounds clear in bilateral upper lobes and right base.? Diminished in the left base. ABG showed pH of 7.43, pCO2 48, PO2 64, bicarb 32. Labs were remarkable for a potassium of 2.9, BNP 1075, troponin 10.6, albumin 2.0. WBC 12.9, hemoglobin 10.0, hematocrit 32.9, platelet count 282. CXR similar to prior?showing persistent small left pleural effusion with adjacent basilar opacification.? Small persistent pneumothorax component suspected at the left apex. Plan of care: Admit to ICU, close vital signs monitoring, I's and O's. Patient does have very poor IV access and will likely need a central line. A Riley catheter was placed due to urinary retention; the patient emptied out approximately 200 mL of clear yellow urine on insertion. Suspect that the patient is hypovolemic due to diuresis. Will give an additional liter of crystalloids. BNP chronically elevated. Replace albumin. Replace potassium. Levophed for pressure support if needed. WBC trending down.? Platelet at baseline. I do not suspect sepsis is the cause as she only exhibits one parameter and no other signs of infection.? Clinical Update @ 0420: BP 99/52(64), HR 76 after 2 bags albumin, 1L crystalloids. O2 requirements decreasing; RR 18, O2 sat 99% on 2L nasal cannula.? Physical Exam Vital Signs: Vital Signs: Last Vital Signs Temp 97.9 F 09/06/22 03:54 Pulse 85 09/06/22 03:54 Resp 18 09/06/22 03:54 BP 98/52 L 09/06/22 03:54 Pulse Ox 98 09/06/22 03:54 O2 Del Method Nasal Cannula 09/06/22 03:54 O2 Flow Rate 2 09/06/22 03:54 Oxygen Flow Rate 4 09/01/22 15:58 BMI result Body Mass Index 29.4 Const: General: lethargic Orientation/consciousness: oriented to person, oriented to place and lethargic HEENT: Mouth: abnormal oral mucosae (Oral mucosae dry) Throat: Yes other (No erythema, no exudate.) Neck: Neck: Yes supple (no thyromegaly, trachea midline.) Carotids: bounding pulses Resp: Effort & Inspection: normal respiratory effort, not labored, no respiratory distress and no use of accessory muscles Auscultation: diminished lung sounds on the left in the lower lung lipscomb Cardio: Rate: regular rate Rhythm: abnormal rhythm Heart sounds: no gallops, no murmurs and no rubs Peripheral pulses: Peripheral pulses 2+ throughout GI: Palpation (GI): Soft to palpation (nondistended.) and nontender Neuro: General: oriented to person and oriented to place Extrem: General: Yes capillary refill normal and Yes edema Psych: Affect: normal affect Attitude: cooperative Objective Data Labs 09/06/22 01:07 09/06/22 01:07 Labs: Laboratory Results - last 24 hr 09/05/22 09/05/22 09/05/22 05:49 07:52 11:02 WBC RBC Hgb Hct MCV MCH MCHC RDW Plt Count MPV Immature Gran % (Auto) Neut % (Auto) Lymph % (Auto) [place] % (Auto) Eos % (Auto) Baso % (Auto) Lymph # (Auto) [place] # (Auto) Eos # (Auto) Baso # (Auto) Abs Immat Gran (auto) Absolute Neuts (auto) Absolute Nucleated RBC Nucleated RBC % (auto) O2 Saturation ABG pH at Pt Temp ABG pCO2 at Pt Temp ABG pO2 at Pt Temp ABG HCO3 ABG Base Excess (Actual) Sodium 143 Potassium 3.6 Chloride 106 Carbon Dioxide 25 Anion Gap 16 BUN 27 H Creatinine 0.93 Estim Creat Clear Calc 40.9 Estimated GFR 58 POC Glucose 245 H 230 H Random Glucose 230 H Calcium 8.4 Phosphorus Magnesium Troponin I High Sens B-Natriuretic Peptide Albumin 09/05/22 09/05/22 09/06/22 15:11 21:01 01:02 WBC RBC Hgb Hct MCV MCH MCHC RDW Plt Count MPV Immature Gran % (Auto) Neut % (Auto) Lymph % (Auto) [place] % (Auto) Eos % (Auto) Baso % (Auto) Lymph # (Auto) [place] # (Auto) Eos # (Auto) Baso # (Auto) Abs Immat Gran (auto) Absolute Neuts (auto) Absolute Nucleated RBC Nucleated RBC % (auto) O2 Saturation 93.0 ABG pH at Pt Temp 7.43 ABG pCO2 at Pt Temp 48 H ABG pO2 at Pt Temp 64 L ABG HCO3 32 H ABG Base Excess (Actual) 7.3 Sodium Potassium Chloride Carbon Dioxide Anion Gap BUN Creatinine Estim Creat Clear Calc Estimated GFR POC Glucose 225 H 216 H Random Glucose Calcium Phosphorus Magnesium Troponin I High Sens B-Natriuretic Peptide Albumin 09/06/22 09/06/22 09/06/22 01:07 01:07 01:07 WBC 12.9 H RBC 3.43 L Hgb 10.0 L Hct 32.9 L MCV 95.9 MCH 29.2 MCHC 30.4 L RDW 15.1 Plt Count 282 D MPV 8.1 L Immature Gran % (Auto) 0.5 H Neut % (Auto) 78.3 H Lymph % (Auto) 13.6 L [place] % (Auto) 7.5 Eos % (Auto) 0.0 Baso % (Auto) 0.1 Lymph # (Auto) 1.8 [place] # (Auto) 1.0 Eos # (Auto) 0.0 Baso # (Auto) 0.0 Abs Immat Gran (auto) 0.06 H Absolute Neuts (auto) 10.1 H Absolute Nucleated RBC 0.000 Nucleated RBC % (auto) 0.0 O2 Saturation ABG pH at Pt Temp ABG pCO2 at Pt Temp ABG pO2 at Pt Temp ABG HCO3 ABG Base Excess (Actual) Sodium 144 Potassium 2.9 L Chloride 109 H Carbon Dioxide 26 Anion Gap 12 BUN 33 H Creatinine 0.93 Estim Creat Clear Calc 40.9 Estimated GFR 58 POC Glucose Random Glucose 146 H Calcium 7.9 L Phosphorus 2.7 Magnesium 1.8 Troponin I High Sens 10.6 B-Natriuretic Peptide Albumin 2.0 L 09/06/22 01:07 WBC RBC Hgb Hct MCV MCH MCHC RDW Plt Count MPV Immature Gran % (Auto) Neut % (Auto) Lymph % (Auto) [place] % (Auto) Eos % (Auto) Baso % (Auto) Lymph # (Auto) [place] # (Auto) Eos # (Auto) Baso # (Auto) Abs Immat Gran (auto) Absolute Neuts (auto) Absolute Nucleated RBC Nucleated RBC % (auto) O2 Saturation ABG pH at Pt Temp ABG pCO2 at Pt Temp ABG pO2 at Pt Temp ABG HCO3 ABG Base Excess (Actual) Sodium Potassium Chloride Carbon Dioxide Anion Gap BUN Creatinine Estim Creat Clear Calc Estimated GFR POC Glucose Random Glucose Calcium Phosphorus Magnesium Troponin I High Sens B-Natriuretic Peptide 1075 H Albumin Microbiology Microbiology Results: Microbiology 09/01/22 22:05 Thoracentesis Fluid Gram Stain - Final 09/01/22 22:05 Thoracentesis Fluid Anaerobic Culture - Preliminary No growth to date. 09/01/22 22:05 Thoracentesis Fluid Body Fluid Culture - Final No growth after 2 days 09/01/22 16:57 Blood - Venous Blood Culture - Preliminary No growth after 48 hours. 09/01/22 16:39 Blood - Venous Blood Culture - Preliminary No growth after 48 hours. Progress Note: A&P Assessment and plan (1) Hypotension due to hypovolemia: Status: Acute (2) Hypoalbuminemia: Status: Acute (3) Hypokalemia: Status: Acute (4) Persistent atrial fibrillation: Status: Acute (5) Atelectasis of left lung: Status: Acute (6) Pneumonia involving left lung: Status: Acute (7) Pleural effusion: Status: Acute (8) Urinary retention with incomplete bladder emptying: Status: Acute (9) Aortic stenosis: Status: Acute (10) Acute congestive heart failure: Status: Acute (11) Weakness: Status: Acute (12) Congestive heart disease: Status: Acute Quality Stroke Does the patient have a stroke diagnosis?: No VTE Prior VTE?: No VTE Risk Level:: Medical - moderate - high VTE Device Contraindication: N/A - Device Ordered VTE Drug Contraindication: Treatment Not Indicated
[2022-09-06 04:56] LABS: VBG Base Excess 2.6 mmol/L; VBG HCO3 27 mmol/L (22-26); VBG pCO2 45 mmHg; VBG pH 7.39 (7.32-7.43); VBG pO2 30 mmHg
[2022-09-06 05:07] LABS: Albumin Level 3.2 g/dL (3.5-5.0)
[2022-09-06 05:16] LABS: Anion Gap 16 (12-20); Blood Urea Nitrogen 32 mg/dL (9-16); Calcium 8.4 mg/dL (8.4-10.2); Carbon Dioxide 25 mmol/L (22-29); Chloride 107 mmol/L (96-108); Creatinine Clr Calc Pharmacy 40.1; Estimated Glomerular Filt Rate 54; Glucose Random 144 mg/dL (60-115); Potassium 3.3 mmol/L (3.3-5.1); Sodium 145 mmol/L (135-145)
--- NOTE | 2022-09-06 06:27 | PC.NURSE ---
RECEIVED FROM [employer] AP[employer]OX 01:30...DROWSY...AROUSES TO VERBAL STIMULI..CONFUSED..RESPONDS WITH 1-2 WORD ANSWERS...O2 6 L/M CANNULA FROM FLOOR...O2 WEANED TO 2 L/M OVERNIGHT WITH SAO2 REMAINING 96-97%...LEFT LATERAL/POSTERIOR CHEST TUBE TO -30CM DRY SUCTION..SMALL AMOUNT SEROUS DRAINAGE..NO AIR-LEAK...ATRIAL FIB CONTROLLED HR...SBP LOW-MID 80'S ON ARRIVAL...NS 0.9% 500ML BOLUS COMPLETED...ALBUMEN S5G/100ML X2 DOSES INFUSED....LR 250 CC/HR X1 1 LITER INFUSING...DIAZ PLACED WITH LOW OUTPUT OVERNIGHT.....KCL 10MEQ/100ML X4 ORDERED...CURRENTLY 3RD BAG INFUSING.....CURRENT PG=412/44
[2022-09-06 06:53] LABS: ABG Refer to POC result
[2022-09-06 06:59] LABS: Venous Blood Gas Refer to POC result
[2022-09-06 07:35] LABS: Glucose, Whole Blood 182 mg/dL (60-115)
[2022-09-06] MEDS: Albumin Human 25 % 100 ML IV ×3 (08:20→20:30)
[2022-09-06] MEDS: dilTIAZem HCL CD 120 MG CAP.ER.DEG PO (09:34)
[2022-09-06] MEDS: Lactated Ringers 500 ML 50 ML IV (10:28)
--- NOTE | 2022-09-06 10:57 | P.PNCA_ITS ---
Subjective Subjective Date of Service: 09/06/22 Principal diagnosis: hypertension, atrial fibrillation Interval history: patient was transferred to ICU last night because his she became unresponsive with low blood pressure. She received IV fluids overnight and a blood pressures improved. Clinically doing better. Heart rate is better control in the 80s. She is not having any respiratory distress. Oxygen saturations controlled. Review of Systems Review of Systems Yes Unobtainable due to mental status Physical Exam Vital Signs: Last Vital Signs Temp 98.6 F 09/06/22 10:00 Pulse 83 09/06/22 10:00 Resp 21 H 09/06/22 10:00 BP 93/50 L 09/06/22 10:00 Pulse Ox 100 09/06/22 10:00 O2 Del Method Nasal Cannula 09/06/22 10:00 O2 Flow Rate 2 09/06/22 10:00 Oxygen Flow Rate 4 09/01/22 15:58 BMI result Body Mass Index 31.5 Const General: cooperative, comfortable, no acute distress, alert and awake Nutritional Appearance: average body habitus HEENT Head: Yes normocephalic and Yes atraumatic Neck Neck: Yes trachea midline, Yes supple and Yes no JVD Chest Chest palpation & inspection: other ( chest tube in the left thoracic cavity) Resp Effort & Inspection: decreased respiratory effort Auscultation: breath sounds absent on th left ( base) Cardio Jugular venous distension: no JVD Rhythm: abnormal rhythm irregularly irregular Heart sounds: S1 normal heart sound present and Murmur heart sound present systolic late, decrescendo and crescendo GI Auscultation: normal bowel sounds Skin General skin exam: no rashes or lesions noted and ecchymosis Neuro General: moves all extremities Extrem General: No clubbing, No cyanosis and Yes edema Objective Labs and Meds 09/06/22 01:07 09/06/22 04:51 Lab results: Laboratory Results - last 24 hr 09/05/22 09/05/22 09/05/22 11:02 15:11 21:01 WBC RBC Hgb Hct MCV MCH MCHC RDW Plt Count MPV Immature Gran % (Auto) Neut % (Auto) Lymph % (Auto) [place] % (Auto) Eos % (Auto) Baso % (Auto) Lymph # (Auto) [place] # (Auto) Eos # (Auto) Baso # (Auto) Abs Immat Gran (auto) Absolute Neuts (auto) Absolute Nucleated RBC Nucleated RBC % (auto) O2 Saturation ABG pH at Pt Temp ABG pCO2 at Pt Temp ABG pO2 at Pt Temp ABG HCO3 ABG Base Excess (Actual) VBG pH VBG pCO2 VBG pO2 VBG HCO3 VBG O2 Saturation VBG Base Excess Sodium Potassium Chloride Carbon Dioxide Anion Gap BUN Creatinine Estim Creat Clear Calc Estimated GFR POC Glucose 230 H 225 H 216 H Random Glucose Calcium Phosphorus Magnesium Troponin I High Sens B-Natriuretic Peptide Albumin 09/06/22 09/06/22 09/06/22 01:02 01:07 01:07 WBC 12.9 H RBC 3.43 L Hgb 10.0 L Hct 32.9 L MCV 95.9 MCH 29.2 MCHC 30.4 L RDW 15.1 Plt Count 282 D MPV 8.1 L Immature Gran % (Auto) 0.5 H Neut % (Auto) 78.3 H Lymph % (Auto) 13.6 L [place] % (Auto) 7.5 Eos % (Auto) 0.0 Baso % (Auto) 0.1 Lymph # (Auto) 1.8 [place] # (Auto) 1.0 Eos # (Auto) 0.0 Baso # (Auto) 0.0 Abs Immat Gran (auto) 0.06 H Absolute Neuts (auto) 10.1 H Absolute Nucleated RBC 0.000 Nucleated RBC % (auto) 0.0 O2 Saturation 93.0 ABG pH at Pt Temp 7.43 ABG pCO2 at Pt Temp 48 H ABG pO2 at Pt Temp 64 L ABG HCO3 32 H ABG Base Excess (Actual) 7.3 VBG pH VBG pCO2 VBG pO2 VBG HCO3 VBG O2 Saturation VBG Base Excess Sodium Potassium Chloride Carbon Dioxide Anion Gap BUN Creatinine Estim Creat Clear Calc Estimated GFR POC Glucose Random Glucose Calcium Phosphorus Magnesium Troponin I High Sens 10.6 B-Natriuretic Peptide Albumin 09/06/22 09/06/22 09/06/22 01:07 01:07 04:46 WBC RBC Hgb Hct MCV MCH MCHC RDW Plt Count MPV Immature Gran % (Auto) Neut % (Auto) Lymph % (Auto) [place] % (Auto) Eos % (Auto) Baso % (Auto) Lymph # (Auto) [place] # (Auto) Eos # (Auto) Baso # (Auto) Abs Immat Gran (auto) Absolute Neuts (auto) Absolute Nucleated RBC Nucleated RBC % (auto) O2 Saturation ABG pH at Pt Temp ABG pCO2 at Pt Temp ABG pO2 at Pt Temp ABG HCO3 ABG Base Excess (Actual) VBG pH 7.39 VBG pCO2 45 VBG pO2 30 VBG HCO3 27 H VBG O2 Saturation 51.0 VBG Base Excess 2.6 Sodium 144 Potassium 2.9 L Chloride 109 H Carbon Dioxide 26 Anion Gap 12 BUN 33 H Creatinine 0.93 Estim Creat Clear Calc 40.9 Estimated GFR 58 POC Glucose Random Glucose 146 H Calcium 7.9 L Phosphorus 2.7 Magnesium 1.8 Troponin I High Sens B-Natriuretic Peptide 1075 H Albumin 2.0 L 09/06/22 09/06/22 09/06/22 04:51 04:51 07:32 WBC RBC Hgb Hct MCV MCH MCHC RDW Plt Count MPV Immature Gran % (Auto) Neut % (Auto) Lymph % (Auto) [place] % (Auto) Eos % (Auto) Baso % (Auto) Lymph # (Auto) [place] # (Auto) Eos # (Auto) Baso # (Auto) Abs Immat Gran (auto) Absolute Neuts (auto) Absolute Nucleated RBC Nucleated RBC % (auto) O2 Saturation ABG pH at Pt Temp ABG pCO2 at Pt Temp ABG pO2 at Pt Temp ABG HCO3 ABG Base Excess (Actual) VBG pH VBG pCO2 VBG pO2 VBG HCO3 VBG O2 Saturation VBG Base Excess Sodium 145 Potassium 3.3 Chloride 107 Carbon Dioxide 25 Anion Gap 16 BUN 32 H Creatinine 0.98 Estim Creat Clear Calc 40.1 Estimated GFR 54 POC Glucose 182 H Random Glucose 144 H Calcium 8.4 D Phosphorus Magnesium Troponin I High Sens B-Natriuretic Peptide Albumin 3.2 L Imaging Radiologist's impression: Impressions Chest X-Ray 09/06/22 01:25 IMPRESSION: Persistent small left pleural effusion with adjacent basilar opacification, similar to prior. Small persistent pneumothorax component suspected at the left apex. Progress Note: A&P Assessment and plan (1) Hypotension due to hypovolemia: Status: Acute Assessment and Plan: Hypotension related to hypovolemia in the setting of medications as well as severe aortic stenosis. Agree with holding of diuretics for now. Continue maintain adequate oral hydration. Stop Cardizem and switch to digoxin for rate control. Overall prognosis is guarded given her severe aortic stenosis, in persistent atrial fibrillation and risk for recurrent hospitalization is high (2) Persistent atrial fibrillation: Status: Acute Assessment and Plan: persistent atrial fibrillation, not better rate control. Go back to metoprolol 12.5 mg q.12 hours and add digoxin 0.125 mg daily. If blood pressure becomes an issue amiodarone can be used for rate control purposes only. Oral anticoagulation is on hold for now due to possible need for other procedures. Resume as soon as possible. (3) Aortic stenosis: Status: Acute Assessment and Plan: Aortic stenosis which is severe and not a candidate for valve replacement given advanced age and poor functional status and is not going to improve her overall medical condition. This was discussed with her. Should be discuss with her healthcare proxy and consider palliative care. (4) Congestive heart disease: Status: Acute Assessment and Plan: Heart failure, initially was diuresed but currently does appear to be in significant heart failure. Her acute respiratory failure appears to be secondary to her pleural effusion atelectasis and poor respiratory effort and possible respiratory muscle weakness. Continue to treat her with incentive spirometry and chest physical therapy. Thoracic surgery is following the patient. Hold off on diuretic regimen at this point time although she remains at high risk for recurrent heart failure development given her persistent atrial fibrillation as well as aortic stenosis. Will sign of the case at this point time. Thank you for allowing me to partake in her care Time Spent With Patient Time: Total time managing care of this patient today ____ minutes. Progress Note: Quality Stroke Does the patient have a stroke diagnosis?: No Procedures Date of Service Date of Service: 09/06/22
[2022-09-06 11:04] LABS: Cyclic Citrullinated Peptide <16 UNITS
--- NOTE | 2022-09-06 11:07 | PM.EVENT ---
Event Note Date of Service: 09/06/22 Event Note: Chart reviewed case discussed with Dr. Granados and Dr Torres 82-year-old female with past medical history of heart failure with preserved EF, chronic AFib on Xarelto, hypothyroidism, aortic stenosis, [id number] diabetes mellitus was admitted with acute hypoxic respiratory failure in the setting of pneumonia and effusion, also with AFib RVR with pulmonary edema, and acute toxic metabolic encephalopathy overnight patient was noted to be unresponsive, and hypotensive therefore transferred to intensive care unit patient treated with IV fluids blood pressure improved at present patient appears comfortable with no respiratory distress heart rate is stable and has no evidence of CHF. Hypotension resolved likely due to hypovolemia, hold diuretics, case discussed with Dr. Valerio he recommend to discontinue Cardizem and switch to digoxin continue low-dose beta-blockers. Persistent atrial fibrillation, stable ventricular rate continue metoprolol 12.5 mg b.i.d., digoxin added, anticoagulation on hold for possible need for other procedures, resume if no procedure planned. Severe aortic stenosis seen by Cardiology not a candidate for valve replacement given advanced age and poor functional status. Time Spent With Patient Time: Total time managing care of this patient today ____ minutes.
[2022-09-06 11:22] LABS: Glucose, Whole Blood 181 mg/dL (60-115)
--- NOTE | 2022-09-06 11:46 | MHC.CLN ---
F/U PT IS CURRENTLY NPO PREVIOUS PO INTAKE 25-50% WHEN DIET TO ADVANCE; RECOMMEND 2GM NA DIABETIC 1800 KCAL DUE TO ELEVATED BLOOD GLUCOSE, TAKES DM MEDS, DX DM PT WITH STAGE II PRESSURE INJURY TO COCCYX RE-START ENSURE MAX PROTEIN BID WITH DIET TO PROMOTE WOUND HEALING TO PROVIDE 300 KCALS, 60 G PROTEIN FOLLOW FOR PO INTAKE, BLOOD GLUCOSE, AND WOUND HEALING
--- NOTE | 2022-09-06 12:40 | MHC.CM.PN ---
EMR REVIEWED, PT A STEP DOWN FROM ICU, PT REMAINS ON IV FLUIDS, IV ABX AND IV ALBUMIN, NO PLAN FOR D/C AT THIS TIME, PLAN CONT'S TO BE TO RETURN TO LTC AT [facility] ONCE MEDICALLY CLEARED, SNF UPDATED AND CM WILL CONT TO FOLLOW D/C NEEDS.
--- NOTE | 2022-09-06 14:13 | P.PNTS_ITS ---
Subjective Subjective Date of Service: 09/07/22 Interval history: Patient was seen examined this afternoon. Overnight patient did become more lethargic with hypotension requiring a short stay in the ICU and returned to [facility] [place] after receiving volume replacement. Today during my examination patient has some slight lethargy however is alert and oriented. She denies any shortness of breath at rest And does not appear to be in any respiratory distress at this time. Physical Exam Vital Signs: Vital Signs: Last Vital Signs Temp 97.2 F 09/06/22 12:00 Pulse 70 09/06/22 12:00 Resp 18 09/06/22 12:00 BP 115/56 L 09/06/22 12:00 Pulse Ox 96 09/06/22 12:00 O2 Del Method Nasal Cannula 09/06/22 12:00 O2 Flow Rate 2 09/06/22 12:00 Oxygen Flow Rate 4 09/01/22 15:58 BMI result Body Mass Index 31.5 Const: General: cooperative, comfortable, no acute distress, alert, awake and tired appearing Nutritional Appearance: average body habitus HEENT: Head: Yes normocephalic and Yes atraumatic Neck: Neck: Yes trachea midline, Yes supple and Yes no JVD Chest: Chest palpation & inspection: other ( chest tube in the left thoracic cavity) Resp: Effort & Inspection: decreased respiratory effort Auscultation: breath sounds absent on th left ( base) Cardio: Jugular venous distension: no JVD Rhythm: abnormal rhythm irregularly irregular Heart sounds: S1 normal heart sound present and Murmur heart sound present systolic late, decrescendo and crescendo GI: Auscultation: normal bowel sounds Skin: General skin exam: no rashes or lesions noted Neuro: General: moves all extremities Extrem: General: No clubbing, No cyanosis and Yes edema Procedures Date of Service Date of Service: 09/07/22 Progress Note: A&P Assessment and plan (1) Pneumonia involving left lung: Status: Acute (2) Pleural effusion: Status: Acute (3) Acute respiratory failure with hypoxia: Status: Acute (4) Atelectasis of left lung: Status: Acute Plan 82 y/o female with likely NHAP, complicated with pleural effusion and collapse of left lung causing acute respiratory hypoxia * Continue Chest tube to -30 mm Hg suction.? Monitor drainage 200cc since Second round of bedside fibrinolysis was administered yesterday and chest tube unclamped.? No air leak.? . * morning chest x-ray shows slight improvement in left-sided loculated pleural effusion. * Alteplase 5 mg solution within 50 cc of normal saline instilled this afternoon at 14:15. This medication should indwell in patient's pleural cavity with chest tube clamped for 6 hours and unclamped and placed back -30 low wall suction tonight at 21:15 * Dornase jossie 4 mg solution within 30 cc of normal saline instilled this afternoon at 15:45. This medication should interval in patient's pleural cavity with chest tube clamp until 8:15 tonight at which point in time should be put back to -30 low wall suction. * chest CT ordered for tomorrow a.m. * Continue broad-spectrum antibiotic coverage.? pt on Zosyn.? CBC pending.? BC X 2 pending and pleural fluid with no organisms seen to date.? Would consider UA to complete sepsis work-up * Continue to hold anticoagulation at this time in case patient is going to need further intervention. * All care and images discussed with Dr. Harrison Time Spent With Patient Time: Total time managing care of this patient today ____ minutes. Quality Stroke Does the patient have a stroke diagnosis?: No VTE Prior VTE?: No VTE Risk Level:: Medical - moderate - high VTE Device Contraindication: N/A - Device Ordered VTE Drug Contraindication: Treatment Not Indicated
--- NOTE | 2022-09-06 15:22 | PC.NURSE ---
IV infiltrated after albumin administered. Patient denies pain. IV site puffy, redness. IV removed, ice applied. Dr. Green made aware.
[2022-09-06] MEDS: Dornase Alfa 5 MG in 0.9 % Sodium Chloride 25 ML 2.5 MG INTRAPLEUR (15:50)
[2022-09-06 17:27] LABS: Glucose, Whole Blood 243 mg/dL (60-115)
[2022-09-06] MEDS: Insulin Lispro 100 UNIT/ML 3 ML VIAL SUBCUT ×3 (17:27→22:09)
[2022-09-06] MEDS: Metoprolol Tartrate 12.5 MG HALFTAB PO (20:30)
[2022-09-06] MEDS: Acetaminophen 325 MG TABLET 650 MG PO (20:41)
[2022-09-06 21:09] LABS: Glucose, Whole Blood 197 mg/dL (60-115)
--- NOTE | 2022-09-06 22:22 | PC.NURSE ---
Chest tube unclamped at 20:15, and back to -30 sxn,first drainage was sanguineous then taper down to pink tinged , total output from the chest tube 630 ml since 20:15 to 22:00. Chest tube chamber was changed , dressing around the chest tube was changed d/t saturation. patient tolerated chest tube well , no sob no respiratory distress . There is no crepitus , there is small air leak +2 intermittent
[2022-09-07] MEDS: Ampicillin Sodium/Sulbactam Na 3 GM in 0.9 % Sodium Chloride 100 ML IV ×4 (00:07→17:07)
[2022-09-07] MEDS: 0.9 % Sodium Chloride Flush 3 ML SYRINGE IVFLUSH ×3 (00:07→17:07)
[2022-09-07] MEDS: Albumin Human 25 % 100 ML IV (01:52)
[2022-09-07 03:32] VITALS: BP 122/62; PULSE 96; RESP 18; TEMP 36.2; O2SAT 97
[2022-09-07 06:42] LABS: Hematocrit 29.9 % (37.0-47.0); Mean Corpuscular HGB Conc 30.1 g/dl (31.0-35.0); Mean Corpuscular Hemoglobin 28.8 pg (27.0-33.0); Mean Corpuscular Volume 95.8 fL (80.0-98.0); Mean Platelet Volume 8.5 fL (9.4-12.3); NRBC Pct Auto 0.1 /100WBC (0.0-0.2); Platelet Count 299 X10*3/uL (160-400); Red Blood Count 3.12 X10*6/uL (4.20-5.50); Red Cell Distribution Width 15.4 % (11.0-16.0); White Blood Count 14.2 X10*3/uL (4.8-10.8)
[2022-09-07 07:00] LABS: Anion Gap 22 (12-20); Blood Urea Nitrogen 31 mg/dL (9-16); Calcium 8.8 mg/dL (8.4-10.2); Carbon Dioxide 19 mmol/L (22-29); Chloride 106 mmol/L (96-108); Creatinine Clr Calc Pharmacy 38.9; Estimated Glomerular Filt Rate 53; Glucose Random 222 mg/dL (60-115); Potassium 3.6 mmol/L (3.3-5.1); Sodium 143 mmol/L (135-145)
[2022-09-07 07:13] LABS: Glucose, Whole Blood 224 mg/dL (60-115)
[2022-09-07 07:45] VITALS: BP 127/60; PULSE 93; RESP 20; TEMP 36.8; O2SAT 95
[2022-09-07] MEDS: Insulin Lispro 100 UNIT/ML 3 ML VIAL SUBCUT ×7 (08:27→21:30)
[2022-09-07] MEDS: Metoprolol Tartrate 12.5 MG HALFTAB PO ×2 (08:29→21:29)
[2022-09-07] MEDS: Digoxin 0.125 MG TABLET PO (08:29)
[2022-09-07] MEDS: Acetaminophen 325 MG TABLET 650 MG PO ×2 (08:31→18:16)
--- NOTE | 2022-09-07 10:42 | MHC.CM.PN ---
EMR REVIEWED, CHEST TUBE REMAINS IN PLACE, NO PLAN FOR D/C AT THIS TIME, SNF UPDATED AND CM WILL CONT TO FOLLOW D/C NEEDS.
[2022-09-07 11:03] LABS: Glucose, Whole Blood 173 mg/dL (60-115)
[2022-09-07 11:28] VITALS: BP 115/61; PULSE 104; RESP 20; TEMP 36.7; O2SAT 100
--- NOTE | 2022-09-07 14:42 | P.PNIM_ITS ---
Subjective Subjective Date of Service: 09/07/22 Interval History: seen and examined this morning follow up for respiratory failure downgraded from ICU yesterday hard of hearing denies sob Review of Systems Review of Systems: Yes all other systems are reviewed and are negative Constitutional Constitutional: Denies chills and Denies fever(s) Cardiovascular Cardiovascular: Denies chest pain and Denies dyspnea Respiratory Respiratory: Denies cough and Denies dyspnea Gastrointestinal Gastrointestinal: Denies abdominal pain Physical Exam Vital Signs: Vital Signs: Last Vital Signs Temp 98.0 F 09/07/22 11:28 Pulse 104 H 09/07/22 11:28 Resp 20 09/07/22 11:28 BP 115/61 09/07/22 11:28 Pulse Ox 100 09/07/22 11:28 O2 Del Method Nasal Cannula 09/07/22 11:28 O2 Flow Rate 2 09/07/22 11:28 Oxygen Flow Rate 4 09/01/22 15:58 BMI result Body Mass Index 31.5 Const: General: comfortable, no acute distress, alert and awake Nutritional Appearance: overweight Chest: Other: chest tube left chest wall Resp: Effort & Inspection: normal respiratory effort, able to speak in complete sentences, no respiratory distress and no use of accessory muscles Cardio: Rate: regular rate Heart sounds: S1 normal heart sound present and S2 normal heart sound present : Other: galeas in place Neuro: Other: grossly nonfocal General: CN's II-XI intact bilaterally Extrem: Other: b/l leg edema Objective Data Active Medications Acetaminophen (Acetaminophen 325 Mg Tablet) 650 mg PO Q6H PRN PRN Reason: Pain, Mild (Pain Scale 1-3) Last Admin: 09/07/22 08:31 Dose: 650 mg Documented By: MERYL Bisacodyl (Bisacodyl 10 Mg Supp.Rect) 10 mg MS DAILY PRN PRN Reason: Constipation Digoxin (Digoxin 0.125 Mg Tablet) 0.125 mg PO DAILY [facility] Last Admin: 09/07/22 08:29 Dose: 0.125 mg Documented By: MERYL Glucose (Glucose Gel 15 Gm Gel..Gram.) 15 gm PO Q15M PRN; Protocol PRN Reason: per Hypoglycemia Standing Ord. Ampicillin Sodium/Sulbactam (Sodium 3 gm/ Sodium Chloride) 100 mls @ 200 mls/hr IV Q6H [facility] Last Infusion: 09/07/22 13:17 Dose: 0 mls/hr Documented By: MERYL Dextrose (D10) 250 mls @ 750 mls/hr IV Q15M PRN; Protocol PRN Reason: per Hypoglycemia Standing Ord. Insulin Human Lispro (Insulin Lispro 100 Unit/Ml 3 Ml Vial) 0 unit SUBCUT QIDAS [facility]; Protocol Last Admin: 09/07/22 12:15 Dose: 2 unit Documented By: MERYL Insulin Human Lispro (Insulin Lispro 100 Unit/Ml 3 Ml Vial) 5 unit SUBCUT QIDAS [facility] Last Admin: 09/07/22 12:16 Dose: 5 unit Documented By: MERYL Melatonin (Melatonin 3 Mg Tablet) 6 mg PO BEDTIME PRN PRN Reason: Insomnia Last Admin: 09/05/22 20:56 Dose: 6 mg Documented By: KT Metoprolol Tartrate (Metoprolol Tartrate 12.5 Mg Halftab) 12.5 mg PO BID [facility]; Protocol Last Admin: 09/07/22 08:29 Dose: 12.5 mg Documented By: MERYL Ondansetron HCl (Ondansetron Hcl 4 Mg/2 Ml Vial) 4 mg IVPUSH Q8H PRN PRN Reason: Nausea and Vomiting Sodium Chloride (0.9 % Sodium Chloride Flush 3 Ml Syringe) 3 ml IVFLUSH [facility] Last Admin: 09/07/22 08:29 Dose: 3 ml Documented By: MERYL Labs 09/07/22 06:11 09/07/22 06:11 Labs: Laboratory Results - last 24 hr 09/06/22 09/06/22 09/07/22 17:18 21:03 06:11 MCV 95.8 MCH 28.8 MCHC 30.1 L RDW 15.4 Plt Count 299 MPV 8.5 L Absolute Nucleated RBC 0.020 H Nucleated RBC % (auto) 0.1 Anion Gap Estim Creat Clear Calc Estimated GFR POC Glucose 243 H 197 H Random Glucose Calcium 09/07/22 09/07/22 09/07/22 06:11 07:08 10:49 MCV MCH MCHC RDW Plt Count MPV Absolute Nucleated RBC Nucleated RBC % (auto) Anion Gap 22 H Estim Creat Clear Calc 38.9 Estimated GFR 53 POC Glucose 224 H 173 H Random Glucose 222 H Calcium 8.8 Microbiology Microbiology Results: Microbiology 09/01/22 22:05 Gram Stain - Final Thoracentesis Fluid Anaerobic Culture - Final NO GROWTH AFTER 5 DAYS Body Fluid Culture - Final No growth after 2 days 09/01/22 16:57 Blood Culture - Final Blood - Venous No growth after 5 days. 09/01/22 16:39 Blood Culture - Final Blood - Venous No growth after 5 days. Assessment and Plan (1) Acute respiratory failure with hypoxia: Status: Acute (2) Pneumonia involving left lung: Status: Acute Plan 82-year-old female with a PMH significant for?HFpEF, chronic AFib on Xarelto, hypothyroidism, aortic stenosis, non insulin-dependent diabetes type 2, and GERD who presents to the ED from SNF via EMS with?shortness of breath and dyspnea found to have collapse of left lung/left pleural effusion requiring chest tube placement. Course complicated by hypotension requiring brief transfer to ICU early am of 09/06, downgraded back to medical floor later the same day. Acute hypoxic respiratory failure related to pleural effusion and pneumonia CT of chest with large left pleural effusion with complete collapse of the left lung with deviated mediastinum to the right s/p chest tube placement in ED pleural serology, cultures>no growth s/p TPA for thrombolysis CT surgery following Pulmonology initially planned for bronch, but since cancelled due to episode of hypotension continue to hold xarelto continue unasyn started 09/02 wean oxygen as tolerated sepsis secondary to pneumonia resolved treatment as above Afib with RVR s/p IV cardizem drip cardiology following> transitioned to oral metoprolol and digoxin amiodarone d/c AC on hold due to chest tube/receiving thrombolysis and possible need for further intervention HFpEF not in acute exacerbation Patient with significant chronic lower leg edema, chronically elevated BNP Monitor volume status f/c placed for fluid management severe aortic stenosis>not a candidate for TAVR as per cardiology baseline lasix on hold Ynx-uozsgrk-flhiriyly diabetes type 2 SSI, ADA diet chronic normocytic anemia follow CBC Thrombocytosis. Resolved Patient's platelets 622 at time of presentation, up from baseline of around 250 Likely reactive Hypothyroidism Continue levothyroxine DNR/DNI Attending:?Dr. Norris DVT Prophylaxis:? Pneumatic boots dispo - return to [facility] when medically ready continue hospital stay for treatment and further management of left-sided pleural effusion with complete collapse of her left lung and chest tube management, IV abx and close monitoring of respiratory status Time Spent With Patient Time: Total time managing care of this patient today ____ minutes. Quality Stroke Does the patient have a stroke diagnosis?: No VTE Prior VTE?: No VTE Risk Level:: Medical - moderate - high VTE Device Contraindication: N/A - Device Ordered VTE Drug Contraindication: Treatment Not Indicated
[2022-09-07 15:35] VITALS: BP 124/57; PULSE 96; RESP 20; TEMP 37; O2SAT 99
[2022-09-07 16:01] LABS: Glucose, Whole Blood 136 mg/dL (60-115)
--- NOTE | 2022-09-07 16:34 | PM.PNPUL ---
Subjective Subjective Date of Service: 09/07/22 Principal diagnosis: hypertension, atrial fibrillation Interval history: The patient was seen on exam. She still is with a chest tube in place. She briefly spent some time in the ICU because of hypotension. We had to cancel the bronchoscopy due to the unstable state. This point because of her cardiovascular risk and her frail state I will hold off on the bronchoscopy indefinitely. Her chest x-ray did show improvement of the left-sided pleural effusion. I did also review her CT scan of the chest demonstrating now hydropneumothorax on the left side due to the lung entrapment. The patient is also starting to have atelectasis him for effusion on the opposite side. Objective Data Labs 09/07/22 06:11 09/07/22 06:11 Labs: Laboratory Results - last 24 hr 09/06/22 09/06/22 09/07/22 17:18 21:03 06:11 WBC 14.2 H RBC 3.12 L Hgb 9.0 L Hct 29.9 L MCV 95.8 MCH 28.8 MCHC 30.1 L RDW 15.4 Plt Count 299 MPV 8.5 L Absolute Nucleated RBC 0.020 H Nucleated RBC % (auto) 0.1 Sodium Potassium Chloride Carbon Dioxide Anion Gap BUN Creatinine Estim Creat Clear Calc Estimated GFR POC Glucose 243 H 197 H Random Glucose Calcium 09/07/22 09/07/22 09/07/22 06:11 07:08 10:49 WBC RBC Hgb Hct MCV MCH MCHC RDW Plt Count MPV Absolute Nucleated RBC Nucleated RBC % (auto) Sodium 143 Potassium 3.6 Chloride 106 Carbon Dioxide 19 L Anion Gap 22 H BUN 31 H Creatinine 1.01 Estim Creat Clear Calc 38.9 Estimated GFR 53 POC Glucose 224 H 173 H Random Glucose 222 H Calcium 8.8 09/07/22 15:55 WBC RBC Hgb Hct MCV MCH MCHC RDW Plt Count MPV Absolute Nucleated RBC Nucleated RBC % (auto) Sodium Potassium Chloride Carbon Dioxide Anion Gap BUN Creatinine Estim Creat Clear Calc Estimated GFR POC Glucose 136 H Random Glucose Calcium Microbiology Microbiology Results: Microbiology 09/01/22 22:05 Thoracentesis Fluid Gram Stain - Final 09/01/22 22:05 Thoracentesis Fluid Anaerobic Culture - Final NO GROWTH AFTER 5 DAYS 09/01/22 22:05 Thoracentesis Fluid Body Fluid Culture - Final No growth after 2 days 09/01/22 16:57 Blood - Venous Blood Culture - Final No growth after 5 days. 09/01/22 16:39 Blood - Venous Blood Culture - Final No growth after 5 days. Review of Systems Review of Systems Yes Unobtainable due to mental status Physical Exam Vital Signs: Vital Signs: Last Vital Signs Temp 98.6 F 09/07/22 15:35 Pulse 96 09/07/22 15:35 Resp 20 09/07/22 15:35 BP 124/57 L 09/07/22 15:35 Pulse Ox 99 09/07/22 15:35 O2 Del Method Nasal Cannula 09/07/22 15:35 O2 Flow Rate 2 09/07/22 15:35 Oxygen Flow Rate 4 09/01/22 15:58 BMI result Body Mass Index 31.5 Const: General: comfortable, no acute distress, alert and awake Nutritional Appearance: overweight Chest: Other: chest tube left chest wall Resp: Effort & Inspection: normal respiratory effort, able to speak in complete sentences, no respiratory distress and no use of accessory muscles Cardio: Rate: regular rate Heart sounds: S1 normal heart sound present and S2 normal heart sound present : Other: galeas in place Neuro: Other: grossly nonfocal General: CN's II-XI intact bilaterally Extrem: Other: b/l leg edema Procedures Date of Service Date of Service: 09/07/22 Assessment and Plan Assessment and plan (1) Atelectasis of left lung: Status: Acute (2) Pneumonia involving left lung: Status: Acute (3) Pleural effusion: Status: Acute (4) Acute congestive heart failure: Status: Acute (5) Acute respiratory failure with hypoxia: Status: Acute (6) PAF (paroxysmal atrial fibrillation): Status: Inactive Plan ISS continue oxygen to keep pox>90% The at this point based on the patient's cardiovascular risks I do not believe that she will benefit from a bronchoscopy. I do believe that the risks outweigh the benefits. Therefore will hold off at this time. Continue antibiotic coverage rate controlled Time Spent With Patient Time: Total time managing care of this patient today ____ minutes. Progress Note: Quality Stroke Does the patient have a stroke diagnosis?: No
--- NOTE | 2022-09-07 17:41 | P.PNTS_ITS ---
Subjective Subjective Date of Service: 09/07/22 Interval history: Patient was seen and examined this afternoon. Overall she does appear more awake and alert than previous day and less lethargic. She denies any shortness of breath at rest, fever, chills and overall has no complaints at this time. patient received 3rd round of bedside fibrinolysis yesterday with tPA/dornase and after being placed back to -30 low wall suction overnight fluid output was approximately 1150 cc of sanguinous fluid showing good response to fibrinolysis. Her morning chest CT scan continues to show a left hydro pneumothorax with a moderate loculated effusion. hemoglobin continues to trend slightly downward today 9.0 will continue to follow. We will plan for 3 more days of a bedside fibrinolysis and repeat chest CT scan this coming Sunday. Physical Exam Vital Signs: Vital Signs: Last Vital Signs Temp 98.6 F 09/07/22 15:35 Pulse 96 09/07/22 15:35 Resp 20 09/07/22 15:35 BP 124/57 L 09/07/22 15:35 Pulse Ox 99 09/07/22 15:35 O2 Del Method Nasal Cannula 09/07/22 15:35 O2 Flow Rate 2 09/07/22 15:35 Oxygen Flow Rate 4 09/01/22 15:58 BMI result Body Mass Index 31.5 Const: General: cooperative, comfortable, no acute distress, alert, awake and tired appearing Nutritional Appearance: average body habitus HEENT: Head: Yes normocephalic and Yes atraumatic Neck: Neck: Yes trachea midline, Yes supple and Yes no JVD Chest: Chest palpation & inspection: other ( chest tube in the left thoracic cavity) Resp: Effort & Inspection: decreased respiratory effort Auscultation: breath sounds absent on th left ( base) Cardio: Jugular venous distension: no JVD Rhythm: abnormal rhythm irregularly irregular Heart sounds: S1 normal heart sound present and Murmur heart sound present systolic late, decrescendo and crescendo GI: Auscultation: normal bowel sounds Skin: General skin exam: no rashes or lesions noted Neuro: General: moves all extremities Extrem: General: No clubbing, No cyanosis and Yes edema Procedures Date of Service Date of Service: 09/07/22 Progress Note: A&P Assessment and plan (1) Pneumonia involving left lung: Status: Acute (2) Pleural effusion: Status: Acute (3) Acute respiratory failure with hypoxia: Status: Acute (4) Atelectasis of left lung: Status: Acute Plan 82 y/o female with likely NHAP, complicated with pleural effusion and collapse of left lung causing acute respiratory hypoxia * Continue Chest tube to -30 mm Hg suction.? Monitor drainage 1150cc over past 24 hrs since third round of bedside fibrinolysis was administered yesterday and chest tube unclamped.? No air leak.? . * Her morning chest CT scan continues to show a left hydro pneumothorax with a moderate loculated effusion. hemoglobin continues to trend slightly downward today 9.0 will continue to follow. We will plan for 3 more days of a bedside fibrinolysis and repeat chest CT scan this coming Sunday. * Alteplase 5 mg solution within 50 cc of normal saline instilled this afternoon at 17:30. This medication should indwell in patient's pleural cavity with chest tube clamped for 6 hours and unclamped and placed back -30 low wall suction tonight at 11:30 pm. * * cxr and cbc for tomorrow am * Remains on unasyn.? pleural fluid culture with no organisms seen to date.? * Continue to hold anticoagulation at this time in case patient is going to need further intervention. * All care and images discussed with Dr. Harrison Time Spent With Patient Time: Total time managing care of this patient today ____ minutes. Quality Stroke Does the patient have a stroke diagnosis?: No VTE Prior VTE?: No VTE Risk Level:: Medical - moderate - high VTE Device Contraindication: N/A - Device Ordered VTE Drug Contraindication: Treatment Not Indicated
--- NOTE | 2022-09-07 17:45 | PC.NURSE ---
Atp med was given by thoracic Doctor. clamped chest tube at 1735. will unclamped at 5467
--- NOTE | 2022-09-07 18:19 | PC.NURSE ---
galeas catheter was removed at 1814, due to void at [id number]
[2022-09-07 19:13] VITALS: BP 127/67; PULSE 100; RESP 20; TEMP 36.9; O2SAT 97
[2022-09-07 19:51] LABS: Glucose, Whole Blood 165 mg/dL (60-115)
[2022-09-07] MEDS: Docusate Sodium 100 MG CAPSULE PO (21:30)
[2022-09-07 23:52] VITALS: BP 119/57; PULSE 84; RESP 18; TEMP 37; O2SAT 96
[2022-09-08] MEDS: Ampicillin Sodium/Sulbactam Na 3 GM in 0.9 % Sodium Chloride 100 ML IV ×5 (01:05→23:39)
[2022-09-08] MEDS: Acetaminophen 325 MG TABLET 650 MG PO ×3 (01:06→17:43)
[2022-09-08] MEDS: 0.9 % Sodium Chloride Flush 3 ML SYRINGE IVFLUSH ×4 (01:06→21:38)
[2022-09-08 03:30] VITALS: BP 124/65; PULSE 89; RESP 20; TEMP 37; O2SAT 95
[2022-09-08 03:43] LABS: Glucose, Whole Blood 152 mg/dL (60-115)
[2022-09-08] MEDS: Levothyroxine Sodium 25 MCG TABLET PO (05:27)
[2022-09-08 07:11] LABS: Glucose, Whole Blood 226 mg/dL (60-115)
[2022-09-08 07:28] LABS: Hematocrit 34.8 % (37.0-47.0); Hemoglobin 10.4 g/dl (12.0-16.0); Mean Corpuscular HGB Conc 29.9 g/dl (31.0-35.0); Mean Corpuscular Hemoglobin 28.8 pg (27.0-33.0); Mean Corpuscular Volume 96.4 fL (80.0-98.0); Mean Platelet Volume 8.6 fL (9.4-12.3); Platelet Count 314 X10*3/uL (160-400); Red Blood Count 3.61 X10*6/uL (4.20-5.50); Red Cell Distribution Width 15.5 % (11.0-16.0)
[2022-09-08 07:30] VITALS: BP 146/75; PULSE 108; RESP 20; TEMP 36.9; O2SAT 99
[2022-09-08] MEDS: polyethylene glycoL 3350 17 GM POWD.PACK PO (08:07)
[2022-09-08] MEDS: Digoxin 0.125 MG TABLET PO (08:07)
[2022-09-08] MEDS: Metoprolol Tartrate 12.5 MG HALFTAB PO ×2 (08:07→08:19)
[2022-09-08] MEDS: Insulin Lispro 100 UNIT/ML 3 ML VIAL SUBCUT ×6 (08:08→17:06)
[2022-09-08 08:42] LABS: Anion Gap 19 (12-20); Blood Urea Nitrogen 23 mg/dL (9-16); Calcium 9.1 mg/dL (8.4-10.2); Carbon Dioxide 24 mmol/L (22-29); Chloride 110 mmol/L (96-108); Creatinine Clr Calc Pharmacy 45.2; Estimated Glomerular Filt Rate > 60; Glucose Random 200 mg/dL (60-115); Potassium 3.4 mmol/L (3.3-5.1); Sodium 150 mmol/L (135-145)
--- NOTE | 2022-09-08 10:28 | P.PNIM_ITS ---
Subjective Subjective Date of Service: 09/08/22 Interval History: seen and examined this morning follow up for afib, left pleural effusion/pneumonia with chest tube awake and alert to take meds but sleepy on my exam no specific complaints, hard to obtain full ROS Physical Exam Vital Signs: Vital Signs: Last Vital Signs Temp 98.5 F 09/08/22 07:30 Pulse 108 H 09/08/22 07:30 Resp 20 09/08/22 07:30 BP 146/75 H 09/08/22 07:30 Pulse Ox 99 09/08/22 07:30 O2 Del Method Nasal Cannula 09/08/22 07:30 O2 Flow Rate 2 09/08/22 07:30 Oxygen Flow Rate 4 09/01/22 15:58 BMI result Body Mass Index 31.5 Const: General: no acute distress; No lethargic Nutritional Appearance: average body habitus Orientation/consciousness: No lethargic Resp: Other: dim left side Effort & Inspection: normal respiratory effort, able to speak in complete sentences, no respiratory distress and no use of accessory muscles Cardio: Rate: tachycardic Heart sounds: Murmur heart sound present GI: Inspection: No distended Palpation (GI): Soft to palpation and nontender Neuro: Other: sleepy - difficult to assess General: moves all extremities Extrem: Other: b/l trace leg edema Objective Data Active Medications Acetaminophen (Acetaminophen 325 Mg Tablet) 650 mg PO Q6H PRN PRN Reason: Pain, Mild (Pain Scale 1-3) Last Admin: 09/08/22 07:24 Dose: 650 mg Documented By: MERYL Bisacodyl (Bisacodyl 10 Mg Supp.Rect) 10 mg IN DAILY PRN PRN Reason: Constipation Digoxin (Digoxin 0.125 Mg Tablet) 0.125 mg PO DAILY [facility] Last Admin: 09/08/22 08:07 Dose: 0.125 mg Documented By: MERYL Docusate Sodium (Docusate Sodium 100 Mg Capsule) 100 mg PO BEDTIME [facility] Last Admin: 09/07/22 21:30 Dose: 100 mg Documented By: ANUM Glucose (Glucose Gel 15 Gm Gel..Gram.) 15 gm PO Q15M PRN; Protocol PRN Reason: per Hypoglycemia Standing Ord. Ampicillin Sodium/Sulbactam (Sodium 3 gm/ Sodium Chloride) 100 mls @ 200 mls/hr IV Q6H [facility] Last Infusion: 09/08/22 06:24 Dose: 0 mls/hr Documented By: EDGARDO Dextrose (D10) 250 mls @ 750 mls/hr IV Q15M PRN; Protocol PRN Reason: per Hypoglycemia Standing Ord. Dextrose (D5w) 1,000 mls @ 75 mls/hr IVCONT .[id number] [facility] Stop: 09/08/22 23:49 Insulin Human Lispro (Insulin Lispro 100 Unit/Ml 3 Ml Vial) 0 unit SUBCUT QIDACHS [facility]; Protocol Last Admin: 09/08/22 08:08 Dose: 4 unit Documented By: MERYL Insulin Human Lispro (Insulin Lispro 100 Unit/Ml 3 Ml Vial) 5 unit SUBCUT QIDACHS [facility] Last Admin: 09/08/22 08:08 Dose: 5 unit Documented By: MERYL Levothyroxine Sodium (Levothyroxine Sodium 25 Mcg Tablet) 25 mcg PO DAILY@0600 [facility] Last Admin: 09/08/22 05:27 Dose: 25 mcg Documented By: EDGARDO Melatonin (Melatonin 3 Mg Tablet) 6 mg PO BEDTIME PRN PRN Reason: Insomnia Last Admin: 09/05/22 20:56 Dose: 6 mg Documented By: KT Metoprolol Tartrate (Metoprolol Tartrate 25 Mg Tablet) 25 mg PO BID [facility]; Protocol Ondansetron HCl (Ondansetron Hcl 4 Mg/2 Ml Vial) 4 mg IVPUSH Q8H PRN PRN Reason: Nausea and Vomiting Polyethylene Glycol (Polyethylene Glycol 3350 17 Gm Powd.Pack) 17 gm PO DAILY [facility] Last Admin: 09/08/22 08:07 Dose: 17 gm Documented By: MERYL Sodium Chloride (0.9 % Sodium Chloride Flush 3 Ml Syringe) 3 ml IVFLUSH QSHIFT [facility] Last Admin: 09/08/22 08:07 Dose: 3 ml Documented By: MERYL Labs 09/08/22 06:35 09/08/22 06:35 Labs: Laboratory Results - last 24 hr 09/07/22 09/07/22 09/07/22 10:49 15:55 19:42 MCV MCH MCHC RDW Plt Count MPV Absolute Nucleated RBC Nucleated RBC % (auto) Anion Gap Estim Creat Clear Calc Estimated GFR POC Glucose 173 H 136 H 165 H Random Glucose Calcium 09/08/22 09/08/22 09/08/22 03:30 06:35 06:35 MCV 96.4 MCH 28.8 MCHC 29.9 L RDW 15.5 Plt Count 314 MPV 8.6 L Absolute Nucleated RBC 0.000 Nucleated RBC % (auto) 0.0 Anion Gap 19 Estim Creat Clear Calc 45.2 Estimated GFR > 60 POC Glucose 152 H Random Glucose 200 H Calcium 9.1 09/08/22 07:04 MCV MCH MCHC RDW Plt Count MPV Absolute Nucleated RBC Nucleated RBC % (auto) Anion Gap Estim Creat Clear Calc Estimated GFR POC Glucose 226 H Random Glucose Calcium Microbiology Microbiology Results: Microbiology 09/01/22 22:05 Gram Stain - Final Thoracentesis Fluid Anaerobic Culture - Final NO GROWTH AFTER 5 DAYS Body Fluid Culture - Final No growth after 2 days Assessment and Plan (1) Pleural effusion: Status: Acute (2) Persistent atrial fibrillation: Status: Acute (3) Pneumonia involving left lung: Status: Acute (4) Hypernatremia: Status: Acute Plan 82-year-old female with a PMH significant for?HFpEF, chronic AFib on Xarelto, hypothyroidism, aortic stenosis, non insulin-dependent diabetes type 2, and GERD who presents to the ED from SNF via EMS with?shortness of breath and dyspnea found to have collapse of left lung/left pleural effusion requiring chest tube placement. Course complicated by hypotension requiring brief transfer to ICU early am of 09/06, downgraded back to medical floor later the same day. Acute hypoxic respiratory failure related to pleural effusion and pneumonia CT of chest with large left pleural effusion with complete collapse of the left lung with deviated mediastinum to the right s/p chest tube placement in ED 09/01 pleural serology, cultures>no growth continue TPA for fibrinolysis per CT surgery, plan to complete 6 days and then repeat chest CT on Sunday CT surgery following Pulmonology initially planned for bronch, but since cancelled due to episode of hypotension. no plan for bronch at this time due, risk outweighs benefit continue to hold xarelto continue unasyn started 09/02 wean oxygen as tolerated sepsis secondary to pneumonia treatment as above acute hypernatremia will start gentle D5w repeat sodium this afternoon Afib with RVR. HR uncontrolled today s/p IV cardizem drip - transitioned to oral metoprolol and digoxin. will increase dose of metoprolol amiodarone d/c AC on hold due to chest tube/receiving thrombolysis and possible need for f urther intervention HFpEF not in acute exacerbation Patient with chronic lower leg edema, chronically elevated BNP Monitor volume status severe aortic stenosis>not a candidate for TAVR as per cardiology baseline lasix on hold Avh-oindqev-mzsdovepe diabetes type 2 SSI, ADA diet chronic normocytic anemia follow CBC Thrombocytosis. Resolved Patient's platelets 622 at time of presentation, up from baseline of around 250 Likely reactive Hypothyroidism Continue levothyroxine DNR/DNI Attending:?Dr. Ortiz DVT Prophylaxis:? Pneumatic boots dispo - return to [facility] when medically ready continue hospital stay for treatment and further management of left-sided pleural effusion with complete collapse of her left lung and chest tube management, IV abx and close monitoring of respiratory status Time Spent With Patient Time: Total time managing care of this patient today ____ minutes. Quality Stroke Does the patient have a stroke diagnosis?: No VTE Prior VTE?: No VTE Risk Level:: Medical - moderate - high VTE Device Contraindication: N/A - Device Ordered VTE Drug Contraindication: Treatment Not Indicated
[2022-09-08] MEDS: Dextrose 5 % 1,000 ML 75 ML IVCONT (11:05)
[2022-09-08 11:09] LABS: Glucose, Whole Blood 186 mg/dL (60-115)
[2022-09-08 11:13] VITALS: BP 144/63; PULSE 100; RESP 20; TEMP 37.1; O2SAT 97
--- NOTE | 2022-09-08 11:28 | MHC.CM.PN ---
PER MD ROUNDS, PT WILL LIKEY NOT BE READY TO DC BEFORE SUNDAY DCP: RETURN TO LTC AT [facility] V[facility] BLS HCP/AIDA GARAY [phone]
--- NOTE | 2022-09-08 12:47 | P.CDIM_ITS ---
PROVIDER RESPONSE TEXT: To clarify, the appropriate diagnosis supported by the clinical indicators: stage 2 pressure ulcer coccyx, please specify if present on admission QUERY TEXT: PHYSICIAN'S DOCUMENTATION REQUEST Date of Query: 09/08/2022 12:25 PM EDT Patient Name: Noemi Hall Admit Date: 09/02/2022 Dear María Elena Sanders, A review of the medical record indicates additional documentation may be needed. Please review below and update the documentation accordingly. Clinical Indicators: The following diagnoses or signs and symptoms were noted in the patient record: ER Physician Documentation 09/01/22 and H&P 09/01/22 without notation of pressure ulcer Per Pressure Injury Assessment dated 09/02/22: Stage 2 wound coccyx Based on the above, could you clarify the appropriate diagnosis, if significant, that supports the ab ove abnormalities and additional evaluation, monitoring, and/or treatment rendered: stage 2 pressure ulcer coccyx, please specify if present on admission Other type of skin ulcer, please specify Other (explain)Clinically unable to determine (explain)Thank you, Martha Day RN Use of terms such as suspected, likely, concern for, or probable (associated with a specific diagnosi s that is being evaluated, monitored, or treated as if it exists) are acceptable and can be coded in the inpatient se tting, when documented at the time of discharge. Please use your independent medical judgment in providing your response. THIS QUERY IS PART OF THE PERMANENT MEDICAL RECORD
--- NOTE | 2022-09-08 13:27 | MHC.CLN ---
F/U PREVIOUS PO INTAKE 25-50% DIET RX: 2000DM GRD- RECOMMEND 2GM NA DIABETIC 1800KCAL TO MEET NEEDS PT WITH STAGE II PRESSURE INJURY TO COCCYX RE-START ENSURE MAX PROTEIN BID WITH DIET TO PROMOTE WOUND HEALING TO PROVIDE 300 KCALS, 60 G PROTEIN FOLLOW FOR PO INTAKE, BLOOD GLUCOSE, AND WOUND HEALING
[2022-09-08 15:09] VITALS: BP 116/57; PULSE 101; RESP 20; TEMP 36.8; O2SAT 98
--- NOTE | 2022-09-08 15:18 | P.PNTS_ITS ---
Subjective Subjective Date of Service: 09/08/22 Interval history: Patient appears more awake and alert than the previous week.? She denies any shortness of breath at rest, fever, chills and overall has no complaints at this time.? Events: patient received 4th round of bedside fibrinolysis to date with significant improvement of aearation of the left lung. CT scan performed on 09/07/22 continues to show a left hydro pneumothorax with a moderate loculated effusion. leukocytosis improved to 11K Patient will receive her 5th round today. Physical Exam Vital Signs: Vital Signs: Last Vital Signs Temp 98.2 F 09/08/22 15:09 Pulse 101 H 09/08/22 15:09 Resp 20 09/08/22 15:09 BP 116/57 L 09/08/22 15:09 Pulse Ox 98 09/08/22 15:09 O2 Del Method Nasal Cannula 09/08/22 15:09 O2 Flow Rate 2 09/08/22 15:09 Oxygen Flow Rate 4 09/01/22 15:58 BMI result Body Mass Index 31.5 Vital signs as documented.? Oxygen delivery method 2LNC. General: pt appears bright, sitting up in bed and talkative. Head: Normocephalic, atraumatic, & symmetric Cardiovascular: Iregular rate and rhythm? Respiratory: Equal breath sounds bilaterally, diminished at bases bilaterally, no rhonchi or crackles, breathing nonlabored, speaking in full sentences, on 2L NC? with O2 sat of 98% . Left CT to -30 mm Hg with no air leak and total drainage of straw colored fluid of 290 cc.? Gastrointestinal: Soft, mildly-tender, non-distended, + bowel sounds. Skin: Warm and dry throughout, no rashes Extremities: BUE and BLE with +2 edema, venous insufficency changes noted at ankles and no calf tenderness bilaterally Neurological: Alert Genitourinary: Purewick catheter in place Psychiatric: No agitation.? She is child like in demeanor CXR: IMPRESSION: Redemonstrated small left hydropneumothorax with suspected interval decrease in pleural fluid compared to prior. Redemonstrated left basilar parenchymal opacity. ? Micro: BC No growth - final. Pleural Fluid - No organisma - final Labs: WBC: 11K Procedures Date of Service Date of Service: 09/08/22 Progress Note: A&P Assessment and plan (1) Pneumonia involving left lung: Status: Acute Plan Plan 82 y/o female with likely NHAP, complicated with pleural effusion and collapse of left lung causing acute respiratory hypoxia * Patient's oxygenation requirements down to 2 L NC O2 sats @ 97%. * Continue Chest tube to -30 mm Hg suction.? Monitor drainage .? No air leak.? Daily CXR. * tPA,dornase for thrombolysis instilled today for 1.5/4 hour dwell.? RN instructed to unclamp at 4 hour billy or [address] to - 30 mm Hg.? to facilitate additional pleural drainage.? Will monitor drainage and plan repeating tomorrow. * Continue broad-spectrum antibiotic coverage.? pt on Unasyn.? Leukocytosis improving.? BC X 2 final and no growth. * Anticoagulation being held at this time due to antifibrinolysis therapy. * ?Bronchoscopy on hold * All care and images discussed with Dr. Harrison Time Spent With Patient Time: Total time managing care of this patient today ____ minutes. Quality Stroke Does the patient have a stroke diagnosis?: No VTE Prior VTE?: No VTE Risk Level:: Medical - moderate - high VTE Device Contraindication: N/A - Device Ordered VTE Drug Contraindication: Treatment Not Indicated
[2022-09-08 16:09] LABS: Glucose, Whole Blood 168 mg/dL (60-115)
--- NOTE | 2022-09-08 16:11 | HO.WOUND ---
Wound Care Consult Reason for consult: Pressure ulcer coccyx Patient has a stage III pressure ulcer on her coccyx. Sacral foam border was removed from wound at the time of consult. Wound bed appearance was medium red and medium slough/fibrin. Wound edges were well defined and attached. No drainage noted on dressing but was informed that dressing just has been applied due to a bowel movement. No odor noted. Surrounding skin was intact and pinkened. Wound measured 1cm x 1cm x 0.1cm. Wound was cleansed with sea clens. Zinc barrier cream applied and the 4x4 foam border applied. Recommendation: Cleanse area on the coccyx with normal saline or sea clens. If wound stays on the dryer side with minimal drainage, just keep clean and apply the barrier cream and cover with the small foam border to avoid skin irritation from the larger foam which is not needed due to the size of the wound. Change every other day and PRN with soiling. Patient already has airbed in place. Continue frequent position changes and increased protein intake. If on discharge patient is still in need for wound care services, appt can be made with the outpatient wound care clinic.
[2022-09-08] MEDS: Dornase Alfa 5 MG in 0.9 % Sodium Chloride 25 ML 30 MG INTRAPLEUR (17:05)
[2022-09-08 17:09] LABS: Anion Gap 13 (12-20); Blood Urea Nitrogen 19 mg/dL (9-16); Calcium 8.6 mg/dL (8.4-10.2); Carbon Dioxide 28 mmol/L (22-29); Chloride 110 mmol/L (96-108); Creatinine Clr Calc Pharmacy 52.4; Estimated Glomerular Filt Rate > 60; Glucose Random 173 mg/dL (60-115); Sodium 148 mmol/L (135-145)
[2022-09-08 19:06] VITALS: BP 121/61; PULSE 114; RESP 20; TEMP 36.4; O2SAT 97
[2022-09-08 19:31] LABS: Glucose, Whole Blood 116 mg/dL (60-115)
[2022-09-08] MEDS: Metoprolol Tartrate 25 MG TABLET PO (21:37)
[2022-09-08] MEDS: Dextrose 5 % 1,000 ML 100 ML IVCONT (21:37)
[2022-09-08] MEDS: Melatonin 3 MG TABLET 6 MG PO (21:37)
[2022-09-08] MEDS: traMADoL HCL 50 MG TABLET PO (23:31)
[2022-09-09] VITALS: BP 122/69; PULSE 88; RESP 18; TEMP 36.6; O2SAT 100
[2022-09-09 04:00] VITALS: BP 123/72; PULSE 105; RESP 20; TEMP 36.8; O2SAT 97
[2022-09-09] MEDS: Ampicillin Sodium/Sulbactam Na 3 GM in 0.9 % Sodium Chloride 100 ML IV ×3 (06:07→18:45)
[2022-09-09] MEDS: Levothyroxine Sodium 25 MCG TABLET PO (06:19)
[2022-09-09 07:39] VITALS: BP 135/66; PULSE 98; RESP 20; TEMP 36.8; O2SAT 100
[2022-09-09 07:40] LABS: Anion Gap 14 (12-20); Blood Urea Nitrogen 15 mg/dL (9-16); Calcium 8.5 mg/dL (8.4-10.2); Carbon Dioxide 28 mmol/L (22-29); Chloride 110 mmol/L (96-108); Creatinine Clr Calc Pharmacy 57.9; Estimated Glomerular Filt Rate > 60; Glucose Random 213 mg/dL (60-115); Potassium 3.1 mmol/L (3.3-5.1); Sodium 149 mmol/L (135-145)
[2022-09-09 07:53] LABS: Glucose, Whole Blood 213 mg/dL (60-115)
[2022-09-09] MEDS: polyethylene glycoL 3350 17 GM POWD.PACK PO (09:13)
[2022-09-09] MEDS: Metoprolol Tartrate 25 MG TABLET PO ×2 (09:13→21:26)
[2022-09-09] MEDS: Digoxin 0.125 MG TABLET PO (09:14)
[2022-09-09] MEDS: Potassium Chloride Packet 20 MEQ PACKET 40 MEQ PO (09:14)
[2022-09-09] MEDS: Insulin Lispro 100 UNIT/ML 3 ML VIAL SUBCUT ×6 (09:14→21:27)
[2022-09-09] MEDS: Acetaminophen 325 MG TABLET 650 MG PO (11:20)
[2022-09-09 11:54] VITALS: BP 115/59; PULSE 86; RESP 20; TEMP 36.8; O2SAT 98
[2022-09-09 12:04] LABS: Glucose, Whole Blood 237 mg/dL (60-115)
[2022-09-09 12:58] LABS: Anti Nuclear Antibody Screen NEGATIVE (NEGATIVE)
--- NOTE | 2022-09-09 14:34 | P.PNIM_ITS ---
Subjective Subjective Date of Service: 09/09/22 Interval History: seen and examined this morning follow up for left chest tube/pneumonia no overnight events patient awake, alert, sitting up in bed, talking in full sentences - noticed that the date on the board said August instead of September hopeful to leave the hospital soon. denies sob, cough Review of Systems Review of Systems: Yes all other systems are reviewed and are negative Constitutional Constitutional: Denies chills and Denies fever(s) Cardiovascular Cardiovascular: Denies chest pain, Denies palpitations and Denies dyspnea Respiratory Respiratory: Denies cough and Denies dyspnea Gastrointestinal Gastrointestinal: Denies constipation, Denies diarrhea, Denies nausea and Denies vomiting Endocrine Endocrine: Denies palpitations Physical Exam Vital Signs: Vital Signs: Last Vital Signs Temp 98.2 F 09/09/22 11:54 Pulse 86 09/09/22 11:54 Resp 20 09/09/22 11:54 BP 115/59 L 09/09/22 11:54 Pulse Ox 98 09/09/22 11:54 O2 Del Method Nasal Cannula 09/09/22 11:54 O2 Flow Rate 2 09/09/22 07:39 Oxygen Flow Rate 4 09/01/22 15:58 BMI result Body Mass Index 31.5 Const: General: cooperative, comfortable, no acute distress, alert and awake Nutritional Appearance: average body habitus and overweight Orientation/consciousness: patient oriented x3 Chest: Other: chest tube left chest wall clean dressing Resp: Other: dim left side Effort & Inspection: normal respiratory effort, able to speak in complete sentences, no respiratory distress and no use of accessory muscles Cardio: Rate: regular rate and tachycardic Heart sounds: S1 normal heart sound present, S2 normal heart sound present and Murmur heart sound present GI: Inspection: No distended Palpation (GI): Soft to palpation and nontende r : Other: galeas in place Neuro: General: patient oriented x3, moves all extremities and CN's II-XI intact bilaterally Extrem: Other: b/l pedal edema Objective Data Active Medications Acetaminophen (Acetaminophen 325 Mg Tablet) 650 mg PO Q6H PRN PRN Reason: Pain, Mild (Pain Scale 1-3) Last Admin: 09/09/22 11:20 Dose: 650 mg Documented By: KAREN Bisacodyl (Bisacodyl 10 Mg Supp.Rect) 10 mg [place] DAILY PRN PRN Reason: Constipation Digoxin (Digoxin 0.125 Mg Tablet) 0.125 mg PO DAILY [facility] Last Admin: 09/09/22 09:14 Dose: 0.125 mg Documented By: KAREN Docusate Sodium (Docusate Sodium 100 Mg Capsule) 100 mg PO BEDTIME [facility] Last Admin: 09/08/22 21:27 Dose: Not Given Documented By: SIVA Non-Admin Reason: Patient Refused Glucose (Glucose Gel 15 Gm Gel..Gram.) 15 gm PO Q15M PRN; Protocol PRN Reason: per Hypoglycemia Standing Ord. Ampicillin Sodium/Sulbactam (Sodium 3 gm/ Sodium Chloride) 100 mls @ 200 mls/hr IV Q6H [facility] Last Infusion: 09/09/22 13:36 Dose: 0 mls/hr Documented By: KAREN Dextrose (D10) 250 mls @ 750 mls/hr IV Q15M PRN; Protocol PRN Reason: per Hypoglycemia Standing Ord. Dextrose (D5w) 1,000 mls @ 100 mls/hr IVCONT .Q10H [facility] Last Admin: 09/09/22 09:15 Dose: Not Given Documented By: KAREN Non-Admin Reason: previuos bag running Insulin Human Lispro (Insulin Lispro 100 Unit/Ml 3 Ml Vial) 0 unit SUBCUT QIDACHS [facility]; Protocol Last Admin: 09/09/22 12:50 Dose: 4 unit Documented By: KAREN Insulin Human Lispro (Insulin Lispro 100 Unit/Ml 3 Ml Vial) 5 unit SUBCUT QIDACHS [facility] Last Admin: 09/09/22 12:51 Dose: 5 unit Documented By: KAREN Levothyroxine Sodium (Levothyroxine Sodium 25 Mcg Tablet) 25 mcg PO DAILY@0600 [facility] Last Admin: 09/09/22 06:19 Dose: 25 mcg Documented By: SIVA Melatonin (Melatonin 3 Mg Tablet) 6 mg PO BEDTIME PRN PRN Reason: Insomnia Last Admin: 09/08/22 21:37 Dose: 6 mg Documented By: SIVA Metoprolol Tartrate (Metoprolol Tartrate 25 Mg Tablet) 25 mg PO BID RAI; Pr otocol Last Admin: 09/09/22 09:13 Dose: 25 mg Documented By: KAREN Ondansetron HCl (Ondansetron Hcl 4 Mg/2 Ml Vial) 4 mg IVPUSH Q8H PRN PRN Reason: Nausea and Vomiting Polyethylene Glycol (Polyethylene Glycol 3350 17 Gm Powd.Pack) 17 gm PO DAILY [facility] Last Admin: 09/09/22 09:13 Dose: 17 gm Documented By: KAREN Sodium Chloride (0.9 % Sodium Chloride Flush 3 Ml Syringe) 3 ml IVFLUSH QSHIFT [facility] Last Admin: 09/09/22 09:15 Dose: Not Given Documented By: KAREN Non-Admin Reason: IV Running Labs 09/08/22 06:35 09/09/22 07:19 Labs: Laboratory Results - last 24 hr 09/04/22 09/08/22 09/08/22 10:46 16:06 16:43 Anion Gap 13 Estim Creat Clear Calc 52.4 Estimated GFR > 60 POC Glucose 168 H Random Glucose 173 H Calcium 8.6 Magnesium STEPHANIE Screen NEGATIVE 09/08/22 09/09/22 09/09/22 19:25 07:19 07:49 Anion Gap 14 Estim Creat Clear Calc 57.9 Estimated GFR > 60 POC Glucose 116 H 213 H Random Glucose 213 H Calcium 8.5 Magnesium 2.0 STEPHANIE Screen 09/09/22 11:59 Anion Gap Estim Creat Clear Calc Estimated GFR POC Glucose 237 H Random Glucose Calcium Magnesium STEPHANIE Screen Assessment and Plan (1) Hypernatremia: Status: Acute (2) Persistent atrial fibrillation: Status: Acute (3) Pneumonia involving left lung: Status: Acute Plan 82-year-old female with a PMH significant for?HFpEF, chronic AFib on Xarelto, hypothyroidism, aortic stenosis, non insulin-dependent diabetes type 2, and GERD who presents to the ED from SNF via EMS with?shortness of breath and dyspnea found to have collapse of left lung/left pleural effusion requiring chest tube placement. Course complicated by hypotension requiring brief transfer to ICU early am of 09/06, downgraded back to medical floor later the same day. Acute hypoxic respiratory failure related to pleural effusion and pneumonia CT of chest with large left pleural effusion with complete collapse of the left lung with deviated mediastinum to the right s/p chest tube placement in ED 09/01 pleural serology, cultures>no growth continue TPA for fibrinolysis per CT surgery, plan to complete 6 days and then repeat chest CT on Sunday Pulmonology initially planned for bronch, but since cancelled due to episode of hypotension. no plan for bronch at this time due, risk outweighs benefit continue to hold xarelto continue unasyn started 09/02 wean oxygen as tolerated sepsis secondary to pneumonia treatment as above acute hypernatremia will start gentle D5w monitor fluid status closely sodium still elevated, follow BMP hypokalemia likely related to decreased po intake encourage po intake replace potassium prn follow BMP Afib with RVR. HR under better control s/p IV cardizem drip - transitioned to oral metoprolol and digoxin. will increase dose of metoprolol amiodarone d/c AC on hold due to chest tube/receiving thrombolysis HFpEF not in acute exacerbation Patient with chronic lower leg edema, chronically elevated BNP Monitor volume status severe aortic stenosis>not a candidate for TAVR as per cardiology baseline lasix on hold [id number] diabetes type 2 SSI, ADA diet chronic normocytic anemia CBC stable Thrombocytosis. Resolved Patient's platelets 622 at time of presentation, up from baseline of around 250 Likely reactive Hypothyroidism Continue levothyroxine stage 3 pressure wound to coccyx present on admission continue ensure, airloss bed, frequent repositioning DNR/DNI Attending:?Dr. Norris DVT Prophylaxis:? Pneumatic boots dispo - return to [facility] when medically ready continue hospital stay for treatment and further management of left-sided pleural effusion with complete collapse of her left lung and chest tube management, IV abx and close monitoring of respiratory status and electrolytes Time Spent With Patient Time: Total time managing care of this patient today ____ minutes. Quality Stroke Does the patient have a stroke diagnosis?: No VTE Prior VTE?: No VTE Risk Level:: Medical - moderate - high VTE Device Contraindication: N/A - Device Ordered VTE Drug Contraindication: Treatment Not Indicated
[2022-09-09 15:02] VITALS: BP 109/54; PULSE 91; RESP 20; TEMP 36.7; O2SAT 95
[2022-09-09] MEDS: Omeprazole 20 MG CAPSULE.DR PO (15:50)
[2022-09-09] MEDS: Potassium Chloride Packet 20 MEQ PACKET PO (15:50)
[2022-09-09] MEDS: 0.9 % Sodium Chloride Flush 3 ML SYRINGE IVFLUSH (15:52)
[2022-09-09] MEDS: Dextrose 5 % 1,000 ML 100 ML IVCONT (15:57)
[2022-09-09 16:22] LABS: Glucose, Whole Blood 150 mg/dL (60-115)
--- NOTE | 2022-09-09 16:55 | PM.EVENT ---
Event Note Date of Service: 09/09/22 Event Note: Overnight after unclamping of chest tube and TPA administration chest tube out put was low only 100 cc which half was the intra pleural solution that was instilled. Will be holding off on further TPA at this time due to lack of benefit. Will F/U with chest CT tomorrow am and reassess. Time Spent With Patient Time: .
[2022-09-09 19:01] VITALS: BP 127/71; PULSE 109; RESP 20; TEMP 36.9; O2SAT 93
[2022-09-09 19:55] LABS: Glucose, Whole Blood 216 mg/dL (60-115)
[2022-09-09] MEDS: Melatonin 3 MG TABLET 6 MG PO (21:27)
[2022-09-10] VITALS (7 sets, daily range): BP systolic 112–135; BP diastolic 57–85; PULSE 84–108; RESP 16–20; TEMP 36.7–37.4; O2SAT 93–96
[2022-09-10] MEDS: Ampicillin Sodium/Sulbactam Na 3 GM in 0.9 % Sodium Chloride 100 ML IV ×4 (00:59→18:28)
[2022-09-10 06:17] LABS: Hematocrit 31.5 % (37.0-47.0); Hemoglobin 9.5 g/dl (12.0-16.0); Mean Corpuscular HGB Conc 30.2 g/dl (31.0-35.0); Mean Corpuscular Hemoglobin 28.7 pg (27.0-33.0); Mean Corpuscular Volume 95.2 fL (80.0-98.0); Mean Platelet Volume 8.5 fL (9.4-12.3); NRBC Pct Auto 0.3 /100WBC (0.0-0.2); Platelet Count 242 X10*3/uL (160-400); Red Blood Count 3.31 X10*6/uL (4.20-5.50); Red Cell Distribution Width 15.4 % (11.0-16.0)
[2022-09-10] MEDS: Omeprazole 20 MG CAPSULE.DR PO (06:31)
[2022-09-10] MEDS: Levothyroxine Sodium 25 MCG TABLET PO (06:31)
[2022-09-10 06:50] LABS: Anion Gap 14 (12-20); Blood Urea Nitrogen 15 mg/dL (9-16); Calcium 8.5 mg/dL (8.4-10.2); Carbon Dioxide 26 mmol/L (22-29); Chloride 110 mmol/L (96-108); Creatinine Clr Calc Pharmacy 65.6; Estimated Glomerular Filt Rate > 60; Glucose Random 179 mg/dL (60-115); Potassium 3.2 mmol/L (3.3-5.1); Sodium 147 mmol/L (135-145)
[2022-09-10 08:13] LABS: Glucose, Whole Blood 201 mg/dL (60-115)
[2022-09-10] MEDS: Insulin Lispro 100 UNIT/ML 3 ML VIAL SUBCUT ×4 (08:14→21:37)
[2022-09-10] MEDS: Metoprolol Tartrate 25 MG TABLET PO ×2 (08:15→21:37)
[2022-09-10] MEDS: Potassium Chloride ER 20 MEQ TAB.ER.PRT 40 MEQ PO (08:15)
[2022-09-10] MEDS: Digoxin 0.125 MG TABLET PO (08:15)
[2022-09-10] MEDS: 0.9 % Sodium Chloride Flush 3 ML SYRINGE IVFLUSH ×2 (08:15→17:11)
--- NOTE | 2022-09-10 11:08 | HO.PM.IMPN ---
Subjective Subjective Date of Service: 09/10/22 Interval History: seen and examined this morning follow up for left loculated pleural effusion/pneumonia having some diarrhea overnight, some epigastric discomfort -intermittent no sob Review of Systems Review of Systems: Yes all other systems are reviewed and are negative Constitutional Constitutional: Denies chills and Denies fever(s) ENT Ears, Nose, Mouth, and Throat: Denies dizziness Cardiovascular Cardiovascular: Denies chest pain, Denies palpitations and Denies dyspnea Respiratory Respiratory: Denies cough and Denies dyspnea Gastrointestinal Gastrointestinal: Reports abdominal pain, Reports diarrhea, Denies nausea and Denies vomiting Neurologic Neurologic: Denies dizziness Endocrine Endocrine: Denies palpitations Physical Exam Vital Signs: Vital Signs: Last Vital Signs Temp 98.8 F 09/10/22 10:52 Pulse 102 H 09/10/22 10:52 Resp 20 09/10/22 10:52 BP 112/57 L 09/10/22 10:52 Pulse Ox 93 09/10/22 10:52 O2 Del Method Room Air 09/10/22 10:52 O2 Flow Rate 2 09/09/22 07:39 Oxygen Flow Rate 4 09/01/22 15:58 BMI result Body Mass Index 31.5 Const: General: cooperative, comfortable, no acute distress, alert and awake Nutritional Appearance: average body habitus and overweight Orientation/consciousness: patient oriented x3 Chest: Other: chest tube left chest wall clean dressing Resp: Other: dim left side Effort & Inspection: normal respiratory effort, able to speak in complete sentences, no respiratory distress and no use of accessory muscles Cardio: Rate: regular rate Heart sounds: S1 normal heart sound present, S2 normal heart sound present and Murmur heart sound present GI: Other: no rebound Inspection: No distended Palpation (GI): Soft to palpation and nontender Neuro: General: patient oriented x3, moves all extremities and CN's II-XI intact bilaterally Extrem: Other: b/l pedal edema Objective Data Active Medications Acetaminophen (Acetaminophen 325 Mg Tablet) 650 mg PO Q6H PRN PRN Reason: Pain, Mild (Pain Scale 1-3) Last Admin: 09/09/22 11:20 Dose: 650 mg Documented By: KAREN Bisacodyl (Bisacodyl 10 Mg Supp.Rect) 10 mg [place] DAILY PRN PRN Reason: Constipation Digoxin (Digoxin 0.125 Mg Tablet) 0.125 mg PO DAILY [facility] Last Admin: 09/10/22 08:15 Dose: 0.125 mg Documented By: KAREN Docusate Sodium (Docusate Sodium 100 Mg Capsule) 100 mg PO BEDTIME [facility] Last Admin: 09/08/22 21:27 Dose: Not Given Documented By: SIVA Non-Admin Reason: Patient Refused Glucose (Glucose Gel 15 Gm Gel..Gram.) 15 gm PO Q15M PRN; Protocol PRN Reason: per Hypoglycemia Standing Ord. Ampicillin Sodium/Sulbactam (Sodium 3 gm/ Sodium Chloride) 100 mls @ 200 mls/hr IV Q6H [facility] Last Infusion: 09/10/22 09:30 Dose: 0 mls/hr Documented By: KAREN Dextrose (D10) 250 mls @ 750 mls/hr IV Q15M PRN; Protocol PRN Reason: per Hypoglycemia Standing Ord. Insulin Human Lispro (Insulin Lispro 100 Unit/Ml 3 Ml Vial) 0 unit SUBCUT QIDAS [facility]; Protocol Last Admin: 09/10/22 08:15 Dose: 4 unit Documented By: KAREN Insulin Human Lispro (Insulin Lispro 100 Unit/Ml 3 Ml Vial) 5 unit SUBCUT QIDAS [facility] Last Admin: 09/10/22 08:14 Dose: 5 unit Documented By: KAREN Levothyroxine Sodium (Levothyroxine Sodium 25 Mcg Tablet) 25 mcg PO DAILY@0600 [facility] Last Admin: 09/10/22 06:31 Dose: 25 mcg Documented By: SIVA Melatonin (Melatonin 3 Mg Tablet) 6 mg PO BEDTIME PRN PRN Reason: Insomnia Last Admin: 09/09/22 21:27 Dose: 6 mg Documented By: SIVA Metoprolol Tartrate (Metoprolol Tartrate 25 Mg Tablet) 25 mg PO BID [facility]; Protocol Last Admin: 09/10/22 08:15 Dose: 25 mg Documented By: KAREN Omeprazole (Omeprazole 20 Mg Capsule.) 20 mg PO DAILY@0630 [facility] Last Admin: 09/10/22 06:31 Dose: 20 mg Documented By: SIVA Ondansetron HCl (Ondansetron Hcl 4 Mg/2 Ml Vial) 4 mg IVPUSH Q8H PRN PRN Reason: Nausea and Vomiting Polyethylene Glycol (Polyethylene Glycol 3350 17 Gm Powd.Pack) 17 gm PO DAILY PRN PRN Reason: constipation Sodium Chloride (0.9 % Sodium Chloride Flush 3 Ml Syringe) 3 ml IVFLUSH QSHIFT [facility] Last Admin: 09/10/22 08:15 Dose: 3 ml Documented By: KAREN Labs 09/10/22 05:34 09/10/22 05:34 Labs: Laboratory Results - last 24 hr 09/04/22 09/09/22 09/09/22 10:46 11:59 16:16 MCV MCH MCHC RDW Plt Count MPV Absolute Nucleated RBC Nucleated RBC % (auto) Anion Gap Estim Creat Clear Calc Estimated GFR POC Glucose 237 H 150 H Random Glucose Calcium STEPHANIE Screen NEGATIVE STEPHANIE Titer TNP STEPHANIE Titer 2 TNP STEPHANIE Titer 3 TNP STEPHANIE Pattern TNP STEPHANIE Pattern 2 TNP STEPHANIE Pattern 3 TNP 09/09/22 09/10/22 09/10/22 19:48 05:34 05:34 MCV 95.2 MCH 28.7 MCHC 30.2 L RDW 15.4 Plt Count 242 MPV 8.5 L Absolute Nucleated RBC 0.020 H Nucleated RBC % (auto) 0.3 H Anion Gap 14 Estim Creat Clear Calc 65.6 Estimated GFR > 60 POC Glucose 216 H Random Glucose 179 H Calcium 8.5 STEPHANIE Screen STEPHANIE Titer STEPHANIE Titer 2 STEPHANIE Titer 3 STEPHANIE Pattern STEPHANIE Pattern 2 STEPHANIE Pattern 3 09/10/22 08:03 MCV MCH MCHC RDW Plt Count MPV Absolute Nucleated RBC Nucleated RBC % (auto) Anion Gap Estim Creat Clear Calc Estimated GFR POC Glucose 201 H Random Glucose Calcium STEPHANIE Screen STEPHANIE Titer STEPHANIE Titer 2 STEPHANIE Titer 3 STEPHANIE Pattern STEPHANIE Pattern 2 STEPHANIE Pattern 3 Assessment and Plan (1) Hypernatremia: Status: Acute (2) Pneumonia involving left lung: Status: Acute (3) Acute respiratory failure with hypoxia: Status: Acute Plan 82-year-old female with a PMH significant for?HFpEF, chronic AFib on Xarelto, hypothyroidism, aortic stenosis, non insulin-dependent diabetes type 2, and GERD who presents to the ED from SNF via EMS with?shortness of breath and dyspnea found to have collapse of left lung/left pleural effusion requiring chest tube placement. Course complicated by hypotension requiring brief transfer to ICU early am of 09/06, downgraded back to medical floor later the same day. Acute hypoxic respiratory failure related to pleural effusion and pneumonia CT of chest with large left pleural effusion with complete collapse of the left lung and deviated mediastinum to the right - s/p chest tube placement in ED 09/01 pleural serology, cultures>no growth continue TPA for fibrinolysis per CT surgery, s/p 5 days, repeat Chest CT 09/10 with similar appearance to 09/07 but significant improvement since 09/01 Pulmonology initially planned for bronch, but since cancelled due to episode of hypotension. no plan for bronch at this time due, risk outweighs benefit continue to hold xarelto continue unasyn started 09/02 - likely plan for 14 days wean oxygen as tolerated sepsis secondary to pneumonia treatment as above acute hypernatremia sodium improving gentle D5w monitor fluid status closely sodium still elevated, follow BMP diarrhea possibly antibiotic associated will hold laxitives less likely cdif as wbc has resolved hypokalemia likely related to decreased po intake mag 2.0 encourage po intake replace potassium prn follow BMP Afib with RVR. HR under better control s/p IV cardizem drip - transitioned to oral metoprolol and digoxin. dose of metoprolol increased amiodarone d/c AC on hold due to chest tube/receiving thrombolysis HFpEF not in acute exacerbation Patient with chronic lower leg edema, chronically elevated BNP severe aortic stenosis>not a candidate for TAVR as per cardiology baseline lasix on hold monitor fluid status while receiving IVF [id number] diabetes type 2 SSI, ADA diet chronic normocytic anemia CBC stable Thrombocytosis. Resolved Patient's platelets 622 at time of presentation, up from baseline of around 250 Likely reactive Hypothyroidism Continue levothyroxine stage 3 pressure wound to coccyx present on admission continue ensure, airloss bed, frequent repositioning DNR/DNI Attending:?Dr. Junior DVT Prophylaxis:? Pneumatic boots GI prophylaxis - omeprazole dispo - return to [facility] when medically ready continue hospital stay for treatment and further management of left-sided pleural effusion with complete collapse of her left lung and chest tube management, IV abx and close monitoring of respiratory status and electrolytes Time Spent With Patient Time: Total time managing care of this patient today ____ minutes. Quality Stroke Does the patient have a stroke diagnosis?: No VTE Prior VTE?: No VTE Risk Level:: Medical - moderate - high VTE Device Contraindication: N/A - Device Ordered VTE Drug Contraindication: Treatment Not Indicated
[2022-09-10 11:09] LABS: Glucose, Whole Blood 141 mg/dL (60-115)
[2022-09-10] MEDS: Famotidine/PF 20 MG/2 ML VIAL IVPUSH (11:44)
[2022-09-10] MEDS: Dextrose 5 % 500 ML 80 ML IVCONT (12:14)
--- NOTE | 2022-09-10 15:04 | P.PNTS_ITS ---
Subjective Subjective Date of Service: 09/10/22 Physical Exam Vital Signs: Vital Signs: Last Vital Signs Temp 98.8 F 09/10/22 10:52 Pulse 102 H 09/10/22 10:52 Resp 20 09/10/22 10:52 BP 112/57 L 09/10/22 10:52 Pulse Ox 93 09/10/22 10:52 O2 Del Method Room Air 09/10/22 10:52 O2 Flow Rate 2 09/09/22 07:39 Oxygen Flow Rate 4 09/01/22 15:58 BMI result Body Mass Index 31.5 Const: General: cooperative, comfortable, no acute distress, alert, awake and tired appearing Nutritional Appearance: average body habitus HEENT: Head: Yes normocephalic and Yes atraumatic Neck: Neck: Yes trachea midline, Yes supple and Yes no JVD Chest: Other: left-sided chest tube remains indwelling on -20 low wall suction with a 100 cc of serosanguineous fluid output overnight and no detectable air leak Chest palpation & inspection: other ( ) Resp: Effort & Inspection: decreased respiratory effort Auscultation: breath sounds absent on th left ( base) Cardio: Jugular venous distension: no JVD Rhythm: abnormal rhythm irregularly irregular Heart sounds: S1 normal heart sound present and Murmur heart sound present systolic late, decrescendo and crescendo GI: Auscultation: normal bowel sounds Skin: General skin exam: no rashes or lesions noted Neuro: General: moves all extremities Extrem: General: No clubbing, No cyanosis and Yes edema Procedures Date of Service Date of Service: 09/10/22 Progress Note: A&P Assessment and plan (1) Pneumonia involving left lung: Status: Acute Plan Plan 82 y/o female with likely NHAP, complicated with pleural effusion and collapse of left lung causing acute respiratory hypoxia * Chest tube lowered to -20 low wall suction.? Monitor drainage .? No air leak.? Daily CXR. * chest CT performed today shows similar size of left hydropneumothorax with fluid component smaller and gaseous component larger. * no plans at this time for any further bedside fibrinolysis patient has received intrapleuraltPA x5. * Continue broad-spectrum antibiotic coverage.? pt on Unasyn.? Leukocytosis improving.? BC X 2 final and no growth. * prophylactic Lovenox initiated * All care and images discussed with Dr. Harrison Time Spent With Patient Time: Total time managing care of this patient today ____ minutes. Quality Stroke Does the patient have a stroke diagnosis?: No VTE Prior VTE?: No VTE Risk Level:: Medical - moderate - high VTE Device Contraindication: N/A - Device Ordered VTE Drug Contraindication: Treatment Not Indicated
[2022-09-10 16:45] LABS: Glucose, Whole Blood 203 mg/dL (60-115)
[2022-09-10] MEDS: Enoxaparin Sodium 40 MG/0.4 ML SYRINGE SUBCUT (17:10)
[2022-09-10 20:41] LABS: Glucose, Whole Blood 251 mg/dL (60-115)
[2022-09-10] MEDS: Acetaminophen 325 MG TABLET 650 MG PO (21:37)
[2022-09-10] MEDS: Melatonin 3 MG TABLET 6 MG PO (21:37)
[2022-09-11] MEDS: Ampicillin Sodium/Sulbactam Na 3 GM in 0.9 % Sodium Chloride 100 ML IV ×2 (00:58→05:32)
[2022-09-11 03:08] VITALS: BP 113/69; PULSE 80; RESP 16; TEMP 36.9; O2SAT 100
[2022-09-11] MEDS: Levothyroxine Sodium 25 MCG TABLET PO (05:32)
[2022-09-11] MEDS: Omeprazole 20 MG CAPSULE.DR PO (05:32)
[2022-09-11 07:19] LABS: Glucose, Whole Blood 199 mg/dL (60-115)
[2022-09-11 07:22] LABS: Hematocrit 33.8 % (37.0-47.0); Hemoglobin 10.1 g/dl (12.0-16.0); Mean Corpuscular HGB Conc 29.9 g/dl (31.0-35.0); Mean Corpuscular Hemoglobin 29.1 pg (27.0-33.0); Mean Corpuscular Volume 97.4 fL (80.0-98.0); Mean Platelet Volume 8.8 fL (9.4-12.3); NRBC Pct Auto 0.3 /100WBC (0.0-0.2); Platelet Count 249 X10*3/uL (160-400); Red Blood Count 3.47 X10*6/uL (4.20-5.50); Red Cell Distribution Width 16.1 % (11.0-16.0); White Blood Count 7.6 X10*3/uL (4.8-10.8)
--- NOTE | 2022-09-11 07:29 | PC.NURSE ---
at approximately 0600, this RN found an airleak coming from chest tube near the patient's chest tube dressing. Excessive bubbling in chamber. An audible air leak was auscultated. at this time, no crepitus or increased work of breathing was noted from patient. Thoracic MD concrete building assembler was notified. With assist of nursing supervisor audit clerks, chest tube dressing was changed in order to seal air leak. Bright red drainage coming into tubing where previously, the drainage was serosang. Patient was placed on 4L NC to maintain oxygen saturation. Sutures still in place. Resp 18, 02 100% 4L NC. CXR was ordered by hospitalist.
[2022-09-11 07:35] VITALS: BP 148/72; PULSE 83; RESP 20; TEMP 36.3; O2SAT 100
[2022-09-11 07:47] LABS: Anion Gap 17 (12-20); Blood Urea Nitrogen 14 mg/dL (9-16); Calcium 8.5 mg/dL (8.4-10.2); Carbon Dioxide 24 mmol/L (22-29); Chloride 110 mmol/L (96-108); Creatinine Clr Calc Pharmacy 61.5; Estimated Glomerular Filt Rate > 60; Glucose Random 206 mg/dL (60-115); Sodium 148 mmol/L (135-145)
[2022-09-11] MEDS: 0.9 % Sodium Chloride Flush 3 ML SYRINGE IVFLUSH ×3 (08:18→21:47)
[2022-09-11] MEDS: Insulin Lispro 100 UNIT/ML 3 ML VIAL SUBCUT ×6 (08:19→21:47)
[2022-09-11] MEDS: Potassium Chloride ER 20 MEQ TAB.ER.PRT 40 MEQ PO (08:20)
[2022-09-11] MEDS: Metoprolol Tartrate 25 MG TABLET PO ×2 (08:20→21:47)
[2022-09-11] MEDS: Digoxin 0.125 MG TABLET PO (08:20)
--- NOTE | 2022-09-11 08:34 | P.PNTS_ITS ---
Subjective Subjective Date of Service: 09/11/22 Interval history: I was contacted to assess chest tube this morning is nursing reported chest tube had become dislodged and 1 of the port holes was visible. On my examination this was in fact the case. Overnight her chest tube had no fluid output. Her left-sided chest tube was removed without incident and dry occlusive dressing put in place which which remain in place for 48 hours. Patient denies any shortness of breath or changes to her breathing. Physical Exam Vital Signs: Vital Signs: Last Vital Signs Temp 97.3 F 09/11/22 07:35 Pulse 83 09/11/22 07:35 Resp 20 09/11/22 07:35 BP 148/72 H 09/11/22 07:35 Pulse Ox 100 09/11/22 07:35 O2 Del Method Nasal Cannula 09/11/22 07:35 O2 Flow Rate 7 09/11/22 07:35 Oxygen Flow Rate 4 09/01/22 15:58 BMI result Body Mass Index 31.5 Const: General: cooperative, comfortable, no acute distress, alert, awake and tired appearing Nutritional Appearance: average body habitus HEENT: Head: Yes normocephalic and Yes atraumatic Neck: Neck: Yes trachea midline, Yes supple and Yes no JVD Chest: Chest palpation & inspection: other ( ) Resp: Effort & Inspection: decreased respiratory effort Auscultation: breath sounds absent on th left ( base) Cardio: Jugular venous distension: no JVD Rhythm: abnormal rhythm irregularly irregular Heart sounds: S1 normal heart sound present and Murmur heart sound present systolic late, decrescendo and crescendo GI: Auscultation: normal bowel sounds Skin: General skin exam: no rashes or lesions noted Neuro: General: moves all extremities Extrem: General: No clubbing, No cyanosis and Yes edema Procedures Date of Service Date of Service: 09/11/22 Progress Note: A&P Assessment and plan (1) Pneumonia involving left lung: Status: Acute Plan Plan 82 y/o female with likely NHAP, complicated with pleural effusion and collapse of left lung causing acute respiratory hypoxia * Chest tube lowered to -20 low wall suction.? Monitor drainage .? No air leak.? Daily CXR. * I was contacted to assess chest tube this morning is nursing reported chest tube had become dislodged and 1 of the port holes was visible. On my examination this was in fact the case. Overnight her chest tube had no fluid output. Her left-sided chest tube was removed without incident and dry occlusive dressing put in place which which remain in place for 48 hours. * Will follow-up with chest x-ray. * Continue broad-spectrum antibiotic coverage.? pt on Unasyn.? Leukocytosis improving.? BC X 2 final and no growth. * prophylactic Lovenox initiated * All care and images discussed with Dr. Harrison Time Spent With Patient Time: Total time managing care of this patient today ____ minutes. Quality Stroke Does the patient have a stroke diagnosis?: No VTE Prior VTE?: No VTE Risk Level:: Medical - moderate - high VTE Device Contraindication: N/A - Device Ordered VTE Drug Contraindication: Treatment Not Indicated
[2022-09-11 11:15] VITALS: BP 124/64; PULSE 86; RESP 18; TEMP 36.7; O2SAT 100
[2022-09-11 11:23] LABS: Glucose, Whole Blood 196 mg/dL (60-115)
--- NOTE | 2022-09-11 12:02 | HO.PM.IMPN ---
Subjective Subjective Date of Service: 09/11/22 Interval History: seen and examined this morning follow up for left loculated pleural effusion/pneumonia having some diarrhea overnight, some epigastric discomfort -intermittent no sob Review of Systems Review of Systems: Yes all other systems are reviewed and are negative Constitutional Constitutional: Denies chills and Denies fever(s) ENT Ears, Nose, Mouth, and Throat: Denies dizziness Cardiovascular Cardiovascular: Denies chest pain, Denies palpitations and Denies dyspnea Respiratory Respiratory: Denies cough and Denies dyspnea Gastrointestinal Gastrointestinal: Reports abdominal pain, Reports diarrhea, Denies nausea and Denies vomiting Neurologic Neurologic: Denies dizziness Endocrine Endocrine: Denies palpitations Physical Exam Vital Signs: Vital Signs: Last Vital Signs Temp 98.0 F 09/11/22 11:15 Pulse 86 09/11/22 11:15 Resp 18 09/11/22 11:15 BP 124/64 09/11/22 11:15 Pulse Ox 100 09/11/22 11:15 O2 Del Method Nasal Cannula 09/11/22 11:15 O2 Flow Rate 5 09/11/22 11:15 Oxygen Flow Rate 4 09/01/22 15:58 BMI result Body Mass Index 31.5 Appearing in no acute distress lung sounds are clear to auscultation heart regular rate rhythm, clear S1, S2 positive bowel sounds, abdomen is soft, nontender neuro patient is alert x3, no focal deficits Objective Data Active Medications Acetaminophen (Acetaminophen 325 Mg Tablet) 650 mg PO Q6H PRN PRN Reason: Pain, Mild (Pain Scale 1-3) Last Admin: 09/10/22 21:37 Dose: 650 mg Documented By: SIVA Bisacodyl (Bisacodyl 10 Mg Supp.Rect) 10 mg [place] DAILY PRN PRN Reason: Constipation Digoxin (Digoxin 0.125 Mg Tablet) 0.125 mg PO DAILY [facility] Last Admin: 09/11/22 08:20 Dose: 0.125 mg Documented By: KAREN Docusate Sodium (Docusate Sodium 100 Mg Capsule) 100 mg PO BEDTIME [facility] Last Admin: 09/08/22 21:27 Dose: Not Given Documented By: SIVA Non-Admin Reason: Patient Refused Enoxaparin Sodium (Enoxaparin Sodium 40 Mg/0.4 Ml Syringe) 40 mg SUBCUT Q24H [facility] Last Admin: 09/10/22 17:10 Dose: 40 mg Documented By: KAREN Glucose (Glucose Gel 15 Gm Gel..Gram.) 15 gm PO Q15M PRN; Protocol PRN Reason: per Hypoglycemia Standing Ord. Ampicillin Sodium/Sulbactam (Sodium 3 gm/ Sodium Chloride) 100 mls @ 200 mls/hr IV Q6H [facility] Last Infusion: 09/11/22 08:46 Dose: 0 mls/hr Documented By: KAREN Dextrose (D10) 250 mls @ 750 mls/hr IV Q15M PRN; Protocol PRN Reason: per Hypoglycemia Standing Ord. Insulin Human Lispro (Insulin Lispro 100 Unit/Ml 3 Ml Vial) 0 unit SUBCUT QIDAS [facility]; Protocol Last Admin: 09/11/22 08:19 Dose: 2 unit Documented By: KAREN Insulin Human Lispro (Insulin Lispro 100 Unit/Ml 3 Ml Vial) 5 unit SUBCUT QIDAS [facility] Last Admin: 09/11/22 08:19 Dose: 5 unit Documented By: KAREN Levothyroxine Sodium (Levothyroxine Sodium 25 Mcg Tablet) 25 mcg PO DAILY@0600 [facility] Last Admin: 09/11/22 05:32 Dose: 25 mcg Documented By: SIVA Melatonin (Melatonin 3 Mg Tablet) 6 mg PO BEDTIME PRN PRN Reason: Insomnia Last Admin: 09/10/22 21:37 Dose: 6 mg Documented By: SIVA Metoprolol Tartrate (Metoprolol Tartrate 25 Mg Tablet) 25 mg PO BID [facility]; Protocol Last Admin: 09/11/22 08:20 Dose: 25 mg Documented By: KAREN Omeprazole (Omeprazole 20 Mg Capsule.) 20 mg PO DAILY@0630 [facility] Last Admin: 09/11/22 05:32 Dose: 20 mg Documented By: SIVA Ondansetron HCl (Ondansetron Hcl 4 Mg/2 Ml Vial) 4 mg IVPUSH Q8H PRN PRN Reason: Nausea and Vomiting Sodium Chloride (0.9 % Sodium Chloride Flush 3 Ml Syringe) 3 ml IVFLUSH QSHIFT [facility] Last Admin: 09/11/22 08:18 Dose: 3 ml Documented By: HO.CTORRZ Labs 09/11/22 06:58 09/11/22 06:58 Labs: Laboratory Results - last 24 hr 09/10/22 09/10/22 09/11/22 16:40 20:38 06:58 MCV 97.4 MCH 29.1 MCHC 29.9 L RDW 16.1 H Plt Count 249 MPV 8.8 L Absolute Nucleated RBC 0.020 H Nucleated RBC % (auto) 0.3 H Anion Gap Estim Creat Clear Calc Estimated GFR POC Glucose 203 H 251 H Random Glucose Calcium 09/11/22 09/11/22 09/11/22 06:58 07:14 11:15 MCV MCH MCHC RDW Plt Count MPV Absolute Nucleated RBC Nucleated RBC % (auto) Anion Gap 17 Estim Creat Clear Calc 61.5 Estimated GFR > 60 POC Glucose 199 H 196 H Random Glucose 206 H Calcium 8.5 Assessment and Plan (1) Hypernatremia: Status: Acute (2) Pneumonia involving left lung: Status: Acute (3) Acute respiratory failure with hypoxia: Status: Acute Plan 82-year-old female with a PMH significant for?HFpEF, chronic AFib on Xarelto, hypothyroidism, aortic stenosis, non insulin-dependent diabetes type 2, and GERD who presents to the ED from SNF via EMS with?shortness of breath and dyspnea found to have collapse of left lung/left pleural effusion requiring chest tube placement. Course complicated by hypotension requiring brief transfer to ICU early am of 09/06, downgraded back to medical floor later the same day. Acute hypoxic respiratory failure related to pleural effusion and pneumonia CT of chest with large left pleural effusion with complete collapse of the left lung and deviated mediastinum to the right - s/p chest tube placement in ED 09/01 pleural serology, cultures>no growth continue TPA for fibrinolysis per CT surgery, s/p 5 days, repeat Chest CT 09/10 with similar appearance to 09/07 but significant improvement since 09/01 Pulmonology initially planned for bronch, but since cancelled due to episode of hypotension. no plan for bronch at this time due, risk outweighs benefit continue to hold xarelto continue unasyn started 09/02 - likely plan for 14 days wean oxygen as tolerated chest tube removed as per CT surg hypokalemia likely related to decreased po intake mag 2.0 encourage po intake replace potassium prn follow BMP acute hypernatremia sodium improving gentle D5w monitor fluid status closely sodium still elevated, follow BMP sepsis secondary to pneumonia resolved treatment as above diarrhea possibly antibiotic associated will hold laxitives less likely cdif as wbc has resolved Afib with RVR. HR under better control s/p IV cardizem drip - transitioned to oral metoprolol and digoxin. dose of metoprolol increased amiodarone d/c AC on hold due to chest tube/receiving thrombolysis HFpEF not in acute exacerbation Patient with chronic lower leg edema, chronically elevated BNP severe aortic stenosis>not a candidate for TAVR as per cardiology baseline lasix on hold monitor fluid status while receiving IVF Cey-raynkrc-oinjoqyrx diabetes type 2 SSI, ADA diet chronic normocytic anemia CBC stable Thrombocytosis. Resolved Patient's platelets 622 at time of presentation, up from baseline of around 250 Likely reactive Hypothyroidism Continue levothyroxine stage 3 pressure wound to coccyx present on admission continue ensure, airloss bed, frequent repositioning DNR/DNI Attending:?Dr. Junior DVT Prophylaxis:? Pneumatic boots GI prophylaxis - omeprazole dispo - return to [facility] when medically ready continue hospital stay for treatment and further management of left-sided pleural effusion with complete collapse of her left lung and chest tube management, IV abx and close monitoring of respiratory status and electrolytes Time Spent With Patient Time: Total time managing care of this patient today ____ minutes. Quality Stroke Does the patient have a stroke diagnosis?: No VTE Prior VTE?: No VTE Risk Level:: Medical - moderate - high VTE Device Contraindication: N/A - Device Ordered VTE Drug Contraindication: Treatment Not Indicated
--- NOTE | 2022-09-11 13:42 | MHC.CLN ---
F/U PREVIOUS PO INTAKE 0-25% DIET RX: 1800DM 2GM NA GRD M/S-APPROPRIATE PT WITH STAGE II PRESSURE INJURY TO COCCYX PT RECEIVING ENSURE MAX PROTEIN BID WITH DIET TO PROMOTE WOUND HEALING TO PROVIDE 300 KCALS, 60 G PROTEIN WILL ADD THRIVE ICE CREAM WITH MEALS TO INCREASE PO FOLLOW FOR PO INTAKE, BLOOD GLUCOSE, AND WOUND HEALING
--- NOTE | 2022-09-11 14:02 | MHC.CM.PN ---
Addendum entered by Liudmila Lira 09/11/22 16:27: AIDA CALLED AND HAS ASKED FOR A REFERRAL STATUS ON [facility]. NO RESPONSE YET. CM ENCOURAGED AIDA TO HAVE A CONVERSATION WITH [facility] ABOUT HER DIS-SATISFACTION . SHE IS AGREEABLE. CM WILL CONTINUE TO FOLLOW Original Note: EMR REVIEWED AND PER MD ROUNDS, PT IS NOT MEDICALLY CLEARED FOR DC TODAY (LEFT HYDROPNEUMOTHORAX , PLEURAL EFFUSION, S/P REMOVAL OF CHEST TUBE, RESPIRATORY MONITORING) [facility] UPDATED ON STATUS. CM WILL CONTINUE TO FOLLOW FOR ANY CHANGE IN DC NEEDS/PLAN.
[2022-09-11 16:00] VITALS: BP 117/57; PULSE 102; RESP 19; TEMP 37.1; O2SAT 98
[2022-09-11 16:39] LABS: Glucose, Whole Blood 171 mg/dL (60-115)
[2022-09-11] MEDS: Enoxaparin Sodium 40 MG/0.4 ML SYRINGE SUBCUT (17:00)
[2022-09-11] MEDS: Acetaminophen 325 MG TABLET 650 MG PO (17:03)
[2022-09-11 20:00] VITALS: BP 112/57; PULSE 88; RESP 17; TEMP 37; O2SAT 97
[2022-09-11 20:33] LABS: Glucose, Whole Blood 182 mg/dL (60-115)
[2022-09-12] VITALS (7 sets, daily range): BP systolic 115–144; BP diastolic 55–64; PULSE 80–97; RESP 19–20; TEMP 35.7–37.9; O2SAT 97–100
[2022-09-12] MEDS: Levothyroxine Sodium 25 MCG TABLET PO (05:22)
[2022-09-12] MEDS: Omeprazole 20 MG CAPSULE.DR PO (05:22)
[2022-09-12] MEDS: Acetaminophen 325 MG TABLET 650 MG PO ×3 (05:25→18:08)
[2022-09-12 07:06] LABS: Glucose, Whole Blood 187 mg/dL (60-115)
[2022-09-12 07:16] LABS: Anion Gap 13 (12-20); Blood Urea Nitrogen 17 mg/dL (9-16); Calcium 8.3 mg/dL (8.4-10.2); Carbon Dioxide 26 mmol/L (22-29); Chloride 112 mmol/L (96-108); Creatinine Clr Calc Pharmacy 65.6; Estimated Glomerular Filt Rate > 60; Glucose Random 182 mg/dL (60-115); Potassium 3.2 mmol/L (3.3-5.1); Sodium 148 mmol/L (135-145)
[2022-09-12] MEDS: 0.9 % Sodium Chloride Flush 3 ML SYRINGE IVFLUSH ×3 (08:09→20:58)
[2022-09-12] MEDS: Insulin Lispro 100 UNIT/ML 3 ML VIAL SUBCUT ×6 (08:09→17:34)
[2022-09-12] MEDS: Potassium Chloride Packet 20 MEQ PACKET 40 MEQ PO ×2 (08:09→20:56)
[2022-09-12] MEDS: Digoxin 0.125 MG TABLET PO (08:10)
[2022-09-12] MEDS: Metoprolol Tartrate 25 MG TABLET PO ×2 (08:10→20:56)
[2022-09-12 11:16] LABS: Glucose, Whole Blood 182 mg/dL (60-115)
--- NOTE | 2022-09-12 11:27 | P.PNIM_ITS ---
Subjective Subjective Date of Service: 09/12/22 Interval History: seen and examined this morning follow up for left loculated pleural effusion/pneumonia feeling better Review of Systems Review of Systems: Yes all other systems are reviewed and are negative Constitutional Constitutional: Denies chills and Denies fever(s) ENT Ears, Nose, Mouth, and Throat: Denies dizziness Cardiovascular Cardiovascular: Denies chest pain, Denies palpitations and Denies dyspnea Respiratory Respiratory: Denies cough and Denies dyspnea Gastrointestinal Gastrointestinal: Reports abdominal pain, Reports diarrhea, Denies nausea and Denies vomiting Neurologic Neurologic: Denies dizziness Endocrine Endocrine: Denies palpitations Physical Exam Vital Signs: Vital Signs: Last Vital Signs Temp 97.4 F 09/12/22 07:21 Pulse 96 09/12/22 07:21 Resp 20 09/12/22 07:21 BP 136/63 09/12/22 07:21 Pulse Ox 100 09/12/22 07:21 O2 Del Method Nasal Cannula 09/12/22 07:21 O2 Flow Rate 5 09/12/22 07:21 Oxygen Flow Rate 4 09/01/22 15:58 BMI result Body Mass Index 31.5 Appearing in no acute distress lung sounds are clear to auscultation heart regular rate rhythm, clear S1, S2 positive bowel sounds, abdomen is soft, nontender neuro patient is alert x3, no focal deficits Objective Data Active Medications Acetaminophen (Acetaminophen 325 Mg Tablet) 650 mg PO Q6H PRN PRN Reason: Pain, Mild (Pain Scale 1-3) Last Admin: 09/12/22 10:38 Dose: 650 mg Documented By: JEREL Bisacodyl (Bisacodyl 10 Mg Supp.Rect) 10 mg [place] DAILY PRN PRN Reason: Constipation Digoxin (Digoxin 0.125 Mg Tablet) 0.125 mg PO DAILY [facility] Last Admin: 09/12/22 08:10 Dose: 0.125 mg Documented By: JEREL Docusate Sodium (Docusate Sodium 100 Mg Capsule) 100 mg PO BEDTIME [facility] Last Admin: 09/08/22 21:27 Dose: Not Given Documented By: SIVA Non-Admin Reason: Patient Refused Enoxaparin Sodium (Enoxaparin Sodium 40 Mg/0.4 Ml Syringe) 40 mg SUBCUT Q24H [facility] Last Admin: 09/11/22 17:00 Dose: 40 mg Documented By: KAREN Glucose (Glucose Gel 15 Gm Gel..Gram.) 15 gm PO Q15M PRN; Protocol PRN Reason: per Hypoglycemia Standing Ord. Ampicillin Sodium/Sulbactam (Sodium 3 gm/ Sodium Chloride) 100 mls @ 200 mls/hr IV Q6H [facility] Last Admin: 09/11/22 12:19 Dose: Not Given Documented By: KAREN Non-Admin Reason: Physician Held Med Dextrose (D10) 250 mls @ 750 mls/hr IV Q15M PRN; Protocol PRN Reason: per Hypoglycemia Standing Ord. Insulin Human Lispro (Insulin Lispro 100 Unit/Ml 3 Ml Vial) 0 unit SUBCUT QIDAS [facility]; Protocol Last Admin: 09/12/22 08:09 Dose: 2 unit Documented By: JEREL Insulin Human Lispro (Insulin Lispro 100 Unit/Ml 3 Ml Vial) [facility] Last Admin: 09/12/22 08:09 Dose: 5 unit Documented By: JEREL Levothyroxine Sodium (Levothyroxine Sodium 25 Mcg Tablet) 25 mcg PO DAILY@0600 [facility] Last Admin: 09/12/22 05:22 Dose: 25 mcg Documented By: YOKASTA Melatonin (Melatonin 3 Mg Tablet) 6 mg PO BEDTIME PRN PRN Reason: Insomnia Last Admin: 09/10/22 21:37 Dose: 6 mg Documented By: SIVA Metoprolol Tartrate (Metoprolol Tartrate 25 Mg Tablet) 25 mg PO BID [facility]; Protocol Last Admin: 09/12/22 08:10 Dose: 25 mg Documented By: JEREL Omeprazole (Omeprazole 20 Mg Capsule.) 20 mg PO DAILY@0630 [facility] Last Admin: 09/12/22 05:22 Dose: 20 mg Documented By: YOKASTA Ondansetron HCl (Ondansetron Hcl 4 Mg/2 Ml Vial) 4 mg IVPUSH Q8H PRN PRN Reason: Nausea and Vomiting Potassium Chloride (Potassium Chloride Packet 20 Meq Packet) 40 meq PO BID [facility] Last Admin: 09/12/22 08:09 Dose: 40 meq Documented By: JEREL Sodium Chloride (0.9 % Sodium Chloride Flush 3 Ml Syringe) 3 [facility] Last Admin: 09/12/22 08:09 Dose: 3 ml Documented By: JEREL Labs 09/11/22 06:58 09/12/22 06:05 Labs: Laboratory Results - last 24 hr 09/11/22 09/11/22 09/12/22 16:34 20:30 06:05 Anion Gap 13 Estim Creat Clear Calc 65.6 Estimated GFR > 60 POC Glucose 171 H 182 H Random Glucose 182 H Calcium 8.3 L 09/12/22 09/12/22 07:00 11:12 Anion Gap Estim Creat Clear Calc Estimated GFR POC Glucose 187 H 182 H Random Glucose Calcium Assessment and Plan (1) Hypernatremia: Status: Acute (2) Pneumonia involving left lung: Status: Acute (3) Acute respiratory failure with hypoxia: Status: Acute Plan 82-year-old female with a PMH significant for?HFpEF, chronic AFib on Xarelto, hypothyroidism, aortic stenosis, non insulin-dependent diabetes type 2, and GERD who presents to the ED from SNF via EMS with?shortness of breath and dyspnea found to have collapse of left lung/left pleural effusion requiring chest tube placement. Course complicated by hypotension requiring brief transfer to ICU early am of 09/06, downgraded back to medical floor later the same day. Acute hypoxic respiratory failure related to pleural effusion and pneumonia CT of chest with large left pleural effusion with complete collapse of the left lung and deviated mediastinum to the right - s/p chest tube placement in ED 09/01 pleural serology, cultures>no growth s/p TPA for fibrinolysis per CT surgery 5 days, repeat Chest CT 09/10 with similar appearance to 09/07 but significant improvement since 09/01 Pulmonology initially planned for bronch, but since cancelled due to episode of hypotension. no plan for bronch at this time due, risk outweighs benefit continue unasyn started 09/02 - likely plan for 14 days wean oxygen as tolerated chest tube removed as per CT surg restart xarelto hypokalemia likely related to decreased po intake mag 2.0 encourage po intake replace potassium scheduled follow BMP Acute hypernatremia sodium improving gentle D5w monitor fluid status closely sodium still elevated, follow BMP sepsis secondary to pneumonia resolved treatment as above Diarrhea possibly antibiotic associated will hold laxitives less likely cdif as wbc has resolved Afib with RVR. HR under better control s/p IV cardizem drip - transitioned to oral metoprolol and digoxin. dose of metoprolol increased amiodarone d/c restart AC HFpEF not in acute exacerbation Patient with chronic lower leg edema, chronically elevated BNP severe aortic stenosis>not a candidate for TAVR as per cardiology restart lasix Inx-xoxnhnd-frmreaxbd diabetes type 2 SSI, ADA diet chronic normocytic anemia CBC stable Thrombocytosis. Resolved Patient's platelets 622 at time of presentation, up from baseline of around 250 Likely reactive Hypothyroidism Continue levothyroxine stage 3 pressure wound to coccyx present on admission continue ensure, airloss bed, frequent repositioning DNR/DNI Attending:?Dr. Em DVT Prophylaxis:? Pneumatic boots dispo - OOB, return to [facility] when medically ready continue hospital stay for treatment and further management of left-sided pleural effusion with complete collapse of her left lung and chest tube management, IV abx and close monitoring of respiratory status and electrolytes Time Spent With Patient Time: Total time managing care of this patient today ____ minutes. Quality Stroke Does the patient have a stroke diagnosis?: No VTE Prior VTE?: No VTE Risk Level:: Medical - moderate - high VTE Device Contraindication: N/A - Device Ordered VTE Drug Contraindication: Treatment Not Indicated
[2022-09-12] MEDS: Ampicillin Sodium/Sulbactam Na 3 GM in 0.9 % Sodium Chloride 100 ML IV ×2 (11:29→17:34)
--- NOTE | 2022-09-12 14:35 | HO.WOUND ---
Wound Care Consult Reason for consult: Pressure area on coccyx Patient was seen on 09/08/22 for a stage III pressure wound on her coccyx. Was reconsulted to take another look at the wound area. Foam border and zinc barrier cream removed from wound on the time of consult. Dressing was just changed prior to consult, so very scant serosanguineous drainage noted on dressing and according to the nurse, the wounds weren't draining much on the prior dressing. There was a new area noted medially to the original wound. Unusual in appearance, punched out looking area. When wiped with gauze to clean, did have more of a sanguineous drainage. Measured 0.4cm x 0.4cm x 0.2cm, with slight undermining lip of skin from 8 to 10 o'clock of 0.2cm. Wound bed was all deep red tissue. The original wound did measure slightly smaller, 1cm x 0.6cm x 0.1cm. Wound bed appearance had a small amount of pink tissue and the rest was a yellow slough/fibrinous tissue. No undermining noted with this wound. Periwound looked very well intact on both. Wounds were lightly cleaned with a gauze pad, reapplied zinc barrier cream and covered with a foam border dressing. Recommendation: Cleanse wounds with normal saline or sea clens. Since wound is still on the dryer side, continue to keep clean and apply the zinc barrier cream over the areas to help maintain good moisture barrier. If wound starts to drain more, will have to change/add product. Cover with a small foam border. May change every other day and PRN for soiling. Patient is incontinent of urine and stool. Patient has an airbed already in place and dietary is working on increasing her protein intake. Family member also told patient the importance of eating. Did reinforce the need for eating also. Continue the frequent position changes and floating of the heels. If the patient is still in need for wound care services on discharge, may call the outpatient wound care clinic for an appt.
[2022-09-12 16:16] LABS: Glucose, Whole Blood 169 mg/dL (60-115)
--- NOTE | 2022-09-12 16:41 | P.CDIM_ITS ---
PROVIDER RESPONSE TEXT: To clarify, the appropriate diagnosis supported by the clinical indicators: Other (explain): waiting for wound care team to document stage QUERY TEXT: PHYSICIAN'S DOCUMENTATION REQUEST Date of Query: 09/12/2022 08:08 AM EDT Patient Name: Noemi Hall Admit Date: 09/02/2022 Dear Pamela Vance, A review of the medical record indicates additional documentation may be needed. Please review below and update the documentation accordingly. Clinical Indicators: query issued on 09/08/22 was responded to as stage 2 pressure ulcer coccyx Subsequent Hospitalist Progress Notes on 09/09/22, 09/10/22, and 09/11/22 state : stage 3 pressure wound t o coccyx present on admission Based on the above, could you clarify the appropriate diagnosis, if significant, that supports the ab ove abnormalities and additional evaluation, monitoring, and/or treatment rendered: stage 2 pressure ulcer to coccyx, present on admission stage 3 pressure ulcer to coccyx, present on admission stage 2 pressure ulcer to coccyx progressed to a stage 3 pressure ulcer to coccyx Other (explain)Clinically unable to determine (explain)Thank you, Martha Day RN Use of terms such as suspected, likely, concern for, or probable (associated with a specific diagnosi s that is being evaluated, monitored, or treated as if it exists) are acceptable and can be coded in the inpatient se tting, when documented at the time of discharge. Please use your independent medical judgment in providing your response. THIS QUERY IS PART OF THE PERMANENT MEDICAL RECORD
[2022-09-12] MEDS: Enoxaparin Sodium 40 MG/0.4 ML SYRINGE SUBCUT (17:33)
[2022-09-12] MEDS: Rivaroxaban 20 MG TABLET PO (17:35)
[2022-09-12 19:31] LABS: Glucose, Whole Blood 124 mg/dL (60-115)
--- NOTE | 2022-09-12 19:38 | PC.NURSE ---
pt attempted to drink Klor-con today but could only manage 1 sip per approx 1 hour. After 3 sips, patient refused to drink anymore.
[2022-09-12] MEDS: Melatonin 3 MG TABLET 6 MG PO (20:56)
[2022-09-13] MEDS: Ampicillin Sodium/Sulbactam Na 3 GM in 0.9 % Sodium Chloride 100 ML IV ×4 (00:24→18:22)
[2022-09-13 03:56] VITALS: BP 135/84; PULSE 98; RESP 18; TEMP 36.7; O2SAT 98
[2022-09-13] MEDS: Levothyroxine Sodium 25 MCG TABLET PO (05:20)
[2022-09-13] MEDS: Omeprazole 20 MG CAPSULE.DR PO (05:21)
[2022-09-13 07:00] VITALS: BP 116/79; PULSE 88; RESP 20; TEMP 36.6; O2SAT 98
[2022-09-13 07:38] LABS: Glucose, Whole Blood 177 mg/dL (60-115)
[2022-09-13] MEDS: Insulin Lispro 100 UNIT/ML 3 ML VIAL SUBCUT ×4 (07:56→21:38)
[2022-09-13] MEDS: Metoprolol Tartrate 25 MG TABLET PO ×2 (07:58→22:12)
[2022-09-13] MEDS: Potassium Chloride Packet 20 MEQ PACKET 40 MEQ PO ×2 (07:58→22:13)
[2022-09-13] MEDS: 0.9 % Sodium Chloride Flush 3 ML SYRINGE IVFLUSH ×3 (07:58→21:38)
[2022-09-13] MEDS: Digoxin 0.125 MG TABLET PO (07:58)
[2022-09-13 11:27] VITALS: BP 136/70; PULSE 87; RESP 20; TEMP 36.4; O2SAT 98
[2022-09-13 11:34] LABS: Glucose, Whole Blood 112 mg/dL (60-115)
--- NOTE | 2022-09-13 13:14 | MHC.CLN ---
F/U PO INTAKE VERY POOR, SIPS AND BITES ONLY DIET RX: 2000DM GRD M/S-APPROPRIATE PT RECEIVING ENSURE MAX PROTEIN BID TO PROMOTE WOUND HEALING PROVIDES 300 KCALS, 60G PROTEIN IN ADDITION, PT RECEIVING THRIVE ICE CREAM WITH MEALS TO INCREASE PO NOTED MOLST WITH UNDECIDED REGARDING NUTRITION SUPPORT SHIVAM 10 WITH STAGE 3 PRESSURE INJURIES INCREASES NUTRITION RISKS CONSIDER FAMILY TEAM MEETING MEETING TO DISCUSS GOALS OF CARE-DR. PERES NOTIFIED/AWARE CONSULT RD IF PPN OR TF NEEDED
[2022-09-13 14:55] VITALS: BP 131/71; PULSE 92; RESP 20; TEMP 36.3; O2SAT 98
--- NOTE | 2022-09-13 16:01 | P.PNIM_ITS ---
Subjective Subjective Date of Service: 09/13/22 Interval History: Vague historian but states she feels better today Review of Systems Denies fever chills Denies chest pain Denies shortness of breath Denies nausea vomiting Physical Exam Vital Signs: Vital Signs: Last Vital Signs Temp 97.3 F 09/13/22 14:55 Pulse 92 09/13/22 14:55 Resp 20 09/13/22 14:55 BP 131/71 09/13/22 14:55 Pulse Ox 98 09/13/22 14:55 O2 Del Method Nasal Cannula 09/13/22 14:55 O2 Flow Rate 1 09/13/22 14:55 Oxygen Flow Rate 4 09/01/22 15:58 BMI result Body Mass Index 31.5 Const: Other: Awake alert no acute distress Resp: Other: Breath sounds absent from left base right side essentially clear Cardio: Other: No S4; positive S1-S2; no S3 murmurs rubs or gallops GI: Other: Soft nontender nondistended normoactive bowel sounds Extrem: Other: No edema bilaterally Objective Data Active Medications Acetaminophen (Acetaminophen 325 Mg Tablet) 650 mg PO Q6H PRN PRN Reason: Pain, Mild (Pain Scale 1-3) Last Admin: 09/12/22 18:08 Dose: 650 mg Documented By: JEREL Bisacodyl (Bisacodyl 10 Mg Supp.Rect) 10 mg [place] DAILY PRN PRN Reason: Constipation Digoxin (Digoxin 0.125 Mg Tablet) 0.125 mg PO DAILY [facility] Last Admin: 09/13/22 07:58 Dose: 0.125 mg Documented By: KAREN Docusate Sodium (Docusate Sodium 100 Mg Capsule) 100 mg PO BEDTIME [facility] Last Admin: 09/08/22 21:27 Dose: Not Given Documented By: SIVA Non-Admin Reason: Patient Refused Enoxaparin Sodium (Enoxaparin Sodium 40 Mg/0.4 Ml Syringe) 40 mg SUBCUT Q24H [facility] Last Admin: 09/12/22 17:33 Dose: 40 mg Documented By: JEREL Glucose (Glucose Gel 15 Gm Gel..Gram.) 15 gm PO Q15M PRN; Protocol PRN Reason: per Hypoglycemia Standing Ord. Ampicillin Sodium/Sulbactam (Sodium 3 gm/ Sodium Chloride) 100 mls @ 200 mls/hr IV Q6H [facility] Last Infusion: 09/13/22 13:47 Dose: 0 mls/hr Documented By: KAREN Dextrose (D10) 250 mls @ 750 mls/hr IV Q15M PRN; Protocol PRN Reason: per Hypoglycemia Standing Ord. Insulin Human Lispro (Insulin Lispro 100 Unit/Ml 3 Ml Vial) 0 unit SUBCUT QIDACHS [facility]; Protocol Last Admin: 09/13/22 11:40 Dose: Not Given Documented By: JADA Non-Admin Reason: No Insulin Coverage Insulin Human Lispro (Insulin Lispro 100 Unit/Ml 3 Ml Vial) 5 unit SUBCUT QIDACHS [facility] Last Admin: 09/13/22 11:40 Dose: Not Given Documented By: JADA Non-Admin Reason: No Insulin Coverage Levothyroxine Sodium (Levothyroxine Sodium 25 Mcg Tablet) 25 mcg PO DAILY@0600 [facility] Last Admin: 09/13/22 05:20 Dose: 25 mcg Documented By: GRACY Melatonin (Melatonin 3 Mg Tablet) 6 mg PO BEDTIME PRN PRN Reason: Insomnia Last Admin: 09/12/22 20:56 Dose: 6 mg Documented By: GRACY Metoprolol Tartrate (Metoprolol Tartrate 25 Mg Tablet) 25 mg PO BID [facility]; Protocol Last Admin: 09/13/22 07:58 Dose: 25 mg Documented By: KAREN Omeprazole (Omeprazole 20 Mg Capsule.Dr) 20 mg PO DAILY@0630 [facility] Last Admin: 09/13/22 05:21 Dose: 20 mg Documented By: GRACY Ondansetron HCl (Ondansetron Hcl 4 Mg/2 Ml Vial) 4 mg IVPUSH Q8H PRN PRN Reason: Nausea and Vomiting Potassium Chloride (Potassium Chloride Packet 20 Meq Packet) 40 meq PO BID [facility] Last Admin: 09/13/22 07:58 Dose: 40 meq Documented By: KAREN Rivaroxaban (Rivaroxaban 20 Mg Tablet) 20 mg PO DAILY@1700 [facility] Last Admin: 09/12/22 17:35 Dose: 20 mg Documented By: JEREL Sodium Chloride (0.9 % Sodium Chloride Flush 3 Ml Syringe) 3 ml IVFLUSH QSHIFT [facility] Last Admin: 09/13/22 07:58 Dose: 3 ml Documented By: KAREN Labs 09/11/22 06:58 09/12/22 06:05 Labs: Laboratory Results - last 24 hr 09/12/22 09/12/22 09/13/22 16:08 19:26 07:09 POC Glucose 169 H 124 H 177 H 09/13/22 11:29 POC Glucose 112 Assessment and Plan (1) Acute respiratory failure with hypoxia: Status: Acute (2) Hypokalemia: Status: Acute (3) Hypernatremia: Status: Acute Plan 82-year-old female with a PMH significant for?HFpEF, chronic AFib on Xarelto, hypothyroidism, aortic stenosis, non insulin-dependent diabetes type 2, and GERD who presents to the ED from SNF via EMS with?shortness of breath and dyspnea found to have collapse of left lung/left pleural effusion requiring chest tube placement. Course complicated by hypotension requiring brief transfer to ICU early am of 09/06, downgraded back to medical floor later the same day. Has been followed by thoracic surgery; 1.Acute hypoxic respiratory failure related to pleural effusion and pneumonia -chest tube removed without issue -continue Unasyn (12) 2.Hypokalemia -replete as indicated -follow renals/divalents 3.Acute hypernatremia -recheck in am -rate calculated free water deficit 4.Sepsis secondary to pneumonia -resolved -treatment as above 5.Afib with RVR. -rate control adequate -continue Xarelto/amiodarone 6.HFpEF -not in acute exacerbation -continue outpatient therapies 7.Diabetes type 2 -acceptable control on current therapies -continue lispro correctional scale 8.Stage 3 pressure wound to coccyx present on admission continue ensure, airloss bed, frequent repositioning DNR/DNI Attending:?Dr. Em DVT Prophylaxis:? Pneumatic boots continue hospital stay for treatment and further management of left-sided pleural effusion with complete collapse of her left lung and chest tube management, IV abx and close monitoring of respiratory status and electrolytes Time Spent With Patient Time: Total time managing care of this patient today ____ minutes. Quality Stroke Does the patient have a stroke diagnosis?: No VTE Prior VTE?: No VTE Risk Level:: Medical - moderate - high VTE Device Contraindication: N/A - Device Ordered VTE Drug Contraindication: Treatment Not Indicated
[2022-09-13 16:40] LABS: Glucose, Whole Blood 148 mg/dL (60-115)
[2022-09-13] MEDS: Enoxaparin Sodium 40 MG/0.4 ML SYRINGE SUBCUT (16:52)
[2022-09-13] MEDS: Rivaroxaban 20 MG TABLET PO (16:52)
[2022-09-13] MEDS: Acetaminophen 325 MG TABLET 650 MG PO ×2 (16:55→22:12)
[2022-09-13 19:18] VITALS: BP 135/64; PULSE 137; RESP 20; TEMP 36.1; O2SAT 97
[2022-09-13 19:51] LABS: Glucose, Whole Blood 169 mg/dL (60-115)
[2022-09-13] MEDS: Melatonin 3 MG TABLET 6 MG PO (22:12)
[2022-09-13 23:09] VITALS: BP 132/61; PULSE 83; RESP 16; TEMP 36.8; O2SAT 99
[2022-09-14] MEDS: Ampicillin Sodium/Sulbactam Na 3 GM in 0.9 % Sodium Chloride 100 ML IV ×4 (01:22→17:40)
[2022-09-14] MEDS: Acetaminophen 325 MG TABLET 650 MG PO ×3 (03:36→22:31)
[2022-09-14 03:48] VITALS: BP 129/60; PULSE 86; RESP 16; TEMP 36.3; O2SAT 96
[2022-09-14] MEDS: Omeprazole 20 MG CAPSULE.DR PO (05:52)
[2022-09-14] MEDS: Levothyroxine Sodium 25 MCG TABLET PO (05:52)
[2022-09-14 07:28] VITALS: BP 142/69; PULSE 100; RESP 20; TEMP 36.3; O2SAT 96
[2022-09-14 07:45] LABS: Glucose, Whole Blood 156 mg/dL (60-115)
[2022-09-14] MEDS: Insulin Lispro 100 UNIT/ML 3 ML VIAL SUBCUT ×4 (08:20→22:30)
[2022-09-14] MEDS: Potassium Chloride Packet 20 MEQ PACKET 40 MEQ PO (08:22)
[2022-09-14] MEDS: Digoxin 0.125 MG TABLET PO (08:22)
[2022-09-14] MEDS: Metoprolol Tartrate 25 MG TABLET PO ×2 (08:22→22:30)
[2022-09-14] MEDS: 0.9 % Sodium Chloride Flush 3 ML SYRINGE IVFLUSH ×3 (08:26→22:31)
[2022-09-14 11:14] LABS: Glucose, Whole Blood 117 mg/dL (60-115)
[2022-09-14 11:50] VITALS: BP 143/62; PULSE 84; RESP 19; TEMP 36.7; O2SAT 95
--- NOTE | 2022-09-14 14:56 | P.PNIM_ITS ---
Subjective Subjective Date of Service: 09/14/22 Interval History: Continues to have poor p.o. intake. Voices no complaints of pain Review of Systems Denies fever chills Denies chest pain Denies shortness of breath Denies nausea vomiting Physical Exam Vital Signs: Vital Signs: Last Vital Signs Temp 98.0 F 09/14/22 11:50 Pulse 84 09/14/22 11:50 Resp 19 09/14/22 11:50 BP 143/62 H 09/14/22 11:50 Pulse Ox 95 09/14/22 11:50 O2 Del Method Nasal Cannula 09/14/22 11:50 O2 Flow Rate 1 09/14/22 11:50 Oxygen Flow Rate 4 09/01/22 15:58 BMI result Body Mass Index 31.5 Const: Other: Awake alert no acute distress Resp: Other: Breath sounds absent from left base right side essentially clear Cardio: Other: No S4; positive S1-S2; no S3 murmurs rubs or gallops GI: Other: Soft nontender nondistended normoactive bowel sounds Extrem: Other: No edema bilaterally Objective Data Active Medications Acetaminophen (Acetaminophen 325 Mg Tablet) 650 mg PO Q6H PRN PRN Reason: Pain, Mild (Pain Scale 1-3) Last Admin: 09/14/22 13:06 Dose: 650 mg Documented By: KAREN Bisacodyl (Bisacodyl 10 Mg Supp.Rect) 10 mg [place] DAILY PRN PRN Reason: Constipation Digoxin (Digoxin 0.125 Mg Tablet) 0.125 mg PO DAILY [facility]S [facility]CLUDE 234 BEDS AT THE [facility] Last Admin: 09/14/22 08:22 Dose: 0.125 mg Documented By: KAREN Docusate Sodium (Docusate Sodium 100 Mg Capsule) 100 mg PO BEDTIME COUNTS INCLUDE 234 BEDS AT THE [facility] Last Admin: 09/08/22 21:27 Dose: Not Given Documented By: SIVA Non-Admin Reason: Patient Refused Enoxaparin Sodium (Enoxaparin Sodium 40 Mg/0.4 Ml Syringe) 40 mg SUBCUT Q24H COUNTS INCLUDE 234 BEDS AT THE [facility] Last Admin: 09/13/22 16:52 Dose: 40 mg Documented By: KAREN Glucose (Glucose Gel 15 Gm Gel..Gram.) 15 gm PO Q15M PRN; Protocol PRN Reason: per Hypoglycemia Standing Ord. Ampicillin Sodium/Sulbactam (Sodium 3 gm/ Sodium Chloride) 100 mls @ 200 mls/hr IV Q6H COUNTS INCLUDE 234 BEDS AT THE [facility] Last Infusion: 09/14/22 14:12 Dose: 0 mls/hr Documented By: KARLA Dextrose (D10) 250 mls @ 750 mls/hr IV Q15M PRN; Protocol PRN Reason: per Hypoglycemia Standing Ord. Insulin Human Lispro (Insulin Lispro 100 Unit/Ml 3 Ml Vial) 0 unit SUBCUT QIDACHS COUNTS INCLUDE 234 BEDS AT THE [facility]; Protocol Last Admin: 09/14/22 12:06 Dose: Not Given Documented By: KARLA Non-Admin Reason: No Access Insulin Human Lispro (Insulin Lispro 100 Unit/Ml 3 Ml Vial) 5 unit SUBCUT QIDACHS COUNTS INCLUDE 234 BEDS AT THE [facility] Last Admin: 09/14/22 12:07 Dose: Not Given Documented By: KARLA Non-Admin Reason: pt refusing meals Levothyroxine Sodium (Levothyroxine Sodium 25 Mcg Tablet) 25 mcg PO DAILY@0600 COUNTS INCLUDE 234 BEDS AT THE [facility] Last Admin: 09/14/22 05:52 Dose: 25 mcg Documented By: DONITA Melatonin (Melatonin 3 Mg Tablet) 6 mg PO BEDTIME PRN PRN Reason: Insomnia Last Admin: 09/13/22 22:12 Dose: 6 mg Documented By: DONITA Metoprolol Tartrate (Metoprolol Tartrate 25 Mg Tablet) 25 mg PO BID [facility]S INCLUDE 234 BEDS AT THE [facility]; Protocol Last Admin: 09/14/22 08:22 Dose: 25 mg Documented By: KAREN Omeprazole (Omeprazole 20 Mg Capsule.Dr) 20 mg PO DAILY@0630 COUNTS INCLUDE 234 BEDS AT THE [facility] Last Admin: 09/14/22 05:52 Dose: 20 mg Documented By: DONITA Ondansetron HCl (Ondansetron Hcl 4 Mg/2 Ml Vial) 4 mg IVPUSH Q8H PRN PRN Reason: Nausea and Vomiting Potassium Chloride (Potassium Chloride Packet 20 Meq Packet) 40 meq PO BID [facility]S INCLUDE 234 BEDS AT THE [facility] Last Admin: 09/14/22 08:22 Dose: 40 meq Documented By: KAREN Rivaroxaban (Rivaroxaban 20 Mg Tablet) 20 mg PO DAILY@1700 COUNTS INCLUDE 234 BEDS AT THE [facility] Last Admin: 09/13/22 16:52 Dose: 20 mg Documented By: KAREN Sodium Chloride (0.9 % Sodium Chloride Flush 3 Ml Syringe) 3 ml IVFLUSH QSHIFT COUNTS INCLUDE 234 BEDS AT THE [facility] Last Admin: 09/14/22 08:26 Dose: 3 ml Documented By: LISAORRZ Labs 09/11/22 06:58 09/12/22 06:05 Labs: Laboratory Results - last 24 hr 09/13/22 09/13/22 09/14/22 16:37 19:47 07:38 POC Glucose 148 H 169 H 156 H 09/14/22 11:06 POC Glucose 117 H Assessment and Plan (1) Acute respiratory failure with hypoxia: Status: Acute (2) Hypokalemia: Status: Acute (3) Hypernatremia: Status: Acute Plan 82-year-old female with a PMH significant for?HFpEF, chronic AFib on Xarelto, hypothyroidism, aortic stenosis, non insulin-dependent diabetes type 2, and GERD who presents to the ED from SNF via EMS with?shortness of breath and dyspnea found to have collapse of left lung/left pleural effusion requiring chest tube placement. Course complicated by hypotension requiring brief transfer to ICU early am of 09/06, downgraded back to medical floor later the same day. Has been followed by thoracic surgery; 1.Acute hypoxic respiratory failure related to pleural effusion and pneumonia -chest tube removed without issue -continue Unasyn (13) 2.Hypokalemia -replete as indicated -follow renals/divalents 3.Acute hypernatremia -recheck in am -rate calculated free water deficit 4.Sepsis secondary to pneumonia -resolved -treatment as above 5.Afib with RVR. -rate control adequate -continue Xarelto/amiodarone 6.HFpEF -not in acute exacerbation -continue outpatient therapies 7.Diabetes type 2 -acceptable control on current therapies -continue lispro correctional scale 8.Stage 3 pressure wound to coccyx present on admission continue ensure, airloss bed, frequent repositioning DNR/DNI boots continue hospital stay for treatment and further management of left-sided pleu ral effusion with complete collapse of her left lung and chest tube management, IV abx and close monitoring of respiratory status and electrolytes Time Spent With Patient Time: Total time managing care of this patient today ____ minutes. Quality Stroke Does the patient have a stroke diagnosis?: No VTE Prior VTE?: No VTE Risk Level:: Medical - moderate - high VTE Device Contraindication: N/A - Device Ordered VTE Drug Contraindication: Treatment Not Indicated
[2022-09-14 15:16] VITALS: BP 128/60; PULSE 86; RESP 20; TEMP 36.7; O2SAT 95
[2022-09-14 16:09] LABS: Glucose, Whole Blood 133 mg/dL (60-115)
[2022-09-14] MEDS: Rivaroxaban 20 MG TABLET PO (17:40)
[2022-09-14] MEDS: Enoxaparin Sodium 40 MG/0.4 ML SYRINGE SUBCUT (17:40)
[2022-09-14 19:20] VITALS: BP 135/58; PULSE 86; RESP 20; TEMP 36.7; O2SAT 96
[2022-09-14 19:48] LABS: Glucose, Whole Blood 155 mg/dL (60-115)
[2022-09-14] MEDS: Melatonin 3 MG TABLET 6 MG PO (22:31)
[2022-09-15] VITALS: BP 134/86; PULSE 73; RESP 20; TEMP 36.6; O2SAT 96
[2022-09-15] MEDS: Ampicillin Sodium/Sulbactam Na 3 GM in 0.9 % Sodium Chloride 100 ML IV ×4 (01:07→17:38)
[2022-09-15 03:13] VITALS: BP 117/54; PULSE 87; RESP 20; TEMP 36.6; O2SAT 95
[2022-09-15] MEDS: Levothyroxine Sodium 25 MCG TABLET PO (06:31)
[2022-09-15] MEDS: Omeprazole 20 MG CAPSULE.DR PO (06:31)
[2022-09-15 07:23] LABS: Glucose, Whole Blood 133 mg/dL (60-115)
[2022-09-15 07:50] VITALS: BP 147/65; PULSE 79; RESP 18; TEMP 37.2; O2SAT 95
[2022-09-15] MEDS: Digoxin 0.125 MG TABLET PO (09:04)
[2022-09-15] MEDS: Metoprolol Tartrate 25 MG TABLET PO ×2 (09:04→21:54)
[2022-09-15] MEDS: ondansetron HCL 4 MG/2 ML VIAL IVPUSH (10:36)
--- NOTE | 2022-09-15 11:12 | MHC.CLN ---
F/U PO INTAKE VERY POOR, 50% X1 MEAL AND SIPS AND BITES IS AVERAGE INTAKE DIET RX: 2000DM GRD M/S-APPROPRIATE PT RECEIVING ENSURE MAX PROTEIN BID TO PROMOTE WOUND HEALING PROVIDES 300 KCALS, 60G PROTEIN IN ADDITION, PT RECEIVING THRIVE ICE CREAM WITH MEALS TO INCREASE PO SHIVAM 12 WITH NOW STAGE 3 PRESSURE INJURIES INCREASES NUTRITION RISKS RECOMMEND ADDING TIAN TO PROMOTE WOUND HEALING NOTED MOLST WITH UNDECIDED REGARDING NUTRITION SUPPORT CONSIDER FAMILY TEAM MEETING MEETING TO DISCUSS GOALS OF CARE CONSULT RD IF PPN OR TF NEEDED
[2022-09-15] MEDS: Acetaminophen 325 MG TABLET 650 MG PO ×2 (11:15→22:06)
[2022-09-15 11:31] LABS: Glucose, Whole Blood 167 mg/dL (60-115)
[2022-09-15 11:50] VITALS: BP 149/76; PULSE 87; RESP 18; TEMP 36.9
--- NOTE | 2022-09-15 12:32 | MHC.CM.PN ---
EMR REVIEWED, PER HOSPITALIST PLAN FOR SURGICAL CONSULT FOR GTUBE PLACEMENT, ANTIC PT WILL BE HERE THROUGH W/E AND POSSIBLY MID WEEK IF GTUBE IS PLACED, SNF UPDATED AND CM WILL CONT TO FOLLOW D/C NEEDS.
--- NOTE | 2022-09-15 14:19 | HO.PM.IMPN ---
Subjective Subjective Date of Service: 09/15/22 Interval History: No acute issues overnight. Still with poor p.o. intake Review of Systems Denies fever chills Denies chest pain Denies shortness of breath Denies nausea vomiting Physical Exam Vital Signs: Vital Signs: Last Vital Signs Temp 98.5 F 09/15/22 11:50 Pulse 87 09/15/22 11:50 Resp 18 09/15/22 11:50 BP 149/76 H 09/15/22 11:50 Pulse Ox 95 09/15/22 07:50 O2 Del Method Room Air 09/15/22 11:50 O2 Flow Rate 1 09/14/22 11:50 Oxygen Flow Rate 4 09/01/22 15:58 BMI result Body Mass Index 31.5 Const: Other: Awake alert no acute distress Resp: Other: Breath sounds absent from left base right side essentially clear Cardio: Other: No S4; positive S1-S2; no S3 murmurs rubs or gallops GI: Other: Soft nontender nondistended normoactive bowel sounds Extrem: Other: No edema bilaterally Objective Data Active Medications Acetaminophen (Acetaminophen 325 Mg Tablet) 650 mg PO Q6H PRN PRN Reason: Pain, Mild (Pain Scale 1-3) Last Admin: 09/15/22 11:15 Dose: 650 mg Documented By: DIANNE Bisacodyl (Bisacodyl 10 Mg Supp.Rect) 10 mg IN DAILY PRN PRN Reason: Constipation Digoxin (Digoxin 0.125 Mg Tablet) 0.125 mg PO DAILY [facility] Last Admin: 09/15/22 09:04 Dose: 0.125 mg Documented By: DIANNE Docusate Sodium (Docusate Sodium 100 Mg Capsule) 100 mg PO BEDTIME [facility] Last Admin: 09/08/22 21:27 Dose: Not Given Documented By: SIVA Non-Admin Reason: Patient Refused Enoxaparin Sodium (Enoxaparin Sodium 40 Mg/0.4 Ml Syringe) 40 mg SUBCUT Q24H [facility] Last Admin: 09/14/22 17:40 Dose: 40 mg Documented By: KAREN Glucose (Glucose Gel 15 Gm Gel..Gram.) 15 gm PO Q15M PRN; Protocol PRN Reason: per Hypoglycemia Standing Ord. Ampicillin Sodium/Sulbactam (Sodium 3 gm/ Sodium Chloride) 100 mls @ 200 mls/hr IV Q6H [facility] Last Infusion: 09/15/22 13:08 Dose: 0 mls/hr Documented By: DIANNE Dextrose (D10) 250 mls @ 750 mls/hr IV Q15M PRN; Protocol PRN Reason: per Hypoglycemia Standing Ord. Insulin Human Lispro (Insulin Lispro 100 Unit/Ml 3 Ml Vial) 0 unit SUBCUT QIDACHS [facility]; Protocol Last Admin: 09/15/22 11:51 Dose: Not Given Documented By: DIANEN Non-Admin Reason: pt not eating Insulin Human Lispro (Insulin Lispro 100 Unit/Ml 3 Ml Vial) 5 unit SUBCUT QIDACHS [facility] Last Admin: 09/15/22 11:51 Dose: Not Given Documented By: DIANNE Non-Admin Reason: pt not eating Levothyroxine Sodium (Levothyroxine Sodium 25 Mcg Tablet) 25 mcg PO DAILY@0600 [facility] Last Admin: 09/15/22 06:31 Dose: 25 mcg Documented By: DONITA Melatonin (Melatonin 3 Mg Tablet) 6 mg PO BEDTIME PRN PRN Reason: Insomnia Last Admin: 09/14/22 22:31 Dose: 6 mg Documented By: DONITA Metoprolol Tartrate (Metoprolol Tartrate 25 Mg Tablet) 25 mg PO BID [facility]; Protocol Last Admin: 09/15/22 09:04 Dose: 25 mg Documented By: DIANNE Omeprazole (Omeprazole 20 Mg Capsule.Dr) 20 mg PO DAILY@0630 [facility] Last Admin: 09/15/22 06:31 Dose: 20 mg Documented By: DONITA Ondansetron HCl (Ondansetron Hcl 4 Mg/2 Ml Vial) 4 mg IVPUSH Q8H PRN PRN Reason: Nausea and Vomiting Last Admin: 09/15/22 10:36 Dose: 4 mg Documented By: DIANNE Potassium Chloride (Potassium Chloride Packet 20 Meq Packet) 40 meq PO BID [facility] Last Admin: 09/15/22 09:02 Dose: Not Given Documented By: DIANNE Non-Admin Reason: Patient Refused Rivaroxaban (Rivaroxaban 20 Mg Tablet) 20 mg PO DAILY@1700 [facility] Last Admin: 09/14/22 17:40 Dose: 20 mg Documented By: KAREN Sodium Chloride (0.9 % Sodium Chloride Flush 3 Ml Syringe) 3 ml IVFLUSH QSHIFT [facility] Last Admin: 09/15/22 07:30 Dose: Not Given Documented By: DIANNE Non-Admin Reason: IV Running Labs 09/11/22 06:58 09/12/22 06:05 Labs: Laboratory Results - last 24 hr 09/14/22 09/14/22 09/15/22 16:04 19:45 07:03 POC Glucose 133 H 155 H 133 H 09/15/22 11:12 POC Glucose 167 H Assessment and Plan (1) Acute respiratory failure with hypoxia: Status: Acute (2) Hypernatremia: Status: Acute (3) Sepsis: Status: Acute Plan 82-year-old female with a PMH significant for?HFpEF, chronic AFib on Xarelto, hypothyroidism, aortic stenosis, non insulin-dependent diabetes type 2, and GERD who presents to the ED from SNF via EMS with?shortness of breath and dyspnea found to have collapse of left lung/left pleural effusion requiring chest tube placement. Course complicated by hypotension requiring brief transfer to ICU early am of 09/06, downgraded back to medical floor later the same day. Has been followed by thoracic surgery; 1.Acute hypoxic respiratory failure related to pleural effusion and pneumonia -chest tube removed without issue -continue Unasyn (14) -follow-up CBC in a.m. 2.Hypokalemia -replete as indicated -follow renals/divalents 3.Acute hypernatremia -recheck in am -rate calculated free water deficit 4.Sepsis secondary to pneumonia -resolved -treatment as above 5.Afib with RVR. 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 No indication on moles regarding feeding tube are IV fluids. Long discussion with patient's niece; they never discuss the issue of a feeding tube. At this time niece cannot declined feeding tube as she feels her aunt would accepted. Given such consult will be placed to general surgery for PEG tube placement DNR/DNI boots continue hospital stay for treatment and further management of left-sided pleural effusion with complete collapse of her left lung and chest tube management, IV abx and close monitoring of respiratory status and electrolytes Time Spent With Patient Time: Total time managing care of this patient today ____ minutes. Quality Stroke Does the patient have a stroke diagnosis?: No VTE Prior VTE?: No VTE Risk Level:: Medical - moderate - high VTE Device Contraindication: N/A - Device Ordered VTE Drug Contraindication: Treatment Not Indicated
[2022-09-15 15:05] VITALS: BP 121/56; PULSE 76; RESP 18; TEMP 37; O2SAT 96
[2022-09-15 16:19] LABS: Glucose, Whole Blood 158 mg/dL (60-115)
[2022-09-15] MEDS: Insulin Lispro 100 UNIT/ML 3 ML VIAL SUBCUT (17:38)
[2022-09-15] MEDS: Rivaroxaban 20 MG TABLET PO (17:38)
[2022-09-15] MEDS: 0.9 % Sodium Chloride Flush 3 ML SYRINGE IVFLUSH ×2 (17:38→21:55)
[2022-09-15] MEDS: Enoxaparin Sodium 40 MG/0.4 ML SYRINGE SUBCUT (17:38)
[2022-09-15 19:46] VITALS: BP 129/60; PULSE 86; RESP 20; TEMP 36.9; O2SAT 94
[2022-09-15 20:00] LABS: Glucose, Whole Blood 146 mg/dL (60-115)
[2022-09-15] MEDS: Potassium Chloride Packet 20 MEQ PACKET 40 MEQ PO (21:54)
[2022-09-15] MEDS: Melatonin 3 MG TABLET 6 MG PO (22:06)
[2022-09-16] VITALS (7 sets, daily range): BP systolic 124–149; BP diastolic 60–70; PULSE 60–88; RESP 16–20; TEMP 36.6–37.1; O2SAT 92–99
[2022-09-16] MEDS: Ampicillin Sodium/Sulbactam Na 3 GM in 0.9 % Sodium Chloride 100 ML IV ×5 (01:19→22:54)
[2022-09-16] MEDS: Omeprazole 20 MG CAPSULE.DR PO (06:37)
[2022-09-16] MEDS: Levothyroxine Sodium 25 MCG TABLET PO (06:37)
[2022-09-16 07:21] LABS: Glucose, Whole Blood 157 mg/dL (60-115)
[2022-09-16] MEDS: Digoxin 0.125 MG TABLET PO (09:44)
[2022-09-16] MEDS: Metoprolol Tartrate 25 MG TABLET PO ×2 (09:44→21:19)
[2022-09-16] MEDS: Potassium Chloride Packet 20 MEQ PACKET 40 MEQ PO ×2 (09:44→21:17)
[2022-09-16] MEDS: 0.9 % Sodium Chloride Flush 3 ML SYRINGE IVFLUSH ×2 (09:47→17:32)
[2022-09-16] MEDS: ondansetron HCL 4 MG/2 ML VIAL IVPUSH ×2 (09:47→22:50)
[2022-09-16] MEDS: Acetaminophen 325 MG TABLET 650 MG PO ×2 (09:53→21:21)
--- NOTE | 2022-09-16 11:33 | PM.CNGS ---
History of Present Illness Consult details Consult date: 09/16/22 Narrative: 82F admitted since August 31, 2022 for acute repiratory failure with a left sided pneumonia with effusion. She had a chest tube in place at that time. She has multiple medical problems including CHF and oartic stenosis. She has been frail and has had failure to thrive. She has had poor oral intake so she was referred to me for PEG tube placement. She has had clinical improvement overall since admission but remians very frail. Review of Systems Review of Systems: pt seems not very oriented, so review of systems not obtainable Yes Unobtainable due to mental condition and Unobtainable due to mental status PMFSH Past Medical History Medical History (Updated 09/19/22 @ 10:12 by Carlos Torres MD) Atelectasis of left lung Chronic atrial fibrillation, unspecified Failure to thrive in adult History of falling Hyperlipidemia, unspecified Hypothyroidism, unspecified Localized edema residential (current) use of anticoagulants Nonrheumatic aortic (valve) stenosis PAF (paroxysmal atrial fibrillation) Repeated falls Type 2 diabetes mellitus without complications Unspecified glaucoma Unspecified osteoarthritis, unspecified site Urinary retention with incomplete bladder emptying Surgical History Surgical History Presence of artificial knee joint, bilateral Social History Social History Household Members: Other Housing: [facility] Do you presently have visiting nurse or other home services: No Unable to assess alcohol history related to: Refusing to respond Alcohol intake: never Patient Tobacco Use Status: Never used Tobacco Advance Directives Date on File: 04/26/21 service: No Current occupational status: retired Meds Allergies Allergy/AdvReac Type Severity Reaction Status Date / Time moxifloxacin [Avelox] Allergy Unknown rash, Verified 09/12/22 08:32 blotches all over face Active Medications: Current Medications Acetaminophen (Acetaminophen 325 Mg Tablet) 650 mg PO Q6H PRN PRN Reason: Pain, Mild (Pain Scale 1-3) Last Admin: 09/16/22 09:53 Dose: 650 mg Bisacodyl (Bisacodyl 10 Mg Supp.Rect) 10 mg [place] DAILY PRN PRN Reason: Constipation Digoxin (Digoxin 0.125 Mg Tablet) 0.125 mg PO DAILY [facility] Last Admin: 09/16/22 09:44 Dose: 0.125 mg Docusate Sodium (Docusate Sodium 100 Mg Capsule) 100 mg PO BEDTIME [facility] Last Admin: 09/08/22 21:27 Dose: Not Given Enoxaparin Sodium (Enoxaparin Sodium 40 Mg/0.4 Ml Syringe) 40 mg SUBCUT Q24H [facility] Last Admin: 09/15/22 17:38 Dose: 40 mg Glucose (Glucose Gel 15 Gm Gel..Gram.) 15 gm PO Q15M PRN; Protocol PRN Reason: per Hypoglycemia Standing Ord. Ampicillin Sodium/Sulbactam (Sodium 3 gm/ Sodium Chloride) 100 mls @ 200 mls/hr IV Q6H [facility] Last Infusion: 09/16/22 09:50 Dose: Infused Dextrose (D10) 250 mls @ 750 mls/hr IV Q15M PRN; Protocol PRN Reason: per Hypoglycemia Standing Ord. Insulin Human Lispro (Insulin Lispro 100 Unit/Ml 3 Ml Vial) 0 unit SUBCUT QIDACHS [facility]; Protocol Last Admin: 09/16/22 09:47 Dose: Not Given Insulin Human Lispro (Insulin Lispro 100 Unit/Ml 3 Ml Vial) 5 unit SUBCUT QIDAS [facility] Last Admin: 09/16/22 09:48 Dose: Not Given Levothyroxine Sodium (Levothyroxine Sodium 25 Mcg Tablet) 25 mcg PO DAILY@0600 [facility] Last Admin: 09/16/22 06:37 Dose: 25 mcg Melatonin (Melatonin 3 Mg Tablet) 6 mg PO BEDTIME PRN PRN Reason: Insomnia Last Admin: 09/15/22 22:06 Dose: 6 mg Metoprolol Tartrate (Metoprolol Tartrate 25 Mg Tablet) 25 mg PO BID [facility]; Protocol Last Admin: 09/16/22 09:44 Dose: 25 mg Omeprazole (Omeprazole 20 Mg Capsule.Dr) 20 mg PO DAILY@0630 [facility] Last Admin: 09/16/22 06:37 Dose: 20 mg Ondansetron HCl (Ondansetron Hcl 4 Mg/2 Ml Vial) 4 mg IVPUSH Q8H PRN PRN Reason: Nausea and Vomiting Last Admin: 09/16/22 09:47 Dose: 4 mg Potassium Chloride (Potassium Chloride Packet 20 Meq Packet) 40 meq PO BID [facility] Last Admin: 09/16/22 09:44 Dose: 40 meq Rivaroxaban (Rivaroxaban 20 Mg Tablet) 20 mg PO DAILY@1700 [facility] Last Admin: 09/15/22 17:38 Dose: 20 mg Sodium Chloride (0.9 % Sodium Chloride Flush 3 Ml Syringe) 3 ml IVFLUSH QSHIFT [facility] Last Admin: 09/16/22 09:47 Dose: 3 ml Home Medications Medication Instructions Recorded Confirmed Last Taken Type bisacodyl 10 mg rectal suppository 10 mg ME DAILY PRN Constipation 04/23/21 09/01/22 Unknown History brimonidine 0.2 % eye drops 1 drp ophthalmic (eye) BID 04/23/21 09/01/22 09/01/22 History dorzolamide 22.3 mg-timolol 6.8 1 drp ophthalmic (eye) BID 04/23/21 09/01/22 09/01/22 History mg/mL eye drops latanoprost 0.005 % eye drops 1 drp ophthalmic (eye) DAILY 04/23/21 09/01/22 09/01/22 History levothyroxine 25 mcg tablet 25 mcg PO DAILY@0600 04/23/21 09/01/22 09/01/22 History magnesium hydroxide 400 mg/5 mL 30 ml PO DAILY PRN Constipation 04/23/21 09/01/22 Unknown History oral suspension (Milk of Magnesia) mirtazapine 7.5 mg tablet 7.5 mg PO BEDTIME 04/23/21 09/01/22 08/31/22 History polyethylene glycol 3350 17 17 g PO DAILY 04/23/21 09/01/22 04/23/21 History gram/dose oral powder (Miralax) rivaroxaban 20 mg tablet (Xarelto) 1 tab PO DAILY 04/23/21 09/01/22 09/01/22 History sennosides 8.6 mg tablet (senna) 17.2 mg PO DAILY 04/23/21 09/01/22 09/01/22 History vitamins A,C,P-pnwf-wnwdfr 4,296 1 cap PO BID 04/23/21 09/01/22 09/01/22 History mcg-226 mg-90 mg capsule (PreserVision AREDS) acetaminophen 500 mg tablet 1,000 mg PO TID PRN Pain 09/01/22 09/01/22 Unknown History calcium carbonate 600 mg calcium 600 mg PO BEDTIME 09/01/22 09/01/22 08/31/22 History (1,500 mg) tablet gabapentin 100 mg capsule 200 mg PO TID 09/01/22 09/01/22 09/01/22 History guaifenesin 400 mg tablet 400 mg PO TID PRN Cough 09/01/22 09/01/22 Unknown History omeprazole 20 mg capsule,delayed 20 mg PO DAILY@0630 09/01/22 09/01/22 09/01/22 History release sodium phosphates 19 gram-7 118 ml ME DAILY PRN Constipation 09/01/22 09/01/22 Unknown History gram/118 mL enema (Fleet Enema) tramadol 50 mg tablet 50 mg PO BID PRN Pain 09/01/22 09/01/22 09/01/22 History Physical Exam Vital Signs: Vital Signs: Last Vital Signs Temp 98.5 F 09/16/22 07:07 Pulse 75 09/16/22 07:07 Resp 16 09/16/22 07:07 BP 134/63 09/16/22 07:07 Pulse Ox 97 09/16/22 07:07 O2 Del Method Room Air 09/16/22 07:07 O2 Flow Rate 1 09/14/22 11:50 Oxygen Flow Rate 4 09/01/22 15:58 BMI result Body Mass Index 31.5 Const: Other: has some verbal output although seems confused General: comfortable Resp: Other: mildly short of breath Cardio: Rate: regular rate GI: Other: no surgical scars Palpation (GI): Soft to palpation, not firm, nontender and no guarding Results Labs 09/11/22 06:58 09/12/22 06:05 Labs: Abnormal lab results 09/15/22 09/15/22 09/16/22 Range/Units 16:12 19:55 07:04 POC Glucose 158 H 146 H 157 H (60-115) mg/dL All other labs normal. Assessment and Plan (1) Failure to thrive in adult: Status: Acute She has multiple acute and chronic medical problems and has had failure to trhive. She has poor oral intake so she was referred to me for PEG tube placement. I will discuss this with her HCP and possibly plan on doing PEG tube next week. Time Spent With Patient Time: Total time managing care of this patient today ____ minutes. Procedures Date of Service Date of Service: 09/25/22
[2022-09-16 11:35] LABS: Glucose, Whole Blood 203 mg/dL (60-115)
[2022-09-16] MEDS: Insulin Lispro 100 UNIT/ML 3 ML VIAL SUBCUT (12:11)
--- NOTE | 2022-09-16 12:35 | P.PNIM_ITS ---
Subjective Subjective Date of Service: 09/16/22 Interval History: Essentially at baseline. Limited p.o. intake. Pleasantly confused Review of Systems Denies fever chills Denies chest pain Denies shortness of breath Denies nausea vomiting Physical Exam Vital Signs: Vital Signs: Last Vital Signs Temp 98.1 F 09/16/22 12:00 Pulse 88 09/16/22 12:00 Resp 18 09/16/22 12:00 BP 133/70 09/16/22 12:00 Pulse Ox 96 09/16/22 12:00 O2 Del Method Room Air 09/16/22 12:00 O2 Flow Rate 1 09/14/22 11:50 Oxygen Flow Rate 4 09/01/22 15:58 BMI result Body Mass Index 31.5 Const: Other: Awake alert no acute distress Resp: Other: Breath sounds absent from left base right side essentially clear Cardio: Other: No S4; positive S1-S2; no S3 murmurs rubs or gallops GI: Other: Soft nontender nondistended normoactive bowel sounds Extrem: Other: No edema bilaterally Objective Data Active Medications Acetaminophen (Acetaminophen 325 Mg Tablet) 650 mg PO Q6H PRN PRN Reason: Pain, Mild (Pain Scale 1-3) Last Admin: 09/16/22 09:53 Dose: 650 mg Documented By: JEREL Bisacodyl (Bisacodyl 10 Mg Supp.Rect) 10 mg [place] DAILY PRN PRN Reason: Constipation Digoxin (Digoxin 0.125 Mg Tablet) 0.125 mg PO DAILY [facility] Last Admin: 09/16/22 09:44 Dose: 0.125 mg Documented By: JEREL Docusate Sodium (Docusate Sodium 100 Mg Capsule) 100 mg PO BEDTIME [facility] Last Admin: 09/08/22 21:27 Dose: Not Given Documented By: SIVA Non-Admin Reason: Patient Refused Enoxaparin Sodium (Enoxaparin Sodium 40 Mg/0.4 Ml Syringe) 40 mg SUBCUT Q24H [facility] Last Admin: 09/15/22 17:38 Dose: 40 mg Documented By: DIANNE Glucose (Glucose Gel 15 Gm Gel..Gram.) 15 gm PO Q15M PRN; Protocol PRN Reason: per Hypoglycemia Standing Ord. Ampicillin Sodium/Sulbactam (Sodium 3 gm/ Sodium Chloride) 100 mls @ 200 mls/hr IV Q6H [facility] Last Admin: 09/16/22 12:12 Dose: 200 mls/hr Documented By: JEREL Dextrose (D10) 250 mls @ 750 mls/hr IV Q15M PRN; Protocol PRN Reason: per Hypoglycemia Standing Ord. Insulin Human Lispro (Insulin Lispro 100 Unit/Ml 3 Ml Vial) 0 unit SUBCUT QIDACHS [facility]; Protocol Last Admin: 09/16/22 12:11 Dose: 4 unit Documented By: JEREL Insulin Human Lispro (Insulin Lispro 100 Unit/Ml 3 Ml Vial) 5 unit SUBCUT QIDAS [facility] Last Admin: 09/16/22 12:09 Dose: Not Given Documented By: JEREL Non-Admin Reason: Physician Held Med Levothyroxine Sodium (Levothyroxine Sodium 25 Mcg Tablet) 25 mcg PO DAILY@0600 [facility] Last Admin: 09/16/22 06:37 Dose: 25 mcg Documented By: KT Melatonin (Melatonin 3 Mg Tablet) 6 mg PO BEDTIME PRN PRN Reason: Insomnia Last Admin: 09/15/22 22:06 Dose: 6 mg Documented By: KT Metoprolol Tartrate (Metoprolol Tartrate 25 Mg Tablet) 25 mg PO BID [facility]; Protocol Last Admin: 09/16/22 09:44 Dose: 25 mg Documented By: JEREL Omeprazole (Omeprazole 20 Mg Capsule.Dr) 20 mg PO DAILY@0630 [facility] Last Admin: 09/16/22 06:37 Dose: 20 mg Documented By: KT Ondansetron HCl (Ondansetron Hcl 4 Mg/2 Ml Vial) 4 mg IVPUSH Q8H PRN PRN Reason: Nausea and Vomiting Last Admin: 09/16/22 09:47 Dose: 4 mg Documented By: JEREL Potassium Chloride (Potassium Chloride Packet 20 Meq Packet) 40 meq PO BID [facility] Last Admin: 09/16/22 09:44 Dose: 40 meq Documented By: JEREL Rivaroxaban (Rivaroxaban 20 Mg Tablet) 20 mg PO DAILY@1700 [facility] Last Admin: 09/15/22 17:38 Dose: 20 mg Documented By: DIANNE Sodium Chloride (0.9 % Sodium Chloride Flush 3 Ml Syringe) 3 ml IVFLUSH QSHIFT [facility] Last Admin: 09/16/22 09:47 Dose: 3 ml Documented By: JEREL Labs 09/11/22 06:58 09/12/22 06:05 Labs: Laboratory Results - last 24 hr 09/15/22 09/15/22 09/16/22 16:12 19:55 07:04 POC Glucose 158 H 146 H 157 H 09/16/22 11:28 POC Glucose 203 H Assessment and Plan (1) Acute respiratory failure with hypoxia: Status: Acute (2) Hypokalemia: Status: Acute (3) Hypernatremia: Status: Acute (4) Failure to thrive in adult: Status: Acute Plan 82-year-old female with a PMH significant for?HFpEF, chronic AFib on Xarelto, hypothyroidism, aortic stenosis, non insulin-dependent diabetes type 2, and GERD who presents to the ED from SNF via EMS with?shortness of breath and dyspnea found to have collapse of left lung/left pleural effusion requiring chest tube placement. Course complicated by hypotension requiring brief transfer to ICU early am of 09/06, downgraded back to medical floor later the same day. Has been followed by thoracic surgery; 1.Acute hypoxic respiratory failure related to pleural effusion and pneumonia -chest tube removed without issue -continue Unasyn (15) -follow-up CBC in a.m. 2.Hypokalemia -replete as indicated -follow renals/divalents 3.Acute hypernatremia -recheck in am -rate calculated free water deficit 4.Sepsis secondary to pneumonia -resolved -treatment as above 5.Afib with RVR. -rate control adequate -continue Xarelto/amiodarone 6..Stage 3 pressure wound to coccyx -present on admission -continue ensure, airloss bed, frequent repositioning Discuss with computer typesetter keyliner; patient's intake extremely poor. No indication on moles regarding feeding tube are IV fluids. Long discussion with patient's niece; they never discuss the issue of a feeding tube. At this time niece cannot declined feeding tube as she feels her aunt would accepted. Given such consult will be placed to general surgery for PEG tube placement... Appreciate surgery input DNR/DNI boots continue hospital stay for treatment and further management of left-sided p leural effusion with complete collapse of her left lung and chest tube management, IV abx and close monitoring of respiratory status and electrolytes Time Spent With Patient Time: Total time managing care of this patient today ____ minutes. Quality Stroke Does the patient have a stroke diagnosis?: No VTE Prior VTE?: No VTE Risk Level:: Medical - moderate - high VTE Device Contraindication: N/A - Device Ordered VTE Drug Contraindication: Treatment Not Indicated
[2022-09-16 16:29] LABS: Glucose, Whole Blood 156 mg/dL (60-115)
[2022-09-16] MEDS: Rivaroxaban 20 MG TABLET PO (18:29)
[2022-09-16] MEDS: Enoxaparin Sodium 40 MG/0.4 ML SYRINGE SUBCUT (18:30)
[2022-09-16 19:25] LABS: Glucose, Whole Blood 177 mg/dL (60-115)
[2022-09-16] MEDS: Melatonin 3 MG TABLET 6 MG PO (22:45)
[2022-09-17] MEDS: 0.9 % Sodium Chloride Flush 3 ML SYRINGE IVFLUSH ×4 (00:03→20:30)
[2022-09-17 03:06] VITALS: BP 144/65; PULSE 77; RESP 18; TEMP 36.9; O2SAT 99
--- NOTE | 2022-09-17 04:58 | PC.NURSE ---
PT CONFUSED OVERNIGHT. YELLS OUT HELP ME, HELP ME. WANTS SOMEONE TO HOLD HER HAND. WOULD STAY WITH PT FOR A FEW MINUTES TO REASSURE HER SHE WAS SAFE. TAKING SIPS OF WATER WITHOUT DIFFICULTY. TURNED AND REPOS WITH BACK CARE GIVEN. SMEARING BROWN STOOL. NEEDS HELP TURNING. LEG EDEMA 3+ PITTING NOTED UP TO THIGHS. NO RESP DISTRESS. O2 ON AT 2L VIA NC. MONITOR SHOWS AFIB, RATE 70'S-80'S. BP STABLE.
[2022-09-17] MEDS: Ampicillin Sodium/Sulbactam Na 3 GM in 0.9 % Sodium Chloride 100 ML IV ×4 (05:54→23:40)
[2022-09-17] MEDS: Omeprazole 20 MG CAPSULE.DR PO (05:57)
[2022-09-17] MEDS: Levothyroxine Sodium 25 MCG TABLET PO (05:58)
[2022-09-17 07:38] LABS: Glucose, Whole Blood 163 mg/dL (60-115)
[2022-09-17 08:00] VITALS: BP 157/69; PULSE 85; RESP 18; TEMP 36.6; O2SAT 99
[2022-09-17] MEDS: ondansetron HCL 4 MG/2 ML VIAL IVPUSH (10:14)
[2022-09-17] MEDS: Metoprolol Tartrate 25 MG TABLET PO ×2 (10:16→20:28)
[2022-09-17] MEDS: Digoxin 0.125 MG TABLET PO (10:16)
[2022-09-17] MEDS: Potassium Chloride Packet 20 MEQ PACKET 40 MEQ PO ×2 (10:19→20:28)
[2022-09-17 11:36] LABS: Glucose, Whole Blood 186 mg/dL (60-115)
[2022-09-17 12:00] VITALS: BP 142/62; PULSE 83; RESP 16; TEMP 35.8; O2SAT 100
--- NOTE | 2022-09-17 13:14 | P.PNIM_ITS ---
Subjective Subjective Date of Service: 09/17/22 Interval History: No acute issues. Remains pleasantly confused. Intake poor Review of Systems Denies fever chills Denies chest pain Denies shortness of breath Denies nausea vomiting Physical Exam Vital Signs: Vital Signs: Last Vital Signs Temp 96.5 F L 09/17/22 12:00 Pulse 83 09/17/22 12:00 Resp 16 09/17/22 12:00 BP 142/62 H 09/17/22 12:00 Pulse Ox 100 09/17/22 12:00 O2 Del Method Nasal Cannula 09/17/22 12:00 O2 Flow Rate 2 09/17/22 12:00 Oxygen Flow Rate 4 09/01/22 15:58 BMI result Body Mass Index 31.5 Const: Other: Awake alert no acute distress Resp: Other: Breath sounds absent from left base right side essentially clear Cardio: Other: No S4; positive S1-S2; no S3 murmurs rubs or gallops GI: Other: Soft nontender nondistended normoactive bowel sounds Extrem: Other: No edema bilaterally Objective Data Active Medications Acetaminophen (Acetaminophen 325 Mg Tablet) 650 mg PO Q6H PRN PRN Reason: Pain, Mild (Pain Scale 1-3) Last Admin: 09/16/22 21:21 Dose: 650 mg Documented By: YAA Bisacodyl (Bisacodyl 10 Mg Supp.Rect) 10 mg [place] DAILY PRN PRN Reason: Constipation Digoxin (Digoxin 0.125 Mg Tablet) 0.125 mg PO DAILY [facility] Last Admin: 09/17/22 10:16 Dose: 0.125 mg Documented By: PATRICIA Docusate Sodium (Docusate Sodium 100 Mg Capsule) 100 mg PO BEDTIME [facility] Last Admin: 09/08/22 21:27 Dose: Not Given Documented By: SIVA Non-Admin Reason: Patient Refused Enoxaparin Sodium (Enoxaparin Sodium 40 Mg/0.4 Ml Syringe) 40 mg SUBCUT Q24H [facility] Last Admin: 09/16/22 18:30 Dose: 40 mg Documented By: KARLA Glucose (Glucose Gel 15 Gm Gel..Gram.) 15 gm PO Q15M PRN; Protocol PRN Reason: per Hypoglycemia Standing Ord. Ampicillin Sodium/Sulbactam (Sodium 3 gm/ Sodium Chloride) 100 mls @ 200 mls/hr IV Q6H [facility] Last Infusion: 09/17/22 06:36 Dose: 0 mls/hr Documented By: YAA Dextrose (D10) 250 mls @ 750 mls/hr IV Q15M PRN; Protocol PRN Reason: per Hypoglycemia Standing Ord. Insulin Human Lispro (Insulin Lispro 100 Unit/Ml 3 Ml Vial) 0 unit SUBCUT QIDACHS [facility]; Protocol Last Admin: 09/17/22 12:46 Dose: Not Given Documented By: JONATHAN Non-Admin Reason: No Insulin Coverage Insulin Human Lispro (Insulin Lispro 100 Unit/Ml 3 Ml Vial) 5 unit SUBCUT QIDAS [facility] Last Admin: 09/17/22 12:47 Dose: Not Given Documented By: JONATHAN Non-Admin Reason: No Insulin Coverage Levothyroxine Sodium (Levothyroxine Sodium 25 Mcg Tablet) 25 mcg PO DAILY@0600 [facility] Last Admin: 09/17/22 05:58 Dose: 25 mcg Documented By: YAA Melatonin (Melatonin 3 Mg Tablet) 6 mg PO BEDTIME PRN PRN Reason: Insomnia Last Admin: 09/16/22 22:45 Dose: 6 mg Documented By: YAA Metoprolol Tartrate (Metoprolol Tartrate 25 Mg Tablet) 25 mg PO BID [facility]; Protocol Last Admin: 09/17/22 10:16 Dose: 25 mg Documented By: PATRICIA Omeprazole (Omeprazole 20 Mg Capsule.Dr) 20 mg PO DAILY@0630 [facility] Last Admin: 09/17/22 05:57 Dose: 20 mg Documented By: YAA Ondansetron HCl (Ondansetron Hcl 4 Mg/2 Ml Vial) 4 mg IVPUSH Q8H PRN PRN Reason: Nausea and Vomiting Last Admin: 09/17/22 10:14 Dose: 4 mg Documented By: PATRICIA Potassium Chloride (Potassium Chloride Packet 20 Meq Packet) 40 meq PO BID [facility] Last Admin: 09/17/22 10:19 Dose: 40 meq Documented By: PATRICIA Rivaroxaban (Rivaroxaban 20 Mg Tablet) 20 mg PO DAILY@1700 [facility] Last Admin: 09/16/22 18:29 Dose: 20 mg Documented By: KARLA Sodium Chloride (0.9 % Sodium Chloride Flush 3 Ml Syringe) 3 ml IVFLUSH QSHIFT [facility] Last Admin: 09/17/22 10:16 Dose: 3 ml Documented By: PATRICIA Labs 09/11/22 06:58 09/12/22 06:05 Labs: Laboratory Results - last 24 hr 09/16/22 09/16/22 09/17/22 16:18 18:59 07:30 POC Glucose 156 H 177 H 163 H 09/17/22 11:28 POC Glucose 186 H Assessment and Plan (1) Acute respiratory failure with hypoxia: Status: Acute (2) Failure to thrive in adult: Status: Acute (3) Sepsis: Status: Acute (4) Persistent atrial fibrillation: Status: Acute Plan 82-year-old female with a PMH significant for?HFpEF, chronic AFib on Xarelto, hypothyroidism, aortic stenosis, non insulin-dependent diabetes type 2, and GERD who presents to the ED from SNF via EMS with?shortness of breath and dyspnea found to have collapse of left lung/left pleural effusion requiring chest tube placement. Course complicated by hypotension requiring brief transfer to ICU early am of 09/06, downgraded back to medical floor later the same day. Has been followed by thoracic surgery; 1.Acute hypoxic respiratory failure related to pleural effusion and pneumonia -chest tube removed without issue -DC Unasyn (15) -follow-up CBC in a.m. 2.Hypokalemia -replete as indicated -follow renals/divalents 3.Acute hypernatremia -recheck in am -rate calculated free water deficit 4.Sepsis secondary to pneumonia -resolved -treatment as above 5.Afib with RVR. -rate control adequate -continue Xarelto/amiodarone 6..Stage 3 pressure wound to coccyx -present on admission -continue ensure, airloss bed, frequent repositioning Discuss with central office equipment engineer; patient's intake extremely poor. No indication on moles regarding feeding tube are IV fluids. Long discussion with patient's niece; they never discuss the issue of a feeding tube. At this time niece cannot declined feeding tube as she feels her aunt would accepted. Given such consult will be placed to general surgery for PEG tube placement... General surgery states PEG tube [id number] DNR/DNI boots continue hospital stay for treatment and further management of left-sided pleural effusion with complete collapse of her left lung and chest tube management, IV abx and close monitoring of respiratory status and electrolytes Time Spent With Patient Time: Total time managing care of this patient today ____ minutes. Quality Stroke Does the patient have a stroke diagnosis?: No VTE Prior VTE?: No VTE Risk Level:: Medical - moderate - high VTE Device Contraindication: N/A - Device Ordered VTE Drug Contraindication: Treatment Not Indicated
--- NOTE | 2022-09-17 14:32 | P.PNGS_ITS ---
Subjective Subjective Date of Service: 09/17/22 Interval history: no events reported pt with poor PO intake Physical Exam Vital Signs: Vital Signs: Last Vital Signs Temp 96.5 F L 09/17/22 12:00 Pulse 83 09/17/22 12:00 Resp 16 09/17/22 12:00 BP 142/62 H 09/17/22 12:00 Pulse Ox 100 09/17/22 12:00 O2 Del Method Nasal Cannula 09/17/22 12:00 O2 Flow Rate 2 09/17/22 12:00 Oxygen Flow Rate 4 09/01/22 15:58 BMI result Body Mass Index 31.5 Const: Other: answers simple questions General: no acute distress Resp: Effort & Inspection: normal respiratory effort Cardio: Rate: regular rate GI: Other: no surgical scars, mild diffuse tenderness Palpation (GI): Soft to palpation, not firm, no guarding and not rigid Objective Data Active Medications Acetaminophen (Acetaminophen 325 Mg Tablet) 650 mg PO Q6H PRN PRN Reason: Pain, Mild (Pain Scale 1-3) Last Admin: 09/16/22 21:21 Dose: 650 mg Documented By: YAA Bisacodyl (Bisacodyl 10 Mg Supp.Rect) 10 mg [place] DAILY PRN PRN Reason: Constipation Digoxin (Digoxin 0.125 Mg Tablet) 0.125 mg PO DAILY [facility] Last Admin: 09/17/22 10:16 Dose: 0.125 mg Documented By: PATRICIA Docusate Sodium (Docusate Sodium 100 Mg Capsule) 100 mg PO BEDTIME [facility] Last Admin: 09/08/22 21:27 Dose: Not Given Documented By: SIVA Non-Admin Reason: Patient Refused Enoxaparin Sodium (Enoxaparin Sodium 40 Mg/0.4 Ml Syringe) 40 mg SUBCUT Q24H [facility] Last Admin: 09/16/22 18:30 Dose: 40 mg Documented By: KARLA Glucose (Glucose Gel 15 Gm Gel..Gram.) 15 gm PO Q15M PRN; Protocol PRN Reason: per Hypoglycemia Standing Ord. Ampicillin Sodium/Sulbactam (Sodium 3 gm/ Sodium Chloride) 100 mls @ 200 mls/hr IV Q6H [facility] Last Admin: 09/17/22 13:49 Dose: 200 mls/hr Documented By: JONATHAN Dextrose (D10) 250 mls @ 750 mls/hr IV Q15M PRN; Protocol PRN Reason: per Hypoglycemia Standing Ord. Insulin Human Lispro (Insulin Lispro 100 Unit/Ml 3 Ml Vial) 0 unit SUBCUT QIDACHS [facility]; Protocol Last Admin: 09/17/22 12:46 Dose: Not Given Documented By: JONATHAN Non-Admin Reason: No Insulin Coverage Insulin Human Lispro (Insulin Lispro 100 Unit/Ml 3 Ml Vial) 5 unit SUBCUT Q IDACHS [facility] Last Admin: 09/17/22 12:47 Dose: Not Given Documented By: JONATHAN Non-Admin Reason: No Insulin Coverage Levothyroxine Sodium (Levothyroxine Sodium 25 Mcg Tablet) 25 mcg PO DAILY@0600 [facility] Last Admin: 09/17/22 05:58 Dose: 25 mcg Documented By: YAA Melatonin (Melatonin 3 Mg Tablet) 6 mg PO BEDTIME PRN PRN Reason: Insomnia Last Admin: 09/16/22 22:45 Dose: 6 mg Documented By: YAA Metoprolol Tartrate (Metoprolol Tartrate 25 Mg Tablet) 25 mg PO BID [facility]; Protocol Last Admin: 09/17/22 10:16 Dose: 25 mg Documented By: PATRICIA Omeprazole (Omeprazole 20 Mg Capsule.) 20 mg PO DAILY@0630 [facility] Last Admin: 09/17/22 05:57 Dose: 20 mg Documented By: YAA Ondansetron HCl (Ondansetron Hcl 4 Mg/2 Ml Vial) 4 mg IVPUSH Q8H PRN PRN Reason: Nausea and Vomiting Last Admin: 09/17/22 10:14 Dose: 4 mg Documented By: PATIRCIA Potassium Chloride (Potassium Chloride Packet 20 Meq Packet) 40 meq PO BID [facility] Last Admin: 09/17/22 10:19 Dose: 40 meq Documented By: PATRICIA Rivaroxaban (Rivaroxaban 20 Mg Tablet) 20 mg PO DAILY@1700 [facility] Last Admin: 09/16/22 18:29 Dose: 20 mg Documented By: KARLA Sodium Chloride (0.9 % Sodium Chloride Flush 3 Ml Syringe) 3 ml IVFLUSH QSHIFT [facility] Last Admin: 09/17/22 10:16 Dose: 3 ml Documented By: PATRICIA Labs 09/11/22 06:58 09/12/22 06:05 Labs: Laboratory Results - last 24 hr 09/16/22 09/16/22 09/17/22 16:18 18:59 07:30 POC Glucose 156 H 177 H 163 H 09/17/22 11:28 POC Glucose 186 H Procedures Date of Service Date of Service: 09/17/22 Progress Note: A&P Assessment and plan (1) Failure to thrive in adult: Status: Acute Assessment and Plan: I hve been requested to place PEG tube for nutrition I explained this procedure to HCP Paz Chen [phone] I reviewed the risks incl but not limited to bleeding, infections, injury to bowel, other organs, loos of airway, leak around tube, tube dislodgement as well as the benefits and alternatives Paz has given consent she also mentioned tht the pt ofen complains of vague abdl pain will order CT plan to do PEG on September 19 Time Spent With Patient Time: Total time managing care of this patient today ____ minutes. Quality Stroke Does the patient have a stroke diagnosis?: No VTE Prior VTE?: No VTE Risk Level:: Medical - moderate - high VTE Device Contraindication: N/A - Device Ordered VTE Drug Contraindication: Treatment Not Indicated
[2022-09-17 15:57] VITALS: BP 152/69; PULSE 81; RESP 20; TEMP 36.8; O2SAT 98
[2022-09-17] MEDS: Acetaminophen 325 MG TABLET 650 MG PO (16:32)
[2022-09-17] MEDS: Enoxaparin Sodium 40 MG/0.4 ML SYRINGE SUBCUT (16:32)
[2022-09-17 16:45] LABS: Glucose, Whole Blood 170 mg/dL (60-115)
[2022-09-17] MEDS: Rivaroxaban 20 MG TABLET PO (18:19)
[2022-09-17 19:53] VITALS: BP 120/58; PULSE 95; RESP 20; TEMP 36.5; O2SAT 98
[2022-09-17 20:45] LABS: Glucose, Whole Blood 251 mg/dL (60-115)
[2022-09-17] MEDS: Insulin Lispro 100 UNIT/ML 3 ML VIAL SUBCUT (22:02)
[2022-09-17 23:49] VITALS: BP 139/64; PULSE 66; RESP 20; TEMP 36.9; O2SAT 100
[2022-09-18] VITALS (11 sets, daily range): BP systolic 112–136; BP diastolic 55–68; PULSE 70–89; RESP 18–20; TEMP 36.4–37.1; O2SAT 93–100
--- NOTE | 2022-09-18 | ECG_ITS ---
Test Reason : CP Blood Pressure : / mmHG Vent. Rate : 081 BPM Atrial Rate : 000 BPM P-R Int : 000 ms QRS Dur : 070 ms QT Int : 344 ms P-R-T Axes : 000 017 226 degrees QTc Int : 399 ms Atrial fibrillation T wave abnormality, consider lateral ischemia Abnormal ECG When compared with ECG of 18-SEP-2022 05:32, No significant change was found Referred By: Al Leung Electronically Signed By:HARVEY CHI MD
--- NOTE | 2022-09-18 | ECG_ITS ---
Test Reason : chest pain Blood Pressure : / mmHG Vent. Rate : 081 BPM Atrial Rate : 000 BPM P-R Int : 000 ms QRS Dur : 068 ms QT Int : 336 ms P-R-T Axes : 000 017 221 degrees QTc Int : 390 ms Atrial fibrillation T wave abnormality, consider lateral ischemia Abnormal ECG When compared with ECG of 03-SEP-2022 09:38, Vent. rate has decreased BY 58 BPM Borderline criteria for Anterior infarct are no longer Present Borderline criteria for Anterolateral infarct are no longer Present Criteria for Inferior infarct are no longer Present Nonspecific T wave abnormality, worse in Inferior leads T wave inversion more evident in Lateral leads Referred By: Holli Polo Electronically Signed By:HARVEY CHI MD
[2022-09-18] MEDS: Omeprazole 20 MG CAPSULE.DR PO (05:21)
[2022-09-18] MEDS: Ampicillin Sodium/Sulbactam Na 3 GM in 0.9 % Sodium Chloride 100 ML IV ×3 (05:21→17:45)
[2022-09-18] MEDS: Levothyroxine Sodium 25 MCG TABLET PO (05:21)
[2022-09-18] MEDS: Nitroglycerin 0.4 MG TAB.SUBL SUBLINGUAL ×2 (05:51→09:26)
--- NOTE | 2022-09-18 07:00 | CA_ITS ---
Transthoracic Echocardiogram Patient (Last, First, Middle): Noemi Hall M Gender: Female Date of : 1940 Age: 82 Procedure Date: 09/18/2022 Procedure Type: Transthoracic Echocardiogram Location: [facility] Height: 154.94 cm Weight: 73.03 kg BSA: 1.72 m2 Heart Rate: bpm BP: 134 / 68 mmHg Metal Fence Erector: Referring MD: Marilee Norris MD Pattern Changer And Repairer: Carlos Torres MD Symptoms: chest pain Study Quality: Good ECG Rhythm: Atrial Fibrillation Conclusions: - 1. Critical aortic stenosis 2. Normal LV systolic function with LVEF of 60 65% 3. Moderate left atrial enlargement 4. Mildly elevated right ventricular systolic pressure mildly elevated right atrial pressures 5. Small pericardial effusion more prominent near the left ventricle Findings Left Ventricle Normal left ventricular size, thickness, and systolic function. The visually estimated ejection fraction is between 60-65%. Spectral Doppler is indicative of a restrictive filling pattern. Right Ventricle Mildly increased right ventricular cavity size. There is normal right ventricular systolic function. Atria The left atrium is moderately dilated. There is lipomatous hypertrophy of the interatrial septum. There is no evidence of interatrial shunt. The right atrium is likely dilated. Aortic Valve The aortic valve was not well visualized. There is severe aortic valve stenosis. The peak aortic gradient is 131 mmHg.The mean gradient is 72 mmHg. The aortic valve area is 0.48 cm2. There is mild aortic valve regurgitation. Mitral Valve There is moderate anterior and severe posterior mitral leaflet thickening. There is moderate mitral annular calcification. There is mild mitral valve regurgitation. There is no mitral valve stenosis. Pulmonic Valve The pulmonic valve was not well visualized. Tricuspid Valve Likely normal tricuspid valve structure and function. There is mild tricuspid valve regurgitation. Mildly elevated right atrial pressure. Mild pulmonary hypertension is present. Great Vessels All visible segments of the aorta are normal in size. The pulmonary artery was not well visualized. Venous The inferior vena cava is mildly dilated and collapses less than 50% with inspiration. Pericardium/Pleural There is a small loculated pericardial effusion overlying the left ventricle. Prior Study Comparison Changes noted compared to prior study dated: 04/25/2021. Aortic stenosis is worse Measurements 2D Linear Measurements IVSd: 1.01 0.6-0.9/0.6-1.0 cm LVIDd: 3.98 3.9-5.3/4.2-5.9 cm LVIDd Index: 2.31 2.4-3.2/2.2-3.1 cm/m2 LVIDs: 2.34 2.0-3.6 cm LVPWd: 1.09 0.7-1.1 cm Ao Root: 2.90 2.1-3.5 cm LA Diam: 3.30 2.7-3.8/3.0-4.0 cm LAIDs Index: 1.92 1.5-2.3 cm/m2 LV Mass: 168.18 67-162/88-224 g LV Mass Index: 97.78 43-95/49-115 g/m2 LVOT Diam: 1.90 3.0+(-)1.3 cm Mitral Valve MV VTI: 0.29 MV Pk Beto: 1.39 MV Mn Beto: 0.78 MV Pk Grad: 8.00 MV Mn Grad: 3.00 MV Pk E: 1.30 MV Decel Time: 252.00 E'Lateral: 6.31 E'Medial: 5.11 E/E' Med: 25.40 E/E' Lat: 20.60 PHT: 74.00 MVA PHT: 2.97 MVA Continuity: 1.86 Decel [place]: 5.16 Aortic Valve AoV Pk Beto: 5.72 AoV Mn Beto: 3.87 AoV VTI: 1.11 AoV Pk Grad: 131.00 Aov Mn Grad: 72.00 GELA Cont.VTI: 0.48 LVOT LVOT Pk Beto: 0.83 LVOT Mn Beto: 0.60 LVOT VTI: 0.19 LVOT Pk Grad: 3.00 LVOT Mn Grad: 2.00 LVOT Diam: 1.90 LVOT Area: 2.84 Diastolic Function MV Pk E: 1.30 E'Medial: 5.11 E/E' Med: 25.40 E' Laterial: 6.31 E/E' Lat: 20.60 Right Ventricle TAPSE (mm): 18.00 TVS' Beto: 14.00 Tricuspid Valve TR Pk Beto: 2.97 TR Pk Grad: 35.00 RA Press: 8.00 RVSP: 43.00 Great Vessels Aorta Ao Root-2D: 2.90 2.0-3.7 cm Ao Asc: 2.90 2.1-3.4 cm Pulmonary Valve PV Pk Beto: 1.33 Peak PV Grad: 7.00 Updated in Other Vendor System with Status of Final Carlos Torres MD electronically signed on 09/18/2022 4:39:36 PM with status of Final
[2022-09-18 07:13] LABS: Glucose, Whole Blood 171 mg/dL (60-115)
[2022-09-18 07:15] LABS: Troponin-I High Sensitivity 60.3 ng/L (<3.5-17.0)
--- NOTE | 2022-09-18 07:20 | PC.NURSE ---
patient reported 9/10 chest pain approximately at 05:20. MD notified. EKG and troponin ordered and obtained and nitroglycerin 0.4mg sublingual ordered. will continue to monitor.
[2022-09-18] MEDS: Digoxin 0.125 MG TABLET PO (09:26)
[2022-09-18] MEDS: 0.9 % Sodium Chloride Flush 3 ML SYRINGE IVFLUSH ×3 (09:26→20:25)
[2022-09-18] MEDS: Potassium Chloride Packet 20 MEQ PACKET 40 MEQ PO ×2 (09:26→20:25)
[2022-09-18] MEDS: Metoprolol Tartrate 25 MG TABLET PO ×2 (09:26→20:24)
[2022-09-18 09:51] LABS: Anion Gap 13 (12-20); Blood Urea Nitrogen 18 mg/dL (9-16); Calcium 8.2 mg/dL (8.4-10.2); Carbon Dioxide 23 mmol/L (22-29); Chloride 117 mmol/L (96-108); Estimated Glomerular Filt Rate > 60; Glucose Fasting 207 mg/dL (60-99); Potassium 3.9 mmol/L (3.3-5.1); Sodium 149 mmol/L (135-145)
[2022-09-18 09:52] LABS: Troponin-I High Sensitivity 49.5 ng/L (<3.5-17.0)
[2022-09-18 10:10] LABS: Procalcitonin 0.59 ng/mL
--- NOTE | 2022-09-18 10:31 | MHC.CM.PN ---
EMR REVIEWED, PER HOSPITALIST PLAN FOR PEG TUBE PLACEMENT TOMORROW 09/19, ANTIC D/C ONCE PT TOLERATING TIBE FEEDS AT MAX GOAL RATE, CM WILL CONT TO FOLLOW D/C NEEDS.
[2022-09-18 11:04] LABS: Glucose, Whole Blood 204 mg/dL (60-115)
[2022-09-18] MEDS: Morphine Sulfate 2 MG/ML CARTRIDGE IVPUSH ×2 (11:39→15:59)
[2022-09-18] MEDS: Insulin Lispro 100 UNIT/ML 3 ML VIAL SUBCUT ×2 (11:45→20:24)
--- NOTE | 2022-09-18 14:06 | MHC.CLN ---
F/U PO INTAKE REMAINS POOR, 25% X2 MEALS DIET RX: GRD M/S-APPROPRIATE PT RECEIVING ENSURE MAX PROTEIN BID TO PROMOTE WOUND HEALING PROVIDES 300 KCALS, 60G PROTEIN IN ADDITION, PT RECEIVING THRIVE ICE CREAM AND TIAN WITH MEALS TO INCREASE PO SHIVAM 12 WITH NOW STAGE 3 PRESSURE INJURIES INCREASES NUTRITION RISKS FAMILY TEAM MEETING HELD PER MD-FAMILY REQUESTING PEG PLACEMENT SCHEDULED FOR 09/19 IF TF NEEDED; RECOMMEND PROMOTE AT MAX GOAL RATE 60ML/HR WITH 120ML FREE WATER FLUSHES Q 8 HRS TO PROVIDE 1440KCALS, 90G PROTEIN (1.7G/KG), 1568ML TOTAL WATER FROM FORMULA AND FLUSHES (30ML/KG) FOLLOWING WITH TEAM
--- NOTE | 2022-09-18 14:58 | HO.PM.IMPN ---
Subjective Subjective Date of Service: 09/18/22 Interval History: c/o sharp chest pain this AM, mostly at site of chest tube but also substernal no dyspnea no cough no fever Review of Systems Review of Systems: Yes all other systems are reviewed and are negative Physical Exam Vital Signs: Vital Signs: Last Vital Signs Temp 98.2 F 09/18/22 11:12 Pulse 72 09/18/22 11:12 Resp 18 09/18/22 11:39 BP 133/62 09/18/22 11:12 Pulse Ox 100 09/18/22 11:12 O2 Del Method Nasal Cannula 09/18/22 11:12 O2 Flow Rate 2 09/18/22 11:12 Oxygen Flow Rate 4 09/01/22 15:58 BMI result Body Mass Index 31.5 Gen: in pain HEENT: sclera anicteric, moist mucus membranes Neck: supple Lungs: diminished on L Heart: regular rate and rhythm, no murmurs Abd: soft, non-tender, non-distended Ext: no edema Skin: warm/well-perfused Neuro: alert and oriented x3, no focal findings Psych: appropriate affect Objective Data Active Medications Acetaminophen (Acetaminophen 325 Mg Tablet) 650 mg PO Q6H PRN PRN Reason: Pain, Mild (Pain Scale 1-3) Last Admin: 09/17/22 16:32 Dose: 650 mg Documented By: JONATHAN Bisacodyl (Bisacodyl 10 Mg Supp.Rect) 10 mg SC DAILY PRN PRN Reason: Constipation Digoxin (Digoxin 0.125 Mg Tablet) 0.125 mg PO DAILY [facility] Last Admin: 09/18/22 09:26 Dose: 0.125 mg Documented By: COTEMA Docusate Sodium (Docusate Sodium 100 Mg Capsule) 100 mg PO BEDTIME [facility] Last Admin: 09/08/22 21:27 Dose: Not Given Documented By: N-JOZEB Non-Admin Reason: Patient Refused Enoxaparin Sodium (Enoxaparin Sodium 40 Mg/0.4 Ml Syringe) 40 mg SUBCUT Q24H [facility] Last Admin: 09/17/22 16:32 Dose: 40 mg Documented By: JONATHAN Glucose (Glucose Gel 15 Gm Gel..Gram.) 15 gm PO Q15M PRN; Protocol PRN Reason: per Hypoglycemia Standing Ord. Ampicillin Sodium/Sulbactam (Sodium 3 gm/ Sodium Chloride) 100 mls @ 200 mls/hr IV Q6H [facility] Last Infusion: 09/18/22 12:21 Dose: 0 mls/hr Documented By: KVNG Dextrose (D10) 250 mls @ 750 mls/hr IV Q15M PRN; Protocol PRN Reason: per Hypoglycemia Standing Ord. Insulin Human Lispro (Insulin Lispro 100 Unit/Ml 3 Ml Vial) 0 unit SUBCUT QIDAS [facility]; Protocol Last Admin: 09/18/22 11:45 Dose: 4 unit Documented By: KVNG Insulin Human Lispro (Insulin Lispro 100 Unit/Ml 3 Ml Vial) 5 unit SUBCUT QIDAS [facility] Last Admin: 09/18/22 11:14 Dose: Not Given Documented By: KVNG Non-Admin Reason: poor po intake Levothyroxine Sodium (Levothyroxine Sodium 25 Mcg Tablet) 25 mcg PO DAILY@0600 [facility] Last Admin: 09/18/22 05:21 Dose: 25 mcg Documented By: RICKEY Melatonin (Melatonin 3 Mg Tablet) 6 mg PO BEDTIME PRN PRN Reason: Insomnia Last Admin: 09/16/22 22:45 Dose: 6 mg Documented By: YAA Metoprolol Tartrate (Metoprolol Tartrate 25 Mg Tablet) 25 mg PO BID [facility]; Protocol Last Admin: 09/18/22 09:26 Dose: 25 mg Documented By: KVNG Nitroglycerin (Nitroglycerin 0.4 Mg Tab.Subl) 0.4 mg SUBLINGUAL Q5MX3 PRN PRN Reason: Chest Pain Last Admin: 09/18/22 09:26 Dose: 1 tab Documented By: KVNG Omeprazole (Omeprazole 20 Mg Capsule.Dr) 20 mg PO DAILY@0630 [facility] Last Admin: 09/18/22 05:21 Dose: 20 mg Documented By: RICKEY Ondansetron HCl (Ondansetron Hcl 4 Mg/2 Ml Vial) 4 mg IVPUSH Q8H PRN PRN Reason: Nausea and Vomiting Last Admin: 09/17/22 10:14 Dose: 4 mg Documented By: PATRICIA Potassium Chloride (Potassium Chloride Packet 20 Meq Packet) 40 meq PO BID [facility] Last Admin: 09/18/22 09:26 Dose: 40 meq Documented By: KVNG Rivaroxaban (Rivaroxaban 20 Mg Tablet) 20 mg PO DAILY@1700 [facility] Last Admin: 09/17/22 18:19 Dose: 20 mg Documented By: DOBROB Sodium Chloride (0.9 % Sodium Chloride Flush 3 Ml Syringe) 3 ml IVFLUSH QSHIFT [facility] Last Admin: 09/18/22 09:26 Dose: 3 ml Documented By: KVNG Labs 09/11/22 06:58 09/18/22 06:19 Labs: Laboratory Results - last 24 hr 09/17/22 09/17/22 09/18/22 16:40 20:39 06:19 Anion Gap Estim Creat Clear Calc Estimated GFR POC Glucose 170 H 251 H Fasting Glucose Calcium Troponin I High Sens 60.3 H* D Procalcitonin 09/18/22 09/18/22 09/18/22 06:19 07:05 09:23 Anion Gap 13 Estim Creat Clear Calc 57.0 Estimated GFR > 60 POC Glucose 171 H Fasting Glucose 207 H Calcium 8.2 L Troponin I High Sens 49.5 H Procalcitonin 0.59 09/18/22 10:58 Anion Gap Estim Creat Clear Calc Estimated GFR POC Glucose 204 H Fasting Glucose Calcium Troponin I High Sens Procalcitonin Impressions Chest X-Ray 09/18/22 09:25 IMPRESSION: Interval decrease and left hydropneumothorax on the left with no significant pleural effusion seen on the right. Assessment and Plan (1) Acute respiratory failure with hypoxia: Status: Acute (2) Failure to thrive in adult: Status: Acute (3) Sepsis: Status: Acute (4) Persistent atrial fibrillation: Status: Acute Plan d#18 82yo F with HFpEF, chronic AF on rivaroxaban, hypothyroidism, aortic stenosis, DM2, GERD long-term resident of [facility] presenting with dyspnea, found to have left lung collapse from pleural effusion requiring chest tube course complicated by hypotenssion requiring brief 1-d stay in ICU 09/06 # Acute hypoxic resp failure and sepsis due to pleural effusion/pneumonia - chest tube out 09/11/22, weaned off O2, on 16th day of amp-sul, trend PCT # Atypical chest pain, indeterminate/flat Tn-I - TTE, cardiology consultation, prn morphine # HypoK - repleted # HyperNa - mild, encourage free H2O intake PO # Chronic AF - rate control adequate- continue digoxin + metoprolol - continue rivaroxaban for anticoagluation # stage 3 pressure wound on coccyx - repositioning, airloss bed, Ensure # malnutrition - PEG tube tomorrow # DM2 - correction-dose lispro, DM diet # hypothyroidism - LT4 # VTE ppx: rivaroxaban # dispo: eventual return to LTC In my clinical judgment, the patient requires continued inpatient hospitalization for the following reasons: PEG tube Time Spent With Patient Time: Total time managing care of this patient today _45___ minutes. Quality Stroke Does the patient have a stroke diagnosis?: No VTE Prior VTE?: No VTE Risk Level:: Medical - moderate - high VTE Device Contraindication: N/A - Device Ordered VTE Drug Contraindication: Treatment Not Indicated
[2022-09-18 16:03] LABS: Glucose, Whole Blood 150 mg/dL (60-115)
[2022-09-18] MEDS: iohexoL 350 MG/ML 100 ML INFUS..BTL IV (17:19)
[2022-09-18 19:45] LABS: Glucose, Whole Blood 165 mg/dL (60-115)
[2022-09-19] MEDS: Ampicillin Sodium/Sulbactam Na 3 GM in 0.9 % Sodium Chloride 100 ML IV ×5 (00:21→23:39)
[2022-09-19 03:37] VITALS: BP 143/65; PULSE 72; RESP 20; TEMP 37.2; O2SAT 99
[2022-09-19] MEDS: Levothyroxine Sodium 25 MCG TABLET PO (05:52)
[2022-09-19] MEDS: Omeprazole 20 MG CAPSULE.DR PO (05:52)
[2022-09-19 06:38] LABS: Anion Gap 12 (12-20); Blood Urea Nitrogen 20 mg/dL (9-16); Calcium 8.2 mg/dL (8.4-10.2); Carbon Dioxide 26 mmol/L (22-29); Chloride 117 mmol/L (96-108); Creatinine Clr Calc Pharmacy 60.5; Estimated Glomerular Filt Rate > 60; Glucose Random 137 mg/dL (60-115); Potassium 3.8 mmol/L (3.3-5.1); Sodium 151 mmol/L (135-145)
[2022-09-19 07:06] VITALS: BP 137/67; PULSE 73; RESP 16; TEMP 36.6; O2SAT 97
[2022-09-19 07:17] LABS: Glucose, Whole Blood 152 mg/dL (60-115)
[2022-09-19] MEDS: Metoprolol Tartrate 25 MG TABLET PO ×2 (08:53→20:30)
[2022-09-19] MEDS: Digoxin 0.125 MG TABLET PO (08:53)
[2022-09-19] MEDS: 0.9 % Sodium Chloride Flush 3 ML SYRINGE IVFLUSH (08:53)
[2022-09-19] MEDS: Dextrose 5 % 1,000 ML 75 ML IVCONT ×2 (08:54→23:14)
[2022-09-19 09:25] LABS: Troponin-I High Sensitivity 50.4 ng/L (<3.5-17.0)
--- NOTE | 2022-09-19 10:09 | PM.PNCARD ---
Subjective Subjective Date of Service: 09/19/22 Principal diagnosis: Preoperative cardiac evaluation Interval history: Patient this morning does not report any symptoms to me. Reportedly had some chest pain yesterday. Troponins were done and they are flat. EKG shows atrial fibrillation with controlled ventricular response and lateral T-wave inversions which could represent repolarization abnormality and/or ischemia. This morning she did not respond to my verbal cues and did not offer any symptoms. . Comfortable. Review of Systems Review of Systems Yes Unobtainable due to mental status Physical Exam Vital Signs: Last Vital Signs Temp 97.9 F 09/19/22 07:06 Pulse 73 09/19/22 07:06 Resp 16 09/19/22 07:06 BP 137/67 09/19/22 07:06 Pulse Ox 97 09/19/22 07:06 O2 Del Method Nasal Cannula 09/19/22 07:06 O2 Flow Rate 1 09/19/22 07:06 Oxygen Flow Rate 4 09/01/22 15:58 BMI result Body Mass Index 31.5 Const General: lethargic Orientation/consciousness: lethargic Neck Neck: Yes trachea midline, Yes supple and Yes no JVD Resp Effort & Inspection: decreased respiratory effort Auscultation: no rales and no wheezes Cardio Jugular venous distension: no JVD Rhythm: abnormal rhythm irregularly irregular Heart sounds: S1 normal heart sound present and Murmur heart sound present systolic late, decrescendo and crescendo GI Auscultation: normal bowel sounds Skin General skin exam: no rashes or lesions noted and ecchymosis Extrem General: Yes no clubbing, cyanosis or edema Objective Labs and Meds 09/11/22 06:58 09/19/22 06:08 Lab results: Laboratory Results - last 24 hr 09/18/22 09/18/22 09/18/22 06:19 10:58 15:57 Sodium Potassium Chloride Carbon Dioxide Anion Gap BUN Creatinine Estim Creat Clear Calc Estimated GFR POC Glucose 204 H 150 H Random Glucose Calcium Troponin I High Sens Procalcitonin 0.59 09/18/22 09/19/22 09/19/22 19:39 06:08 07:03 Sodium 151 H Potassium 3.8 Chloride 117 H Carbon Dioxide 26 Anion Gap 12 BUN 20 H Creatinine 0.65 Estim Creat Clear Calc 60.5 Estimated GFR > 60 POC Glucose 165 H 152 H Random Glucose 137 H Calcium 8.2 L Troponin I High Sens Procalcitonin 09/19/22 08:20 Sodium Potassium Chloride Carbon Dioxide Anion Gap BUN Creatinine Estim Creat Clear Calc Estimated GFR POC Glucose Random Glucose Calcium Troponin I High Sens 50.4 H* Procalcitonin Imaging Radiologist's impression: Impressions Abdomen/Pelvis CT 09/18/22 17:17 IMPRESSION: Mild pancolitis. Mild diverticulosis. No evidence of diverticulitis. Stable heterogeneous left adrenal lesion. Question mild cirrhotic change. Small amount of ascites. Severe atherosclerotic disease. Fleischner guidelines were followed. Progress Note: A&P Assessment and plan (1) Preoperative cardiovascular examination: Status: Acute Assessment and Plan: Preoperative cardiovascular evaluation for this elderly woman 0 as minimal functional status and is bed-bound admitted with heart failure in the setting of severe aortic stenosis and subsequently developed hypotension requiring pressors after diuresis. She was then given fluids and pressors and then transferred back up to the [facility] She remains with poor oral intake and plan to place a PEG placement. As per my note last she was not considered to be a candidate for aortic valve replacement given her poor functional status and cognitive status and was discussed to make a palliative care. However planned now it seems like to go ahead and place a PEG placement. She remains at high risk given critical aortic stenosis by echocardiogram done yesterday with flat troponins. She will be very sensitive to both preload reduction as well as blood loss and could developed hypotension and/or also could developed congestive heart failure. She require very close hemodynamic monitoring and to perform procedure without much blood loss. General anesthesia would have significant risk. Discussed with hospitalist team. She also has multiple electrolyte abnormality that could overall impact risk for cardiac arrhythmias. Otherwise her heart rate is well controlled at this point time and blood pressure is stable. Will sign of the case Time Spent With Patient Time: Total time managing care of this patient today ____ minutes. Progress Note: Quality Stroke Does the patient have a stroke diagnosis?: No Procedures Date of Service Date of Service: 09/19/22
[2022-09-19 11:06] VITALS: BP 137/65; PULSE 76; RESP 20; TEMP 36.6; O2SAT 94
[2022-09-19 11:22] LABS: Glucose, Whole Blood 204 mg/dL (60-115)
--- NOTE | 2022-09-19 11:49 | P.PNIM_ITS ---
Subjective Subjective Date of Service: 09/19/22 Interval History: Chest pain resolved No cough or dyspnea Has some epigastric discomfort Review of Systems Review of Systems: Yes all other systems are reviewed and are negative Physical Exam Vital Signs: Vital Signs: Last Vital Signs Temp 97.9 F 09/19/22 11:06 Pulse 76 09/19/22 11:06 Resp 20 09/19/22 11:06 BP 137/65 09/19/22 11:06 Pulse Ox 94 09/19/22 11:06 O2 Del Method Room Air 09/19/22 11:06 O2 Flow Rate 1 09/19/22 07:06 Oxygen Flow Rate 4 09/01/22 15:58 BMI result Body Mass Index 31.5 Gen: NAD HEENT: sclera anicteric, moist mucus membranes Neck: supple Lungs: diminished L base Heart: regular rate and rhythm, systolic murmur at base Abd: soft, non-tender, non-distended Ext: no edema Skin: warm/well-perfused Neuro: alert and oriented x3, no focal findings Psych: appropriate affect Objective Data Active Medications Acetaminophen (Acetaminophen 325 Mg Tablet) 650 mg PO Q6H PRN PRN Reason: Pain, Mild (Pain Scale 1-3) Last Admin: 09/17/22 16:32 Dose: 650 mg Documented By: DOBRORashid Bisacodyl (Bisacodyl 10 Mg Supp.Rect) 10 mg PA DAILY PRN PRN Reason: Constipation Digoxin (Digoxin 0.125 Mg Tablet) 0.125 mg PO DAILY [facility] Last Admin: 09/19/22 08:53 Dose: 0.125 mg Documented By: KAREN Docusate Sodium (Docusate Sodium 100 Mg Capsule) 100 mg PO BEDTIME [facility] Last Admin: 09/08/22 21:27 Dose: Not Given Documented By: SIVA Non-Admin Reason: Patient Refused Enoxaparin Sodium (Enoxaparin Sodium 40 Mg/0.4 Ml Syringe) 40 mg SUBCUT Q24H [facility] Last Admin: 09/18/22 15:23 Dose: Not Given Documented By: COTEMA Non-Admin Reason: surgery tomorrow Glucose (Glucose Gel 15 Gm Gel..Gram.) 15 gm PO Q15M PRN; Protocol PRN Reason: per Hypoglycemia Standing Ord. Ampicillin Sodium/Sulbactam (Sodium 3 gm/ Sodium Chloride) 100 mls @ 200 mls/hr IV Q6H [facility] Last Infusion: 09/19/22 06:25 Dose: 0 mls/hr Documented By: SHAQUILLE Dextrose (D10) 250 mls @ 750 mls/hr IV Q15M PRN; Protocol PRN Reason: per Hypoglycemia Standing Ord. Dextrose (D5w) 1,000 mls @ 75 mls/hr IVCONT .[id number] [facility] Stop: 09/20/22 07:59 Last Admin: 09/19/22 08:54 Dose: 75 mls/hr Documented By: KAREN Insulin Human Lispro (Insulin Lispro 100 Unit/Ml 3 Ml Vial) 0 unit SUBCUT QIDACHS [facility]; Protocol Last Admin: 09/19/22 11:23 Dose: Not Given Documented By: KAREN Non-Admin Reason: NPO Insulin Human Lispro (Insulin Lispro 100 Unit/Ml 3 Ml Vial) 5 unit SUBCUT QIDACHS [facility] Last Admin: 09/19/22 11:23 Dose: Not Given Documented By: KAREN Non-Admin Reason: NPO Levothyroxine Sodium (Levothyroxine Sodium 25 Mcg Tablet) 25 mcg PO DAILY@0600 [facility] Last Admin: 09/19/22 05:52 Dose: 25 mcg Documented By: SHAQUILLE Melatonin (Melatonin 3 Mg Tablet) 6 mg PO BEDTIME PRN PRN Reason: Insomnia Last Admin: 09/16/22 22:45 Dose: 6 mg Documented By: YAA Metoprolol Tartrate (Metoprolol Tartrate 25 Mg Tablet) 25 mg PO BID [facility]; Protocol Last Admin: 09/19/22 08:53 Dose: 25 mg Documented By: KAREN Morphine Sulfate (Morphine Sulfate 2 Mg/Ml Cartridge) 2 mg IVPUSH Q4H PRN; Protocol PRN Reason: severe pain Last Admin: 09/18/22 15:59 Dose: 2 mg Documented By: UBALDOEMA Nitroglycerin (Nitroglycerin 0.4 Mg Tab.Subl) 0.4 mg SUBLINGUAL Q5MX3 PRN PRN Reason: Chest Pain Last Admin: 09/18/22 09:26 Dose: 1 tab Documented By: COTEMA Omeprazole (Omeprazole 20 Mg Capsule.Dr) 20 mg PO DAILY@0630 [facility] Last Admin: 09/19/22 05:52 Dose: 20 mg Documented By: SHAQUILLE Ondansetron HCl (Ondansetron Hcl 4 Mg/2 Ml Vial) 4 mg IVPUSH Q8H PRN PRN Reason: Nausea and Vomiting Last Admin: 09/17/22 10:14 Dose: 4 mg Documented By: PATRICIA Potassium Chloride (Potassium Chloride Packet 20 Meq Packet) 40 meq PO BID [facility] Last Admin: 09/19/22 08:54 Dose: Not Given Documented By: KAREN Non-Admin Reason: NPO Rivaroxaban (Rivaroxaban 20 Mg Tablet) 20 mg PO DAILY@1700 [facility] Last Admin: 09/17/22 18:19 Dose: 20 mg Documented By: JONATHAN Sodium Chloride (0.9 % Sodium Chloride Flush 3 Ml Syringe) 3 ml IVFLUSH QSHIFT [facility] Last Admin: 09/19/22 08:53 Dose: 3 ml Documented By: KAREN Labs 09/11/22 06:58 09/19/22 06:08 Labs: Laboratory Results - last 24 hr 09/18/22 09/18/22 09/19/22 15:57 19:39 06:08 Anion Gap 12 Estim Creat Clear Calc 60.5 Estimated GFR > 60 POC Glucose 150 H 165 H Random Glucose 137 H Calcium 8.2 L Troponin I High Sens 09/19/22 09/19/22 09/19/22 07:03 08:20 11:07 Anion Gap Estim Creat Clear Calc Estimated GFR POC Glucose 152 H 204 H Random Glucose Calcium Troponin I High Sens 50.4 H* TTE 09/18/22 1. Critical aortic stenosis? 2. Normal LV systolic function with LVEF of 60 65% ? 3. Moderate left atrial enlargement? 4. Mildly elevated right ventricular systolic pressure mildly? ? elevated right atrial pressures? 5. Small pericardial effusion more prominent near the left ? ? ? ventricle? Assessment and Plan (1) Acute respiratory failure with hypoxia: Status: Acute (2) Failure to thrive in adult: Status: Acute (3) Sepsis: Status: Acute (4) Persistent atrial fibrillation: Status: Acute Plan d#19 82yo F with HFpEF, chronic AF on rivaroxaban, hypothyroidism, aortic stenosis, DM2, GERD long-term resident of [facility] presenting with dyspnea, found to have left lung collapse from pleural effusion requiring chest tube course complicated by hypotension requiring brief 1-d stay in ICU 09/06 # critical aortic stenosis - not an operative candidate due to poor functional status; high-risk for anesthesia for PEG tube placement; as such, will cancel PEG tube and discuss with family. Message left for niece/HCP Paz to call back # acute hypoxic resp failure and sepsis due to pleural effusion/pneumonia - chest tube out 09/11/22, weaned off O2, on day of amp-sulbactam- d/c tomorrow if PCT is low # atypical chest pain - resolved, troponin flat # hypoK - repleted # hyperNa - 1.8L free water deficit, replete over 24h, recheck BMP in AM # chronic AF - rate control adequate- continue digoxin + metoprolol - continue rivaroxaban for anticoagluation # stage 3 pressure wound on coccyx - repositioning, airloss bed, Ensure # malnutrition - PEG tube canceled due to aortic stenosis # DM2 - correction-dose lispro, DM diet # hypothyroidism - LT4 # VTE ppx: rivaroxaban # dispo: eventual return to LTC In my clinical judgment, the patient requires continued inpatient hospitalization for the following reasons: hyperNa Time Spent With Patient Time: Total time managing care of this patient today _45___ minutes. Quality Stroke Does the patient have a stroke diagnosis?: No VTE Prior VTE?: No VTE Risk Level:: Medical - moderate - high VTE Device Contraindication: N/A - Device Ordered VTE Drug Contraindication: Treatment Not Indicated
--- NOTE | 2022-09-19 12:00 | PM.EVENT ---
Event Note Date of Service: 09/19/22 Event Note: pt was scheduled for PEG placement today she had complained of chest pain last night as per Hospitalist, PEG is canceled - the patient was noted to have critical aortic stenosis Time Spent With Patient Time: Total time managing care of this patient today ____ minutes.
[2022-09-19 14:28] VITALS: BP 141/66; PULSE 82; RESP 16; TEMP 36.6; O2SAT 94
[2022-09-19 15:29] LABS: Glucose, Whole Blood 221 mg/dL (60-115)
[2022-09-19] MEDS: Enoxaparin Sodium 40 MG/0.4 ML SYRINGE SUBCUT (17:06)
[2022-09-19] MEDS: Insulin Lispro 100 UNIT/ML 3 ML VIAL SUBCUT ×3 (17:07→20:31)
[2022-09-19 19:17] VITALS: BP 138/62; PULSE 60; RESP 20; TEMP 37; O2SAT 95
[2022-09-19 20:26] LABS: Glucose, Whole Blood 154 mg/dL (60-115)
[2022-09-19] MEDS: Potassium Chloride Packet 20 MEQ PACKET 40 MEQ PO (20:30)
[2022-09-19 23:54] VITALS: BP 113/57; PULSE 68; RESP 20; TEMP 36.5; O2SAT 94
[2022-09-20 03:44] VITALS: BP 144/58; PULSE 65; RESP 20; TEMP 36.6; O2SAT 92
[2022-09-20] MEDS: Ampicillin Sodium/Sulbactam Na 3 GM in 0.9 % Sodium Chloride 100 ML IV ×2 (06:08→13:19)
[2022-09-20] MEDS: Omeprazole 20 MG CAPSULE.DR PO (06:09)
[2022-09-20] MEDS: Levothyroxine Sodium 25 MCG TABLET PO (06:09)
[2022-09-20 06:43] LABS: Hematocrit 30.9 % (37.0-47.0); Mean Corpuscular HGB Conc 29.1 g/dl (31.0-35.0); Mean Corpuscular Hemoglobin 28.9 pg (27.0-33.0); Mean Corpuscular Volume 99.4 fL (80.0-98.0); Mean Platelet Volume 8.8 fL (9.4-12.3); NRBC Pct Auto 0.4 /100WBC (0.0-0.2); Platelet Count 268 X10*3/uL (160-400); Red Blood Count 3.11 X10*6/uL (4.20-5.50); Red Cell Distribution Width 18.2 % (11.0-16.0)
[2022-09-20 07:00] VITALS: BP 140/64; PULSE 53; RESP 18; TEMP 36.5; O2SAT 95
[2022-09-20 07:10] LABS: Anion Gap 11 (12-20); Blood Urea Nitrogen 20 mg/dL (9-16); Calcium 7.9 mg/dL (8.4-10.2); Carbon Dioxide 25 mmol/L (22-29); Chloride 113 mmol/L (96-108); Creatinine Clr Calc Pharmacy 55.4; Estimated Glomerular Filt Rate > 60; Glucose Random 156 mg/dL (60-115); Phosphorus 1.9 mg/dL (2.7-4.5); Potassium 3.4 mmol/L (3.3-5.1); Sodium 146 mmol/L (135-145)
[2022-09-20 07:17] LABS: Glucose, Whole Blood 150 mg/dL (60-115)
[2022-09-20 07:49] LABS: Procalcitonin 0.36 ng/mL
--- NOTE | 2022-09-20 08:37 | MHC.CM.PN ---
EMR REVIEWED, PT NOT CLEARED FOR PEG TUBE PLACEMENT D/T CRITICAL AORTIC STENOSIS, HOSPITALIST AWAITING CALL BACK FROM [facility] TO DISCUSS GOALS OF CARE, SNF UPDATED AND CM WILL CONT TO FOLLOW.
[2022-09-20] MEDS: Metoprolol Tartrate 25 MG TABLET PO (09:00)
[2022-09-20] MEDS: Digoxin 0.125 MG TABLET PO (09:00)
[2022-09-20 11:10] VITALS: BP 129/61; PULSE 69; RESP 18; TEMP 36.4; O2SAT 97
[2022-09-20 11:20] LABS: Glucose, Whole Blood 195 mg/dL (60-115)
--- NOTE | 2022-09-20 11:46 | MHC.CLN ---
F/U PEG CANCELED R/T AORTIC STENOSIS NOTED MD PROGRESS NOTE: not an operative candidate due to poor functional status; high-risk for anesthesia for PEG tube placement; as such, will cancel PEG tube and discuss with family. PO INTAKE REMAINS POOR, 25% X2 MEALS DIET RX: GRD M/S-APPROPRIATE PT RECEIVING ENSURE MAX PROTEIN BID TO PROMOTE WOUND HEALING PROVIDES 300 KCALS, 60G PROTEIN IN ADDITION, PT RECEIVING THRIVE ICE CREAM AND TIAN WITH MEALS TO INCREASE PO HOWEVER PT NOT CONSUMING SUPPLEMENTS AT THIS TIME STAGE 3 PRESSURE INJURIES INCREASES NUTRITION RISKS FOLLOWING WITH TEAM CONSULT RD IF PPN NEEDED
--- NOTE | 2022-09-20 12:39 | HO.PM.IMPN ---
Subjective Subjective Date of Service: 09/21/22 Interval History: patient awake alert being followed for poor by mouth intake, critical aortic stenosis, patient refusing to eat, does not like the food, denies abdominal pain, no nausea, no vomiting, no issues overnight patient not a candidate for PEG tube placement. Review of Systems all other system reviewed and negative. Physical Exam Vital Signs: Vital Signs: Last Vital Signs Temp 97.6 F 09/20/22 11:10 Pulse 69 09/20/22 11:10 Resp 18 09/20/22 11:10 BP 129/61 09/20/22 11:10 Pulse Ox 97 09/20/22 11:10 O2 Del Method Room Air 09/20/22 11:10 O2 Flow Rate 1 09/19/22 07:06 Oxygen Flow Rate 4 09/01/22 15:58 BMI result Body Mass Index 31.5 Const: Other: Gen: awake, alert, in no acute distress. HEENT: sclera anicteric, moist mucus membranes Neck: supple Lungs: clear to auscultation, no wheeze, no rhonchi Heart: regular rate and rhythm, systolic murmur at base Abd: soft, non-tender, non-distended, bowel sounds audible. Ext: no edema Skin: warm/well-perfused Neuro: alert and oriented x3, no focal findings. Psych: appropriate affect Objective Data Active Medications Acetaminophen (Acetaminophen 325 Mg Tablet) 650 mg PO Q6H PRN PRN Reason: Pain, Mild (Pain Scale 1-3) Last Admin: 09/17/22 16:32 Dose: 650 mg Documented By: DOBRORashid Bisacodyl (Bisacodyl 10 Mg Supp.Rect) 10 mg ND DAILY PRN PRN Reason: Constipation Digoxin (Digoxin 0.125 Mg Tablet) 0.125 mg PO DAILY [facility] Last Admin: 09/20/22 09:00 Dose: 0.125 mg Documented By: LISAORRRubi Docusate Sodium (Docusate Sodium 100 Mg Capsule) 100 mg PO BEDTIME [facility] Last Admin: 09/08/22 21:27 Dose: Not Given Documented By: SIVA Non-Admin Reason: Patient Refused Enoxaparin Sodium (Enoxaparin Sodium 40 Mg/0.4 Ml Syringe) 40 mg SUBCUT Q24H [facility] Last Admin: 09/19/22 17:06 Dose: 40 mg Documented By: KAREN Glucose (Glucose Gel 15 Gm Gel..Gram.) 15 gm PO Q15M PRN; Protocol PRN Reason: per Hypoglycemia Standing Ord. Ampicillin Sodium/Sulbactam (Sodium 3 gm/ Sodium Chloride) 100 mls @ 200 mls/hr IV Q6H [facility] Last Infusion: 09/20/22 07:15 Dose: 0 mls/hr Documented By: KAREN Dextrose (D10) 250 mls @ 750 mls/hr IV Q15M PRN; Protocol PRN Reason: per Hypoglycemia Standing Ord. Insulin Human Lispro (Insulin Lispro 100 Unit/Ml 3 Ml Vial) 0 unit SUBCUT QIDAS [facility]; Protocol Last Admin: 09/20/22 11:18 Dose: Not Given Documented By: KAREN Non-Admin Reason: poor po intake Insulin Human Lispro (Insulin Lispro 100 Unit/Ml 3 Ml Vial) 5 unit SUBCUT QIDAS [facility] Last Admin: 09/20/22 11:19 Dose: Not Given Documented By: KAREN Non-Admin Reason: poor po intake Levothyroxine Sodium (Levothyroxine Sodium 25 Mcg Tablet) 25 mcg PO DAILY@0600 [facility] Last Admin: 09/20/22 06:09 Dose: 25 mcg Documented By: TABATHA Melatonin (Melatonin 3 Mg Tablet) 6 mg PO BEDTIME PRN PRN Reason: Insomnia Last Admin: 09/16/22 22:45 Dose: 6 mg Documented By: YAA Metoprolol Tartrate (Metoprolol Tartrate 25 Mg Tablet) 25 mg PO BID [facility]; Protocol Last Admin: 09/20/22 09:00 Dose: 25 mg Documented By: KAREN Morphine Sulfate (Morphine Sulfate 2 Mg/Ml Cartridge) 2 mg IVPUSH Q4H PRN; Protocol PRN Reason: severe pain Last Admin: 09/18/22 15:59 Dose: 2 mg Documented By: COTEMA Nitroglycerin (Nitroglycerin 0.4 Mg Tab.Subl) 0.4 mg SUBLINGUAL Q5MX3 PRN PRN Reason: Chest Pain Last Admin: 09/18/22 09:26 Dose: 1 tab Documented By: COTEMA Omeprazole (Omeprazole 20 Mg Capsule.Dr) 20 mg PO DAILY@0630 [facility] Last Admin: 09/20/22 06:09 Dose: 20 mg Documented By: TABATHA Ondansetron HCl (Ondansetron Hcl 4 Mg/2 Ml Vial) 4 mg IVPUSH Q8H PRN PRN Reason: Nausea and Vomiting Last Admin: 09/17/22 10:14 Dose: 4 mg Documented By: PATRICIA Potassium Chloride (Potassium Chloride Packet 20 Meq Packet) 40 meq PO BID [facility] Last Admin: 09/20/22 09:10 Dose: Not Given Documented By: KAREN Non-Admin Reason: Patient Refused Rivaroxaban (Rivaroxaban 20 Mg Tablet) 20 mg PO DAILY@1700 [facility] Last Admin: 09/17/22 18:19 Dose: 20 mg Documented By: JONATHAN Sodium Chloride (0.9 % Sodium Chloride Flush 3 Ml Syringe) 3 ml IVFLUSH QSHIFT [facility] Last Admin: 09/20/22 08:56 Dose: Not Given Documented By: KAREN Non-Admin Reason: IV Running Labs 09/20/22 06:01 09/20/22 06:01 Labs: Laboratory Results - last 24 hr 09/19/22 09/19/22 09/20/22 15:26 20:18 06:01 MCV 99.4 H MCH 28.9 MCHC 29.1 L RDW 18.2 H Plt Count 268 MPV 8.8 L Absolute Nucleated RBC 0.030 H Nucleated RBC % (auto) 0.4 H Anion Gap Estim Creat Clear Calc Estimated GFR POC Glucose 221 H 154 H Random Glucose Calcium Phosphorus Magnesium Procalcitonin 09/20/22 09/20/22 09/20/22 06:01 07:02 11:07 MCV MCH MCHC RDW Plt Count MPV Absolute Nucleated RBC Nucleated RBC % (auto) Anion Gap 11 L Estim Creat Clear Calc 55.4 Estimated GFR > 60 POC Glucose 150 H 195 H Random Glucose 156 H Calcium 7.9 L Phosphorus 1.9 L Magnesium 2.0 Procalcitonin 0.36 Assessment and Plan (1) Acute respiratory failure with hypoxia: Status: Acute (2) Failure to thrive in adult: Status: Acute (3) Sepsis: Status: Acute (4) Persistent atrial fibrillation: Status: Acute Plan 82yo F with HFpEF, chronic AF on rivaroxaban, hypothyroidism, aortic stenosis, DM2, GERD long-term resident of [facility] presenting with dyspnea, found to have left lung collapse from pleural effusion requiring chest tube course complicated by hypotension requiring brief 1-d stay in ICU 09/06 # critical aortic stenosis - not an operative candidate due to poor functional status; high-risk for anesthesia for PEG tube placement; as such, spoke with patient's niece/HCP Paz and informed about it , according to her patient was eating fine in August, she agrees to discharge patient back to rehab facility and obtain hospice evaluation continue encouragement for feedings, continue mirtazepine. Lasix discontinued due to critical and risk of hypotension, there is also risk of congestive heart failure needs close clinical follow-up. # acute hypoxic resp failure and sepsis due to pleural effusion/pneumonia - chest tube out 09/11/22, weaned off O2, on day of amp-sulbactam- will DC antibiotics WBC normalized no fevers PCT stranding down. # atypical chest pain - resolved, troponin flat # hypoK - repleted, will change potassium powder to potassium tablet since patient refusing powder will repeat BMP at a.m. # hyperNa - 1.8L free water deficit, received IV D5W, sodium remains elevated at 146, likely due to decreased by mouth intake will give additional IV fluids and recheck BMP in AM # hypophosphatemia likely due to poor by mouth intake will replace phosphorous and follow level. # chronic AF - rate control adequate- continue digoxin + metoprolol, amiodarone discontinued since it was not working and patient remained in AFib resume Xarelto since no further surgery planned # stage 3 pressure wound on coccyx - repositioning, airloss bed, Ensure. # malnutrition - PEG tube canceled due to aortic stenosis, resume mirtazapine, spoke with niece she is requesting for hospice care at nursing facility # DM2 - correction-dose lispro, DM diet, check hemoglobin A1c, patient was not on insulin prior to admission. # hypothyroidism - LT4 # VTE ppx: rivaroxaban, dc lovenox # dispo: discharged back to nursing facility In my clinical judgment, the patient requires continued inpatient hospitalization for the following reasons: hyperNa Time Spent With Patient Time: Total time managing care of this patient today ____ minutes. Quality Stroke Does the patient have a stroke diagnosis?: No VTE Prior VTE?: No VTE Risk Level:: Medical - moderate - high VTE Device Contraindication: N/A - Device Ordered VTE Drug Contraindication: Treatment Not Indicated
[2022-09-20 15:24] VITALS: BP 133/61; PULSE 60; RESP 16; TEMP 36.6; O2SAT 92
[2022-09-20 16:21] LABS: Glucose, Whole Blood 206 mg/dL (60-115)
--- NOTE | 2022-09-20 17:00 | P.CDIM_ITS ---
PROVIDER RESPONSE TEXT: To clarify, the appropriate diagnosis supported by the clinical indicators: Other (explain): stage 3 pressure ulcer coccyx no change since admission QUERY TEXT: PHYSICIAN'S DOCUMENTATION REQUEST Date of Query: 09/20/2022 01:25 PM EDT Patient Name: Noemi Hall Admit Date: 09/02/2022 Dear Camilla Green, A review of the medical record indicates additional documentation may be needed. Please review below and update the documentation accordingly. Clinical Indicators: Per nursing pressure injury assessment 09/20/22: stage 3 medial coccyx Per Hospitalist Progress Note 09/08/22: stage 2 pressure ulcer to coccyx, present on admission - continue local wound care, frequent position changes and glucerna supplements Based on the above, could you please provide further information regarding the ulcer/wound has progre ssed since admission: Yes, pressure ulcer coccyx has progressed from stage 2 to stage 3 No, pressure ulcer coccyx has not progressed from stage 2 to stage 3 Other (explain)Clinically unable to determine (explain)Thank you, Martha Day RN Use of terms such as suspected, likely, concern for, or probable (associated with a specific diagnosi s that is being evaluated, monitored, or treated as if it exists) are acceptable and can be coded in the inpatient se tting, when documented at the time of discharge. Please use your independent medical judgment in providing your response. THIS QUERY IS PART OF THE PERMANENT MEDICAL RECORD
[2022-09-20] MEDS: Insulin Lispro 100 UNIT/ML 3 ML VIAL SUBCUT ×2 (17:04)
[2022-09-20] MEDS: Dextrose 5 % 1,000 ML 50 ML IVCONT (17:04)
[2022-09-20] MEDS: 0.9 % Sodium Chloride Flush 3 ML SYRINGE IVFLUSH (17:05)
[2022-09-20] MEDS: Rivaroxaban 20 MG TABLET PO (17:05)
[2022-09-20 19:22] VITALS: BP 126/58; PULSE 62; RESP 16; TEMP 36.5; O2SAT 96
[2022-09-20 19:32] LABS: Glucose, Whole Blood 118 mg/dL (60-115)
[2022-09-20] MEDS: Mirtazapine 7.5 MG TABLET PO (22:14)
[2022-09-20] MEDS: Sodium,Potassium Phosphates POWD.PACK 1 PACKET PO (22:14)
[2022-09-21] VITALS: BP 137/60; PULSE 66; RESP 16; TEMP 36.8; O2SAT 96
[2022-09-21 03:15] VITALS: BP 132/60; PULSE 67; RESP 16; TEMP 36.9; O2SAT 95
[2022-09-21] MEDS: Omeprazole 20 MG CAPSULE.DR PO (04:28)
[2022-09-21] MEDS: Levothyroxine Sodium 25 MCG TABLET PO (04:28)
[2022-09-21] MEDS: Acetaminophen 325 MG TABLET 650 MG PO (04:28)
[2022-09-21 06:58] LABS: Anion Gap 14 (12-20); Blood Urea Nitrogen 20 mg/dL (9-16); Calcium 7.9 mg/dL (8.4-10.2); Carbon Dioxide 21 mmol/L (22-29); Chloride 110 mmol/L (96-108); Creatinine Clr Calc Pharmacy 52.4; Estimated Glomerular Filt Rate > 60; Glucose Random 135 mg/dL (60-115); Sodium 142 mmol/L (135-145)
[2022-09-21 07:22] LABS: Glucose, Whole Blood 150 mg/dL (60-115)
[2022-09-21 07:30] VITALS: BP 126/60; PULSE 68; RESP 20; TEMP 36.9; O2SAT 96
[2022-09-21 08:56] LABS: Hemoglobin A1C 151.8177 umol/L
[2022-09-21 09:01] LABS: Estimated Average Glucose 163 mg/dL; Hemoglobin A1c % 7.3 %
[2022-09-21] MEDS: Metoprolol Tartrate 25 MG TABLET PO (10:31)
[2022-09-21] MEDS: Digoxin 0.125 MG TABLET PO (10:31)
[2022-09-21] MEDS: Sodium,Potassium Phosphates POWD.PACK 1 PACKET PO ×2 (10:32→14:27)
[2022-09-21] MEDS: 0.9 % Sodium Chloride Flush 3 ML SYRINGE IVFLUSH (10:32)
[2022-09-21 11:29] VITALS: BP 126/58; PULSE 72; RESP 18; TEMP 36.4; O2SAT 96
[2022-09-21 11:29] LABS: Glucose, Whole Blood 187 mg/dL (60-115)
[2022-09-21 12:37] LABS: Potassium 3.3 mmol/L (3.3-5.1)
[2022-09-21] MEDS: Insulin Lispro 100 UNIT/ML 3 ML VIAL SUBCUT ×2 (14:26)
--- NOTE | 2022-09-21 14:39 | P.DS_ITS ---
DS: Providers Provider Date of Service: 09/21/22 Date of admission: 09/01/22 21:01 Primary care physician: Iain Baxter MD Consults: 09/01/22 21:01 Consult to Pulmonology Routine Consulting Provider: [facility] Pulmonology Services Reason for consultation: left pleural effusion 09/01/22 23:04 Consult to Thoracic Surgery Routine Consulting Provider: [facility] Thoracic Surgeons Reason for consultation: large left pleural effusion 09/04/22 10:39 Consult to Cardiology Routine Consulting Provider: [facility] Cardiovascular Services Reason for consultation: afib rvr 09/18/22 07:51 Consult to Cardiology Routine Consulting Provider: [facility] Cardiovascular Services Reason for consultation: chest pain 09/19/22 11:49 Consult to Gastroenterology Routine Consulting Provider: [facility] Gastroenterology Services Reason for consultation: new onset cirrhosis. pancolitis? DS: Diagnosis Discharge Diagnosis (1) Acute respiratory failure with hypoxia: Status: Acute (2) Failure to thrive in adult: Status: Acute (3) Sepsis: Status: Acute (4) Persistent atrial fibrillation: Status: Acute DS: Summary Hospital Course Hospital Course: history of presenting illness: Date of Service: 09/01/22 Attending physician on admission: Nidia Polo Chief Complaint: Shortness of breath, dyspnea Pt is a 82-year-old female with a PMH significant for?HFpEF, chronic AFib on Xarelto, hypothyroidism, aortic stenosis, non insulin-dependent diabetes type 2, and GERD who presents to the ED from SNF via EMS with?shortness of breath and dyspnea.? Patient is alert and oriented to self and time only not to place or situation, and does not capable of providing an accurate HPI.? Attempt to contact the SNF for patient is a resident at, but to no avail.? HPI does obtained from chart and provider review.? Apparently patient has had progressively worsening shortness of breath and hypoxia for the past few days.? Staff at SNF and noticed her O2 sats were in the high 80s on RA, which improved to 94% on 3 L O2 when EMS arrived. In the ED patient was febrile up to 100.0, tachycardic up to the 140s, tachypneic up to 28, and hypertensive at 158/74, and satting at 95% O2 on 4 L NC. Labs were significant for leukocytosis 24.4, platelets of 622, random glucose of 427. CXR showed complete opacification of the left hemothorax which may reflect a combination of pleural effusion, consolidation, and/or collapse. CT?of chest showed large left pleural effusion with complete collapse of the le ft lung with deviation of mediastinum to the right. EKG demonstrated AFib with RVR of [address] elevation or depression. Pt was treated with IVF, vanc and Zosyn, diltiazem, and had a left-sided chest tube placed. Pt will be admitted to the hospital for further management and treatment of left-sided pleural effusion with complete collapse of her left lung with likely underlying pneumonia. hospital course: 82yo F with HFpEF, chronic AF on rivaroxaban, hypothyroidism, aortic stenosis, DM2, GERD long-term resident of [facility], presenting with dyspnea, found to have left lung collapse from pleural effusion requiring chest tube course complicated by hypotension requiring brief 1-d stay in ICU 09/06 # acute hypoxic resp failure and sepsis due to pleural effusion/pneumonia, underwent chest tube placement remove 165 received 18 days of IV Unasyn, WBC normalized oxygen weaned of now clinically stable with no fevers PCT trending down. complained of chest pain felt to be atypical to symptoms resolved troponin flat no further workup recommended. # hypoK - repleted, potassium improved to 3.3 recommend to continue potassium 20 mEq daily, follow BMP at a.m. and again next week, since patient not on Lasix therefore will not require continued potassium supp # hyperNa resolved with IV fluids recommend to push by mouth fluids #? hypophosphatemia likely due to poor by mouth intake, continue neutrophos and follow level. # chronic AF- rate control adequate- continue digoxin + metoprolol, amiodarone discontinued since patient remained in AFib, continue Xarelto . 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 ## critical aortic stenosis not a surgical candidate,? Lasix discontinued due to critical and risk of hypotension, there is also risk of congestive heart failure needs close clinical follow-up. # malnutrition - PEG tube canceled due to aortic stenosis and high risk for anesthesia, resume mirtazapine, spoke with niece she is requesting for hospice care at nursing facility # DM2 due to poor by mouth intake will discontinue insulin hemoglobin A1c 7.3 # hypothyroidism continue levothyroxine Time Spent with Patient Time attestation: Total time managing care of this patient today ____ minutes. Discharge coordination time: Greater than 30 minutes Quality: Safe Use of Opioids Does Pt have an Active Cancer Diagnosis on the Problem List?: No Quality: Stroke Does the patient have a stroke diagnosis?: No Physical Exam Vital Signs: Vital Signs: Last Vital Signs Temp 97.5 F 09/21/22 11:29 Pulse 72 09/21/22 11:29 Resp 18 09/21/22 11:29 BP 126/58 L 09/21/22 11:29 Pulse Ox 96 09/21/22 11:29 O2 Del Method Room Air 09/21/22 11:29 O2 Flow Rate 1 09/19/22 07:06 Oxygen Flow Rate 4 09/01/22 15:58 BMI result Body Mass Index 31.5 Const: Other: Gen:? awake, alert, in no acute distress. HEENT: sclera anicteric, moist mucus membranes Neck: supple Lungs:? clear to auscultation, no wheeze, no rhonchi Heart: regular rate and rhythm, systolic murmur at base Abd: soft, non-tender, non-distended, bowel sounds audible. Ext: no edema Skin: warm/well-perfused Neuro: alert and oriented x3, no focal findings. Psych: appropriate affect DS: Data Data Completed and Pending Labs on day of discharge: Laboratory Results - last 24 hr 09/20/22 09/20/22 09/21/22 16:16 19:21 06:07 Sodium 142 Potassium 3.0 L Chloride 110 H Carbon Dioxide 21 L Anion Gap 14 BUN 20 H Creatinine 0.75 Estim Creat Clear Calc 52.4 Estimated GFR > 60 POC Glucose 206 H 118 H Random Glucose 135 H Estimat Average Glucose Hemoglobin A1c % Calcium 7.9 L 09/21/22 09/21/22 09/21/22 06:07 07:17 11:25 Sodium Potassium Chloride Carbon Dioxide Anion Gap BUN Creatinine Estim Creat Clear Calc Estimated GFR POC Glucose 150 H 187 H Random Glucose Estimat Average Glucose 163 Hemoglobin A1c % 7.3 Calcium 09/21/22 12:22 Sodium Potassium 3.3 Chloride Carbon Dioxide Anion Gap BUN Creatinine Estim Creat Clear Calc Estimated GFR POC Glucose Random Glucose Estimat Average Glucose Hemoglobin A1c % Calcium Discharge Plan Discharge Anticipated Discharge Date/Time: 09/21/22 14:11 Patient Disposition: Xfer SNF Discharge Diagnosis: acute hypoxic respiratory failure sepsis due to pleural effusion/pneumonia critical aortic stenosis hypokalemia hypernatremia hypophosphatemia persistent atrial fibrillation stage III pressure wound on coccyx Referrals: Iain Baxter MD [Primary Care Provider] - 1 Week Discharge Medications: New digoxin 125 mcg (0.125 mg) Tablet 0.125 mg PO DAILY Qty: 30 0RF metoprolol tartrate 25 mg Tablet 25 mg PO BID Qty: 60 0RF Protocol: Hold for SBP/HR < HOLD for SBP < : 90 HOLD for HR < : 60 potassium chloride 20 mEq Tablet,Er Particles/Crystals 20 meq PO DAILY Qty: 30 0RF potassium, sodium phosphates [Phos-NaK] 280-160-250 mg Powder In Packet 1 packet PO BID Qty: 100 0RF Continued Xarelto 20 mg tablet 1 tab PO DAILY latanoprost 0.005 % Drops 1 drp OPHTHALMIC (EYE) DAILY sennosides [senna] 8.6 mg Tablet 17.2 mg PO DAILY levothyroxine 25 mcg Tablet 25 mcg PO DAILY@0600 polyethylene glycol 3350 [Miralax] 17 gram/dose Powder 17 g PO DAILY mirtazapine 7.5 mg Tablet 7.5 mg PO BEDTIME PreserVision AREDS [id number] Capsule 1 cap PO BID magnesium hydroxide [Milk of Magnesia] 400 mg/5 mL Suspension 30 ml PO DAILY PRN (Reason: Constipation) bisacodyl 10 mg Suppository 10 mg KS DAILY PRN (Reason: Constipation) brimonidine 0.2 % Drops 1 drp ophthalmic (eye) BID dorzolamide-timolol 22.3-6.8 mg/mL Drops 1 drp OPHTHALMIC (EYE) BID tramadol 50 mg tablet 50 mg PO BID PRN (Reason: Pain) Rx Instructions: pain from tibia fracture acetaminophen 500 mg Tablet 1,000 mg PO TID PRN (Reason: Pain) Rx Instructions: due to pain from tibia fracture calcium carbonate 600 mg calcium (1,500 mg) Tablet 600 mg PO BEDTIME Fleet Enema 19-7 gram/118 mL Enema 118 ml KS DAILY PRN (Reason: Constipation) omeprazole 20 mg Capsule,Delayed Release(Dr/Ec) 20 mg PO DAILY@0630 gabapentin 100 mg capsule 200 mg PO TID guaifenesin 400 mg Tablet 400 mg PO TID PRN (Reason: Cough) Discontinued melatonin 5 mg Tablet 10 mg PO BEDTIME PRN (Reason: Insomnia) amiodarone 200 mg Tablet 200 mg PO DAILY Qty: 0 0RF furosemide [Lasix] 40 mg tablet 40 mg PO DAILY Qty: 30 0RF potassium chloride 10 mEq tablet extended release 10 meq PO DAILY metoprolol tartrate 25 mg tablet 12.5 mg PO BID Discharge Orders: Discharge Order (Routine); Ordered 09/21/22 Ordered By: Camilla Green Diet: Advance to usual diet Activity on Discharge: As tolerated Stand Alone Forms: Patient Portal Discharge page Care Plan Goals: continue all medications as prescribed poor by mouth intake less than 25% of meals in last several days not a candidate for PEG tube placement due to high risk for anesthesia with underlying severe aortic stenosis healthcare proxy requested for HOSPICE evaluation at nursing facility Health Concerns: poor by mouth intake critical aortic stenosis hypokalemia check potassium level at a.m. and Q weekly to adjust dose of potassium supplement, patient not on diuretics therefore might not require potassium supplement long-term. check phosphorous level at a.m. Plan of Treatment: follow-up with primary care physician Assessment: as above
[2022-09-21 15:45] VITALS: BP 147/67; PULSE 64; RESP 17; TEMP 36.9; O2SAT 95
--- NOTE | 2022-09-21 15:45 | MHC.CM.PN ---
Addendum entered by Estrella Lucio 09/22/22 15:05: CM RECEIVED A RETURN CALL FROM [facility] TODAY SHE REPORTS SHE IS UNSURE IF THE SNF ARRANGED HOSPICE SERVICES FOR THE PT AND ASKS THAT CM CONFIRM CM SPOKE WITH LIAISON AT [facility], WHO WILL CONFIRM AND CALL T/W BACK Original Note: PT WILL RETURN TO [facility] TODAY WITH A PLAN TO SIGN ONTO HOSPICE CARE ONCE THERE CM CALLED [facility] SANDIE, GABRIELLA [phone] AND LEFT A VM INFORMING HER OF 1600 DC TIME BLS TRANSPORT ARRANGED VIA [place]
[2022-09-21 16:01] LABS: Glucose, Whole Blood 183 mg/dL (60-115)
[2022-09-21] MEDS: Potassium Chloride ER 10 MEQ TABLET.ER PO (16:12)
== END 2022-09-21 17:43 | disposition skilled nursing facility (03) | DRG 871 ==
LOC: HO.ED 16:36 → HO.EDOVER 21:11 → HO.IMC 21:23 → HO.ICU 09-06 01:32 → HO.IMC 09-06 11:09
PROVIDERS: Family Medicine; Hospitalist; Nurse Practitioner Acute Care; Nurse Practitioner Family; Physician Assistant; Physician Assistant Medical; Physician Assistant Surgical; Student in an Organized Health Care Education/Training Program; Admitting Provider Student in an Organized Health Care Education/Training Program; Emergency Provider Internal Medicine; PCP Family Medicine; Visit Provider Hospitalist
DX: A41.9 Sepsis, unspecified organism (principal); G92.8 Other toxic encephalopathy; L89.153 Pressure ulcer of sacral region, stage 3; J18.9 Pneumonia, unspecified organism; J96.01 Acute respiratory failure with hypoxia; I50.33 Acute on chronic diastolic (congestive) heart failure; J91.8 Pleural effusion in other conditions classified elsewhere; J98.11 Atelectasis; I48.19 Other persistent atrial fibrillation; E87.0 Hyperosmolality and hypernatremia; D68.59 Other primary thrombophilia; K52.1 Toxic gastroenteritis and colitis; Z66 Do not resuscitate; E11.65 Type 2 diabetes mellitus with hyperglycemia; I35.0 Nonrheumatic aortic (valve) stenosis; I95.9 Hypotension, unspecified; E86.1 Hypovolemia; R33.9 Retention of urine, unspecified; E88.09 Other disorders of plasma-protein metabolism, not elsewhere classified; I87.2 Venous insufficiency (chronic) (peripheral); E03.9 Hypothyroidism, unspecified; T36.95XA Adverse effect of unspecified systemic antibiotic, initial encounter; R07.89 Other chest pain; R62.7 Adult failure to thrive; Z68.31 Body mass index [BMI] 31.0-31.9, adult; E83.39 Other disorders of phosphorus metabolism; D64.9 Anemia, unspecified; E78.5 Hyperlipidemia, unspecified; Z20.822 Contact with and (suspected) exposure to COVID-19; Z74.01 Bed confinement status; Z91.148 Patient's other noncompliance with medication regimen for other reason; Z79.01 Long term (current) use of anticoagulants; Z79.890 Hormone replacement therapy; Z79.899 Other long term (current) drug therapy
CPT/HCPCS: 36415; 36600; 71045; 71250; 74177; 80048; 80076; 82040; 82042; 82140; 82803; 82945; 82947; 83036; 83605; 83615; 83735; 83880; 83986; 84100; 84132; 84145; 84157; 84484; 85025; 85027; 85610; 85652; 85730; 86038; 86200; 87040; 87070; 87073; 87205; 87635; 89051; 92950; 93005; 93306; 99285; C1758; J0171; J0295; J1650; J1940; J2270; J2405; J2543; J2997; J3370; P9047; Q9957; Q9967